=== PATIENT | female | born 1995 | race Caucasian/White ===

== ENCOUNTER 2017-04-21 16:04 | Emergency (ER) | payer SELFPAY ==
[2017-04-21 16:04] VITALS: BP 150/87; PULSE 101; RESP 14; TEMP 37.2; O2SAT 99; BMI 29.0
--- NOTE | 2017-04-21 16:49 | CT_ITS ---
STUDY: CT ABDOMEN AND PELVIS WITHOUT CONTRAST REASON FOR EXAM: Female, 21 years old. Right flank pain. Fever. History of renal stones. RADIATION DOSAGE (If Supplied By Facility): CTDIvol = ( 8.35 ) mGy, DLP = ( 421.36 ) mGycm TECHNIQUE: Transaxial images were obtained from the dome of the diaphragm to the symphysis pubis without oral contrast, and without intravenous contrast. Sagittal and coronal images were reconstructed. Individualized dose optimization techniques were used for this CT. COMPARISON: 01/14/2016. FINDINGS: The visualized lung bases are unremarkable. The visualized portions of the heart are within normal limits. Normal liver. Normal gallbladder and extrahepatic biliary system. Normal spleen. Normal pancreas. Normal bilateral adrenal glands. Normal right kidney. No stones. No hydronephrosis. Left kidney is absent. Evaluation of the GI tract is limited by absence of oral contrast. Cannot exclude stomach wall thickening. No dilated loops of bowel or evidence for obstruction. Cannot exclude segmental thickening of the aguero of the small or large bowel. Cannot exclude enteritis or colitis. Moderate diffuse fecal retention. Diverticulosis without definite diverticulitis. Status post appendectomy. Normal abdominal aorta. Normal inferior vena cava. Normal retroperitoneum. Normal urinary bladder. Absent uterus. Normal abdominal wall. Normal osseous structures. CT/Abdomen/Pelvis without Cont IMPRESSION: No definite acute abnormality. Electronically Signed: Matthias Epps MD at 17:58 EST , Service support ,
--- NOTE | 2017-04-21 16:50 | ED.VISSUMM ---
- ER Visit Summary Date of Service: 04/21/17 Chief Complaint: Right flank pain History of Present Illness: The patient is a 21 F 3 day history increasing right flank pain. No radicular symptoms. Yesterday started having dysuria and fever with temperature of 100. Nausea without vomiting. 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 She has had pyelonephritis 2 years ago requiring admission. Also had kidney stone in the past. Pain is sharp 10 out of 10. Denies any history of acute kidney injury. Physical Examination: General: Alert and oriented ?3, uncomfortable HEENT: Normocephalic, atraumatic. Moist mucosa membranes Neck: supple, nontender. Cardiovascular: Regular rate and rhythm, no murmurs Respiratory: Normal breath sounds, symmetric, no distress Abdomen: Soft, nontender, nondistended. No guarding or rebound Back: Right CVA tenderness, no rash Extremities: Nontender, no edema, pulses intact ?4 Neuro: no focal neurological deficits. Test Results: WBC 5.1. Creatinine is 1.01. Urine with leukocytes, white blood cell count, blood. Urine culture pending. CT abdomen pelvis and no acute process. Emergency Department Course and Treatment: Patient with right flank pain. Renal stone protocol initiated. Urine did note infection, culture pending. Was started on Rocephin. CT scan due to significant flank pain complaints along with history of pyelo-and renal stones. Results are negative. She was treated with morphine, Zofran and fluids. She started Rocephin IV. She will be given 10 days of treatment for a complicated UTI with flank pain. She will follow-up with her PCP for reevaluation. All questions were answered. Treatment Plan: [] Disposition: Discharge Impression: 1. Complicated UTI with hematuria This note was generated with [employer] dictation software. It may contain incorrect words, spelling, and punctuation that were not noted in review of the chart prior to signing ED Disposition - Plan for ED Patient: Disposition: Home or Assisted Living Chief Complaint: Flank Pain Diagnosis: Urinary tract infection Instructions: Urinary Tract Infections in Women Prescriptions: Cephalexin [Keflex] 500 mg PO Q12 #20 capsule Referrals: Jassi Mckeon [Primary Care Provider] - 3-5 Days
[2017-04-21 16:51] LABS: Pregnancy, Serum, hCG Quali. NEGATIVE Negative (0-9 Nonpreg)
[2017-04-21 17:06] LABS: Bacteria 0 SEEN /hpf (None Seen); Mucous, Urine 0 SEEN /hpf (<or=2+)
[2017-04-21] MEDS: Ondansetron 4 MG/2 ML Vial IV (17:06)
[2017-04-21] MEDS: 0.9% Normal Saline 1,000 ML 150 ML IV (17:07)
[2017-04-21 17:09] LABS: Color, Urine Yellow (Yellow); Glucose, Dipstick Normal (Normal); Ketone-Dipstick Negative (Negative); Leukocyte Esterase-Dipstick 500 /ul (Negative); Nitrite-Dipstick Negative (Negative); Occult Blood-Urine 10 /ul (Negative); Protein-Dipstick Negative (Negative); Urine Bilirubin Dipstick Negative (Negative); Urine Clarity Sl. Cloudy (Clear); Urine Urobilinogen Normal (Normal)
[2017-04-21 17:21] LABS: Absolute Lymphocyte Count 0.99 X10^3/ul (0.83-4.51); Absolute Neutrophil Count 3.5 X10^3/uL (2.0-7.7); Basophil# 0.01 X10^3/uL; Basophil% 0.2 % (0-1); Eosinophil# 0.03 X10^3/uL; Eosinophils% 0.6 % (0-5); Hematocrit 44.5 % (37-47); Hemoglobin 14.7 g/dl (12.0-15.0); Lymphocyte # 0.99 X10^3/ul (4.0); Lymphocyte % 19.5 % (19-41); Mean Corpuscular Hgb 29.4 pg (27.0-32.0); Mean Platelet Vol. 9.8 fl (6.2-12.0); Monocyte# 0.51 X10^3/uL; Neutrophil # 3.53 X10^3/uL (2.7-7.7); Neutrophil % 69.5 % (47-70); Platelet Count 187 K/mm3 (150-450); RBC Distribution Width CV 12.8 % (11.6-14.6); RBC Distribution Width SD 40.9 fl (35.1-43.9); White Blood Count 5.1 K/mm3 (4.4-11.0)
[2017-04-21 17:22] LABS: POSITIVE COUNT NO; POSITIVE DIFFERENTIAL NO; POSITIVE MORPHOLOGY NO
[2017-04-21 17:30] LABS: Anion Gap 5 (5-15); BUN 11 mg/dL (7-18); BUN/Creat Ratio 10.9 RATIO (10-20); Calcium,Total 8.9 mg/dL (8.5-10.1); Chloride 104 mmol/L (98-107); Creatinine, Serum 1.01 mg/dL (0.55-1.02); EST Glomerular Filtration Rate 74 mL/min (>60); Est Glom Filt Rate - Afr Amer 89 mL/min (>60); Estimated Creatinine Clearance 76.72 ml/min; Glucose 82 mg/dL (74-106); Sodium Level 137 mmol/L (136-145)
[2017-04-21 17:47] LABS: Red Blood Cells-Urine 0-5 SEEN /hpf (0-5); White Blood Cells 10-25 SEEN /hpf (0-5)
[2017-04-21 17:48] LABS: Amorphous Sediment 1+ URATE; Squamous Epithelial Cells - UA 5-10 SEEN /hpf (5-10)
[2017-04-21 18:07] VITALS: PULSE 89; RESP 14
[2017-04-21] MEDS: Ceftriaxone 1 GM/50 ML BAG IV (18:12)
[2017-04-21 19:10] VITALS: RESP 18
== END 2017-04-21 19:10 | disposition home or self-care (01) ==
PROVIDERS: Emergency Provider Emergency Medicine; Family Provider Physician Assistant; PCP Physician Assistant
DX: N39.0 Urinary tract infection, site not specified (principal); R31.9 Hematuria, unspecified; Z87.442 Personal history of urinary calculi
CPT/HCPCS: 74176; 80048; 81001; 84703; 85025; 87077; 87086; 87088; 96361; 96365; 96375; 99283; J7030; A4216; J2405

== ENCOUNTER 2017-04-23 00:33 | Emergency (ER) | payer SELFPAY ==
[2017-04-23 00:34] VITALS: BP 141/98; PULSE 124; RESP 24; TEMP 37.3; O2SAT 97; BMI 29.0
[2017-04-23] MEDS: Ketorolac 30 MG/ML Syringe IM (01:02)
[2017-04-23] MEDS: Ondansetron ODT 4 MG Tablet 8 MG PO (01:03)
[2017-04-23 01:09] LABS: Absolute Lymphocyte Count 0.75 X10^3/ul (0.83-4.51); Absolute Neutrophil Count 2.3 X10^3/uL (2.0-7.7); Basophil# 0.02 X10^3/uL; Basophil% 0.6 % (0-1); Eosinophil# 0.02 X10^3/uL; Eosinophils% 0.6 % (0-5); Hematocrit 41.9 % (37-47); Hemoglobin 14.3 g/dl (12.0-15.0); Lymphocyte # 0.75 X10^3/ul (4.0); Lymphocyte % 21.6 % (19-41); Mean Corp Hgb Conc 34.1 g/gl (32-36); Mean Corpuscular Hgb 29.5 pg (27.0-32.0); Mean Corpuscular Volume 86.6 fL (81-99); Mean Platelet Vol. 9.6 fl (6.2-12.0); Monocyte% 11.5 % (0-10); Neutrophil # 2.28 X10^3/uL (2.7-7.7); Neutrophil % 65.4 % (47-70); POSITIVE COUNT NO; POSITIVE DIFFERENTIAL NO; POSITIVE MORPHOLOGY NO; Platelet Count 117 K/mm3 (150-450); RBC Distribution Width CV 12.5 % (11.6-14.6); RBC Distribution Width SD 39.1 fl (35.1-43.9); Red Blood Count 4.84 M/mm3 (4.2-5.4); White Blood Count 3.5 K/mm3 (4.4-11.0)
[2017-04-23 01:33] LABS: AST(SGOT) 28 U/L (15-37); Alanine Aminotransfer ALT/SGPT 30 U/L (13-56); Albumin, Serum 3.5 g/dL (3.2-5.0); Alkaline Phosphatase 77 U/L (45-117); Anion Gap 7 (5-15); BUN 12 mg/dL (7-18); BUN/Creat Ratio 11.1 RATIO (10-20); Bilirubin, Direct 0.08 mg/dL (0.00-0.30); Calcium,Total 8.4 mg/dL (8.5-10.1); Chloride 108 mmol/L (98-107); Creatinine, Serum 1.08 mg/dL (0.55-1.02); EST Glomerular Filtration Rate 68 mL/min (>60); Est Glom Filt Rate - Afr Amer 83 mL/min (>60); Estimated Creatinine Clearance 71.75 ml/min; Globulin 3.8 g/dL (2.2-4.2); Glucose 99 mg/dL (74-106); Potassium 3.7 mmol/L (3.5-5.1); Protein, Total 7.3 g/dL (6.4-8.2); Sodium Level 139 mmol/L (136-145)
--- NOTE | 2017-04-23 01:52 | ED.VISSUMM ---
- ER Visit Summary Date of Service: 04/23/17 Chief Complaint: [] Right-sided flank and back pain History of Present Illness: The patient is a 21 F complaining of the above for last 4 days. Sharp dull pain worse with movement associated with 4 days of nausea. She was seen in the emergency department 2 days ago diagnosed with a complicated urinary tract infection. Placed on Keflex. Urine culture was sent. There is no bacteria seen under the micro however. Occasionally she gets some chills. Her temperature she stated has been hovering around 100 for the last few days. Physical Examination: [] Vital signs reviewed General: Well-nourished well-developed Head: Normocephalic atraumatic Eyes: Pupils equal round and reactive to light extraocular movements intact ENT: TMs clear no hemotympanum no trauma Neck: Nontender full range of motion Cardiovascular: Regular rate rhythm no murmurs normal S1-S2 Respiratory: No distress clear to auscultation bilaterally chest nontender Abdomen: Soft nontender nondistended normal bowel sounds no masses Back: Mild tenderness right lower ribs and lower back. No CVA tenderness decreased range of motion secondary to pain in this area Extremities: Nontender active range of motion ?4 extremities no trauma Skin: Normal color no trauma Neuro alert oriented cranial nerves II through XII intact normal strength sensation reflexes Test Results: [] Emergency Department Course and Treatment: [] I reviewed her negative urine culture with her. At this time it does not appear to be an infection. CBC normal except white count 3.5. Chemistries normal except chloride 108. Liver function tests normal. Patient given Toradol and Zofran with good resolution of symptoms. I do not feel this is infectious. Her culture was reviewed per limits negative. She will stop her antibiotic and follow-up as an outpatient. I feel this is musculoskeletal. She had a negative CT abdomen pelvis 2 days ago. She will treat this symptomatically with Tylenol. Afebrile here. Nontoxic. Resting comfortably. Treatment Plan: [] Disposition: [] Impression: [] Right-sided flank and back pain suspect musculoskeletal in ideology This note was generated with [employer] dictation software. It may contain incorrect words, spelling, and punctuation that were not noted in review of the chart prior to signing ED Disposition - Plan for ED Patient: Chief Complaint: Flank Pain Referrals: Jassi Mckeon [Primary Care Provider] -
--- NOTE | 2017-04-23 01:54 | ED.DEP ---
ED Disposition - Plan for ED Patient: Disposition: Home or Assisted Living Chief Complaint: Flank Pain Instructions: Relieving Back Pain Referrals: Jassi Mckeon [Primary Care Provider] -
== END 2017-04-23 02:01 | disposition home or self-care (01) ==
PROVIDERS: Emergency Provider Emergency Medicine; Family Provider Physician Assistant; PCP Physician Assistant
DX: R10.9 Unspecified abdominal pain (principal); M54.9 Dorsalgia, unspecified; Z87.440 Personal history of urinary (tract) infections
CPT/HCPCS: 80048; 80076; 85025; 96372; 99282; J7040; A4216

== ENCOUNTER 2017-05-01 20:41 | Emergency (ER) | payer SELFPAY ==
[2017-05-01 20:42] VITALS: BP 154/97; PULSE 115; RESP 16; TEMP 37.7; O2SAT 96; BMI 29.2
--- NOTE | 2017-05-01 20:59 | EKG12_ITS ---
Test Reason : SOB Blood Pressure : / mmHG Vent. Rate : 105 BPM Atrial Rate : 105 BPM P-R Int : 116 ms QRS Dur : 070 ms QT Int : 316 ms P-R-T Axes : 041 043 009 degrees QTc Int : 417 ms Sinus tachycardia Otherwise normal ECG Confirmed by YANELIS RAMIREZ, CRISTOBAL ([id number]), website/blog editor RACHAEL LIZARRAGA ([id number]) on 05/04/2017 4:08:41 PM Referred By: JUDI Confirmed By:CRISTOBAL HILARIO MD
--- NOTE | 2017-05-01 21:11 | ED.VISSUMM ---
- ER Visit Summary Date of Service: 05/01/17 Chief Complaint: Patient cough and chest discomfort History of Present Illness: The patient is a 21 F 1 week history of nonproductive cough with anterior chest pain. Pain with deep breaths. States has exertional dyspnea. No recent travel, surgeries, or immobilizations. No history of PE or DVT. No tobacco history. Denies being on any oral contraceptives. Past medical history of kidney stones, history of MRKH born with one kidney and no uterus or ovaries. subjective fevers. No urinary symptoms. Physical Examination: General: Alert and oriented ?3, no acute distress HEENT: Normocephalic, atraumatic. Moist mucosa membranes Neck: supple, nontender. Cardiovascular: Regular tachycardic rate and rhythm, no murmurs Respiratory: Normal breath sounds, symmetric, no distress Abdomen: Soft, nontender, nondistended Extremities: Nontender, no edema, pulses intact ?4 Neuro: no focal neurological deficits. Test Results: EKG: Sinus rate of 105, no ST changes. Isolated T-wave inversion in leads III. Chest x-ray negative. White count 5.7. D-dimer 1.03. Emergency Department Course and Treatment: No complaints of URI symptoms with worsening chest pains with cough and deep breath. Low risk Wells criteria for PE due to elevated heart rate. Chest x-ray negative. EKG normal. D-dimer obtained which is elevated. Subsequent CT of the chest negative for PE or dissection. No pneumonia. Due to having one kidney, NSAIDs were avoided. She was given dose of morphine for symptom control. Discussed pleuritic symptoms. Her heart scores a 1. She will continue Tylenol at home as needed. She will follow-up with her PCP for reevaluation. All questions were answered. Treatment Plan: [] Disposition: Discharge Impression: 1. Pleuritic chest pain 2. Upper respiratory infection This note was generated with [employer] dictation software. It may contain incorrect words, spelling, and punctuation that were not noted in review of the chart prior to signing ED Disposition - Plan for ED Patient: Disposition: Home or Assisted Living Chief Complaint: Shortness of Breath Diagnosis: Pleuritic chest pain, Upper respiratory infection Instructions: ED Chest Pain Pleurisy, ED URI Viral Referrals: Jassi Mckeon [Primary Care Provider] - 3-5 Days
[2017-05-01] MEDS: Ondansetron 4 MG/2 ML Vial IV (21:12)
[2017-05-01 21:16] VITALS: O2SAT 95
--- NOTE | 2017-05-01 21:18 | RAD_ITS ---
STUDY: X-RAY CHEST REASON FOR EXAM: Female, 21 years old. Cough and fever TECHNIQUE: PA and lateral views of the chest. COMPARISON: March 11, 2017 FINDINGS: There is no significant interval change since the prior examination. No new focal consolidation is visualized. Normal size heart. Normal mediastinum and carmen. Normal visualized pulmonary arteries. Normal visualized aortic arch and descending thoracic aorta. Normal visualized thoracic spine. Normal visualized ribs, clavicles, and shoulders. There is no demonstrated abnormality of the visualized soft tissue structures of the upper abdomen. RAD/Chest PA and Lateral IMPRESSION: No acute cardiopulmonary process. Electronically Signed: Laine Cook MD at 22:06 EDT Tel , Service support ,
[2017-05-01 21:31] LABS: Absolute Lymphocyte Count 2.19 X10^3/ul (0.83-4.51); Absolute Neutrophil Count 2.8 X10^3/uL (2.0-7.7); Basophil# 0.07 X10^3/uL; Basophil% 1.2 % (0-1); Eosinophil# 0.04 X10^3/uL; Eosinophils% 0.7 % (0-5); Hematocrit 39.9 % (37-47); Hemoglobin 13.2 g/dl (12.0-15.0); Lymphocyte # 2.19 X10^3/ul (4.0); Lymphocyte % 38.2 % (19-41); Mean Corp Hgb Conc 33.1 g/gl (32-36); Mean Corpuscular Hgb 29.1 pg (27.0-32.0); Mean Corpuscular Volume 88.1 fL (81-99); Monocyte# 0.59 X10^3/uL; Monocyte% 10.3 % (0-10); Neutrophil # 2.83 X10^3/uL (2.7-7.7); Neutrophil % 49.4 % (47-70); Platelet Count 144 K/mm3 (150-450); RBC Distribution Width CV 13.4 % (11.6-14.6); RBC Distribution Width SD 42.8 fl (35.1-43.9); Red Blood Count 4.53 M/mm3 (4.2-5.4); White Blood Count 5.7 K/mm3 (4.4-11.0)
[2017-05-01 21:38] LABS: Differential Indicated SCAN CRITERIA MET; POSITIVE COUNT NO; POSITIVE DIFFERENTIAL NO; POSITIVE MORPHOLOGY YES
[2017-05-01 21:39] LABS: Anion Gap 9 (5-15); BUN 10 mg/dL (7-18); BUN/Creat Ratio 8.3 RATIO (10-20); Calcium,Total 7.9 mg/dL (8.5-10.1); Chloride 107 mmol/L (98-107); Creatinine, Serum 1.21 mg/dL (0.55-1.02); D-Dimer Quantitative (DVT/PE) 1.03 FEU/ug/m (0.27-0.49); EST Glomerular Filtration Rate 60 mL/min (>60); Est Glom Filt Rate - Afr Amer 73 mL/min (>60); Estimated Creatinine Clearance 64.04 ml/min; Glucose 111 mg/dL (74-106); Potassium 3.9 mmol/L (3.5-5.1); Sodium Level 139 mmol/L (136-145)
--- NOTE | 2017-05-01 21:43 | NURSING ---
LAB CALLED WITH CRITICAL OF 1.03 DDIMER.
[2017-05-01 21:45] LABS: Differential Comment SCANNED
--- NOTE | 2017-05-01 22:30 | CT_ITS ---
STUDY: CTA CHEST REASON FOR EXAM: Female, 21 years old. Chest pain. RADIATION DOSAGE (If Supplied By Facility): CTDIvol = ( 11. ) mGy, DLP = ( ) mGycm TECHNIQUE: The examination was performed with the intravenous administration of 100ML ml of Isovue 370 contrast material. Post-processing of the angiographic images was performed, with multiplanar reformation and 3D reconstruction. Individualized dose optimization techniques were used for this CT. COMPARISON: CT of the abdomen and pelvis dated April 21, 2017 FINDINGS: Normal enhancement of the main pulmonary artery and right and left pulmonary arteries. Normal enhancement of the bilateral peripheral pulmonary arteries. There is no demonstrated pulmonary embolism. Normal thoracic aorta and visualized great vessels. There is no demonstrated aortic dissection. Normal heart and pericardium. Normal mediastinum. Normal hilar regions. Normal visualized trachea and bronchi. There is a stable 3.3 mm nodule within the left lower lobe. Normal chest wall structures. Normal osseous structures. The limited images of the upper abdomen demonstrate a diffusely low in attenuation liver consistent with fatty infiltration. There is borderline splenomegaly present. CT/CTA Chest W/WO Contrast IMPRESSION: No demonstrated pulmonary embolism or arterial dissection. Fatty infiltration of the liver. Borderline splenomegaly. Electronically Signed: Laine Cook MD at 22:56 EDT Tel , Service support ,
--- NOTE | 2017-05-01 22:52 | NURSING ---
LET THE DOCTOR KNOW THAT THE PT WAS C/O OF MORE SOB AND CHEST PAIN.
[2017-05-01 23:22] VITALS: BP 139/93; PULSE 93; RESP 25; O2SAT 94
[2017-05-02 00:09] VITALS: BP 104/76; PULSE 95; RESP 32; O2SAT 96
[2017-05-02 00:20] VITALS: BP 104/76; PULSE 95; RESP 28; O2SAT 95
--- NOTE | 2017-05-02 00:21 | ED.RN ---
IV DC'ED, CATHETER INTACT, SMALL GAUZE DRESSING PLACED. DISCHARGE INSTRUCTIONS GIVEN TO AND REVIEWED WITH PATIENT, PATIENT DENIES QUESTIONS OR CONCERNS AND VOICES UNDERSTANDING OF DISCHARGE INSTRUCTIONS. PT AMBULATES OUT OF ROOM WITHOUT DIFFICULTY.
== END 2017-05-02 00:23 | disposition home or self-care (01) ==
PROVIDERS: Emergency Provider Emergency Medicine; Family Provider Physician Assistant; PCP Physician Assistant
DX: R07.81 Pleurodynia (principal); J06.9 Acute upper respiratory infection, unspecified; Z87.442 Personal history of urinary calculi
CPT/HCPCS: 71046; 71275; 80048; 85025; 85379; 93005; 96361; 96374; 96375; 99284; J7030; J7040; Q9967; J2405

== ENCOUNTER 2017-05-12 17:54 | Emergency (ER) | payer SELFPAY ==
[2017-05-12 17:55] VITALS: BP 124/87; PULSE 124; RESP 22; TEMP 36.6; O2SAT 96; BMI 29.3
[2017-05-12] MEDS: Ondansetron 4 MG/2 ML Vial IV (18:40)
[2017-05-12] MEDS: 0.9% Normal Saline 1,000 ML 1000 ML IV (18:40)
[2017-05-12] MEDS: Morphine 4 MG/ML Syringe IV (18:40)
[2017-05-12 18:47] LABS: Absolute Lymphocyte Count 4.99 X10^3/ul (0.83-4.51); Absolute Neutrophil Count 1.3 X10^3/uL (2.0-7.7); Basophil# 0.26 X10^3/uL; Basophil% 3.4 % (0-1); Eosinophil# 0.04 X10^3/uL; Eosinophils% 0.5 % (0-5); Hemoglobin 13.1 g/dl (12.0-15.0); Lymphocyte # 4.99 X10^3/ul (4.0); Lymphocyte % 65.1 % (19-41); Mean Corp Hgb Conc 33.6 g/gl (32-36); Mean Corpuscular Hgb 29.8 pg (27.0-32.0); Mean Corpuscular Volume 88.8 fL (81-99); Mean Platelet Vol. 9.3 fl (6.2-12.0); Monocyte# 1.02 X10^3/uL; Monocyte% 13.3 % (0-10); Neutrophil # 1.34 X10^3/uL (2.7-7.7); Neutrophil % 17.4 % (47-70); Platelet Count 218 K/mm3 (150-450); RBC Distribution Width CV 14.3 % (11.6-14.6); RBC Distribution Width SD 45.9 fl (35.1-43.9); Red Blood Count 4.39 M/mm3 (4.2-5.4); White Blood Count 7.7 K/mm3 (4.4-11.0)
[2017-05-12 18:48] LABS: Differential Indicated SCAN CRITERIA MET; POSITIVE COUNT NO; POSITIVE DIFFERENTIAL NO; POSITIVE MORPHOLOGY YES
--- NOTE | 2017-05-12 18:50 | RAD_ITS ---
STUDY: X-RAY CHEST REASON FOR EXAM: Female, 21 years old. Cough and fever TECHNIQUE: Frontal and lateral views of the chest. COMPARISON: May 01, 2017 FINDINGS: The lungs are clear and expanded. There is no demonstrated pleural abnormality. Normal size heart. Normal mediastinum and carmen. Normal visualized pulmonary arteries. Normal visualized aortic arch and descending thoracic aorta. Normal visualized thoracic spine. Normal visualized ribs, clavicles, and shoulders. There is no demonstrated abnormality of the visualized soft tissue structures of the upper abdomen. RAD/Chest PA and Lateral IMPRESSION: Normal x-ray examination of the chest. Electronically Signed: Jethro Lynn MD at 19:51 EDT , Service support ,
[2017-05-12 19:02] LABS: ALB/GLOB Ratio 0.7 RATIO (0.9-2.4); AST(SGOT) 39 U/L (15-37); Alanine Aminotransfer ALT/SGPT 50 U/L (13-56); Albumin, Serum 3.2 g/dL (3.2-5.0); Alkaline Phosphatase 88 U/L (45-117); Anion Gap 9 (5-15); BUN 11 mg/dL (7-18); BUN/Creat Ratio 10.4 RATIO (10-20); Calcium,Total 8.1 mg/dL (8.5-10.1); Chloride 110 mmol/L (98-107); Creatinine, Serum 1.06 mg/dL (0.55-1.02); EST Glomerular Filtration Rate 70 mL/min (>60); Est Glom Filt Rate - Afr Amer 85 mL/min (>60); Estimated Creatinine Clearance 73.11 ml/min; Globulin 4.7 g/dL (2.2-4.2); Glucose 99 mg/dL (74-106); Lipase 140 U/L (73-393); Potassium 3.9 mmol/L (3.5-5.1); Protein, Total 7.9 g/dL (6.4-8.2); Sodium Level 143 mmol/L (136-145)
[2017-05-12 19:08] LABS: Lactic Acid 1.3 mmol/L (0.4-2.0)
[2017-05-12 19:14] LABS: Bacteria 0 SEEN /hpf (None Seen); Mucous, Urine 0 SEEN /hpf (<or=2+); Red Blood Cells-Urine 0 SEEN /hpf (0-5)
[2017-05-12 19:16] LABS: Color, Urine Yellow (Yellow); Glucose, Dipstick Normal (Normal); Ketone-Dipstick Negative (Negative); Leukocyte Esterase-Dipstick 500 /ul (Negative); Nitrite-Dipstick Negative (Negative); Occult Blood-Urine Negative /ul (Negative); Protein-Dipstick Negative (Negative); Specific Gravity, Urine 1.025 (1.002-1.030); Urine Bilirubin Dipstick Negative (Negative); Urine Clarity Sl. Cloudy (Clear); Urine Urobilinogen Normal (Normal)
[2017-05-12 19:22] LABS: Amorphous Sediment 1+ URATE; Squamous Epithelial Cells - UA 0-5 SEEN /hpf (5-10); White Blood Cells 10-25 SEEN /hpf (0-5)
[2017-05-12 20:04] VITALS: RESP 18
[2017-05-12 20:22] VITALS: BP 120/82; PULSE 98; RESP 18; TEMP 37.1; O2SAT 97
--- NOTE | 2017-05-12 20:38 | ED.VISSUMM ---
- ER Visit Summary Date of Service: 05/12/17 Chief Complaint: Cough and fever History of Present Illness: The patient is a 21 F who presents with cough and fever. She does have a history of MR KH syndrome. She has a single kidney. She complains of about 3 weeks of fevers intermittent nausea vomiting diarrhea cough right upper quadrant abdomen and right lower chest pain. She had a fever of 102 last night and a fever of 100.8 today. She has had multiple recent ER visits for these symptoms. She also complains of some right shoulder pain. She complains of a dull right upper quadrant abdominal pain over the past 2-3 days. She has vomited about 4-5 times since last night. She reports decreased oral intake. So has noticed a red bump on her lower eyelid Physical Examination: Initial heart rate 124 respiratory rate 22 vitals otherwise unremarkable and afebrile Moist mucous membranes Heart regular rhythm tachycardia Lungs are clear Abdomen soft nondistended she does have some right upper quadrant tenderness without guarding without rebound Alert Stye noted to left lower eyelid Test Results: CBC BMP unremarkable, creatinine 1.06. Hepatic function notable for AST of 39. Lipase normal. Urinalysis shows 500 leukocyte esterase and 10-25 WBCs. Lactic acid normal. Chest x-ray normal. Emergency Department Course and Treatment: She was treated with IV fluids morphine and Zofran. On reevaluation she is resting comfortably. Repeat vital signs normal with normal heart rate. She is not febrile there is no leukocytosis no lactic acidosis. She does have evidence of UTI. I do not see an indication for hospitalization at this time. She was prescribed Bactrim. She understands to return for new or worsening symptoms. All questions answered bedside. She is comfortable with this plan. Advised on warm compresses for stye. Treatment Plan: [] Disposition: Charge Impression: UTI Abdominal pain Stye This note was generated with [employer] dictation software. It may contain incorrect words, spelling, and punctuation that were not noted in review of the chart prior to signing ED Disposition - Plan for ED Patient: Chief Complaint: General Illness Referrals: Jassi Mckeon PA [Primary Care Provider] -
--- NOTE | 2017-05-12 20:42 | ED.DEP ---
ED Disposition - Plan for ED Patient: Chief Complaint: General Illness Instructions: ED Hordeolum Prescriptions: Smz/Tmp Ds [Bactrim Ds] 1 tab PO BID #14 tab Referrals: Jassi Mckeon PA [Primary Care Provider] -
--- NOTE | 2017-05-12 20:48 | ED.DEP ---
ED Disposition - Plan for ED Patient: Chief Complaint: General Illness Instructions: ED Hordeolum, ED UTI Cystitis Female, ED Abdominal Pain Unkn Cause Prescriptions: Smz/Tmp Ds [Bactrim Ds] 1 tab PO BID #14 tab Referrals: Jassi Mckeon PA [Primary Care Provider] -
[2017-05-12 20:58] VITALS: O2SAT 98
== END 2017-05-12 20:58 | disposition home or self-care (01) ==
LOC: ED 19:19
PROVIDERS: Emergency Provider Emergency Medicine; Family Provider Physician Assistant; PCP Physician Assistant
DX: N39.0 Urinary tract infection, site not specified (principal); R10.9 Unspecified abdominal pain; H00.029 Hordeolum internum unspecified eye, unspecified eyelid; M25.511 Pain in right shoulder
CPT/HCPCS: 71046; 80053; 81001; 83605; 83690; 85025; 96361; 96374; 96375; 99284; J7030; A4216; J2405

== ENCOUNTER 2017-05-28 14:17 | Emergency (ER) | payer SELFPAY ==
[2017-05-28 14:18] VITALS: BP 119/72; PULSE 99; RESP 16; TEMP 36.8; O2SAT 98; BMI 29.1
[2017-05-28] MEDS: HYDROcodone Bitartrate/Apap 5/325 Tablet PO (14:36)
--- NOTE | 2017-05-28 14:45 | RAD_ITS ---
STUDY: X-RAY - RIGHT FOOT CLINICAL: Female, 21 years old. Pain and swelling third toe TECHNIQUE: 3 view(s) of the foot. COMPARISON: None. FINDINGS: Normal talus, calcaneus, and tarsal bones. Normal visualized subtalar, talonavicular, calcaneocuboid, tarsal and tarsometatarsal articulations. Normal metatarsi. Normal metatarsophalangeal joint of the great toe. Normal tibial and fibular sesamoid bones. Normal interphalangeal joint of the great toe. Normal phalanges of the great toe. Normal second through fifth metatarsophalangeal joints. Normal interphalangeal joints and phalanges of the lesser toes. The soft tissue structures are unremarkable. RAD/Foot min 3 Views IMPRESSION: Normal x-ray examination of the foot. Electronically Signed: Jethro Lynn MD at 15:45 EDT , Service support ,
--- NOTE | 2017-05-28 15:15 | ED.VISSUMM ---
- ER Visit Summary Date of Service: 05/28/17 Chief Complaint: [] Right foot pain fell down some stairs History of Present Illness: The patient is a 21 F [] yesterday was walking on some stairs and she inadvertently fell striking her foot against the stairs she has pain to the right foot toes primarily the third toe she has trouble walking, she has history of congenital born with one kidney and no uterus or ovaries she is only on Tylenol no other complaints no the past history Physical Examination: [] Right foot is her only complaint has contusion over the right third toe the skin is intact she is able to fully flex and extend the midfoot is not tender the ankles nontender the calcaneus is not tender skin is intact full range of motion the ankle tib-fib and knee are unremarkable as is the rest of her exam Test Results: [] Emergency Department Course and Treatment: [] [place] shows nothing acute to my review of especially concept of an occult injury given all the above we will start her on [place] given her inability to take nonsteroidals, crutches she was to follow with her doctors return for change in symptoms Treatment Plan: [] Disposition: [] Stable Impression: [] Right foot injury contusion This note was generated with [employer] dictation software. It may contain incorrect words, spelling, and punctuation that were not noted in review of the chart prior to signing ED Disposition - Plan for ED Patient: Chief Complaint: Lower Extremity Injury Referrals: Jassi Mckeon PA [Primary Care Provider] -
--- NOTE | 2017-05-28 15:21 | ED.DCSUM_ITS ---
- ER Visit Summary Date of Service: 05/28/17 Chief Complaint: [] Right foot pain fell down some stairs History of Present Illness: The patient is a 21 F [] yesterday was walking on some stairs and she inadvertently fell striking her foot against the stairs she has pain to the right foot toes primarily the third toe she has trouble walking , she has history of congenital born with one kidney and no uterus or ovaries she is only on Tylenol no other complaints no the past history Physical Examination: [] Right foot is her only complaint has contusion over the right third toe the skin is intact she is able to fully flex and extend the midfoot is not tender the ankles nontender the calcaneus is not tender skin is intact full range of motion the ankle tib-fib and knee are unremarkable as is the rest of her exam Test Results: [] Emergency Department Course and Treatment: [] [place] shows nothing acute to my review of especially concept of an occult injury given all the above we will start her on [place] given her inability to take nonsteroidals, crutches she was to follow with her doctors return for change in symptoms Treatment Plan: [] Disposition: [] Stable Impression: [] Right foot injury contusion This note was generated with [employer] dictation software. It may contain incorrect words, spelling, and punctuation that were not noted in review of the chart prior to signing ED Disposition - Plan for ED Patient: Chief Complaint: Lower Extremity Injury Referrals: Jassi Mckeon PA [Primary Care Provider] -
--- NOTE | 2017-05-28 15:23 | DCINST.ED_ITS ---
ED Disposition - Plan for ED Patient: Chief Complaint: Lower Extremity Injury Instructions: ED Sprain Foot Prescriptions: Hydrocodone Bitart/Apap 5-325 [[place] 5/325] 1 tab PO Q4H PRN PRN #12 tab PRN Reason: Pain Referrals: Jassi Mckeon PA [Primary Care Provider] -
[2017-05-28 16:09] VITALS: BP 115/70; PULSE 92; RESP 14; O2SAT 98
== END 2017-05-28 16:16 | disposition home or self-care (01) ==
LOC: ED 16:15
PROVIDERS: Emergency Provider Emergency Medicine; Family Provider Physician Assistant; PCP Physician Assistant
DX: S90.31XA Contusion of right foot, initial encounter (principal); W10.9XXA Fall (on) (from) unspecified stairs and steps, initial encounter; Y93.01 Activity, walking, marching and hiking; Y92.9 Unspecified place or not applicable; Y99.9 Unspecified external cause status
CPT/HCPCS: 73630; 99284

== ENCOUNTER 2017-07-01 22:07 | Emergency (ER) | payer SELFPAY ==
[2017-07-01 22:08] VITALS: BP 125/59; PULSE 92; RESP 18; TEMP 37.1; O2SAT 96; BMI 28.8
[2017-07-01 22:20] LABS: Bacteria 0 SEEN /hpf (None Seen); Mucous, Urine 0 SEEN /hpf (<or=2+); Red Blood Cells-Urine 0 SEEN /hpf (0-5)
[2017-07-01 22:36] LABS: Color, Urine Yellow (Yellow); Glucose, Dipstick Normal (Normal); Ketone-Dipstick Negative (Negative); Leukocyte Esterase-Dipstick 100 /ul (Negative); Nitrite-Dipstick Negative (Negative); Occult Blood-Urine Negative /ul (Negative); Protein-Dipstick Negative (Negative); Urine Bilirubin Dipstick Negative (Negative); Urine Clarity Sl. Cloudy (Clear); Urine Urobilinogen Normal (Normal)
[2017-07-01 22:44] LABS: Amorphous Sediment 1+; Squamous Epithelial Cells - UA 0-5 SEEN /hpf (5-10); White Blood Cells 0-5 SEEN /hpf (0-5)
[2017-07-01] MEDS: Ketorolac 30 MG/ML Syringe IV (23:41)
[2017-07-01] MEDS: Ondansetron 4 MG/2 ML Vial IV (23:41)
[2017-07-01] MEDS: 0.9% Normal Saline 1,000 ML 1000 ML IV (23:42)
--- NOTE | 2017-07-01 23:50 | ED.VISSUMM ---
- ER Visit Summary Date of Service: 07/01/17 Chief Complaint: Acute on chronic abdominal pain. 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 Patient's had prior appendectomy. She is complaining of right upper quadrant abdominal pain that is been going on intermittently for 1 year. Intermittent nausea vomiting. No fever. No diarrhea. No constipation. No dysuria. No melena. She has had this worked up she has had 2-3 CAT scans in the last 2 years which were negative. And a right upper quadrant ultrasound which was negative. Physical Examination: Well-appearing young female. Vital signs are stable afebrile. HEENT exam unremarkable. Moist wheeze membranes. Neck nontender no lymphadenopathy. Heart regular rate and rhythm no murmur. Lungs clear to auscultation. Abdomen soft. Nondistended. Normal bowel sounds. No peritoneal signs. She is tender in the right upper quadrant. There is no organomegaly or masses. No signs of trauma. Right lower quadrant left upper left lower quadrants are unremarkable. She is moving all 4 extremities. Neurovascular intact. Neurologically she is awake and alert without focal deficits. Test Results: Urinalysis normal. BC normal. BMP normal. Liver enzymes normal. Lipase normal. Patient has had several CAT scans of her abdomen and pelvis in the past and a right upper quadrant ultrasound all of which have been negative. I do not feel she needs any imaging tonight. Emergency Department Course and Treatment: Patient with acute on chronic abdominal pain that she has had prior workups that were negative and has had both ultrasound and CAT scan imaging which have both been negative. On repeat abdominal exam at 00 32 she is doing well and will be discharged home. Treatment Plan: She will be discharged on the follow-up with her primary care physician. Disposition: discharge Impression: Acute on chronic abdominal pain of uncertain etiology This note was generated with [employer] dictation software. It may contain incorrect words, spelling, and punctuation that were not noted in review of the chart prior to signing ED Disposition - Plan for ED Patient: Disposition: Home or Assisted Living Chief Complaint: Abd Pain Instructions: ED Abdominal Pain Unkn Cause Referrals: Jassi Mckeon PA [Primary Care Provider] - As soon as possible Additional Instructions: Call and follow-up with your doctor
--- NOTE | 2017-07-01 23:53 | ED.DEP ---
ED Disposition - Plan for ED Patient: Disposition: Home or Assisted Living Chief Complaint: Abd Pain Instructions: ED Abdominal Pain Unkn Cause Referrals: Jassi Mckeon PA [Primary Care Provider] - As soon as possible Additional Instructions: Call and follow-up with your doctor
[2017-07-02] LABS: AST(SGOT) 28 U/L (15-37); Alanine Aminotransfer ALT/SGPT 27 U/L (13-56); Albumin, Serum 3.9 g/dL (3.2-5.0); Alkaline Phosphatase 70 U/L (45-117); Anion Gap 6 (5-15); BUN 16 mg/dL (7-18); BUN/Creat Ratio 15.2 RATIO (10-20); Bilirubin, Direct 0.07 mg/dL (0.00-0.30); Calcium,Total 9.2 mg/dL (8.5-10.1); Chloride 109 mmol/L (98-107); Creatinine, Serum 1.05 mg/dL (0.55-1.02); EST Glomerular Filtration Rate 71 mL/min (>60); Est Glom Filt Rate - Afr Amer 85 mL/min (>60); Glucose 79 mg/dL (74-106); Lipase 78 U/L (73-393); Potassium 4.1 mmol/L (3.5-5.1); Protein, Total 7.9 g/dL (6.4-8.2); Sodium Level 139 mmol/L (136-145)
[2017-07-02 00:17] LABS: White Blood Count 7.8 K/mm3 (4.4-11.0)
[2017-07-02 00:18] LABS: Absolute Neutrophil Count 3.7 X10^3/uL (2.0-7.7); Basophil% 0.5 % (0-1); Differential Indicated SCAN CRITERIA MET; Hematocrit 40.8 % (37-47); Hemoglobin 14.2 g/dl (12.0-15.0); Lymphocyte % 40.5 % (19-41); Mean Corp Hgb Conc 34.8 g/gl (32-36); Mean Corpuscular Hgb 29.9 pg (27.0-32.0); Mean Corpuscular Volume 85.9 fL (81-99); Mean Platelet Vol. 9.6 fl (6.2-12.0); Monocyte% 10.6 % (0-10); Neutrophil # 3.68 X10^3/uL (2.7-7.7); Neutrophil % 47.1 % (47-70); POSITIVE COUNT NO; POSITIVE DIFFERENTIAL NO; POSITIVE MORPHOLOGY YES; Platelet Count 198 K/mm3 (150-450); Red Blood Count 4.75 M/mm3 (4.2-5.4)
[2017-07-02 00:19] LABS: Absolute Lymphocyte Count 3.17 X10^3/ul (0.83-4.51); Basophil# 0.04 X10^3/uL; Eosinophil# 0.08 X10^3/uL; Lymphocyte # 3.17 X10^3/ul (4.0); Monocyte# 0.83 X10^3/uL
[2017-07-02 00:25] VITALS: RESP 18
[2017-07-02 00:54] VITALS: BP 116/91
== END 2017-07-02 00:55 | disposition home or self-care (01) ==
PROVIDERS: Emergency Provider Emergency Medicine; Family Provider Physician Assistant; PCP Physician Assistant
DX: G89.29 Other chronic pain (principal); R10.9 Unspecified abdominal pain; R11.2 Nausea with vomiting, unspecified
CPT/HCPCS: 80048; 80076; 81001; 83690; 85025; 96361; 96374; 96375; 99283; J7030; A4216; J2405

== ENCOUNTER 2017-08-16 20:11 | Emergency (ER) | payer SELFPAY ==
[2017-08-16 20:13] VITALS: BP 141/80; PULSE 87; RESP 18; TEMP 36.6; O2SAT 98; BMI 29.7
--- NOTE | 2017-08-16 20:15 | ED.RN ---
PT FOUND ON FLOOR IN WAITING ROOM PT REPORTS FALLING. PT ACTS THOUGH UNRESPONSIVE BUT COVERING BOTH HER EYES WITH HER HANDS. SOON THEN WERE PULLED AWAY PT GASPED FOR AIR AND WOULD RESPOND.
--- NOTE | 2017-08-16 21:11 | ED.RN ---
pt left without speaking to triage nurse, pt came back approx 15 minutes later yelling and screaming that she passed out of the floor of the waiting room and no one helped her. Pt then stated that the triage nurse at that time came out to assess her and took her into the triage room. Pt still yelling saying its ridiculous that she has not been taken care of or taken to a room. Pt's grandmother then comes in and is very upset stating we are not taking care of the patient and that everytime she comes here they have really bad experiences. Pt ripped her ID bracelet off and threw it on the table. This nurse repeatedly apologized for the experience, asked nicely for them to not yell. They then began to argue with eachother about staying. Grandmother telling pt she needs to stay and be seen, pt arguing that she refuses to stay and wants to be driven to [place]. They then make the decision to leave.
== END 2017-08-16 22:35 | disposition left against medical advice (07) ==
LOC: ED 22:31
PROVIDERS: Emergency Provider Emergency Medicine; Family Provider Physician Assistant; PCP Physician Assistant
DX: R06.02 Shortness of breath (principal)

== ENCOUNTER 2017-09-17 21:06 | Emergency (ER) | payer SELFPAY ==
[2017-09-17 21:08] VITALS: BP 162/87; PULSE 105; RESP 19; TEMP 37.2; O2SAT 95; BMI 29.1
--- NOTE | 2017-09-17 21:45 | ED.VISSUMM ---
- ER Visit Summary Date of Service: 09/17/17 Chief Complaint: Sore throat History of Present Illness: The patient is a 21 F who states that 3 days ago she went to the [facility] urgent care and was diagnosed with strep throat vi swab as well as symptomology and was started on amoxicillin 400 mg twice a day. States she was doing okay but today she got worse. She notes painful swallowing feels that her throat is more swollen. Physical Examination: Afebrile vital signs are stable Gen: Well-nourished well-developed Head: Normocephalic atraumatic Eyes: Perrl EOMI ENT: TMs clear no rhinorrhea moist mucous membranes patient is not drooling. She is laying back in the bed. She provides excellent visualization of the posterior pharynx. There is no evidence of retropharyngeal or peritonsillar abscess. Floor the mouth is soft. There is mild tonsillar swelling without exudate. There is pharyngeal erythema. Neck: Supple there is anterior lymphadenopathy that is tender no JVD nontender CVS: Regular rate rhythm no murmurs normal S1-S2 Respiratory: No distress clear to auscultation bilaterally chest nontender Abdomen: Soft nontender nondistended normal bowel sounds no masses Back: Nontender Extremity: Nontender no edema Skin: Normal color no rash Neuro: alert orientated ?3 CN II-XII intact normal strength sensation reflexes gait cerebellar Psych: Normal affect normal mood Emergency Department Course and Treatment: I am going to change the patient to Augmentin and give her a dose of oral Decadron. Tylenol ibuprofen at home. Fluid hydration. Follow-up with primary care. Impression: 1. Pharyngitis This note was generated with [employer] dictation software. It may contain incorrect words, spelling, and punctuation that were not noted in review of the chart prior to signing ED Disposition - Plan for ED Patient: Disposition: Home or Assisted Living Chief Complaint: Sore Throat Instructions: ED Strep Pharyngitis Conf Prescriptions: Amox/Clav 400mg/5ml Suspension [Augmentin Suspension 400mg/5ml] 11 ml PO Q12H 10 Days bottle Referrals: Micha Dumont MD [Primary Care Provider] - 3-5 Days if not improving Additional Instructions: Tylenol and ibuprofen for pain and fever The Decadron you received will not take effect until at least the morning hours when it should help with the inflammation and swelling.
[2017-09-17] MEDS: Amox/Clav 400mg/5ml Susp 850 MG PO (21:57)
[2017-09-17 22:02] VITALS: BP 146/87; PULSE 92; RESP 20; O2SAT 97
== END 2017-09-17 22:03 | disposition home or self-care (01) ==
PROVIDERS: Emergency Provider Emergency Medicine; Family Provider Family Medicine; PCP Family Medicine
DX: J02.9 Acute pharyngitis, unspecified (principal); F32.9 Major depressive disorder, single episode, unspecified
CPT/HCPCS: 99283

== ENCOUNTER 2017-11-18 18:30 | Emergency (ER) | payer SELFPAY ==
[2017-11-18 18:31] VITALS: BP 131/73; PULSE 91; RESP 18; TEMP 36.4; O2SAT 99; BMI 27.8
--- NOTE | 2017-11-18 18:41 | US_ITS ---
STUDY: ABDOMINAL ULTRASOUND - RIGHT UPPER QUADRANT REASON FOR VISIT: Female, 22 years old. Abdominal right flank pain. TECHNIQUE: Ultrasound evaluation of the right upper quadrant was performed with real-time and static waterman-scale imaging. TECHNICAL QUALITY: Adequate. COMPARISON: CT abdomen and pelvis April 21, 2017; right upper quadrant ultrasound January 11, 2016. FINDINGS: Liver: The liver measures 13.6 cm. There is normal echogenicity of the liver. The bile ducts are within normal limits. There is hepatic color flow. The direction of portal flow is hepatopetal. There is no demonstrated mass lesion. Gallbladder: Normal distended gallbladder. The gallbladder wall measures 2 mm. There is a negative sonographic Mooney's sign. There is no pericholecystic fluid. There are no gallstones. Common Bile Duct (C.B.D.): The common bile duct measures 4 mm. Pancreas: Normal size of the head, body and tail of the pancreas. There is normal echogenicity of the pancreas. There is no demonstrated pancreatic mass or cyst. Right Kidney: There is hypertrophy of the right kidney. The left flank was scanned, and the left kidney is not identified in this patient reportedly born with only the right kidney. The right kidney measures 13.7 x 5.2 x 4.8 cm. Normal renal cortex. The right cortex measures 2.0 cm. There is no demonstrated renal mass or cyst. There is no right hydronephrosis. US/Gallbladder IMPRESSION: Mild hypertrophy of the right kidney again noted, otherwise normal right upper quadrant ultrasound examination. Electronically Signed: Manohar Christianson MD at 19:35 EDT , Service support ,
[2017-11-18] MEDS: Morphine 4 MG/ML Syringe IV ×2 (18:52→19:36)
[2017-11-18] MEDS: 0.9% Normal Saline 1,000 ML 1000 ML IV (18:52)
[2017-11-18] MEDS: Ondansetron 4 MG/2 ML Vial IV (18:52)
[2017-11-18 18:55] LABS: Absolute Lymphocyte Count 2.68 X10^3/ul (0.83-4.51); Absolute Neutrophil Count 5.5 X10^3/uL (2.0-7.7); Basophil# 0.01 X10^3/uL; Basophil% 0.1 % (0-1); Eosinophil# 0.15 X10^3/uL; Eosinophils% 1.6 % (0-5); Hematocrit 42.1 % (37-47); Hemoglobin 13.9 g/dl (12.0-15.0); Lymphocyte # 2.68 X10^3/ul (4.0); Lymphocyte % 29.1 % (19-41); Mean Corpuscular Hgb 29.1 pg (27.0-32.0); Mean Corpuscular Volume 88.3 fL (81-99); Mean Platelet Vol. 9.2 fl (6.2-12.0); Monocyte# 0.92 X10^3/uL; Neutrophil # 5.45 X10^3/uL (2.7-7.7); Neutrophil % 59.1 % (47-70); Platelet Count 187 K/mm3 (150-450); RBC Distribution Width CV 12.5 % (11.6-14.6); RBC Distribution Width SD 40.5 fl (35.1-43.9); Red Blood Count 4.77 M/mm3 (4.2-5.4); White Blood Count 9.2 K/mm3 (4.4-11.0)
[2017-11-18 18:56] LABS: POSITIVE COUNT NO; POSITIVE DIFFERENTIAL NO; POSITIVE MORPHOLOGY NO
[2017-11-18 19:11] LABS: ALB/GLOB Ratio 1.1 RATIO (0.9-2.4); AST(SGOT) 15 U/L (15-37); Alanine Aminotransfer ALT/SGPT 23 U/L (13-56); Albumin, Serum 4.1 g/dL (3.2-5.0); Alkaline Phosphatase 69 U/L (45-117); Anion Gap 6 (5-15); BUN 15 mg/dL (7-18); Calcium,Total 8.9 mg/dL (8.5-10.1); Chloride 111 mmol/L (98-107); Creatinine, Serum 1.15 mg/dL (0.55-1.02); EST Glomerular Filtration Rate 63 mL/min (>60); Est Glom Filt Rate - Afr Amer 77 mL/min (>60); Estimated Creatinine Clearance 66.82 ml/min; Globulin 3.8 g/dL (2.2-4.2); Glucose 87 mg/dL (74-106); Lipase 95 U/L (73-393); Protein, Total 7.9 g/dL (6.4-8.2); Sodium Level 140 mmol/L (136-145)
[2017-11-18 19:38] LABS: Mucous, Urine 0 SEEN /hpf (<or=2+); Red Blood Cells-Urine 0 SEEN /hpf (0-5)
[2017-11-18 19:48] LABS: Color, Urine Yellow (Yellow); Glucose, Dipstick Normal (Normal); Ketone-Dipstick Negative (Negative); Leukocyte Esterase-Dipstick 500 /ul (Negative); Nitrite-Dipstick Negative (Negative); Occult Blood-Urine Negative /ul (Negative); Protein-Dipstick Negative (Negative); Urine Bilirubin Dipstick Negative (Negative); Urine Clarity Clear (Clear); Urine Urobilinogen Normal (Normal)
[2017-11-18 19:59] LABS: Bacteria RARE /hpf (None Seen); Squamous Epithelial Cells - UA 0-5 SEEN /hpf (5-10); White Blood Cells 10-25 SEEN /hpf (0-5)
--- NOTE | 2017-11-18 21:14 | ED.DCSUM_ITS ---
- ER Visit Summary Date of Service: 11/18/17 Chief Complaint: Abdominal pain History of Present Illness: The patient is a 22 F presenting for evaluation secondary to abdominal pain. Patient reports that about 4:00 this morning she had a relatively sudden onset of right upper quadrant abdominal pain associated with nausea and vomiting. She reports that it is a sharp continuous pain worse with palpation. She reports that she has had at least 6 episodes of nonbloody nonbilious emesis. She denies any diarrhea. She denies any urinary symptoms. Patient states that she took Tylenol did not seem to alleviate her symptoms. 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 Review of systems otherwise negative. Physical Examination: Vital signs within normal limits. Well-nourished female no acute distress. Moist mucous membranes somewhat erythematous oropharynx secondary to vomiting. Heart regular rate and rhythm, lungs clear. Abdomen tender in the right upper quadrant with a positive Mooney sign. No evidence of diffuse rigidity. Remainder the physical otherwise unremarkable. Test Results: Right upper quadrant ultrasound as well as renal ultrasound showed only evidence of hypertrophy of the kidney, but no evidence of other acute pathology. CBC chemistry liver and lipase are unremarkable, urinalysis shows evidence of leukocytes but no significant evidence of blood Emergency Department Course and Treatment: Patient presented for evaluation secondary to abdominal pain. Workup is noted as above. Patient ended up not having any evidence of cholecystitis or kidney stone but does have evidence of a urinary tract infection. She had improvement with treatment with morphine and Zofran, she was given a dose of Rocephin in the emergency department as well as Toradol. Patient will be discharged with a course of Bactrim and Pyridium. She will follow-up with primary care. Disposition: Discharge Impression: 1. Pyelonephritis This note was generated with [employer] dictation software. It may contain incorrect words, spelling, and punctuation that were not noted in review of the chart prior to signing ED Disposition - Plan for ED Patient: Disposition: Home or Assisted Living Chief Complaint: Nausea/Vomiting Diagnosis: Pyelonephritis Instructions: ED Kidney Infec Female Prescriptions: Smz/Tmp Ds [Bactrim Ds] 1 tab PO BID #14 tab Phenazopyridine HCl [Pyridium] 200 mg PO TID #10 tab Referrals: Micha Dumont MD [Primary Care Provider] - 3-5 Days
[2017-11-18] MEDS: Ketorolac 15 MG/ML Vial IV (21:21)
[2017-11-18 21:23] VITALS: BP 112/87; PULSE 64; RESP 16; O2SAT 99
[2017-11-18] MEDS: Ceftriaxone 1 GM/50 ML BAG IV (21:30)
[2017-11-18 22:04] VITALS: BP 114/79; PULSE 61; RESP 16
== END 2017-11-18 22:06 | disposition home or self-care (01) ==
PROVIDERS: Emergency Provider Emergency Medicine; Family Provider Family Medicine; PCP Family Medicine
DX: N12 Tubulo-interstitial nephritis, not specified as acute or chronic (principal); Z87.442 Personal history of urinary calculi
CPT/HCPCS: 76705; 80053; 81001; 83690; 85025; 96361; 96365; 96375; 96376; 99283; J7030; A4216; J2405

== ENCOUNTER 2017-11-19 18:12 | Emergency (ER) | payer SELFPAY ==
[2017-11-19 18:14] VITALS: BP 152/86; PULSE 84; RESP 18; TEMP 37.4; O2SAT 97; BMI 30.3
--- NOTE | 2017-11-19 18:34 | CT_ITS ---
STUDY: CT ABDOMEN AND PELVIS WITHOUT CONTRAST REASON FOR EXAM: Female, 22 years old. 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 Sagittal and coronal images were reconstructed. Individualized dose optimization techniques were used for this CT. COMPARISON: None. FINDINGS: The visualized lung bases are unremarkable. The visualized portions of the heart are within normal limits. Normal liver. Normal gallbladder and extrahepatic biliary system. Normal spleen. Normal pancreas. Normal bilateral adrenal glands. Normal right kidney. Absent left kidney. Normal visualized stomach. Normal small intestine. Normal colon. There is non-visualization of the appendix. Normal abdominal aorta. Normal inferior vena cava. Normal retroperitoneum. Normal urinary bladder. There is absence of the uterus consistent with a prior hysterectomy. Normal abdominal wall. Normal osseous structures. CT/Abdomen/Pelvis without Cont IMPRESSION: Normal unenhanced CT of the abdomen and pelvis. There are no renal stones. There is no hydronephrosis. Absent left kidney. Electronically Signed: Maninder Cuellar MD at 20:02 EDT , Service support ,
[2017-11-19 18:49] LABS: Absolute Lymphocyte Count 2.63 X10^3/ul (0.83-4.51); Absolute Neutrophil Count 8.8 X10^3/uL (2.0-7.7); Basophil# 0.01 X10^3/uL; Basophil% 0.1 % (0-1); Eosinophils% 0.8 % (0-5); Hematocrit 39.8 % (37-47); Hemoglobin 13.5 g/dl (12.0-15.0); Lymphocyte # 2.63 X10^3/ul (4.0); Lymphocyte % 21.4 % (19-41); Mean Corp Hgb Conc 33.9 g/gl (32-36); Mean Corpuscular Hgb 30.1 pg (27.0-32.0); Mean Corpuscular Volume 88.8 fL (81-99); Mean Platelet Vol. 9.3 fl (6.2-12.0); Monocyte# 0.75 X10^3/uL; Monocyte% 6.1 % (0-10); Neutrophil % 71.4 % (47-70); Platelet Count 171 K/mm3 (150-450); RBC Distribution Width CV 12.4 % (11.6-14.6); Red Blood Count 4.48 M/mm3 (4.2-5.4); White Blood Count 12.3 K/mm3 (4.4-11.0)
[2017-11-19 18:50] LABS: POSITIVE COUNT NO; POSITIVE DIFFERENTIAL NO; POSITIVE MORPHOLOGY NO
[2017-11-19] MEDS: Morphine 4 MG/ML Syringe IV (18:50)
[2017-11-19] MEDS: 0.9% Normal Saline 1,000 ML 150 ML IV (18:50)
[2017-11-19] MEDS: Ondansetron 4 MG/2 ML Vial IV (18:50)
[2017-11-19 19:03] LABS: Anion Gap 7 (5-15); BUN 15 mg/dL (7-18); BUN/Creat Ratio 13.2 RATIO (10-20); Calcium,Total 8.7 mg/dL (8.5-10.1); Chloride 110 mmol/L (98-107); Creatinine, Serum 1.14 mg/dL (0.55-1.02); EST Glomerular Filtration Rate 64 mL/min (>60); Est Glom Filt Rate - Afr Amer 77 mL/min (>60); Estimated Creatinine Clearance 67.41 ml/min; Glucose 80 mg/dL (74-106); Potassium 3.8 mmol/L (3.5-5.1); Sodium Level 141 mmol/L (136-145)
[2017-11-19 19:51] VITALS: BP 122/84; PULSE 75; RESP 14; O2SAT 98
[2017-11-19] MEDS: HYDROmorphone 0.5 MG/0.5 ML SYRINGE IV (19:52)
--- NOTE | 2017-11-19 20:38 | ED.VISSUMM ---
- ER Visit Summary Date of Service: 11/19/17 Chief Complaint: Right flank pain History of Present Illness: The patient is a 22 F who presents with continued right flank pain. Pain started yesterday morning. She was seen in the ER yesterday. She had a gallbladder ultrasound and a renal ultrasound was unremarkable. She was diagnosed with pyelonephritis and started on Bactrim and Pyridium. Patient presents back today with continued pain. She also has nausea secondary to pain. Patient has a single right kidney. 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 Physical Examination: Blood pressure is 152/86, temperature 99.3, heart rate 84, respiratory rate 18, pulse ox 97% on room air. Head and neck examination is unremarkable. Heart is regular rate and rhythm. Lung sounds are clear. Abdomen is soft with mild right-sided abdominal tenderness. There is no guarding or rebound. Active bowel sounds noted throughout. Back examination does reveal right CVA tenderness. Test Results: CBC was a white count 12.3 with 71% neutrophils. Chemistry studies reveal creatinine 1.14 which is consistent with her baseline. CT of the flank shows no renal stones and no hydronephrosis. Absent left kidney is noted. Emergency Department Course and Treatment: Patient was given morphine, Zofran, and IV fluids. When she returned from CT she was given 0.5 mg of Dilaudid for continued pain. Test results were discussed with her. Her renal function is at baseline. She is to continue her antibiotics. She will be given [place] and Zofran at home for pain. Treatment Plan: [] Disposition: Discharge Impression: Right flank pain secondary to pyelonephritis This note was generated with [employer] dictation software. It may contain incorrect words, spelling, and punctuation that were not noted in review of the chart prior to signing ED Disposition - Plan for ED Patient: Disposition: Home or Assisted Living Chief Complaint: Flank Pain Instructions: ED Flank Pain Uncertain Cause, ED UTI Cystitis Female Prescriptions: Ondansetron [Zofran Odt] 4 mg PO Q8H PRN PRN #10 tablet PRN Reason: Nausea Hydrocodone/Acetaminophen [[place] 5-325 Tablet] 1 - 2 each PO 4X/DAY PRN PRN 3 Days #12 tablet PRN Reason: Pain Referrals: Micha Dumont MD [Primary Care Provider] - 5-7 Days
[2017-11-19] MEDS: HYDROcodone Bitartrate/Apap 5/325 Tablet PO (20:58)
[2017-11-19] MEDS: Ondansetron ODT 4 MG Tablet PO (21:00)
[2017-11-19 21:04] VITALS: BP 117/84; PULSE 84; RESP 15; O2SAT 98
--- NOTE | 2017-11-19 21:04 | ED.RN ---
PT GIVEN WRITTEN AND VERBAL DISCHARGE INSTRUCTIONS, HOME GOING PRESCRIPTIONS AND HOME PACK MEDICATIONS. PT EDUCATED ON THE HOME PACK AND PRESCRIPTIONS. PT EDUCATED ALSO NOT TO DRIVE WHEN TAKING PAIN MEDICATION, AND FOR THE NEXT 4-6 HOURS AFTER HAVING MEDICATION IN ED. PT VERBALIZES UNDERSTANDING. PT REPORTS HER GRANDMOTHER IS COMING TO PICK HER UP BECAUSE HER CAR IS IN THE SHOP. PT IV D/C AND COVERED WITH 2X2 GAUZE DRESSING AND PAPER TAPE. PT DRESSES SELF AND AMBULATES OUT OF DEPT BY SELF.
== END 2017-11-19 21:06 | disposition home or self-care (01) ==
PROVIDERS: Emergency Provider Emergency Medicine; Family Provider Family Medicine; PCP Family Medicine
DX: N12 Tubulo-interstitial nephritis, not specified as acute or chronic (principal); Z87.442 Personal history of urinary calculi; Z90.5 Acquired absence of kidney
CPT/HCPCS: 74176; 80048; 85025; 96361; 96374; 96375; 99283; J7030; A4216; J2405

== ENCOUNTER 2017-12-16 21:45 | Emergency (ER) | payer SELFPAY ==
[2017-12-16 21:46] VITALS: BP 142/92; PULSE 107; RESP 20; TEMP 36.6; O2SAT 98; BMI 30.2
[2017-12-16] MEDS: Morphine 4 MG/ML Syringe IV (22:28)
[2017-12-16] MEDS: Ondansetron 4 MG/2 ML Vial IV (22:28)
[2017-12-16] MEDS: 0.9% Normal Saline 1,000 ML 1000 ML IV (22:28)
[2017-12-16] MEDS: 0.9% Normal Saline 1,000 ML 150 ML IV (22:28)
[2017-12-16 22:43] LABS: Absolute Lymphocyte Count 2.37 X10^3/ul (0.83-4.51); Absolute Neutrophil Count 5.4 X10^3/uL (2.0-7.7); Basophil# 0.01 X10^3/uL; Basophil% 0.1 % (0-1); Eosinophil# 0.07 X10^3/uL; Eosinophils% 0.8 % (0-5); Hematocrit 40.1 % (37-47); Hemoglobin 13.1 g/dl (12.0-15.0); Lymphocyte # 2.37 X10^3/ul (4.0); Mean Corp Hgb Conc 32.7 g/gl (32-36); Mean Corpuscular Hgb 29.3 pg (27.0-32.0); Mean Corpuscular Volume 89.7 fL (81-99); Mean Platelet Vol. 9.6 fl (6.2-12.0); Monocyte# 0.63 X10^3/uL; Monocyte% 7.4 % (0-10); Neutrophil # 5.37 X10^3/uL (2.7-7.7); Neutrophil % 63.6 % (47-70); Platelet Count 176 K/mm3 (150-450); RBC Distribution Width CV 12.2 % (11.6-14.6); RBC Distribution Width SD 39.4 fl (35.1-43.9); Red Blood Count 4.47 M/mm3 (4.2-5.4); White Blood Count 8.5 K/mm3 (4.4-11.0)
[2017-12-16 22:46] LABS: POSITIVE COUNT NO; POSITIVE DIFFERENTIAL NO; POSITIVE MORPHOLOGY NO
[2017-12-16 22:57] LABS: Anion Gap 7 (5-15); BUN 14 mg/dL (7-18); BUN/Creat Ratio 16.1 RATIO (10-20); Calcium,Total 8.5 mg/dL (8.5-10.1); Chloride 108 mmol/L (98-107); Creatinine, Serum 0.87 mg/dL (0.55-1.02); EST Glomerular Filtration Rate 87 mL/min (>60); Est Glom Filt Rate - Afr Amer 106 mL/min (>60); Estimated Creatinine Clearance 88.33 ml/min; Glucose 87 mg/dL (74-106); Potassium 3.5 mmol/L (3.5-5.1); Sodium Level 140 mmol/L (136-145)
--- NOTE | 2017-12-16 23:00 | ED.VISSUMM ---
- ER Visit Summary Date of Service: 12/16/17 Chief Complaint: Right flank pain, hematuria History of Present Illness: The patient is a 22 F with a four-day history of right flank pain and hematuria. Patient was treated for right sided pyelonephritis a month ago. She developed recurrent symptoms 4 days ago. She does report symptoms of fever but did not measure her fever at home. 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 She does have a history of kidney stones, but CT scan of the flank a month ago did not reveal any evidence of renal stones. Physical Examination: Vital signs unremarkable. Patient sitting upright in bed no acute distress. She is nontoxic appearing. Head neck examination normal. Heart is regular rate and rhythm. Lung sounds clear. Abdomen is soft with mild tenderness in the right upper quadrant. No guarding or rebound. Back examination reveals moderate right CVA tenderness. No rash or lesions are noted. Test Results: CBC is normal. Chemistry studies normal. Urinalysis shows 500 leukocyte esterase on macroscopic examination and 5-10 white cells on microscopic exam. Urine culture has been sent. Emergency Department Course and Treatment: Patient was given morphine and Zofran here along with IV fluids. Renal function is actually improved over her baseline. She will be treated with 3 days of Bactrim as she does have symptoms and only single kidney. Urine culture will be back at that time. Treatment Plan: [] Disposition: Discharge Impression: Flank pain This note was generated with [email or web address] dictation software. It may contain incorrect words, spelling, and punctuation that were not noted in review of the chart prior to signing ED Disposition - Plan for ED Patient: Disposition: Home or Assisted Living Chief Complaint: Flank Pain Instructions: ED Flank Pain Uncertain Cause Prescriptions: Smz/Tmp Ds [Bactrim Ds] 1 tablet PO BID #6 tablet Referrals: Micha Dumont MD [Primary Care Provider] - 3-5 Days if not improving
[2017-12-16 23:29] LABS: Bacteria 0 SEEN /hpf (None Seen); Mucous, Urine 0 SEEN /hpf (<or=2+); Red Blood Cells-Urine 0 SEEN /hpf (0-5); Squamous Epithelial Cells - UA 0 SEEN /hpf (5-10)
[2017-12-16 23:33] LABS: Color, Urine Yellow (Yellow); Glucose, Dipstick Normal (Normal); Ketone-Dipstick Negative (Negative); Leukocyte Esterase-Dipstick 500 /ul (Negative); Nitrite-Dipstick Negative (Negative); Occult Blood-Urine Negative /ul (Negative); Protein-Dipstick Negative (Negative); Urine Bilirubin Dipstick Negative (Negative); Urine Clarity Clear (Clear); Urine Urobilinogen Normal (Normal)
--- NOTE | 2017-12-16 23:38 | ED.DEP ---
ED Disposition - Plan for ED Patient: Disposition: Home or Assisted Living Chief Complaint: Flank Pain Instructions: ED Flank Pain Uncertain Cause Prescriptions: Smz/Tmp Ds [Bactrim Ds] 1 tablet PO BID #20 tablet Referrals: Micha Dumont MD [Primary Care Provider] - 3-5 Days if not improving
[2017-12-16 23:47] LABS: White Blood Cells 5-10 SEEN /hpf (0-5)
--- NOTE | 2017-12-16 23:49 | ED.DEP ---
ED Disposition - Plan for ED Patient: Disposition: Home or Assisted Living Chief Complaint: Flank Pain Instructions: ED Flank Pain Uncertain Cause Prescriptions: Smz/Tmp Ds [Bactrim Ds] 1 tablet PO BID #6 tablet Referrals: Micha Dumont MD [Primary Care Provider] - 3-5 Days if not improving
[2017-12-16] MEDS: HYDROcodone Bitartrate/Apap 5/325 Tablet PO (23:50)
[2017-12-16] MEDS: Smz/Tmp Ds Tablet 1 TABLET PO (23:50)
== END 2017-12-16 23:55 | disposition home or self-care (01) ==
PROVIDERS: Emergency Provider Emergency Medicine; Family Provider Family Medicine; PCP Family Medicine
DX: R10.9 Unspecified abdominal pain (principal); R30.0 Dysuria; R31.9 Hematuria, unspecified; R11.0 Nausea; Z87.442 Personal history of urinary calculi
CPT/HCPCS: 80048; 81001; 85025; 87086; 87088; 96361; 96374; 96375; 99282; J7030; A4216; J2405

== ENCOUNTER 2017-12-25 20:41 | Emergency (ER) | payer SELFPAY ==
[2017-12-25 20:42] VITALS: BP 143/66; PULSE 98; RESP 18; TEMP 36.7; O2SAT 97; BMI 26.6
[2017-12-25 20:57] VITALS: RESP 16
[2017-12-25 21:37] LABS: Bacteria 0 SEEN /hpf (None Seen); Mucous, Urine 0 SEEN /hpf (<or=2+)
[2017-12-25 21:40] LABS: Color, Urine Yellow (Yellow); Glucose, Dipstick Normal (Normal); Ketone-Dipstick Negative (Negative); Leukocyte Esterase-Dipstick 500 /ul (Negative); Nitrite-Dipstick Negative (Negative); Occult Blood-Urine 250 /ul (Negative); Protein-Dipstick Negative (Negative); Specific Gravity, Urine 1.025 (1.002-1.030); Urine Bilirubin Dipstick Negative (Negative); Urine Clarity Sl. Cloudy (Clear); Urine Urobilinogen Normal (Normal)
[2017-12-25 21:57] LABS: Red Blood Cells-Urine > 100 SEEN /hpf (0-5); White Blood Cells 0-5 SEEN /hpf (0-5)
[2017-12-25 21:58] LABS: Squamous Epithelial Cells - UA 0-5 SEEN /hpf (5-10)
[2017-12-25 22:00] LABS: Yeast-Urine RARE /hpf (None Seen)
[2017-12-25] MEDS: Smz/Tmp Ds Tablet 1 TABLET PO (22:39)
[2017-12-25] MEDS: HYDROcodone Bitartrate/Apap 5/325 Tablet PO (22:39)
[2017-12-25 22:40] VITALS: BP 131/92; PULSE 76; RESP 16; O2SAT 100
--- NOTE | 2017-12-25 22:43 | ED.DCSUM_ITS ---
- ER Visit Summary Date of Service: 12/25/17 Chief Complaint: Pelvic pain History of Present Illness: The patient is a 22 F who presents with pelvic pain and dysuria since yesterday. She has multiple urinary tract infections. She developed some nausea. This is consistent with prior UTIs. 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 She had an appendectomy. No hematuria. Physical Examination: Patient is comfortable in bed smiling speaking comfortably does not appear in distress. Moist mucous membranes, no obvious facial deformity No C-spine tenderness supple neck. Regular rate and rhythm without any obvious murmurs Clear lungs bilaterally speaking in full sentences without any obvious respiratory distress Abdomen soft with some left suprapubic pain no guarding or rebound. No left CVA tenderness. I do not see a reason for a pelvic exam especially that she has no uterus or ovaries. Moves all extremities without any difficulty or pain. Skin does not show any obvious rashes or lesions, no trauma. Alert oriented ?3 with no gross focal deficit Emergency Department Course and Treatment: Patient has a urinalysis consistent with a urinary tract infection she has hematuria I reexamined her at this time there are no signs or symptoms of a kidney stone she appears comfortable there is no flank pain there is no fever chills she certainly does not have significant pain. I will start her on antibiotics if she worsens she needs to return. Discharge stable condition Impression: Urinary tract infection This note was generated with [employer] dictation software. It may contain incorrect words, spelling, and punctuation that were not noted in review of the chart prior to signing ED Disposition - Plan for ED Patient: Disposition: Home or Assisted Living Chief Complaint: Complaint Instructions: ED UTI Cystitis Female Prescriptions: Smz/Tmp Ds [Bactrim Ds] 1 tab PO BID #19 tab Referrals: Micha Dumont MD [Primary Care Provider] -
== END 2017-12-25 22:49 | disposition home or self-care (01) ==
PROVIDERS: Emergency Provider Emergency Medicine; Family Provider Family Medicine; PCP Family Medicine
DX: N39.0 Urinary tract infection, site not specified (principal); Z87.440 Personal history of urinary (tract) infections
CPT/HCPCS: 81001; 99283

== ENCOUNTER 2017-12-26 14:29 | Emergency (ER) | payer SELFPAY ==
[2017-12-26 14:30] VITALS: BP 126/86; PULSE 81; RESP 16; TEMP 36.4; O2SAT 97; BMI 25.7
--- NOTE | 2017-12-26 16:40 | CT_ITS ---
STUDY: CT ABDOMEN AND PELVIS WITHOUT CONTRAST REASON FOR EXAM: Female, 22 years old. Right flank pain and hematuria. Single kidney. RADIATION DOSAGE (If Supplied By Facility): CTDIvol = ( 11.56 ) mGy, DLP = ( 566.10 ) mGycm TECHNIQUE: Transaxial images were obtained from the dome of the diaphragm to the symphysis pubis without oral contrast, and without intravenous contrast. Sagittal and coronal images were reconstructed. Individualized dose optimization techniques were used for this CT. COMPARISON: 11/19/2017. 04/21/2017. 01/14/2016. FINDINGS: The visualized lung bases are unremarkable. The visualized portions of the heart are within normal limits. Normal liver. Normal gallbladder and extrahepatic biliary system. Normal spleen. Normal pancreas. Normal bilateral adrenal glands. Normal right kidney. No stones or hydronephrosis. The right ureter is normal in course and caliber. No ureteral stones are seen. Absent left kidney. The aorta is normal in caliber. There is no bowel obstruction or inflammatory change. Patient is status post appendectomy by history. Suture material is noted about the cecum and in the right lower quadrant consistent with history of appendectomy. There is a linear, somewhat tubular appearing structure along the lateral conal fascia extending to the cecum. In the absence of residual appendix is negative represent scarring or collection in the appendectomy bed. There is no change compared to prior postoperative studies. Normal urinary bladder. There is a small, noncompressive disc protrusion at the L5-S1 level. There is sacralization of the S1 vertebral body. Osseous structures are otherwise unremarkable. Normal abdominal wall. CT/Abdomen/Pelvis without Cont IMPRESSION: 1. Linear and partially tubular finding along the lateral conal fascia, raising question of residual collection following prior appendectomy. 2. No renal stone or obstructive uropathy. Electronically Signed: Arabella Aldridge MD at 17:37 EST Tel , Service support ,
[2017-12-26] MEDS: proMETHazine 25 MG/ML Syringe 12.5 MG IV (16:57)
[2017-12-26] MEDS: 0.9% Normal Saline 1,000 ML 1000 ML IV (16:57)
[2017-12-26 17:14] LABS: Absolute Lymphocyte Count 2.16 X10^3/ul (0.83-4.51); Absolute Neutrophil Count 6.2 X10^3/uL (2.0-7.7); Basophil# 0.01 X10^3/uL; Basophil% 0.1 % (0-1); Eosinophil# 0.06 X10^3/uL; Eosinophils% 0.6 % (0-5); Hematocrit 41.9 % (37-47); Hemoglobin 14.1 g/dl (12.0-15.0); Lymphocyte # 2.16 X10^3/ul (4.0); Lymphocyte % 23.1 % (19-41); Mean Corp Hgb Conc 33.7 g/gl (32-36); Mean Corpuscular Volume 89.1 fL (81-99); Mean Platelet Vol. 9.3 fl (6.2-12.0); Monocyte# 0.86 X10^3/uL; Monocyte% 9.2 % (0-10); Neutrophil # 6.24 X10^3/uL (2.7-7.7); Neutrophil % 66.8 % (47-70); Platelet Count 200 K/mm3 (150-450); RBC Distribution Width CV 12.2 % (11.6-14.6); White Blood Count 9.4 K/mm3 (4.4-11.0)
[2017-12-26 17:24] LABS: POSITIVE COUNT NO; POSITIVE DIFFERENTIAL NO; POSITIVE MORPHOLOGY NO
[2017-12-26 17:25] LABS: AST(SGOT) 15 U/L (15-37); Alanine Aminotransfer ALT/SGPT 25 U/L (13-56); Albumin, Serum 3.9 g/dL (3.2-5.0); Alkaline Phosphatase 67 U/L (45-117); Anion Gap 9 (5-15); BUN 14 mg/dL (7-18); BUN/Creat Ratio 12.8 RATIO (10-20); Calcium,Total 8.9 mg/dL (8.5-10.1); Chloride 106 mmol/L (98-107); Creatinine, Serum 1.09 mg/dL (0.55-1.02); EST Glomerular Filtration Rate 67 mL/min (>60); Est Glom Filt Rate - Afr Amer 81 mL/min (>60); Glucose 82 mg/dL (74-106); Lipase 70 U/L (73-393); Potassium 4.1 mmol/L (3.5-5.1); Protein, Total 7.9 g/dL (6.4-8.2); Sodium Level 141 mmol/L (136-145)
[2017-12-26 18:00] VITALS: BP 111/64; PULSE 82; RESP 16; O2SAT 97
[2017-12-26 18:24] LABS: Bacteria 0 SEEN /hpf (None Seen); Mucous, Urine 0 SEEN /hpf (<or=2+); White Blood Cells 0 SEEN /hpf (0-5)
[2017-12-26 18:33] LABS: Color, Urine Yellow (Yellow); Glucose, Dipstick Normal (Normal); Ketone-Dipstick Negative (Negative); Leukocyte Esterase-Dipstick 500 /ul (Negative); Nitrite-Dipstick Negative (Negative); Occult Blood-Urine 250 /ul (Negative); Protein-Dipstick 15 mg/dl (Negative); Specific Gravity, Urine 1.015 (1.002-1.030); Urine Bilirubin Dipstick Negative (Negative); Urine Clarity Sl. Cloudy (Clear); Urine Urobilinogen Normal (Normal)
[2017-12-26 19:15] VITALS: BMI 25.7
[2017-12-26 19:51] LABS: Red Blood Cells-Urine 25-50 SEEN /hpf (0-5)
[2017-12-26 19:52] LABS: Squamous Epithelial Cells - UA 0-5 SEEN /hpf (5-10)
--- NOTE | 2017-12-26 20:10 | ED.VISSUMM ---
- ER Visit Summary Date of Service: 12/26/17 Chief Complaint: Vomiting and back pain History of Present Illness: The patient is a 22 F who states that yesterday she was diagnosed with pyelonephritis and started on Bactrim. She states that this morning she had vomiting. She notes pain in the left lower abdominal region which she describes as sharp as well as pain in the right flank. 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 She notes fever this morning. She called her doctor's office and she tells me that they were sent in. She last had antipyretics around 1300 hrs. today. Physical Examination: Afebrile vital signs are stable Gen: Well-nourished well-developed Head: Normocephalic atraumatic Eyes: Perrl EOMI ENT: TMs clear no rhinorrhea moist mucous membranes Neck: Supple no lymphadenopathy no JVD nontender CVS: Regular rate rhythm no murmurs normal S1-S2 Respiratory: No distress clear to auscultation bilaterally chest nontender Abdomen: Soft she reports tenderness to palpation in the left lower suprapubic region nondistended normal bowel sounds no masses Back: Patient reports right CVA tenderness Extremity: Nontender no edema Skin: Normal color no rash Neuro: alert orientated ?3 CN II-XII intact normal strength sensation reflexes gait cerebellar Psych: Normal affect normal mood Test Results: White count is normal. Creatinine 1.09. Liver lipase normal. Urinalysis 5-50 red blood cells no overt infection. CT down pelvis does not demonstrate any ureterolithiasis or perinephric stranding. Do not see an etiology for the patient's pain. Emergency Department Course and Treatment: Patient was to IV fluids as well as Phenergan. Patient will be discharged home she can continue her Bactrim. I advised her she needs to see urology as she tells me she frequently gets kidney infections. Patient is upset because she states that she was told that she was being admitted. However I do not see a reason to admit the patient. She does not currently have fever and he has a normal white count. She is not vomiting here. Impression: 1. Flank pain 2. Hematuria This note was generated with [employer] dictation software. It may contain incorrect words, spelling, and punctuation that were not noted in review of the chart prior to signing ED Disposition - Plan for ED Patient: Disposition: Home or Assisted Living Chief Complaint: Complaint Instructions: ED Flank Pain Uncertain Cause, ED Hematuria Prescriptions: proMETHazine tablet [Phenergan] 25 mg PO Q6H PRN PRN #10 tab PRN Reason: Nausea Ketorolac [Toradol] 10 mg PO Q8H PRN #12 tab PRN Reason: Pain Referrals: Raymundo Esquivel MD [STAFF PHYSICIAN] -
[2017-12-26 20:45] VITALS: BP 104/67; PULSE 67; RESP 20; O2SAT 100
== END 2017-12-26 20:46 | disposition home or self-care (01) ==
PROVIDERS: Emergency Provider Emergency Medicine; Family Provider Family Medicine; PCP Family Medicine
DX: R10.9 Unspecified abdominal pain (principal); R31.9 Hematuria, unspecified; R11.2 Nausea with vomiting, unspecified
CPT/HCPCS: 74176; 80053; 81001; 83690; 85025; 99283; J7030; A4216

== ENCOUNTER 2018-02-22 18:49 | Observation (INO) | payer SELFPAY ==
[2018-02-22 18:51] VITALS: BP 151/85; PULSE 86; RESP 18; TEMP 37.1; O2SAT 100; BMI 26.9
[2018-02-22 19:59] LABS: Pregnancy, Serum, hCG Quali. NEGATIVE Negative (0-9 Nonpreg)
[2018-02-22 20:37] VITALS: BP 127/85; PULSE 79; RESP 17; TEMP 37.3; O2SAT 99
[2018-02-22 21:00] VITALS: BP 127/85; PULSE 76; RESP 15; TEMP 37.3; O2SAT 97
[2018-02-22 21:19] LABS: Bacteria 0 SEEN /hpf (None Seen); Glucose, Dipstick Normal (Normal); Ketone-Dipstick 5 mg/dl (Negative); Leukocyte Esterase-Dipstick 100 /ul (Negative); Mucous, Urine 0 SEEN /hpf (<or=2+); Nitrite-Dipstick Positive (Negative); Occult Blood-Urine 250 /ul (Negative); Protein-Dipstick 30 mg/dl (Negative); Specific Gravity, Urine 1.025 (1.002-1.030); Squamous Epithelial Cells - UA 0 SEEN /hpf (5-10); Urine Bilirubin Dipstick Negative (Negative); Urine Clarity Cloudy (Clear); Urine Urobilinogen 1 mg/dl (Normal)
[2018-02-22 21:27] LABS: Color, Urine SEE COMMENT BELOW (Yellow)
--- NOTE | 2018-02-22 21:32 | ED.DCSUM_ITS ---
- ER Visit Summary Date of Service: 02/22/18 Chief Complaint: Right flank pain History of Present Illness: The patient is a 22 F presenting with right flank pain. She states this started 2 weeks ago. The pain has been persistent and worsening. 3 days ago she developed nausea and vomiting. She has had several episodes of vomiting today. She also complains of hematuria. She denies fever. She has a history of kidney stones and pyelonephritis. History of one kidney- congenital. Physical Examination: Vitals are stable. Patient is afebrile. Alert no acute distress. HEENT exam is unremarkable. Neck is supple. Lungs are clear and equal bilaterally. Heart is regular rate and rhythm. Abdomen is soft nontender nondistended. No guarding or rebound Back: right CVA tenderness Extremities are unremarkable. Skin is warm and dry. Remainder of exam is unremarkable. Emergency Department Course and Treatment: Patient was given IV fluids, morphine, Zofran. CBC, chemistries unremarkable other than BUN 19, creatinine 1.43. Urinalysis shows positive nitrite, 10-25 white blood cells, over 100 red blood cells. HCG negative. Urine culture was sent. She was given Rocephin IV. She was given additional dose of morphine and Phenergan. CT abdomen pelvis shows compensatory hypertrophy of the right kidney status post left renal agenesis. No evidence for renal obstruction or ureteral calculus or renal mass. Diverticular changes of the sigmoid colon without evidence for acute diverticulitis. Surgical clips in the right lower quadrant which may be consistent with history of appendectomy however clinical correlation recommended. Due to continued nausea and history of one kidney will discuss with hospitalist for admission for IV antibiotics. Disposition: Admission Impression: Pyelonephritis This note was generated with [employer] dictation software. It may contain incorrect words, spelling, and punctuation that were not noted in review of the chart prior to signing ED Disposition - Plan for ED Patient: Chief Complaint: Flank Pain Referrals: Micha Dumont MD [Primary Care Provider] -
[2018-02-22 21:41] LABS: Red Blood Cells-Urine > 100 SEEN /hpf (0-5); White Blood Cells 10-25 SEEN /hpf (0-5)
[2018-02-22] MEDS: Ondansetron 4 MG/2 ML Vial IV (21:42)
[2018-02-22 21:55] LABS: Anion Gap 8 (5-15); BUN 19 mg/dL (7-18); BUN/Creat Ratio 13.3 RATIO (10-20); Calcium,Total 8.8 mg/dL (8.5-10.1); Chloride 109 mmol/L (98-107); Creatinine, Serum 1.43 mg/dL (0.55-1.02); EST Glomerular Filtration Rate 49 mL/min (>60); Est Glom Filt Rate - Afr Amer 59 mL/min (>60); Estimated Creatinine Clearance 53.74 ml/min; Glucose 69 mg/dL (74-106); Potassium 3.9 mmol/L (3.5-5.1); Sodium Level 143 mmol/L (136-145)
[2018-02-22 22:01] LABS: Absolute Lymphocyte Count 2.04 X10^3/ul (0.83-4.51); Absolute Neutrophil Count 5.5 X10^3/uL (2.0-7.7); Basophil# 0.01 X10^3/uL; Basophil% 0.1 % (0-1); Eosinophil# 0.03 X10^3/uL; Eosinophils% 0.4 % (0-5); Hematocrit 43.8 % (37-47); Hemoglobin 14.3 g/dl (12.0-15.0); Lymphocyte # 2.04 X10^3/ul (4.0); Lymphocyte % 24.3 % (19-41); Mean Corp Hgb Conc 32.6 g/gl (32-36); Mean Corpuscular Hgb 28.8 pg (27.0-32.0); Mean Corpuscular Volume 88.1 fL (81-99); Monocyte# 0.86 X10^3/uL; Monocyte% 10.2 % (0-10); Neutrophil # 5.46 X10^3/uL (2.7-7.7); Neutrophil % 64.9 % (47-70); Platelet Count 202 K/mm3 (150-450); RBC Distribution Width CV 12.3 % (11.6-14.6); RBC Distribution Width SD 38.8 fl (35.1-43.9); Red Blood Count 4.97 M/mm3 (4.2-5.4); White Blood Count 8.4 K/mm3 (4.4-11.0)
[2018-02-22 22:03] LABS: POSITIVE COUNT NO; POSITIVE DIFFERENTIAL NO; POSITIVE MORPHOLOGY NO
--- NOTE | 2018-02-22 22:19 | CT_ITS ---
STUDY: CT ABDOMEN AND PELVIS WITHOUT CONTRAST REASON FOR EXAM: Female, 22 years old. Right flank pain with nausea and vomiting RADIATION DOSAGE (If Supplied By Facility): CTDIvol = ( 7.69 ) mGy, DLP = ( 388.22 ) mGycm TECHNIQUE: Transaxial images were obtained from the dome of the diaphragm to the symphysis pubis without oral contrast, and without intravenous contrast. Sagittal and coronal images were reconstructed. Individualized dose optimization techniques were used for this CT. COMPARISON: December 26, 2017 FINDINGS: There is minor prominence of the interstitial markings in left lower lobe.. The visualized portions of the heart are within normal limits. Normal liver. Normal gallbladder and extrahepatic biliary system. Normal spleen. Normal pancreas. Normal bilateral adrenal glands. There is nonvisualization of the left kidney consistent with agenesis and compensatory hypertrophy of the right kidney. There is no evidence for renal obstruction or mass. Normal visualized stomach. Normal small intestine. Diverticular changes of the sigmoid colon without evidence for acute diverticulitis.. There are postsurgical changes in the right lower quadrant reportedly due to prior appendectomy however there is a tubular structure arising from the ileocecal region which has the appearance of a retrocecal appendix. Clinical correlation is recommended Normal abdominal aorta. Normal inferior vena cava. Normal retroperitoneum. Uterus not visualized consistent with agenesis Normal urinary bladder. Normal abdominal wall. Normal osseous structures. No significant change since prior exam CT/Abdomen/Pelvis without Cont IMPRESSION: Compensatory hypertrophy of the right kidney status post left renal agenesis. No evidence for renal obstruction or ureteral calculus or renal mass. Diverticular changes of the sigmoid colon without evidence for acute diverticulitis Surgical clips in the right lower quadrant which may be consistent with history of appendectomy however clinical correlation recommended Electronically Signed: Micha Trujillo MD at 23:20 EST , Service support ,
[2018-02-22] MEDS: Morphine 4 MG/ML Syringe IV (22:36)
[2018-02-22 23:18] VITALS: BP 126/86; PULSE 74; RESP 14; TEMP 36.6; O2SAT 98
--- NOTE | 2018-02-22 23:50 | ED.RN ---
PT REQUESTING MORE PAIN AND NAUSEA MEDICATIONS. DR. CLANCY INFORMED. AWAITING FURTHER ORDERS. WILL CONTINUE TO MONITOR.
[2018-02-23] VITALS (7 sets, daily range): BP systolic 97–121; BP diastolic 56–81; PULSE 60–76; RESP 14–18; TEMP 36.1–36.9; O2SAT 97–100; BMI 29.9
--- NOTE | 2018-02-23 00:19 | PCM.HP.STD ---
Problem List (1) Acute pyelonephritis Status: Acute History of Present Illness Date of Admission: 02/23/18 Chief Complaint: right flank pain The patient is a 22 year old F with a significant history of absent left congenital kidney; thyroid nodule status post partial thyroidectomy; absent uterus; absent of one ovaries and with large cysts on the other ovary; with multiple kidney stones who presented with right-sided flank pain that started a week before [place] of 2017. She describes her pain as 7 to 10 on a scale of 1-10. Her pain is aching and stabbing. Her pain is nonradiating. Pressure helps with the pain. Her pain is aggravated by walking and by lying down. Because of progressively worsening of her symptoms patient came to emergency department. Associated with her symptoms is nausea, vomiting and chills. She denies a fever. At emergency department, CT of head abdomen and pelvis was not remarkable for a stone. Her creatinine was 1.43 and she had ketones in her urine. She had a positive nitrite and leukocyte esterase on urinalysis. However urine bacteria was no seen. Further, her urinalysis showed large amount of RBC and moderate amount of WBC. Her glucose on BMP was 69. Importantly she reports that she does not have menstrual periods because she does not have a uterus. She reports that although a benign thyroid nodule was resected she has another thyroid nodule that she has to follow-up with. Past Medical History Medical History: Medical History (Last Updated 05/27/17 @ 13:34 by Charmaine Paredes) Asthma J45.909 Migraines G43.909 Thyroid disease E07.9 Allergies amoxicillin Adverse Reaction (Verified 02/22/18 18:50) Rash Home Medications: Ambulatory Orders Medication Instructions Recorded Control 1 tab PO DAILY 02/22/18 Surgical History: Surgical History (Last Reviewed 02/23/18 @ 01:04 by Vicente Callejas MD) H/O partial thyroidectomy E89.0 History of appendectomy Z90.49 Lives: With Family Smoking Status: Never smoker Alcohol: Rare - *Family History Maternal History Items: Cancer, - - His grandfather on maternal side had only 1 kidney and vertigo. Paternal History Items: Cancer, Diabetes Review of Systems Constitutional: Reports: Anorexia, Chills. Denies: Fever, Weight Change HEENT: Denies: Head Aches, Sinus Congestion, Sinus Drainage Cardiovascular: Denies: Chest Pain, Palpitations Respiratory: Denies: Cough, Shortness of breath at rest, Sputum production Gastrointestinal: Reports: Nausea, Vomiting. Denies: Abdominal Pain Genitourinary: Denies: Dysuria Musculoskeletal: Reports: Back Pain - Left flank. Denies: Joint Pain, Joint Tenderness Skin: Denies: Rash, Wounds Neurological: Denies: Numbness, Tingling, Focal weakness Psychiatric: Denies: Anxiety, Depression, Homicidal Ideations, Suicidal Ideations Hematologic/ Lymphatic: Denies: Easy Bruising, Easy Bleeding VTE Information - Inpt Only VTE Present on Admission: No VTE Mechan Device Prophylaxis: None VTE Pharm Prophylaxis ordered?: No Reason prophylaxis not ordered:: Treatment Not Indicated - Low risk. Encouraged to ambulate Patient Problems: Active and Suspected Problems (Last Updated 05/27/17 @ 13:34 by Charmaine Paredes) Acute pyelonephritis (Acute) - Physical Exam General: Alert, Oriented x3, Cooperative HEENT: Atraumatic, PERRLA, EOMI, Normocephalic Neck: Supple, No JVD, Negative Carotid Bruits Lungs: Clear to auscultation, Normal air movement Cardiovascular: Regular rate, No murmurs Abdomen: Bowel Sounds Present, Soft, Non Tender, - - Left costovertebral angle tenderness Extremities: No edema, Capillary Refill Less than 3 Seconds, - Skin: No rashes, No breakdown, - - right leg with ecchymosis Musculoskeletal: No Tenderness to Palpation of Joints or Extremities Neurological: Neuro grossly intact Psych/Mental Status: Normal Affect, Appropriate Vital Signs Temp Pulse Resp BP Pulse Ox 97.8 F 74 14 126/86 H 98 02/22/18 23:18 02/22/18 23:18 02/22/18 23:18 02/22/18 23:18 02/22/18 23:18 Oxygen Delivery Method Room Air Weight: 71.214 kg Body Mass Index (BMI) 26.9 Laboratory Tests Past 24 Hrs 02/22/18 02/22/18 02/22/18 19:05 19:05 19:05 WBC 8.4 RBC 4.97 Hgb 14.3 Hct 43.8 MCV 88.1 MCH 28.8 MCHC 32.6 RDW 12.3 RDW Differential 38.8 Plt Count 202 MPV 10.0 Immature Gran % (Auto) 0.100 Neut % (Auto) 64.9 Lymph % (Auto) 24.3 [place] % (Auto) 10.2 H Eos % (Auto) 0.4 Baso % (Auto) 0.1 Absolute Neuts (auto) 5.5 Absolute Lymphs (auto) 2.04 Total Counted Not Reportable Sodium 143 Potassium 3.9 Chloride 109 H Carbon Dioxide 26.0 Anion Gap 8 BUN 19 H Creatinine 1.43 H Estim Creat Clear Calc 53.74 Est GFR (MDRD) Af Amer 59 L Est GFR (MDRD) Non-Af 49 L BUN/Creatinine Ratio 13.3 Glucose 69 L Calcium 8.8 Serum , Qual NEGATIVE Urine Color Urine Clarity Urine pH Ur Specific [place] Urine Protein Urine Glucose (UA) Urine Ketones Urine Occult Blood Urine Nitrite Urine Bilirubin Urine Urobilinogen Ur Leukocyte Esterase Urine RBC Urine WBC Ur Squamous Epith Cells Urine Bacteria Urine Mucus 02/22/18 21:15 WBC RBC Hgb Hct MCV MCH MCHC RDW RDW Differential Plt Count MPV Immature Gran % (Auto) Neut % (Auto) Lymph % (Auto) [place] % (Auto) Eos % (Auto) Baso % (Auto) Absolute Neuts (auto) Absolute Lymphs (auto) Total Counted Sodium Potassium Chloride Carbon Dioxide Anion Gap BUN Creatinine Estim Creat Clear Calc Est GFR (MDRD) Af Amer Est GFR (MDRD) Non-Af BUN/Creatinine Ratio Glucose Calcium Serum , Qual Urine Color SEE COMMENT BELOW Urine Clarity Cloudy Urine pH 5.0 Ur Specific [place] 1.025 Urine Protein 30 H Urine Glucose (UA) Normal Urine Ketones 5 H Urine Occult Blood 250 H Urine Nitrite Positive H Urine Bilirubin Negative Urine Urobilinogen 1 H Ur Leukocyte Esterase 100 H Urine RBC > 100 SEEN Urine WBC 10-25 SEEN Ur Squamous Epith Cells 0 SEEN Urine Bacteria 0 SEEN Urine Mucus 0 SEEN Assessment/Plan All Active Problems (Last Updated 05/27/17 @ 13:34 by Charmaine Paredes) Acute pyelonephritis (Acute) Physical exam, pre-employment (Acute) The patient is a 22 year old F with a significant history of absent left congenital kidney; absent uterus; absent of one ovaries and with large cysts on her other ovary; with multiple kidney stones who presented with right-sided flank pain; nausea; vomiting and chills consistent with clinical acute pyelonephritis of the right kidney. Acute pyelonephritis Patient received ceftriaxone the emergency department. We will continue ceftriaxone. Supportive treatment with dextrose and half-normal saline because of concomitant hypoglycemia ; antiemetics (IV Zofran); and IV morphine. Trend CBC and BMP. Urine culture is pending. Blood cultures ordered. JULIO CÉSAR On admission her creatinine was 1.43. Her baseline creatinine is about 1.01 This could be from prerenal from excessive vomiting or intrinsic renal from pyelonephritis. IV hydration. Avoid nephrotoxic's. Trend BMP. Hypoglycemia Blood glucose on admission was 69 but she was asymptomatic. This could be because of poor intake. Patient was given apple juice at emergency department. Will be patient on clear liquids. We will put the patient on dextrose with half-normal saline. Trend BMP. Elevated blood pressure without diagnosis of hypertension. On admission blood pressure was not within goal. This may be because of pain Trend blood pressures. Ovarian cyst Patient takes control pill for this. Continue control pill. DVT prophylaxis Low risk Encouraged to ambulate. Code Visit OBSV E&M: [id number] Initial observation care L3
[2018-02-23] MEDS: Morphine 4 MG/ML Syringe IV (00:23)
[2018-02-23] MEDS: proMETHazine 25 MG/ML Syringe 6.25 MG IV ×2 (00:23→17:06)
[2018-02-23] MEDS: Ceftriaxone 1 GM/50 ML BAG IV ×2 (00:23→21:25)
[2018-02-23] MEDS: Dext 5%-0.45% NS 1,000 ML 100 ML IV ×3 (01:31→21:24)
[2018-02-23] MEDS: 0.9% NaCl Peripheral Flush Adult/Peds IV ×6 (01:32→19:25)
[2018-02-23 03:56] LABS: Absolute Lymphocyte Count 2.63 X10^3/ul (0.83-4.51); Absolute Neutrophil Count 5.1 X10^3/uL (2.0-7.7); Basophil# 0.01 X10^3/uL; Basophil% 0.1 % (0-1); Eosinophil# 0.05 X10^3/uL; Eosinophils% 0.6 % (0-5); Hematocrit 38.1 % (37-47); Hemoglobin 12.8 g/dl (12.0-15.0); Lymphocyte # 2.63 X10^3/ul (4.0); Lymphocyte % 29.8 % (19-41); Mean Corp Hgb Conc 33.6 g/gl (32-36); Mean Corpuscular Hgb 29.7 pg (27.0-32.0); Mean Corpuscular Volume 88.4 fL (81-99); Mean Platelet Vol. 9.9 fl (6.2-12.0); Monocyte# 1.02 X10^3/uL; Monocyte% 11.5 % (0-10); Neutrophil # 5.11 X10^3/uL (2.7-7.7); Neutrophil % 57.8 % (47-70); Platelet Count 153 K/mm3 (150-450); RBC Distribution Width SD 38.1 fl (35.1-43.9); Red Blood Count 4.31 M/mm3 (4.2-5.4); White Blood Count 8.8 K/mm3 (4.4-11.0)
[2018-02-23 03:58] LABS: POSITIVE COUNT NO; POSITIVE DIFFERENTIAL NO; POSITIVE MORPHOLOGY NO
[2018-02-23 04:10] LABS: Anion Gap 9 (5-15); BUN 17 mg/dL (7-18); BUN/Creat Ratio 18.6 RATIO (10-20); Calcium,Total 7.9 mg/dL (8.5-10.1); Chloride 113 mmol/L (98-107); Creatinine, Serum 0.92 mg/dL (0.55-1.02); EST Glomerular Filtration Rate 82 mL/min (>60); Est Glom Filt Rate - Afr Amer 99 mL/min (>60); Estimated Creatinine Clearance 83.53 ml/min; Glucose 90 mg/dL (74-106); Potassium 3.8 mmol/L (3.5-5.1); Sodium Level 143 mmol/L (136-145)
[2018-02-23] MEDS: Morphine 2 MG/ML Syringe IV ×4 (05:37→19:24)
[2018-02-23] MEDS: Ondansetron 4 MG/2 ML Vial IV ×2 (05:59→13:05)
--- NOTE | 2018-02-23 09:38 | NURSING ---
pt reports she is not going to take her control pill while in here, states it is for her polycystic ovary and she is not concerned with that while she is here. i do no have a uterus so i am not taking it for prevention of .
--- NOTE | 2018-02-23 12:20 | PCM.PROGNOTE ---
Patient Problems: Active and Suspected Problems (Last Updated 05/27/17 @ 13:34 by Charmaine Paredes) Acute pyelonephritis (Acute) Subjective: Patient seen and examined. Continues to have bilateral flank pain. Complains of nausea, no emesis. Complains of fever, chills. Reports she has a significant amount of blood in her urine. - Physical Exam General: Alert, Oriented x3, Cooperative HEENT: Atraumatic, PERRLA, EOMI, Normocephalic Neck: Supple, No JVD, Negative Carotid Bruits Lungs: Clear to auscultation, Normal air movement Cardiovascular: Regular rate, Regular Rhythm, Normal S1, Normal S2, No murmurs Abdomen: Bowel Sounds Present, Soft, Non Tender, Non-Distended Extremities: No clubbing, No cyanosis, No edema, Capillary Refill Less than 3 Seconds Skin: No rashes, No breakdown Musculoskeletal: No Tenderness to Palpation of Joints or Extremities Neurological: Cranial nerves II-XII grossly intact, Neuro grossly intact Psych/Mental Status: Normal Affect, Appropriate Vital Signs Temp Pulse Resp BP Pulse Ox 98.2 F 65 18 98/67 100 02/23/18 09:26 02/23/18 09:26 02/23/18 09:26 02/23/18 09:26 02/23/18 09:26 Oxygen Delivery Method Room Air Weight: 174 lb 13.225 oz Body Mass Index (BMI) 29.9 Intake and Output for Last 24 Hours 02/21/18 02/22/18 02/23/18 23:59 23:59 23:59 Intake Total 457 / 457 Balance 457 / 457 Laboratory Tests Past 24 Hrs 02/22/18 02/22/18 02/22/18 19:05 19:05 19:05 WBC 8.4 RBC 4.97 Hgb 14.3 Hct 43.8 MCV 88.1 MCH 28.8 MCHC 32.6 RDW 12.3 RDW Differential 38.8 Plt Count 202 MPV 10.0 Immature Gran % (Auto) 0.100 Neut % (Auto) 64.9 Lymph % (Auto) 24.3 [place] % (Auto) 10.2 H Eos % (Auto) 0.4 Baso % (Auto) 0.1 Absolute Neuts (auto) 5.5 Absolute Lymphs (auto) 2.04 Total Counted Not Reportable Sodium 143 Potassium 3.9 Chloride 109 H Carbon Dioxide 26.0 Anion Gap 8 BUN 19 H Creatinine 1.43 H Estim Creat Clear Calc 53.74 Est GFR (MDRD) Af Amer 59 L Est GFR (MDRD) Non-Af 49 L BUN/Creatinine Ratio 13.3 Glucose 69 L Calcium 8.8 Serum , Qual NEGATIVE Urine Color Urine Clarity Urine pH Ur Specific [place] Urine Protein Urine Glucose (UA) Urine Ketones Urine Occult Blood Urine Nitrite Urine Bilirubin Urine Urobilinogen Ur Leukocyte Esterase Urine RBC Urine WBC Ur Squamous Epith Cells Urine Bacteria Urine Mucus 02/22/18 02/23/18 02/23/18 21:15 03:30 03:30 WBC 8.8 RBC 4.31 Hgb 12.8 Hct 38.1 MCV 88.4 MCH 29.7 MCHC 33.6 RDW 12.0 RDW Differential 38.1 Plt Count 153 MPV 9.9 Immature Gran % (Auto) 0.200 Neut % (Auto) 57.8 Lymph % (Auto) 29.8 [place] % (Auto) 11.5 H Eos % (Auto) 0.6 Baso % (Auto) 0.1 Absolute Neuts (auto) 5.1 Absolute Lymphs (auto) 2.63 Total Counted Not Reportable Sodium 143 Potassium 3.8 Chloride 113 H Carbon Dioxide 21.0 Anion Gap 9 BUN 17 Creatinine 0.92 Estim Creat Clear Calc 83.53 Est GFR (MDRD) Af Amer 99 Est GFR (MDRD) Non-Af 82 BUN/Creatinine Ratio 18.6 Glucose 90 Calcium 7.9 L Serum , Qual Urine Color SEE COMMENT BELOW Urine Clarity Cloudy Urine pH 5.0 Ur Specific [place] 1.025 Urine Protein 30 H Urine Glucose (UA) Normal Urine Ketones 5 H Urine Occult Blood 250 H Urine Nitrite Positive H Urine Bilirubin Negative Urine Urobilinogen 1 H Ur Leukocyte Esterase 100 H Urine RBC > 100 SEEN Urine WBC 10-25 SEEN Ur Squamous Epith Cells 0 SEEN Urine Bacteria 0 SEEN Urine Mucus 0 SEEN Medical Necessity - Tobacco Use Smoking Status: Never smoker Assessment/Plan All Active Problems (Last Updated 05/27/17 @ 13:34 by Charmaine Paredes) Acute pyelonephritis (Acute) Physical exam, pre-employment (Acute) 1. Acute pyelonephritis- Patient reports this is recurrent with recent hospitalization in December for pyelonephritis. CT of abdomen on admission showed no evidence of renal obstruction or ureteral calculus/renal mass. UA positive for leukocyte, + nitrite. Urine and blood culture pending. Consult urology, Dr. Bennett given recurrent UTI/pyelonephritis. Continue IV Rocephin. PRN pain regimen. IV fluids. 2. Hematuria-suspect secondary to #1. Urology consult as noted above. 3. Acute kidney injury-suspect secondary to dehydration. Improved with IV fluids. Continue IV fluids. Trend BMP. 4. History of nephrolithiasis 5. Congenital abnormalities including absent left kidney, absent uterus, absent one ovary 6. Status post partial thyroidectomy due to benign thyroid nodule DVT prophylaxis-not indicated due to low risk. This patient was seen by FIORDALIZA Vail under the supervision of Dr. Banks.
[2018-02-24] MEDS: Morphine 2 MG/ML Syringe IV ×2 (00:08→06:31)
[2018-02-24] MEDS: proMETHazine 25 MG/ML Syringe 6.25 MG IV (00:15)
[2018-02-24 02:05] VITALS: BP 99/56; PULSE 60; RESP 14; TEMP 37.4; O2SAT 99
[2018-02-24] MEDS: Dext 5%-0.45% NS 1,000 ML 100 ML IV (07:42)
[2018-02-24 07:53] VITALS: BP 81/43; PULSE 60
[2018-02-24 07:55] VITALS: BP 93/52; PULSE 60; RESP 16; TEMP 36.6; O2SAT 98
[2018-02-24 07:58] VITALS: O2SAT 96
--- NOTE | 2018-02-24 08:33 | NURSING ---
Rosy Vail.Saray.- notified that per report- pt c/o hematuria, and emesis- however, none of this has been observed by staff and pt is not compliant is showing staff-- despite requests to be notified. shift leader reported that pt. was aware she was on a full liquid diet and proceeded to have her grandma bring in large bag of [employer] food and proceeded to eat everything from bag. Pt has been requested prn morphine and prn phenergan by name and aware that phenergan should be diluted prior to being given. Misti reports that pt does not have any stones and that dr. ontiveros will probably see pt today- prior to being d/c'ed.
--- NOTE | 2018-02-24 08:55 | PCM.CONS.GEN ---
Problem List (1) Renal agenesis Status: Chronic (2) Acute pyelonephritis Status: Acute Reason for Consult Date of Consultation: 02/24/18 Reason for Consultation: acute and recurrent pyelonephritis History of Present Illness: The patient is a 22 year old F who was discharged approximately 4-6 weeks ago from another hospital with pyelonephritis. She presented to the emergency room here with complaints of severe right flank pain, fever, pain with urination, nausea and vomiting. Today she is sleeping in her bed in no acute distress complaining of continuing dysuria and flank pain. According to the nursing staff she is also reporting gross hematuria, emesis and no one has visibly confirmed this. She has been taking in diet. We discussed at length the risk of recurrent pyelonephritis and the risk of loss of renal function. We discussed the importance of preventing lower urinary tract infections. Past Medical History Past Medical History (Chronic Problems): Chronic Problems (Last Updated 05/27/17 @ 13:34 by Charmaine Paredes) Renal agenesis (Chronic) Medical History: Medical History (Last Updated 05/27/17 @ 13:34 by Charmaine Paredes) Asthma J45.909 Migraines G43.909 Thyroid disease E07.9 Allergies amoxicillin Adverse Reaction (Verified 02/22/18 18:50) Rash Home Medications: Ambulatory Orders Medication Instructions Recorded Control 1 tab PO DAILY 02/22/18 Surgical History: Surgical History (Last Reviewed 02/23/18 @ 01:04 by Vicente Callejas MD) H/O partial thyroidectomy E89.0 History of appendectomy Z90.49 Lives: With Family Smoking Status: Never smoker Alcohol: Rare - *Family History Maternal History Items: Cancer, - - His grandfather on maternal side had only 1 kidney and vertigo. Paternal History Items: Cancer, Diabetes Review of Systems Constitutional: Reports: Anorexia, Malaise Eyes: Denies: Vision Change HEENT: Denies: Difficulty Hearing, Difficulty Swallowing Cardiovascular: Denies: Chest Pain Respiratory: Denies: Shortness of Breath Gastrointestinal: Reports: Abdominal Pain, Nausea, Vomiting, - - severe right flank pain, has been requiring narcotics Genitourinary: Reports: Dysuria, Hematuria. Denies: Incontinence Patient Problems: Active and Suspected Problems (Last Updated 05/27/17 @ 13:34 by Charmaine Paredes) Acute pyelonephritis (Acute) - Physical Exam General: Alert, Oriented x3, Cooperative, No apparent distress, Well developed, Well nourished HEENT: Atraumatic, Normocephalic Oral: Moist Mucosa Neck: Supple Lungs: Normal air movement Cardiovascular: Regular rate Abdomen: Soft, Non-Distended, Tender, - - tender CVA on right. no avalos catheter Skin: No rashes Musculoskeletal: No Muscle Wasting Neurological: Cranial nerves II-XII grossly intact, Neuro grossly intact Vital Signs Temp Pulse Resp BP Pulse Ox 97.9 F 60 16 93/52 L 96 02/24/18 07:55 02/24/18 07:55 02/24/18 07:55 02/24/18 07:55 02/24/18 07:58 Oxygen Delivery Method Room Air Weight: 79.3 kg Body Mass Index (BMI) 29.9 Intake and Output for Last 24 Hours 02/22/18 02/23/18 02/24/18 23:59 23:59 23:59 Intake Total 1558 / 1558 2368 / 2368 Output Total 350 / 350 Balance 1208 / 1208 2368 / 2368 Assessment/Plan All Active Problems (Last Updated 05/27/17 @ 13:34 by Charmaine Paredes) Acute pyelonephritis (Acute) Physical exam, pre-employment (Acute) Discussed with await culture results. at least total of 10 days of antibiotics culture appropriate, and nightly prophylaxis after that until evaluation as outpatient is done. 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 Will plan for [facility] in around 6 weeks. check bladder scan pvr. Thank you for consult.
--- NOTE | 2018-02-24 10:27 | DCINST_ITS ---
- Discharge Diagnoses Current Active Problems: Current Active and Chronic Problems (Last Updated 05/27/17 @ 13:34 by Charmaine Paredes) Acute pyelonephritis (Acute) Renal agenesis (Chronic) You will use the following diet at home:: No restrictions Discharge Activity: Return to Normal Activity Call your doctor if you observe: Fever of 101 or Higher, Inability to urinate Allergies/Adverse Reactions: Allergies amoxicillin Adverse Reaction (Verified 02/22/18 18:50) Rash Medications to take at Discharge Control 1 tab PO DAILY 02/22/18 Ciprofloxacin [Cipro] 500 mg PO BID #20 tablet 02/24/18 Phenazopyridine [Pyridium] 100 mg PO TID #9 tablet 02/24/18 The following prescriptions were given: Ciprofloxacin [Cipro] 500 mg PO BID #20 tablet Phenazopyridine [Pyridium] 100 mg PO TID #9 tablet Primary Care Physician: Micha Dumont MD [Primary Care Provider] - Please follow up with your Primary Care Physician in: 1 Week Test Results: Test results from this visit will be discussed in further detail at your follow- up appointment, if applicable. Please Follow Up With: June Bennett MD When: 1 Week Proposed Discharge Date: 02/24/18
--- NOTE | 2018-02-24 10:34 | PCM.DC.SUM ---
Discharge Date and Diagnosis Date of Admission: 02/23/18 Date of Discharge: 02/24/18 - Primary Discharge Diagnosis Active and Suspected Problems (Last Updated 05/27/17 @ 13:34 by Charmaine Paredes) 1. Acute pyelonephritis, recurrent 2. Acute Kidney Injury - Secondary Discharge Diagnosis Chronic Problems (Last Updated 05/27/17 @ 13:34 by Charmaine Paredes) Renal agenesis (Chronic) Hospital Course and Treatment Imaging Results: Diagnostic Data Abdomen/Pelvis CT 02/22/18 22:19 IMPRESSION: Compensatory hypertrophy of the right kidney status post left renal agenesis. No evidence for renal obstruction or ureteral calculus or renal mass. Diverticular changes of the sigmoid colon without evidence for acute diverticulitis Surgical clips in the right lower quadrant which may be consistent with history of appendectomy however clinical correlation recommended Electronically Signed: Micha Trujillo MD at 23:20 EST , Service support , Dr. Bennett- Urology Operations: None Procedures: None Summary of Care Provided: The patient is a 22 year old F admitted 02/23/2018 due to right flank pain. 1. Acute pyelonephritis- Patient reports this is recurrent with recent hospitalization in December for pyelonephritis. CT of abdomen on admission showed no evidence of renal obstruction or ureteral calculus/renal mass. UA positive for leukocyte, + nitrite. Urine and blood culture pending. Urology consulted, Dr. Bennett given recurrent UTI/pyelonephritis. Patient received IV Rocephin. Discharged on ciprofloxacin 500 mg twice daily for 10 days. Follow-up with urology in 1 week. Urology recommending 10 days of antibiotics with nightly prophylaxis until outpatient evaluation is completed. This can further be prescribed as outpatient following 10-day course of prescribed ciprofloxacin. Plan per urology is for [facility] as outpatient in 6 weeks. Possible behavioral voiding dysfunction versus vesicoureteral reflux. Follow-up with primary care physician in 1 week. 2. Acute kidney injury-resolved with IV fluids. 3. History of nephrolithiasis-CT negative. 4. Congenital abnormalities including absent left kidney, absent uterus, absent one ovary 5. Status post partial thyroidectomy due to benign thyroid nodule General: Alert, Oriented x3, Cooperative HEENT: Atraumatic, PERRLA, EOMI, Normocephalic Neck: Supple, No JVD, Negative Carotid Bruits Lungs: Clear to auscultation, Normal air movement Cardiovascular: Regular rate, Regular Rhythm, Normal S1, Normal S2, No murmurs Abdomen: Bowel Sounds Present, Soft, Non Tender, Non-Distended Extremities: No clubbing, No cyanosis, No edema, Capillary Refill Less than 3 Seconds Skin: No rashes, No breakdown Musculoskeletal: No Tenderness to Palpation of Joints or Extremities Neurological: Cranial nerves II-XII grossly intact, Neuro grossly intact Psych/Mental Status: Normal Affect, Appropriate Patient seen and examined prior to discharge. Physical assessment as noted above. Patient is stable for discharge with follow up recommendations as noted above. This patient was seen by FIORDALIZA Vail under the supervision of Dr. Banks. - Physical Exam Vital Signs Temp Pulse Resp BP Pulse Ox 97.9 F 60 16 93/52 L 96 02/24/18 07:55 02/24/18 07:55 02/24/18 07:55 02/24/18 07:55 02/24/18 07:58 Oxygen Delivery Method Room Air Weight: 174 lb 13.225 oz Body Mass Index (BMI) 29.9 Intake and Output for Last 24 Hours 02/22/18 02/23/18 02/24/18 23:59 23:59 23:59 Intake Total 1558 / 1558 2368 / 2368 Output Total 350 / 350 Balance 1208 / 1208 2368 / 2368 Microbiology Past 72 Hours 02/22/18 21:15 Urine Culture - Final Urine, Clean Catch Mixed Gram Positive Organisms Discharge Diet: No Restrictions Discharge Activity: Return to Normal Activity Call your doctor if you observe: Fever of 101 or Higher, Inability to urinate Home Medications: Medications to take at Discharge Control 1 tab PO DAILY 02/22/18 Ciprofloxacin [Cipro] 500 mg PO BID #20 tablet 02/24/18 Phenazopyridine [Pyridium] 100 mg PO TID #9 tablet 02/24/18 Following Prescrptions Were Given to Patient: Ciprofloxacin [Cipro] 500 mg PO BID #20 tablet Phenazopyridine [Pyridium] 100 mg PO TID #9 tablet Primary Care Physician: Micha Dumont MD [Primary Care Provider] - Please follow up with your Primary Care Physician in: 1 Week Please Follow Up With: June Bennett MD When: 1 Week Disposition: Home Minutes spent on discharge:: 35 Patient Condition:: Stable Medical Necessity - Tobacco Use Smoking Status: Never smoker Meaningful Use Info Meaningful Use Diagnoses (Choose all that apply): None applicable
--- NOTE | 2018-02-24 10:41 | DS.PCM_ITS ---
Addendum entered and electronically signed by FIORDALIZA Vail 02/24/18 11:14: Code Visit Patient was discharged on trimethoprim 100 mg p.o. nightly which she will begin taking following 10 days of ciprofloxacin. She will follow-up with Dr. Bennett in 2-3 weeks. Original Note: Discharge Date and Diagnosis Date of Admission: 02/23/18 Date of Discharge: 02/24/18 - Primary Discharge Diagnosis Active and Suspected Problems (Last Updated 05/27/17 @ 13:34 by Charmaine Paredes) 1. Acute pyelonephritis, recurrent 2. Acute Kidney Injury - Secondary Discharge Diagnosis Chronic Problems (Last Updated 05/27/17 @ 13:34 by Charmaine Paredes) Renal agenesis (Chronic) Hospital Course and Treatment Imaging Results: Diagnostic Data Abdomen/Pelvis CT 02/22/18 22:19 IMPRESSION: Compensatory hypertrophy of the right kidney status post left renal agenesis. No evidence for renal obstruction or ureteral calculus or renal mass. Diverticular changes of the sigmoid colon without evidence for acute diverticulitis Surgical clips in the right lower quadrant which may be consistent with history of appendectomy however clinical correlation recommended Electronically Signed: Micha Trujillo MD at 23:20 EST , Service support , Dr. Bennett- Urology Operations: None Procedures: None Summary of Care Provided: The patient is a 22 year old F admitted 02/23/2018 due to right flank pain. 1. Acute pyelonephritis- Patient reports this is recurrent with recent hospitalization in December for pyelonephritis. CT of abdomen on admission showed no evidence of renal obstruction or ureteral calculus/renal mass. UA positive for leukocyte, + nitrite. Urine and blood culture pending. Urology consulted, Dr. Bennett given recurrent UTI/pyelonephritis. Patient received IV Rocephin. Discharged on ciprofloxacin 500 mg twice daily for 10 days. Follow- up with urology in 1 week. Urology recommending 10 days of antibiotics with nightly prophylaxis until outpatient evaluation is completed. This can further be prescribed as outpatient following 10-day course of prescribed ciprofloxacin. Plan per urology is for [facility] as outpatient in 6 weeks. Possible behavioral v oiding dysfunction versus vesicoureteral reflux. Follow-up with primary care physician in 1 week. 2. Acute kidney injury-resolved with IV fluids. 3. History of nephrolithiasis-CT negative. 4. Congenital abnormalities including absent left kidney, absent uterus, absent one ovary 5. Status post partial thyroidectomy due to benign thyroid nodule General: Alert, Oriented x3, Cooperative HEENT: Atraumatic, PERRLA, EOMI, Normocephalic Neck: Supple, No JVD, Negative Carotid Bruits Lungs: Clear to auscultation, Normal air movement Cardiovascular: Regular rate, Regular Rhythm, Normal S1, Normal S2, No murmurs Abdomen: Bowel Sounds Present, Soft, Non Tender, Non-Distended Extremities: No clubbing, No cyanosis, No edema, Capillary Refill Less than 3 Seconds Skin: No rashes, No breakdown Musculoskeletal: No Tenderness to Palpation of Joints or Extremities Neurological: Cranial nerves II-XII grossly intact, Neuro grossly intact Psych/Mental Status: Normal Affect, Appropriate Patient seen and examined prior to discharge. Physical assessment as noted above. Patient is stable for discharge with follow up recommendations as noted above. This patient was seen by FIORDALIZA Vail under the supervision of Dr. Banks. - Physical Exam Vital Signs Temp Pulse Resp BP Pulse Ox 97.9 F 60 16 93/52 L 96 02/24/18 07:55 02/24/18 07:55 02/24/18 07:55 02/24/18 07:55 02/24/18 07:58 Oxygen Delivery Method Room Air Weight: 174 lb 13.225 oz Body Mass Index (BMI) 29.9 Intake and Output for Last 24 Hours 02/22/18 02/23/18 02/24/18 23:59 23:59 23:59 Intake Total 1558 / 1558 2368 / 2368 Output Total 350 / 350 Balance 1208 / 1208 2368 / 2368 Microbiology Past 72 Hours 02/22/18 21:15 Urine Culture - Final Urine, Clean Catch Mixed Gram Positive Organisms Discharge Diet: No Restrictions Discharge Activity: Return to Normal Activity Call your doctor if you observe: Fever of 101 or Higher, Inability to urinate Home Medications: Medications to take at Discharge Control 1 tab PO DAILY 02/22/18 Ciprofloxacin [Cipro] 500 mg PO BID #20 tablet 02/24/18 Phenazopyridine [Pyridium] 100 mg PO TID #9 tablet 02/24/18 Following Prescrptions Were Given to Patient: Ciprofloxacin [Cipro] 500 mg PO BID #20 tablet Phenazopyridine [Pyridium] 100 mg PO TID #9 tablet Primary Care Physician: Micha Dumont MD [Primary Care Provider] - Please follow up with your Primary Care Physician in: 1 Week Please Follow Up With: June Bennett MD When: 1 Week Disposition: Home Minutes spent on discharge:: 35 Patient Condition:: Stable Medical Necessity - Tobacco Use Smoking Status: Never smoker Meaningful Use Info Meaningful Use Diagnoses (Choose all that apply): None applicable
[2018-02-24] MEDS: Acetaminophen 500 MG Tablet 1000 MG PO (11:28)
[2018-02-24] MEDS: Phenazopyridine 95 MG Tablet 190 MG PO (11:29)
--- NOTE | 2018-02-24 11:52 | CASEMGMT ---
PIETRO LANG Note: Intro role of CM to patient and her grandmother. Reviewed [facility] application to be filled out by patient and she is aware to file with [facility]. Discussed list of free clinics, dental clinics- pt states she does not need as she has numbers. PIETRO LANG reviewed [employer] brochure and gave to patient. No further questions. Trina MEADOWS RN ACM
== END 2018-02-24 12:05 | disposition home or self-care (01) ==
LOC: ED 21:07 → MS2 02-23 00:45
PROVIDERS: Admitting Provider Hospitalist; Emergency Provider Emergency Medicine; Family Provider Family Medicine; PCP Family Medicine; Visit Provider Internal Medicine
DX: N10 Acute pyelonephritis (principal); Z87.442 Personal history of urinary calculi; Q60.0 Renal agenesis, unilateral; E04.1 Nontoxic single thyroid nodule; J45.909 Unspecified asthma, uncomplicated; Z79.3 Long term (current) use of hormonal contraceptives; E16.2 Hypoglycemia, unspecified; N83.209 Unspecified ovarian cyst, unspecified side; Q51.0 Agenesis and aplasia of uterus; N17.9 Acute kidney failure, unspecified; E86.0 Dehydration
CPT/HCPCS: 36415; 74176; 80048; 81001; 84703; 85025; 87040; 87086; 87088; 96361; 96365; 96366; 96375; 96376; 99218; 99283; J7030; J7040; A4216; G0378; J2405; J7799

== ENCOUNTER 2018-04-20 23:25 | Emergency (ER) | payer SELFPAY ==
[2018-02-23 01:19] VITALS: BMI 29.9
[2018-04-20 23:26] VITALS: BP 168/120; PULSE 110; RESP 18; TEMP 36.8; O2SAT 98; BMI 25.2
--- NOTE | 2018-04-20 23:42 | ED.VISSUMM ---
- ER Visit Summary Date of Service: 04/20/18 Chief Complaint: [] Right-sided flank pain with hematuria History of Present Illness: The patient is a 22 F with the above symptoms. She stated that her right back has hurt slightly for a week. She was unsure if it was musculoskeletal. She had a couple episodes of emesis today. She has had hematuria mildly for 3 days. She had temperature 101.2 days ago that has not returned. She is Tylenol this evening. She is been using Tylenol intermittent. She had frequent visits for similar. Her last 2 CT M and pelvis is in February and December were negative for kidney stones. 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 She was admitted in February for a pyelonephritis. She finished antibiotics mid February. Patient stated she is only been using Tylenol. Physical Examination: [] Vital signs reviewed General: Well-nourished well-developed Head: Normocephalic atraumatic Eyes: Pupils equal round and reactive to light extraocular movements intact ENT: TMs clear no hemotympanum no trauma Neck: Nontender full range of motion Cardiovascular: Regular rate rhythm no murmurs normal S1-S2 Respiratory: No distress clear to auscultation bilaterally chest nontender Abdomen: Soft very mild tenderness right flank nondistended normal bowel sounds no masses Back: Mild tenderness right CVA Extremities: Nontender active range of motion ?4 extremities no trauma Skin: Normal color no trauma Neuro alert oriented cranial nerves II through XII intact normal strength sensation reflexes Test Results: [] Emergency Department Course and Treatment: [] Given IV fluids and requesting Compazine for nausea. States that Zofran does not work for her. Allergic to Toradol. Given a dose of morphine. She appears quite comfortable. Lab work obtained. CBC normal. Chemistries normal except chloride 110. Urinalysis does show positive red blood cells without infection. He did feel better after treatment. At this time she may have passed a kidney stone. I do not think she needs a CT of her flank. She does not feel like she has a kidney stone currently. No evidence of infection. We will follow-up as an outpatient. Treatment Plan: [] Disposition: [] Impression: [] Hematuria Flank pain This note was generated with [employer] dictation software. It may contain incorrect words, spelling, and punctuation that were not noted in review of the chart prior to signing ED Disposition - Plan for ED Patient: Referrals: Micha Dumont MD [Primary Care Provider] -
[2018-04-21] MEDS: Morphine 4 MG/ML Syringe IV (00:05)
[2018-04-21] MEDS: 0.9% Normal Saline 1,000 ML 1000 ML IV (00:06)
[2018-04-21] MEDS: proCHLORPERazine 10 MG/2 ML Vial 5 MG IV (00:06)
[2018-04-21 00:19] LABS: Absolute Lymphocyte Count 2.62 X10^3/ul (0.83-4.51); Absolute Neutrophil Count 4.9 X10^3/uL (2.0-7.7); Basophil# 0.02 X10^3/uL; Basophil% 0.2 % (0-1); Eosinophil# 0.09 X10^3/uL; Eosinophils% 1.1 % (0-5); Hematocrit 40.8 % (37-47); Hemoglobin 13.6 g/dl (12.0-15.0); Lymphocyte # 2.62 X10^3/ul (4.0); Lymphocyte % 30.9 % (19-41); Mean Corp Hgb Conc 33.3 g/gl (32-36); Mean Corpuscular Hgb 29.1 pg (27.0-32.0); Mean Corpuscular Volume 87.4 fL (81-99); Mean Platelet Vol. 9.6 fl (6.2-12.0); Monocyte# 0.84 X10^3/uL; Monocyte% 9.9 % (0-10); Neutrophil % 57.8 % (47-70); Platelet Count 215 K/mm3 (150-450); RBC Distribution Width SD 37.9 fl (35.1-43.9); Red Blood Count 4.67 M/mm3 (4.2-5.4); White Blood Count 8.5 K/mm3 (4.4-11.0)
[2018-04-21 00:20] LABS: POSITIVE COUNT NO; POSITIVE DIFFERENTIAL NO; POSITIVE MORPHOLOGY NO
[2018-04-21 00:32] LABS: Anion Gap 8 (5-15); BUN 19 mg/dL (7-18); Calcium,Total 8.8 mg/dL (8.5-10.1); Chloride 110 mmol/L (98-107); EST Glomerular Filtration Rate 74 mL/min (>60); Est Glom Filt Rate - Afr Amer 90 mL/min (>60); Estimated Creatinine Clearance 76.85 ml/min; Glucose 79 mg/dL (74-106); Potassium 3.5 mmol/L (3.5-5.1); Sodium Level 141 mmol/L (136-145)
[2018-04-21 01:06] LABS: Bacteria 0 SEEN /hpf (None Seen); Mucous, Urine 0 SEEN /hpf (<or=2+)
[2018-04-21 01:08] LABS: Color, Urine Yellow (Yellow); Glucose, Dipstick Normal (Normal); Ketone-Dipstick Negative (Negative); Leukocyte Esterase-Dipstick 500 /ul (Negative); Nitrite-Dipstick Negative (Negative); Occult Blood-Urine 250 /ul (Negative); Protein-Dipstick 30 mg/dl (Negative); Urine Bilirubin Dipstick Negative (Negative); Urine Clarity Sl. Cloudy (Clear); Urine Urobilinogen Normal (Normal)
[2018-04-21 01:14] LABS: Squamous Epithelial Cells - UA 10-25 SEEN /hpf (5-10)
[2018-04-21 01:15] LABS: White Blood Cells 0-5 SEEN /hpf (0-5)
[2018-04-21 01:16] LABS: Red Blood Cells-Urine > 100 SEEN /hpf (0-5)
--- NOTE | 2018-04-21 01:24 | ED.DEP ---
ED Disposition - Plan for ED Patient: Disposition: Home or Assisted Living Instructions: What is Hematuria? Referrals: Micha Dumont MD [Primary Care Provider] - Additional Instructions: These follow with your urologist next week as well
[2018-04-21 01:29] VITALS: BP 130/74; PULSE 78; RESP 16; O2SAT 98
== END 2018-04-21 01:33 | disposition home or self-care (01) ==
PROVIDERS: Emergency Provider Emergency Medicine; Family Provider Family Medicine; PCP Family Medicine
DX: R31.9 Hematuria, unspecified (principal); R10.9 Unspecified abdominal pain; M54.9 Dorsalgia, unspecified; R11.2 Nausea with vomiting, unspecified; Z87.442 Personal history of urinary calculi
CPT/HCPCS: 80048; 81001; 85025; 96361; 96374; 96375; 99283; J7030; A4216

== ENCOUNTER 2018-06-13 13:30 | Emergency (ER) | payer SELFPAY ==
[2018-06-13 13:31] VITALS: BP 124/86; PULSE 76; RESP 16; TEMP 37.2; O2SAT 98; BMI 29.7
--- NOTE | 2018-06-13 15:08 | ED.DCSUM_ITS ---
- ER Visit Summary Date of Service: 06/13/18 Chief Complaint: Right flank pain History of Present Illness: The patient is a [address] Dumont. She reports that she has right flank pain that began approximately 2 weeks ago.'s an aching, sharp pain that is 10 out of 10 at worst 9-10 currently. Is worsened with walking and relieved with remaining still. She is been nausea and vomited 5 times in the past 3 days. No blood or emesis. No diarrhea. She has had a subjective fever and chills. She also had dysuria and hematuria. Patient reports she has had similar symptoms previously with kidney infections. She also reports that she was born without a left kidney. 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 Physical Examination: Vitals: Stable. Afebrile. General: Well-nourished and well-developed. Head: Normocephalic atraumatic. Neck: Supple, no lymphadenopathy. No JVD. Nontender. Cardiovascular: Regular rate and rhythm. No murmurs. Respiratory: No respiratory distress. Clear to auscultation bilaterally. Abdominal: Soft, mild right lower and right upper quadrant tenderness to palpation, nondistended, normal bowel sounds. No guarding, rebound, or peritoneal signs. Back: Mild right CVA tenderness. Extremities: Nontender, no edema. Skin: Normal color, no rash. Neurologic: Alert and oriented ?3. Cranial nerves II through XII are intact. Normal strength and sensation. Psych: Normal affect. Test Results: CBC is normal. Chem-7 shows a chloride of 109. LFTs are normal. UA shows nitrites, blood, greater than 100 red blood cells. There are no white blood cells. No bacteria. Emergency Department Course and Treatment: Patient had an IV placed. She was given a dose of morphine and Zofran IV. She is resting comfortably. Treatment Plan: Patient had a CT February 22 that showed no stones. I did not repeat this. She did not want it repeated. States this does not feel like a stone. I did review her prior urine cultures. Her urine today was sent for culture. As it is nitrite positive with blood she will be discharged on Keflex and instructed to follow-up with her primary care physician in 2 days to make sure that this will work. Return to the emergency department for any worsening symptoms. Disposition: To home in improved and stable condition. Impression: 1. UTI. This note was generated with [employer] dictation software. It may contain incorrect words, spelling, and punctuation that were not noted in review of the chart prior to signing ED Disposition - Plan for ED Patient: Disposition: Home or Assisted Living Instructions: ED UTI Cystitis Female Prescriptions: Hydrocodone Bitart/Apap 5-325 [[place] 5MG-325MG] 1 tablet PO Q4H PRN PRN 2 Days #10 tablet PRN Reason: Pain Ondansetron [Zofran Odt] 4 mg PO Q8H PRN PRN #10 tablet PRN Reason: Nausea Cephalexin [Keflex] 500 mg PO Q12 #14 capsule Referrals: Micha Dumont MD [Primary Care Provider] - 3-5 Days if not improving
[2018-06-13] MEDS: 0.9% Normal Saline 1,000 ML 1000 ML IV (15:25)
[2018-06-13] MEDS: Morphine 4 MG/ML Syringe IV (15:25)
[2018-06-13] MEDS: Ondansetron 4 MG/2 ML Vial IV (15:25)
[2018-06-13 15:27] LABS: Absolute Lymphocyte Count 2.61 X10^3/ul (0.83-4.51); Absolute Neutrophil Count 3.8 X10^3/uL (2.0-7.7); Basophil# 0.01 X10^3/uL; Basophil% 0.1 % (0-1); Eosinophil# 0.04 X10^3/uL; Eosinophils% 0.6 % (0-5); Hematocrit 42.2 % (37-47); Hemoglobin 14.2 g/dl (12.0-15.0); Lymphocyte # 2.61 X10^3/ul (4.0); Lymphocyte % 37.5 % (19-41); Mean Corp Hgb Conc 33.6 g/gl (32-36); Mean Corpuscular Hgb 28.9 pg (27.0-32.0); Mean Corpuscular Volume 85.9 fL (81-99); Mean Platelet Vol. 9.4 fl (6.2-12.0); Monocyte# 0.53 X10^3/uL; Monocyte% 7.6 % (0-10); Neutrophil # 3.77 X10^3/uL (2.7-7.7); Neutrophil % 54.2 % (47-70); Platelet Count 156 K/mm3 (150-450); RBC Distribution Width SD 40.8 fl (35.1-43.9); Red Blood Count 4.91 M/mm3 (4.2-5.4)
[2018-06-13 15:32] LABS: POSITIVE COUNT NO; POSITIVE DIFFERENTIAL NO; POSITIVE MORPHOLOGY NO
[2018-06-13 15:33] LABS: Bacteria 0 SEEN /hpf (None Seen); Mucous, Urine 0 SEEN /hpf (<or=2+)
[2018-06-13 15:44] LABS: Glucose, Dipstick Normal (Normal); Ketone-Dipstick Negative (Negative); Leukocyte Esterase-Dipstick 500 /ul (Negative); Nitrite-Dipstick Positive (Negative); Occult Blood-Urine 250 /ul (Negative); Protein-Dipstick 30 mg/dl (Negative); Specific Gravity, Urine 1.015 (1.002-1.030); Urine Bilirubin Dipstick Negative (Negative); Urine Clarity Cloudy (Clear); Urine Urobilinogen Normal (Normal); Urine pH 6.5 (5.0 - 8.0)
[2018-06-13 15:45] LABS: AST(SGOT) 18 U/L (15-37); Alanine Aminotransfer ALT/SGPT 27 U/L (13-56); Albumin, Serum 3.9 g/dL (3.2-5.0); Alkaline Phosphatase 88 U/L (45-117); Anion Gap 5 (5-15); BUN 10 mg/dL (7-18); BUN/Creat Ratio 10.4 RATIO (10-20); Calcium,Total 8.8 mg/dL (8.5-10.1); Chloride 109 mmol/L (98-107); Creatinine, Serum 0.96 mg/dL (0.55-1.02); EST Glomerular Filtration Rate 77 mL/min (>60); Est Glom Filt Rate - Afr Amer 94 mL/min (>60); Estimated Creatinine Clearance 80.05 ml/min; Globulin 3.9 g/dL (2.2-4.2); Glucose 79 mg/dL (74-106); Potassium 3.7 mmol/L (3.5-5.1); Protein, Total 7.8 g/dL (6.4-8.2); Sodium Level 139 mmol/L (136-145)
[2018-06-13 15:46] LABS: Color, Urine SEE COMMENT BELOW (Yellow)
[2018-06-13 16:17] VITALS: BP 106/65; PULSE 66; RESP 18; O2SAT 100
[2018-06-13 16:37] LABS: Red Blood Cells-Urine > 100 SEEN /hpf (0-5)
[2018-06-13 16:38] LABS: Squamous Epithelial Cells - UA 0-5 SEEN /hpf (5-10); White Blood Cells 0-5 SEEN /hpf (0-5)
[2018-06-13] MEDS: Cephalexin 500 MG Capsule PO (17:09)
[2018-06-13] MEDS: HYDROcodone Bitartrate/Apap 5/325 Tablet PO (17:09)
[2018-06-13 17:14] VITALS: BP 118/74; PULSE 70; RESP 18; O2SAT 97
== END 2018-06-13 17:16 | disposition home or self-care (01) ==
PROVIDERS: Emergency Provider Emergency Medicine; Family Provider Family Medicine; PCP Family Medicine
DX: N39.0 Urinary tract infection, site not specified (principal); Z87.442 Personal history of urinary calculi; Q60.0 Renal agenesis, unilateral
CPT/HCPCS: 80053; 81001; 85025; 87086; 87088; 96361; 96374; 96375; 99284; J7030; A4216; J2405

== ENCOUNTER 2018-07-16 15:05 | Emergency (ER) | payer SELFPAY ==
[2018-07-16 15:06] VITALS: BP 117/85; PULSE 91; RESP 16; TEMP 36.7; O2SAT 98; BMI 29.2
--- NOTE | 2018-07-16 16:11 | CT_ITS ---
STUDY: CT ABDOMEN AND PELVIS WITHOUT CONTRAST REASON FOR EXAM: Female, 22 years old. Right flank pain. RADIATION DOSAGE (If Supplied By Facility): CTDIvol = ( 8.00 ) mGy, DLP = ( 407.67 ) mGycm TECHNIQUE: Transaxial images were obtained from the dome of the diaphragm to the symphysis pubis without oral contrast, and without intravenous contrast. Sagittal and coronal images were reconstructed. Individualized dose optimization techniques were used for this CT. COMPARISON: November 19, 2017 and February 22, 2018 FINDINGS: The visualized lung bases are unremarkable. The visualized portions of the heart are within normal limits. The lack of intravenous contrast limits evaluation of solid visceral organs. Normal liver. Normal gallbladder and extrahepatic biliary system. Normal spleen. Normal pancreas. Normal bilateral adrenal glands. The left kidney is congenitally absent. There is compensatory enlargement of the right kidney. Normal visualized stomach. Normal small intestine. There are diverticula throughout the sigmoid colon. There are surgical clips in the region of the appendix consistent with a prior appendectomy. There is a stable slightly tubular focus within the right paracolic gutter which may be postsurgical in nature. Normal abdominal aorta. Normal inferior vena cava. Normal retroperitoneum. Normal urinary bladder. Normal abdominal wall. Normal osseous structures. CT/Abdomen/Pelvis without Cont IMPRESSION: No acute intra-abdominal process. Colonic diverticulosis. Electronically Signed: Laine Cook MD at 16:54 EDT Tel , Service support ,
[2018-07-16 16:12] LABS: Mucous, Urine 0 SEEN /hpf (<or=2+)
--- NOTE | 2018-07-16 16:13 | ED.VIS.GI ---
History of Present Illness Chief Complaint: Flank Pain Informant: Patient - Abdominal Pain/Flank Pain Onset: Weeks - 1 Context: Gradual Onset Timing: Continuous Quality: Aching Location: Right Flank Current Severity: Moderate Maximum Severity: Moderate Worsened by: - - actively sitting up Relieved by: Remaining Still - Nausea/Vomiting/Emesis GI Symptom: Nausea, Vomiting Onset: Today - Diarrhea/Melena/Hematochezia GI Symptom: Negative for: Diarrhea, Melena, Hematochezia Associated Symptoms: - - decreased urine output; no other urine sx. 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 It is not necessarily colicky. She thinks she has had some discomfort for the last several weeks as well and has been seen here and at the ER in [facility], they both said the same thing which was nothing major, come back if he gets worse. She has not had any urinary symptoms, so she does not know if this is another kidney infection or not. 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 - Past Medical History (1) Renal agenesis Status: Chronic Past Medical History - Allergies and Home Meds Allergies/Adverse Reactions: Allergies amoxicillin Adverse Reaction (Verified 07/16/18 15:30) Rash ketorolac [From Toradol] Adverse Reaction (Verified 07/16/18 16:25) Other procaine [From Novocain] Adverse Reaction (Verified 07/16/18 15:30) Other Primary Care Physician: Micha Dumont MD [Primary Care Provider] - Surgical History: appendectomy, - - partial thyroid resection due to nodules Lives: Alone Smoking Status: Never smoker - Family History Maternal Family History: Reports: Cancer, - - His grandfather on maternal side had only 1 kidney and vertigo. Paternal Family History: Reports: Cancer, Diabetes Review of Systems General: Denies: Chills, Fever, Sweats Eyes: Denies: Visual changes - bilaterally, Diplopia ENT: Denies: Rhinorrhea, Sore throat Cardiovascular: Denies: Chest pain, Palpitations Respiratory: Denies: Dyspnea, Cough, Dyspnea on exertion Gastrointestinal: Reports: Abdominal pain, Nausea, Vomiting. Denies: Diarrhea, Melena, Hematochezia Genitourinary: Denies: Dysuria, Hematuria, Frequency Musculoskeletal: Reports: Back pain. Denies: Extremity Pain Skin: Denies: Rash, Wounds Neurological: Denies: Headache, Weakness, Numbness Physical Exam Vital Signs/Narrative: Vital Signs Temp Pulse Resp BP Pulse Ox 07/16/18 15:06 98.1 F 91 16 117/85 H 98 Inital Vital Signs reviewed: Yes General: Well nourished, Well developed, No Acute Distress Head: Normocephalic, Atraumatic Eyes: Perrl, EOMI ENT: Moist mucous membranes, No rhinorrhea Neck: Supple, Nontender Cardiovascular: Regular rate, Regular rhythm, No murmurs Respiratory: No distress, CTA bilaterally, Chest nontender Abdomen: Soft, Nondistended, Normal bowel sounds, No masses, Tender - RLQ. Negative for: Guarding, Rebound tenderness Back: Nontender, CVA tenderness - right mild. none on left. Extremities: Nontender, No edema Skin: Normal color, No rash Neurological: Alert, Oriented x3, Cranial nerves II-XII grossly intact, Normal Strength, Normal Sensation Psychological: Normal affect, Normal Mood Diagnostic/Tx/Re-eval Impressions Abdomen/Pelvis CT 07/16/18 16:11 IMPRESSION: No acute intra-abdominal process. Colonic diverticulosis. Electronically Signed: Laine Cook MD at 16:54 EDT Tel , Service support , 07/16/18 16:11 Abdomen/Pelvis without Cont [CT] Stat Laboratory Results 07/16/18 07/16/18 07/16/18 16:05 16:05 16:15 WBC 7.2 RBC 4.79 Hgb 14.2 Hct 41.4 MCV 86.4 MCH 29.6 MCHC 34.3 RDW 12.7 RDW Differential 40.3 Plt Count 178 MPV 9.5 Immature Gran % (Auto) 0.100 Neut % (Auto) 56.2 Lymph % (Auto) 33.6 [place] % (Auto) 8.9 Eos % (Auto) 1.1 Baso % (Auto) 0.1 Absolute Neuts (auto) 4.0 Absolute Lymphs (auto) 2.41 Total Counted Not Reportable Sodium Potassium Chloride Carbon Dioxide Anion Gap BUN Creatinine Estim Creat Clear Calc Est GFR (MDRD) Af Amer Est GFR (MDRD) Non-Af BUN/Creatinine Ratio Glucose Calcium Total Bilirubin AST ALT Alkaline Phosphatase Total Protein Albumin Globulin Albumin/Globulin Ratio Urine Color SEE COMMENT BELOW Urine Clarity Clear Urine pH 8.0 Ur Specific [place] 1.015 Urine Protein 30 H Urine Glucose (UA) Normal Urine Ketones Negative Urine Occult Blood 250 H Urine Nitrite Negative Urine Bilirubin Negative Urine Urobilinogen Normal Ur Leukocyte Esterase 500 H Urine RBC > 100 SEEN Urine WBC 0-5 SEEN Ur Squamous Epith Cells 0-5 SEEN Urine Bacteria RARE Urine Mucus 0 SEEN Urine Test Negative 07/16/18 16:15 WBC RBC Hgb Hct MCV MCH MCHC RDW RDW Differential Plt Count MPV Immature Gran % (Auto) Neut % (Auto) Lymph % (Auto) [place] % (Auto) Eos % (Auto) Baso % (Auto) Absolute Neuts (auto) Absolute Lymphs (auto) Total Counted Sodium 142 Potassium 4.3 Chloride 110 H Carbon Dioxide 27.0 Anion Gap 5 BUN 14 Creatinine 1.13 H Estim Creat Clear Calc 68.01 Est GFR (MDRD) Af Amer 78 Est GFR (MDRD) Non-Af 64 BUN/Creatinine Ratio 12.4 Glucose 86 Calcium 8.9 Total Bilirubin 0.30 AST 15 ALT 28 Alkaline Phosphatase 70 Total Protein 7.8 Albumin 3.8 Globulin 4.0 Albumin/Globulin Ratio 1.0 Urine Color Urine Clarity Urine pH Ur Specific [place] Urine Protein Urine Glucose (UA) Urine Ketones Urine Occult Blood Urine Nitrite Urine Bilirubin Urine Urobilinogen Ur Leukocyte Esterase Urine RBC Urine WBC Ur Squamous Epith Cells Urine Bacteria Urine Mucus Urine Test - Medical Decision Making Urinalysis shows infection, she has not had a CT with the several ER visits so we performed one, there is no urolithiasis and no perinephric stranding. Her symptoms, however, resemble pyelonephritis. Therefore I will place her on Bactrim for 2 weeks after a dose of Rocephin and sending a urine culture, she was given tramadol for pain and I feel she can be safely discharged home. ED Disposition - Plan for ED Patient: Disposition: Home or Assisted Living Diagnosis: Pyelonephritis Instructions: ED Kidney Infec Female Prescriptions: traMADol [Ultram] 50 mg PO Q4H PRN PRN 2 Days #10 tablet PRN Reason: Pain Sulfamethoxazole/Trimethoprim [Bactrim Ds Tablet] 1 each PO BID #28 tablet Referrals: Micha Dumont MD [Primary Care Provider] - 5-7 Days
[2018-07-16 16:15] LABS: Glucose, Dipstick Normal (Normal); Ketone-Dipstick Negative (Negative); Leukocyte Esterase-Dipstick 500 /ul (Negative); Nitrite-Dipstick Negative (Negative); Occult Blood-Urine 250 /ul (Negative); Protein-Dipstick 30 mg/dl (Negative); Specific Gravity, Urine 1.015 (1.002-1.030); Urine Bilirubin Dipstick Negative (Negative); Urine Clarity Clear (Clear); Urine Urobilinogen Normal (Normal)
[2018-07-16 16:18] LABS: Internal QC Validated? YES +Cl - CLEAR BKGD; Pregnancy, Urine Negative Negative
[2018-07-16 16:19] LABS: Color, Urine SEE COMMENT BELOW (Yellow)
[2018-07-16] MEDS: Ondansetron 4 MG/2 ML Vial IV (16:25)
[2018-07-16] MEDS: 0.9% Normal Saline 1,000 ML 125 ML IV (16:25)
[2018-07-16 16:26] LABS: Bacteria RARE /hpf (None Seen); Red Blood Cells-Urine > 100 SEEN /hpf (0-5); Squamous Epithelial Cells - UA 0-5 SEEN /hpf (5-10); White Blood Cells 0-5 SEEN /hpf (0-5)
[2018-07-16 16:41] LABS: Absolute Lymphocyte Count 2.41 X10^3/ul (0.83-4.51); Basophil# 0.01 X10^3/uL; Basophil% 0.1 % (0-1); Eosinophil# 0.08 X10^3/uL; Eosinophils% 1.1 % (0-5); Hematocrit 41.4 % (37-47); Hemoglobin 14.2 g/dl (12.0-15.0); Lymphocyte # 2.41 X10^3/ul (4.0); Lymphocyte % 33.6 % (19-41); Mean Corp Hgb Conc 34.3 g/gl (32-36); Mean Corpuscular Hgb 29.6 pg (27.0-32.0); Mean Corpuscular Volume 86.4 fL (81-99); Mean Platelet Vol. 9.5 fl (6.2-12.0); Monocyte# 0.64 X10^3/uL; Monocyte% 8.9 % (0-10); Neutrophil # 4.02 X10^3/uL (2.7-7.7); Neutrophil % 56.2 % (47-70); Platelet Count 178 K/mm3 (150-450); RBC Distribution Width CV 12.7 % (11.6-14.6); RBC Distribution Width SD 40.3 fl (35.1-43.9); Red Blood Count 4.79 M/mm3 (4.2-5.4); White Blood Count 7.2 K/mm3 (4.4-11.0)
[2018-07-16 16:52] LABS: POSITIVE COUNT NO; POSITIVE DIFFERENTIAL NO; POSITIVE MORPHOLOGY NO
[2018-07-16 16:57] LABS: AST(SGOT) 15 U/L (15-37); Alanine Aminotransfer ALT/SGPT 28 U/L (13-56); Albumin, Serum 3.8 g/dL (3.2-5.0); Alkaline Phosphatase 70 U/L (45-117); Anion Gap 5 (5-15); BUN 14 mg/dL (7-18); BUN/Creat Ratio 12.4 RATIO (10-20); Calcium,Total 8.9 mg/dL (8.5-10.1); Chloride 110 mmol/L (98-107); Creatinine, Serum 1.13 mg/dL (0.55-1.02); EST Glomerular Filtration Rate 64 mL/min (>60); Est Glom Filt Rate - Afr Amer 78 mL/min (>60); Estimated Creatinine Clearance 68.01 ml/min; Glucose 86 mg/dL (74-106); Potassium 4.3 mmol/L (3.5-5.1); Protein, Total 7.8 g/dL (6.4-8.2); Sodium Level 142 mmol/L (136-145)
[2018-07-16] MEDS: Ceftriaxone 1 GM/50 ML BAG IV (17:45)
[2018-07-16] MEDS: traMADol 50 MG Tablet PO (17:48)
[2018-07-16 18:32] VITALS: BP 108/58; PULSE 57; RESP 15
== END 2018-07-16 18:34 | disposition home or self-care (01) ==
PROVIDERS: Emergency Medicine; Emergency Provider Emergency Medicine; Family Provider Family Medicine; PCP Family Medicine
DX: N12 Tubulo-interstitial nephritis, not specified as acute or chronic (principal); K57.30 Diverticulosis of large intestine without perforation or abscess without bleeding; Z94.9 Transplanted organ and tissue status, unspecified; Z88.0 Allergy status to penicillin; Q60.2 Renal agenesis, unspecified
CPT/HCPCS: 74176; 80053; 81001; 81025; 85025; 87086; 87088; 96361; 96365; 96375; 99284; J7030; J2405

== ENCOUNTER 2018-07-30 13:05 | Emergency (ER) | payer SELFPAY ==
[2018-07-30 13:06] VITALS: BP 139/83; PULSE 93; RESP 16; TEMP 36.1; O2SAT 100; BMI 30.6
[2018-07-30 14:16] LABS: Absolute Lymphocyte Count 2.11 X10^3/ul (0.83-4.51); Absolute Neutrophil Count 4.1 X10^3/uL (2.0-7.7); Basophil# 0.01 X10^3/uL; Basophil% 0.1 % (0-1); Eosinophil# 0.08 X10^3/uL; Eosinophils% 1.1 % (0-5); Hematocrit 41.3 % (37-47); Lymphocyte # 2.11 X10^3/ul (4.0); Lymphocyte % 29.9 % (19-41); Mean Corp Hgb Conc 33.9 g/gl (32-36); Mean Corpuscular Hgb 28.9 pg (27.0-32.0); Mean Corpuscular Volume 85.2 fL (81-99); Mean Platelet Vol. 9.9 fl (6.2-12.0); Monocyte# 0.77 X10^3/uL; Monocyte% 10.9 % (0-10); Neutrophil # 4.07 X10^3/uL (2.7-7.7); Neutrophil % 57.9 % (47-70); Platelet Count 187 K/mm3 (150-450); RBC Distribution Width CV 12.7 % (11.6-14.6); RBC Distribution Width SD 38.4 fl (35.1-43.9); Red Blood Count 4.85 M/mm3 (4.2-5.4); White Blood Count 7.1 K/mm3 (4.4-11.0)
[2018-07-30] MEDS: Morphine 4 MG/ML Syringe IV (14:16)
[2018-07-30] MEDS: Ondansetron 4 MG/2 ML Vial IV (14:16)
[2018-07-30] MEDS: 0.9% Normal Saline 1,000 ML 150 ML IV (14:17)
[2018-07-30 14:18] LABS: POSITIVE COUNT NO; POSITIVE DIFFERENTIAL NO; POSITIVE MORPHOLOGY NO
[2018-07-30 14:25] LABS: Anion Gap 6 (5-15); BUN 12 mg/dL (7-18); BUN/Creat Ratio 12.7 RATIO (10-20); Calcium,Total 8.6 mg/dL (8.5-10.1); Chloride 112 mmol/L (98-107); Creatinine, Serum 0.94 mg/dL (0.55-1.02); EST Glomerular Filtration Rate 79 mL/min (>60); Est Glom Filt Rate - Afr Amer 96 mL/min (>60); Estimated Creatinine Clearance 81.75 ml/min; Glucose 83 mg/dL (74-106); Potassium 4.3 mmol/L (3.5-5.1); Sodium Level 144 mmol/L (136-145)
[2018-07-30 14:27] LABS: Bacteria 0 SEEN /hpf (None Seen); Mucous, Urine 0 SEEN /hpf (<or=2+)
[2018-07-30 14:32] LABS: Color, Urine Yellow (Yellow); Glucose, Dipstick Normal (Normal); Ketone-Dipstick 5 mg/dl (Negative); Leukocyte Esterase-Dipstick 500 /ul (Negative); Nitrite-Dipstick Positive (Negative); Occult Blood-Urine 250 /ul (Negative); Protein-Dipstick 30 mg/dl (Negative); Specific Gravity, Urine 1.015 (1.002-1.030); Urine Bilirubin Dipstick Negative (Negative); Urine Clarity Cloudy (Clear); Urine Urobilinogen Normal (Normal); Urine pH 6.5 (5.0 - 8.0)
[2018-07-30 14:42] LABS: Red Blood Cells-Urine > 100 SEEN /hpf (0-5); Squamous Epithelial Cells - UA 5-10 SEEN /hpf (5-10); White Blood Cells 5-10 SEEN /hpf (0-5)
--- NOTE | 2018-07-30 15:18 | ED.VISSUMM ---
- ER Visit Summary Date of Service: 07/30/18 Chief Complaint: Blood in urine History of Present Illness: The patient is a 22 F with history of frequent pyelonephritis. 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 She just completed a course of Bactrim a week ago for pyelonephritis. Patient states she developed blood in her urine 3 days ago along with nausea and vomiting. She got recurrent right flank pain over the past 4 days. She was having fever of 101.3 this morning. She took Tylenol earlier. Physical Examination: Vital signs unremarkable. Patient sitting upright in bed no acute distress. Heart is regular rate and rhythm. Lung sounds are clear. Abdomen is soft with mild tenderness in the right lower quadrant. She has right CVA tenderness. No skin rash or lesions. Test Results: CBC and chemistry studies normal. Urinalysis reveals positive nitrites with grade 100 RBCs and 5-10 white cells. Emergency Department Course and Treatment: Patient was given morphine, Zofran, and IV fluids. She had no vomiting here. Patient does not have a uterus. She had a CT scan done 2 weeks ago revealed no evidence of kidney stones. She will be given a course of Keflex and another urine culture will be sent. Last urine culture showed mixed organisms. Patient will be given Zofran and a few [place] at home for pain. She was instructed that she must follow-up with a urologist to get this figured out, she cannot keep coming to the emergency room and expecting a solution to the problem. She has a complicated urologic history and needs to see a specialist. Treatment Plan: [] Disposition: Discharge Impression: Hemorrhagic cystitis This note was generated with [employer] dictation software. It may contain incorrect words, spelling, and punctuation that were not noted in review of the chart prior to signing ED Disposition - Plan for ED Patient: Disposition: Home or Assisted Living Instructions: ED UTI Cystitis Female Prescriptions: Hydrocodone Bitart/Apap 5-325 [[place] 5MG-325MG] 1 tablet PO Q6H PRN PRN 3 Days #10 tablet PRN Reason: Pain Ondansetron [Zofran Odt] 4 mg PO Q8H PRN PRN #10 tablet PRN Reason: Nausea Cephalexin [Keflex] 500 mg PO Q6 #40 capsule Referrals: Raymundo Esquivel MD [STAFF PHYSICIAN] - June Bennett MD [STAFF PHYSICIAN] -
[2018-07-30] MEDS: Cephalexin 250 MG Capsule 500 MG PO (15:28)
== END 2018-07-30 15:32 | disposition home or self-care (01) ==
PROVIDERS: Emergency Provider Emergency Medicine; Family Provider Family Medicine; PCP Family Medicine
DX: N30.91 Cystitis, unspecified with hematuria (principal); J45.909 Unspecified asthma, uncomplicated
CPT/HCPCS: 80048; 81001; 85025; 87086; 87088; 96361; 96374; 96375; 99284; J7030; A4216; J2405

== ENCOUNTER 2018-08-03 14:51 | Emergency (ER) | payer SELFPAY ==
[2018-08-03 14:52] VITALS: BP 117/83; PULSE 83; RESP 16; TEMP 36.4; O2SAT 95; BMI 30.1
--- NOTE | 2018-08-03 15:26 | CT_ITS ---
STUDY: CT ABDOMEN AND PELVIS WITHOUT CONTRAST REASON FOR EXAM: Female, 22 years old. Right flank pain. History of appendectomy. History of agenesis of the left kidney. RADIATION DOSAGE (If Supplied By Facility): CTDIvol = ( 12.44 ) mGy, DLP = ( 622.48 ) mGycm TECHNIQUE: Transaxial images were obtained from the dome of the diaphragm to the symphysis pubis without oral contrast, and without intravenous contrast. Sagittal and coronal images were reconstructed. Individualized dose optimization techniques were used for this CT. COMPARISON: CT dated 07/16/2018. FINDINGS: Evaluation of the abdominal viscera is limited in the absence of intravenous contrast. The visualized lung bases are clear. The visualized portions of the heart and pericardium are within normal limits. There are no calcified gallstones present. The liver demonstrates an unremarkable unenhanced appearance. The spleen is normal in size. The pancreas demonstrates an unremarkable unenhanced appearance. The adrenal glands are within normal limits. Again noted is agenesis of the left kidney. There are no right renal or ureteral stones. There is no right hydronephrosis. Normal visualized stomach. There is no bowel obstruction or inflammation. There are surgical clips in the region of the appendix consistent with a prior appendectomy. The aorta is normal in caliber. There is no abdominal or pelvic free air, free fluid, fluid collection or lymphadenopathy. There are no destructive osseous lesions. CT/Abdomen/Pelvis without Cont IMPRESSION: No acute abdominal or pelvic pathology demonstrated on this noncontrast CT. Electronically Signed: Román Velasco, at 16:39 EDT Tel , Service support ,
--- NOTE | 2018-08-03 15:31 | ED.VISSUMM ---
- ER Visit Summary Date of Service: 08/03/18 Chief Complaint: Kidney infection History of Present Illness: The patient is a 22 F with a 6-day history of right flank pain, nausea, vomiting, reported fever. 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 She has frequent pyelonephritis. She was seen in the ER on July 30 after recently completing a course of Bactrim without improvement. Urine at that time was positive for nitrites with 5-10 white cells and grade 100 RBCs. Urine culture returned with mixed gram-positive organisms. She was given a course of Keflex at that time. Patient returns today stating she has not had any improvement. She reports continued vomiting and continued right flank pain. She states had a fever earlier today and did take Tylenol. She also notes that she has only urinated twice in the last 2 days. She feels like her bladder is full. Physical Examination: Vital signs are unremarkable. She is afebrile at 97.6. Patient sitting upright in bed no acute distress. She is nontoxic appearing. Head and neck examination is normal. Heart is regular rate and rhythm. Lung sounds are clear. Abdomen is soft with mild tenderness in the suprapubic region as well as in the right CVA area. No guarding or rebound is noted. Test Results: CBC, chemistry studies, LFTs normal. Urinalysis remains positive for nitrites with 25-50 white cells and grade 100 RBCs. 1+ bacteria is noted. CT flank reveals no acute pathology. Bladder scan on arrival shows 108 cc. Emergency Department Course and Treatment: Patient was given morphine and Zofran for pain. She is given 1 g of IV Rocephin. I did review her most recent urine culture which is positive for mixed gram-positive organisms. At this time patient shows no clinical or laboratory signs of dehydration. She will be given a course of Macrobid. She just finished Bactrim and has been on Keflex. She said [employer] never works for her. She states she called Dr. Bennett for follow-up. She is instructed to follow-up with her as soon as possible. Treatment Plan: [] Disposition: Discharge Impression: Cystitis This note was generated with [employer] software. It may contain incorrect words, spelling, and punctuation that were not noted in review of the chart prior to signing ED Disposition - Plan for ED Patient: Disposition: Home or Assisted Living Instructions: ED UTI Cystitis Female Prescriptions: proMETHazine tablet [Phenergan] 25 mg PO Q6H PRN PRN #10 tablet PRN Reason: Nausea Ondansetron [Zofran Odt] 4 mg PO Q8H PRN PRN #10 tablet PRN Reason: Nausea Nitrofurantoin Macrocrystals [Macrobid] 100 mg PO Q12 #20 capsule Referrals: Micha Dumont MD [Primary Care Provider] - June Bennett MD [STAFF PHYSICIAN] - As soon as possible
[2018-08-03] MEDS: Morphine 4 MG/ML Syringe IV ×2 (16:00→18:57)
[2018-08-03] MEDS: 0.9% Normal Saline 1,000 ML 1000 ML IV (16:00)
[2018-08-03 16:01] LABS: Absolute Lymphocyte Count 2.07 X10^3/ul (0.83-4.51); Absolute Neutrophil Count 4.8 X10^3/uL (2.0-7.7); Basophil# 0.01 X10^3/uL; Basophil% 0.1 % (0-1); Eosinophil# 0.07 X10^3/uL; Eosinophils% 0.9 % (0-5); Lymphocyte # 2.07 X10^3/ul (4.0); Lymphocyte % 27.1 % (19-41); Mean Corp Hgb Conc 33.3 g/gl (32-36); Mean Corpuscular Hgb 28.3 pg (27.0-32.0); Mean Platelet Vol. 9.6 fl (6.2-12.0); Monocyte# 0.66 X10^3/uL; Monocyte% 8.6 % (0-10); Neutrophil # 4.83 X10^3/uL (2.7-7.7); Neutrophil % 63.2 % (47-70); Platelet Count 178 K/mm3 (150-450); RBC Distribution Width CV 12.5 % (11.6-14.6); Red Blood Count 4.94 M/mm3 (4.2-5.4); White Blood Count 7.7 K/mm3 (4.4-11.0)
[2018-08-03] MEDS: Ondansetron 4 MG/2 ML Vial IV ×2 (16:02→18:58)
[2018-08-03 16:03] LABS: POSITIVE COUNT NO; POSITIVE DIFFERENTIAL NO; POSITIVE MORPHOLOGY NO
[2018-08-03 16:17] LABS: AST(SGOT) 18 U/L (15-37); Alanine Aminotransfer ALT/SGPT 28 U/L (13-56); Albumin, Serum 3.8 g/dL (3.2-5.0); Alkaline Phosphatase 76 U/L (45-117); Anion Gap 3 (5-15); BUN 15 mg/dL (7-18); BUN/Creat Ratio 14.2 RATIO (10-20); Bilirubin, Direct 0.09 mg/dL (0.00-0.30); Calcium,Total 8.7 mg/dL (8.5-10.1); Chloride 112 mmol/L (98-107); Creatinine, Serum 1.06 mg/dL (0.55-1.02); EST Glomerular Filtration Rate 69 mL/min (>60); Est Glom Filt Rate - Afr Amer 84 mL/min (>60); Globulin 3.8 g/dL (2.2-4.2); Glucose 79 mg/dL (74-106); Protein, Total 7.6 g/dL (6.4-8.2); Sodium Level 140 mmol/L (136-145)
[2018-08-03 17:04] VITALS: BP 108/78; PULSE 75; RESP 14; TEMP 36.8; O2SAT 96
[2018-08-03 17:05] VITALS: BP 108/78; PULSE 78; RESP 16; TEMP 36.8; O2SAT 96
[2018-08-03 17:07] LABS: Mucous, Urine 0 SEEN /hpf (<or=2+)
[2018-08-03 17:26] LABS: Color, Urine Red (Yellow); Glucose, Dipstick Normal (Normal); Ketone-Dipstick 5 mg/dl (Negative); Leukocyte Esterase-Dipstick 500 /ul (Negative); Nitrite-Dipstick Positive (Negative); Occult Blood-Urine 250 /ul (Negative); Protein-Dipstick 100 mg/dl (Negative); Urine Bilirubin Dipstick Negative (Negative); Urine Clarity Sl. Cloudy (Clear); Urine Urobilinogen Normal (Normal)
[2018-08-03 18:03] LABS: Bacteria 1+ /hpf (None Seen); Red Blood Cells-Urine > 100 SEEN /hpf (0-5); Squamous Epithelial Cells - UA 5-10 SEEN /hpf (5-10); White Blood Cells 25-50 SEEN /hpf (0-5)
[2018-08-03] MEDS: Ceftriaxone 1 GM/50 ML BAG IV (18:37)
[2018-08-03 19:27] VITALS: BP 115/76; PULSE 76; RESP 18; TEMP 36.7; O2SAT 98
[2018-08-03 19:42] VITALS: BP 115/76; PULSE 76; RESP 18; O2SAT 98
== END 2018-08-03 19:42 | disposition home or self-care (01) ==
PROVIDERS: Emergency Provider Emergency Medicine; Family Provider Family Medicine; PCP Family Medicine
DX: N30.90 Cystitis, unspecified without hematuria (principal); J45.909 Unspecified asthma, uncomplicated; Q60.0 Renal agenesis, unilateral
CPT/HCPCS: 74176; 80048; 80076; 81001; 85025; 87086; 87088; 96361; 96365; 96375; 96376; 99283; J7030; A4216; J2405

== ENCOUNTER 2018-09-12 12:43 | Emergency (ER) | payer SELFPAY ==
[2018-09-12 12:44] VITALS: BP 137/86; PULSE 83; RESP 16; TEMP 36.4; O2SAT 98; BMI 27.8
--- NOTE | 2018-09-12 13:09 | ED.DCSUM_ITS ---
History of Present Illness Chief Complaint: Complaint Detail of Chief Complaint: Right sided abdomen and flank pain Informant: Patient Onset: Days Context: Sudden Onset Timing: Continuous Quality: Pain Location: Right upper abdomen and flank Current Severity: Mild Maximum Severity: Moderate Worsened by: Nothing in particular Relieved by: Nothing Associated Symptoms: Nausea and vomiting for 1.5 days Narrative: Patient presents with right upper quadrant abdominal pain and right flank pain for the past several days. She has history of renal/ureteral lithiasis. 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 She is status post appendectomy. She also has history of pyelonephritis. There is a family history of cholelithiasis. She denies intolerance to greasy or fried foods. She was seen 1 to 2 months ago and had a CT of the abdomen and pelvis obtained at that time. She denies any urinary symptoms. - Past Medical History (1) Acute pyelonephritis Status: Acute (2) Renal agenesis Status: Chronic Past Medical History - Allergies and Home Meds Allergies/Adverse Reactions: Allergies amoxicillin Adverse Reaction (Verified 08/03/18 14:52) Rash ketorolac [From Toradol] Adverse Reaction (Verified 08/03/18 15:43) Other headache procaine [From Novocain] Adverse Reaction (Verified 08/03/18 15:43) Other abcess Primary Care Physician: Micha Dumont MD [Primary Care Provider] - Prior records reviewed: Yes Surgical History: appendectomy, - - partial thyroid resection due to nodules Smoking Status: Never smoker - Family History Maternal Family History: Reports: Cancer, - - His grandfather on maternal side had only 1 kidney and vertigo. Paternal Family History: Reports: Cancer, Diabetes Review of Systems General: Denies: Chills, Fever, Malaise, Subjective, Sweats Eyes: Denies: Visual changes - bilaterally, Diplopia ENT: Denies: Rhinorrhea, Sore throat Cardiovascular: Denies: Chest pain, Palpitations Respiratory: Denies: Dyspnea, Cough, Dyspnea on exertion Gastrointestinal: Reports: Abdominal pain, Nausea, Vomiting. Denies: Diarrhea, Constipation, Melena, Hematochezia, -, - Genitourinary: Denies: Dysuria, Hematuria, Frequency Musculoskeletal: Reports: Back pain. Denies: Myalgias, Arthralgias, Neck pain, Swelling, Extremity Pain, -, - Skin: Denies: Rash, Wounds Neurological: Denies: Headache, Weakness, Numbness Endocrine: Denies: Polyuria, Polydipsia Hematologic: Denies: Easy bruising, Easy bleeding Physical Exam Vital Signs/Narrative: Vital Signs Temp Pulse Resp BP Pulse Ox 09/12/18 12:44 97.5 F L 83 16 137/86 H 98 Inital Vital Signs reviewed: Yes Abdomen: Soft, Nondistended, Normal bowel sounds, No masses, Tender - There is tenderness the right upper quadrant. Patient does not have a clinical Mooney sign.. Negative for: Nontender, Obturator sign, Rovsig's sign, Mooney's sign Rectal: Deferred Back: Nontender, Normal Inspection, CVA tenderness - Right side Extremities: Nontender, No edema Skin: Normal color, No rash, No Trauma. Negative for: Cyanosis, Diaphoresis, Jaundice Neurological: Alert, Oriented x3, Cranial nerves II-XII grossly intact, Normal Strength, Normal Sensation Psychological: Normal affect, Normal Mood Diagnostic/Tx/Re-eval Laboratory Results 09/12/18 09/12/18 09/12/18 13:17 13:17 14:10 WBC 7.8 RBC 4.85 Hgb 14.3 Hct 41.6 MCV 85.8 MCH 29.5 MCHC 34.4 RDW Std Deviation 36.8 RDW Coeff of Teena 11.8 Plt Count 185 MPV 9.5 Immature Gran % (Auto) 0.300 Neut % (Auto) 68.2 Lymph % (Auto) 22.6 [place] % (Auto) 7.6 Eos % (Auto) 1.0 Baso % (Auto) 0.3 Absolute Neuts (auto) 5.3 Absolute Lymphs (auto) 1.76 Absolute Nucleated RBC 0.00 Nucleated RBC % 0 Sodium 139 Potassium 4.0 Chloride 110 H Carbon Dioxide 23.0 Anion Gap 6 BUN 18 Creatinine 0.96 Estim Creat Clear Calc 80.05 Est GFR (MDRD) Af Amer 94 Est GFR (MDRD) Non-Af 78 BUN/Creatinine Ratio 18.8 Glucose 95 Calcium 9.1 Total Bilirubin 0.30 Direct Bilirubin 0.08 AST 15 ALT 23 Alkaline Phosphatase 70 Total Protein 7.3 Albumin 3.7 Globulin 3.6 Urine Color Rayna Urine Clarity Cloudy Urine pH 5.0 Ur Specific [place] 1.020 Urine Protein 30 H Urine Glucose (UA) Normal Urine Ketones Negative Urine Occult Blood 250 H Urine Nitrite Positive H Urine Bilirubin Negative Urine Urobilinogen Normal Ur Leukocyte Esterase 500 H Urine RBC > 100 SEEN Urine WBC 0 SEEN Ur Squamous Epith Cells 5-10 SEEN Urine Bacteria 0 SEEN Urine Mucus 0 SEEN - Medical Decision Making UA and appropriate blood work was obtained to evaluate biliary etiology, renal etiology and will need to determine if she has infection versus stone. If she has a ureteral stone with a solitary kidney she will require admission to the hospital. Because she has only one kidney she was treated with 4 mg of morphine and 4 mg of Zofran for her pain and nausea/vomiting. Urine was positive for gross hematuria. Macro was positive for leukoesterase, blood and nitrites. Micro reveals no bacteria or white cells. With history of solitary kidney flank pain and recent urinary tract infection culture was obtained. She will receive a dose of IV Rocephin. She has taken cephalexin in the past with no reaction. Hospitalist was paged for 23 observation for nausea vomiting possible kidney infection. Case was discussed with hospitalist, Dr. Pierre for. He reviewed her last 2 urine cultures. They were mixed savita. In light of this information will p.o. challenge patient. If she passes p.o. challenge she will be discharged to home with antiemetic and antibiotic. Patient will be discharged to home with appropriate home-going instructions. ED Disposition - Plan for ED Patient: Disposition: Acute Care Hospital [facility] Diagnosis: Gross hematuria, Acute right flank pain, Renal agenesis Instructions: Hematuria, FLANK PAIN, Uncertain Cause Prescriptions: Cephalexin [Keflex] 500 mg PO 4X/DAY #20 cap Transmission Status: Pending to [facility]/pharmacy #[id number] Ondansetron [Zofran Odt] 4 mg PO Q8H PRN PRN #10 tab PRN Reason: Nausea Transmission Status: Pending to [facility]/pharmacy #[id number] Referrals: Micha Dumont MD [Primary Care Provider] - 1-2 Days if not improving Additional Instructions: Your prescription was electronically transmitted to [facility] pharmacy located on [facility]
[2018-09-12 13:23] LABS: Absolute Lymphocyte Count 1.76 X10^3/uL (0.83-4.51); Absolute Neutrophil Count 5.3 X10^3/uL (2.0-7.7); Basophil# 0.02 X10^3/uL; Basophil% 0.3 % (0-1); Eosinophil# 0.08 X10^3/uL; Hematocrit 41.6 % (37-47); Hemoglobin 14.3 g/dL (12.0-15.0); Lymphocyte # 1.76 X10^3/ul (4.0); Lymphocyte % 22.6 % (19-41); Mean Corp Hgb Conc 34.4 g/dL (32-36); Mean Corpuscular Hgb 29.5 pg (27.0-32.0); Mean Corpuscular Volume 85.8 fL (81-99); Mean Platelet Vol. 9.5 fl (6.2-12.0); Monocyte# 0.59 X10^3/uL; Monocyte% 7.6 % (0-10); NRBC Flagged by Analyzer 0 % (0-5); Neutrophil # 5.33 X10^3/uL (2.7-7.7); Neutrophil % 68.2 % (47-70); Platelet Count 185 K/mm3 (150-450); RBC Distribution Width CV 11.8 % (11.6-14.6); RBC Distribution Width SD 36.8 fl (35.1-43.9); Red Blood Count 4.85 M/mm3 (4.2-5.4); White Blood Count 7.8 K/mm3 (4.4-11.0)
[2018-09-12] MEDS: Ondansetron 4 MG/2 ML Vial IV ×2 (13:27→14:20)
[2018-09-12] MEDS: Morphine 4 MG/ML Syringe IV (13:27)
[2018-09-12] MEDS: 0.9% Normal Saline 1,000 ML 1000 ML IV (13:27)
[2018-09-12 13:39] LABS: AST(SGOT) 15 U/L (15-37); Alanine Aminotransfer ALT/SGPT 23 U/L (13-56); Albumin, Serum 3.7 g/dL (3.2-5.0); Alkaline Phosphatase 70 U/L (45-117); Anion Gap 6 (5-15); BUN 18 mg/dL (7-18); BUN/Creat Ratio 18.8 RATIO (10-20); Bilirubin, Direct 0.08 mg/dL (0.00-0.30); Calcium,Total 9.1 mg/dL (8.5-10.1); Chloride 110 mmol/L (98-107); Creatinine, Serum 0.96 mg/dL (0.55-1.02); EST Glomerular Filtration Rate 78 mL/min (>60); Est Glom Filt Rate - Afr Amer 94 mL/min (>60); Estimated Creatinine Clearance 80.05 ml/min; Globulin 3.6 g/dL (2.2-4.2); Glucose 95 mg/dL (74-106); Protein, Total 7.3 g/dL (6.4-8.2); Sodium Level 139 mmol/L (136-145)
[2018-09-12 14:16] LABS: Bacteria 0 SEEN /hpf (None Seen); Mucous, Urine 0 SEEN /hpf (<or=2+); White Blood Cells 0 SEEN /hpf (0-5)
[2018-09-12 14:21] VITALS: BP 123/74; PULSE 64; RESP 15; TEMP 36.7; O2SAT 100
[2018-09-12 14:22] LABS: Color, Urine Amber (Yellow); Glucose, Dipstick Normal (Normal); Ketone-Dipstick Negative (Negative); Leukocyte Esterase-Dipstick 500 /ul (Negative); Nitrite-Dipstick Positive (Negative); Occult Blood-Urine 250 /ul (Negative); Protein-Dipstick 30 mg/dl (Negative); Urine Bilirubin Dipstick Negative (Negative); Urine Clarity Cloudy (Clear); Urine Urobilinogen Normal (Normal)
[2018-09-12 14:31] LABS: Red Blood Cells-Urine > 100 SEEN /hpf (0-5)
[2018-09-12 14:33] LABS: Squamous Epithelial Cells - UA 5-10 SEEN /hpf (5-10)
[2018-09-12] MEDS: Ceftriaxone 1 GM/50 ML BAG IV (15:43)
[2018-09-12 16:29] VITALS: BP 123/75; PULSE 69; RESP 17; O2SAT 97
== END 2018-09-12 16:30 | disposition home or self-care (01) ==
PROVIDERS: Emergency Provider Emergency Medicine; Family Provider Family Medicine; PCP Family Medicine
DX: R31.0 Gross hematuria (principal); R10.9 Unspecified abdominal pain; Q60.2 Renal agenesis, unspecified; Z88.0 Allergy status to penicillin; Z90.49 Acquired absence of other specified parts of digestive tract; Z87.442 Personal history of urinary calculi; Z87.440 Personal history of urinary (tract) infections
CPT/HCPCS: 80048; 80076; 81001; 85025; 87086; 87088; 96361; 96365; 96375; 96376; 99283; J7030; A4216; J2405

== ENCOUNTER 2018-09-20 12:34 | Emergency (ER) | payer SELFPAY ==
[2018-09-20 12:35] VITALS: BP 112/62; PULSE 83; RESP 17; TEMP 36.8; O2SAT 99; BMI 26.7
--- NOTE | 2018-09-20 12:56 | CT_ITS ---
STUDY: CT ABDOMEN AND PELVIS WITHOUT CONTRAST REASON FOR EXAM: Female, 22 years old. Left flank pain with nausea and vomiting. Hematuria. History of the absence of the ovaries, uterus and left kidney. RADIATION DOSAGE (If Supplied By Facility): CTDIvol = ( 10.42 ) mGy, DLP = ( 498.18 ) mGycm TECHNIQUE: Transaxial images were obtained from the dome of the diaphragm to the symphysis pubis without oral contrast, and without intravenous contrast. Sagittal and coronal images were reconstructed. Individualized dose optimization techniques were used for this CT. COMPARISON: Comparison is made with prior study dated August 03, 2018. FINDINGS: The visualized lung bases are unremarkable. The visualized portions of the heart are within normal limits. Normal liver. Normal gallbladder and extrahepatic biliary system. Normal spleen. Normal pancreas. Normal bilateral adrenal glands. Normal right kidney. The left kidney is not visualized. Normal visualized stomach. Normal small intestine. Surgical clips are seen in the distal small bowel and cecum most likely secondary to prior appendectomy. Scattered sigmoid diverticula. Normal abdominal aorta. Normal inferior vena cava. Normal retroperitoneum. Normal urinary bladder. The left ovary measures 1.7 cm by 2 cm. The uterus is not visualized. Normal abdominal wall. Small benign-appearing lymph nodes in the inguinal regions bilaterally. Normal osseous structures. CT/Abdomen/Pelvis without Cont IMPRESSION: Scattered sigmoid diverticula. No acute abnormality is seen. Electronically Signed: Scott Apodaca, at 14:27 EDT , Service support ,
--- NOTE | 2018-09-20 12:56 | US_ITS ---
STUDY: ULTRASOUND OF THE FEMALE PELVIS - COMPLETE REASON FOR EXAM: Female, 22 years old. Left lower quadrant pain. 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 TECHNIQUE: Transabdominal and Transvaginal TECHNICAL QUALITY: Adequate. COMPARISON: None. FINDINGS: There is absence of the uterus. The right ovary is non-visualized. 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 The left ovary is non-visualized. There is no fluid in the cul-de-sac. US/Transvaginal Non- IMPRESSION: The ovaries and uterus are not visualized. Electronically Signed: Scott Apodaca, at 14:24 EDT , Service support ,
--- NOTE | 2018-09-20 13:01 | ED.VIS.GEN ---
History of Present Illness Chief Complaint: Abd Pain Narrative: 22-year-old female presents with left lower quadrant abdominal pain for the past several days. It is intermittent and sharp and stabbing in nature. She has had clots in her urine and gross hematuria occasionally. She is nauseated but not vomiting. Bowel movements have been normal. No upper abdominal pain. Occasional left flank pain. This has been somewhat of a recurrent issue for her she has been imaged in the past but no conclusive cause has been discovered. She was recently treated with antibiotics for a urinary tract infection and she is concerned that it did not completely resolve. Severity is moderate. Past Medical History - Allergies and Home Meds Allergies/Adverse Reactions: Allergies amoxicillin Adverse Reaction (Verified 09/20/18 12:35) Rash ketorolac [From Toradol] Adverse Reaction (Verified 09/20/18 12:35) Other headache procaine [From Novocain] Adverse Reaction (Verified 09/20/18 12:35) Other abcess Primary Care Physician: Micha Dumont MD [Primary Care Provider] - Surgical History: appendectomy, - - partial thyroid resection due to nodules Smoking Status: Never smoker - Family History Maternal Family History: Reports: Cancer, - - His grandfather on maternal side had only 1 kidney and vertigo. Paternal Family History: Reports: Cancer, Diabetes Review of Systems General: Denies: Chills, Fever, Sweats Eyes: Denies: Visual changes - bilaterally, Diplopia ENT: Denies: Rhinorrhea, Sore throat Cardiovascular: Denies: Chest pain, Palpitations Respiratory: Denies: Dyspnea, Cough, Dyspnea on exertion Gastrointestinal: Reports: Abdominal pain, Nausea. Denies: Vomiting, Diarrhea, Melena, Hematochezia Genitourinary: Denies: Dysuria, Hematuria, Frequency Musculoskeletal: Denies: Back pain, Extremity Pain Skin: Denies: Rash, Wounds Neurological: Denies: Headache, Weakness, Numbness Hematologic: Denies: Easy bleeding Physical Exam Vital Signs/Narrative: Vital Signs Temp Pulse Resp BP Pulse Ox 09/20/18 12:35 98.3 F 83 17 112/62 99 General: Well nourished, Well developed, No Acute Distress Head: Normocephalic, Atraumatic Eyes: Perrl, EOMI ENT: Moist mucous membranes, No rhinorrhea Neck: Supple, Nontender Cardiovascular: Regular rate, Regular rhythm, No murmurs Respiratory: No distress, CTA bilaterally, Chest nontender Abdomen: Soft, Nontender, Nondistended, Normal bowel sounds Back: Nontender, Normal Inspection Extremities: Nontender, No edema Skin: Normal color, No rash Neurological: Alert, Oriented x3, Cranial nerves II-XII grossly intact, Normal Strength, Normal Sensation Psychological: Normal affect, Normal Mood ED Disposition - Plan for ED Patient: Referrals: Micha Dumont MD [Primary Care Provider] -
[2018-09-20] MEDS: 0.9% Normal Saline 1,000 ML 1000 ML IV (13:20)
[2018-09-20] MEDS: Ondansetron 4 MG/2 ML Vial IV (13:20)
[2018-09-20] MEDS: Morphine 4 MG/ML Syringe IV (13:27)
[2018-09-20 13:34] LABS: Anion Gap 5 (5-15); BUN 11 mg/dL (7-18); BUN/Creat Ratio 11.3 RATIO (10-20); Calcium,Total 8.7 mg/dL (8.5-10.1); Chloride 109 mmol/L (98-107); Creatinine, Serum 0.97 mg/dL (0.55-1.02); EST Glomerular Filtration Rate 76 mL/min (>60); Est Glom Filt Rate - Afr Amer 92 mL/min (>60); Estimated Creatinine Clearance 79.22 ml/min; Glucose 80 mg/dL (74-106); Sodium Level 139 mmol/L (136-145)
[2018-09-20 14:17] LABS: Internal QC Validated? YES +Cl - CLEAR BKGD; Pregnancy, Serum, hCG Quali. NEGATIVE Negative
[2018-09-20 14:36] LABS: Bacteria 0 SEEN /hpf (None Seen); Mucous, Urine 0 SEEN /hpf (<or=2+)
[2018-09-20 14:38] LABS: Color, Urine Red (Yellow); Glucose, Dipstick Normal (Normal); Ketone-Dipstick Negative (Negative); Leukocyte Esterase-Dipstick 500 /ul (Negative); Nitrite-Dipstick Negative (Negative); Occult Blood-Urine 250 /ul (Negative); Protein-Dipstick 100 mg/dl (Negative); Urine Bilirubin Dipstick Negative (Negative); Urine Clarity Cloudy (Clear); Urine Urobilinogen Normal (Normal)
[2018-09-20 14:48] LABS: Red Blood Cells-Urine > 100 SEEN /hpf (0-5); Squamous Epithelial Cells - UA 5-10 SEEN /hpf (5-10); White Blood Cells 5-10 SEEN /hpf (0-5)
[2018-09-20 15:10] LABS: Absolute Lymphocyte Count 2.13 X10^3/uL (0.83-4.51); Absolute Neutrophil Count 4.4 X10^3/uL (2.0-7.7); Basophil# 0.01 X10^3/uL; Basophil% 0.1 % (0-1); Eosinophil# 0.09 X10^3/uL; Eosinophils% 1.2 % (0-5); Hematocrit 41.8 % (37-47); Hemoglobin 14.2 g/dL (12.0-15.0); Lymphocyte # 2.13 X10^3/ul (4.0); Lymphocyte % 29.2 % (19-41); Mean Corpuscular Hgb 29.6 pg (27.0-32.0); Mean Corpuscular Volume 87.3 fL (81-99); Mean Platelet Vol. 9.7 fl (6.2-12.0); Monocyte# 0.68 X10^3/uL; Monocyte% 9.3 % (0-10); NRBC Flagged by Analyzer 0 % (0-5); Neutrophil # 4.37 X10^3/uL (2.7-7.7); Neutrophil % 59.9 % (47-70); Platelet Count 183 K/mm3 (150-450); RBC Distribution Width CV 11.9 % (11.6-14.6); RBC Distribution Width SD 38.3 fl (35.1-43.9); Red Blood Count 4.79 M/mm3 (4.2-5.4); White Blood Count 7.3 K/mm3 (4.4-11.0)
[2018-09-20 15:18] VITALS: RESP 18
--- NOTE | 2018-09-20 15:54 | ED.VIS.GEN ---
History of Present Illness Chief Complaint: Abd Pain Past Medical History - Allergies and Home Meds Allergies/Adverse Reactions: Allergies amoxicillin Adverse Reaction (Verified 09/20/18 12:35) Rash ketorolac [From Toradol] Adverse Reaction (Verified 09/20/18 12:35) Other headache procaine [From Novocain] Adverse Reaction (Verified 09/20/18 12:35) Other abcess Primary Care Physician: Micha Dumont MD [Primary Care Provider] - Surgical History: appendectomy, - - partial thyroid resection due to nodules Smoking Status: Never smoker - Family History Maternal Family History: Reports: Cancer, - - His grandfather on maternal side had only 1 kidney and vertigo. Paternal Family History: Reports: Cancer, Diabetes Physical Exam Vital Signs/Narrative: Vital Signs Temp Pulse Resp BP Pulse Ox 09/20/18 15:18 18 09/20/18 12:35 98.3 F 83 17 112/62 99 ED Disposition - Plan for ED Patient: Disposition: Home or Assisted Living Diagnosis: Chronic abdominal pain Instructions: ABDOMINAL PAIN, Unknown Cause, (Female) Referrals: Raymundo Esquivel MD [STAFF PHYSICIAN] -
[2018-09-20 16:08] VITALS: BP 109/77; PULSE 63; RESP 16; O2SAT 96
--- NOTE | 2018-09-20 16:08 | ED.RN ---
IV DC'ED, CATHETER INTACT, SMALL GAUZE DRESSING PLACED. DISCHARGE INSTRUCTIONS GIVEN TO AND REVIEWED WITH PATIENT, PATIENT DENIES QUESTIONS OR CONCERNS AND VOICES UNDERSTANDING OF DISCHARGE INSTRUCTIONS. PAT AMBULATES OUT OF ROOM WITHOUT DIFFICULTY.
== END 2018-09-20 16:10 | disposition home or self-care (01) ==
PROVIDERS: Emergency Provider Emergency Medicine; Family Provider Family Medicine; PCP Family Medicine
DX: G89.29 Other chronic pain (principal); R10.9 Unspecified abdominal pain; R31.9 Hematuria, unspecified; Z87.440 Personal history of urinary (tract) infections; Z88.0 Allergy status to penicillin; Z90.49 Acquired absence of other specified parts of digestive tract; Z80.51 Family history of malignant neoplasm of kidney
CPT/HCPCS: 74176; 76830; 80048; 81001; 84703; 85025; 87086; 87088; 96361; 96374; 96375; 99283; J7030; A4216; J2405

== ENCOUNTER 2018-10-09 14:38 | Emergency (ER) | payer SELFPAY ==
[2018-10-09 14:39] VITALS: BP 147/96; PULSE 88; RESP 16; TEMP 36.9; O2SAT 99; BMI 26.7
[2018-10-09] MEDS: Ondansetron 4 MG/2 ML Vial IV (15:10)
[2018-10-09] MEDS: 0.9% Normal Saline 1,000 ML 1000 ML IV (15:10)
[2018-10-09] MEDS: Morphine 4 MG/ML Syringe IV (15:11)
[2018-10-09 15:19] LABS: Absolute Lymphocyte Count 2.07 X10^3/uL (0.83-4.51); Absolute Neutrophil Count 5.3 X10^3/uL (2.0-7.7); Basophil# 0.01 X10^3/uL; Basophil% 0.1 % (0-1); Eosinophil# 0.05 X10^3/uL; Eosinophils% 0.6 % (0-5); Hematocrit 42.2 % (37-47); Hemoglobin 14.3 g/dL (12.0-15.0); Lymphocyte # 2.07 X10^3/ul (4.0); Lymphocyte % 25.6 % (19-41); Mean Corp Hgb Conc 33.9 g/dL (32-36); Mean Corpuscular Hgb 29.1 pg (27.0-32.0); Mean Corpuscular Volume 85.9 fL (81-99); Mean Platelet Vol. 9.5 fl (6.2-12.0); Monocyte# 0.67 X10^3/uL; Monocyte% 8.3 % (0-10); NRBC Flagged by Analyzer 0 % (0-5); Neutrophil # 5.28 X10^3/uL (2.7-7.7); Neutrophil % 65.2 % (47-70); Platelet Count 211 K/mm3 (150-450); RBC Distribution Width CV 12.1 % (11.6-14.6); RBC Distribution Width SD 37.9 fl (35.1-43.9); Red Blood Count 4.91 M/mm3 (4.2-5.4); White Blood Count 8.1 K/mm3 (4.4-11.0)
--- NOTE | 2018-10-09 15:20 | RAD_ITS ---
STUDY: X-RAY - ABDOMEN/PELVIS REASON FOR EXAM: Female, 22 years old. Pain on the right side TECHNIQUE: 2 views COMPARISON: None. FINDINGS: Normal visualized lung bases. Postsurgical change in the right lower quadrant. There is an unremarkable bowel gas pattern. There is no demonstrated free abdominal air. The visualized liver, spleen and kidneys are grossly normal in size and morphology. Normal soft tissue structures. Normal visualized osseous structures. RAD/Abdomen Single View (Portable) IMPRESSION: Post surgical change in the right lower quadrant. Nonobstructive bowel gas pattern. Electronically Signed: Scott Sims MD at 15:35 EDT Tel [phone], Service support ,
--- NOTE | 2018-10-09 15:22 | ED.DCSUM_ITS ---
- ER Visit Summary Date of Service: 10/09/18 Chief Complaint: [Right flank pain and hematuria] History of Present Illness: The patient is a 22 F [presents to the emergency department with right flank pain and hematuria x2 days. Patient states she is had continuous pain. She denies any fevers. She rates her pain an 8 out of 10. Patient today started with vomiting and has thrown up about 4 5 times. Patient states she has had similar episodes in the past multiple times and has been seen in this department within the last month and had CT scans which were negative for kidney stones. Patient states that she only has one kidney on the right side as she was born this way. Patient was also born without a uterus, ovaries and cervix. Patient has recently also been seen by Dr. Bennett instructed her to return to the emergency department if her symptoms persisted. Patient has had prior appendectomy. Patient has had a partial thyroidectomy.] Physical Examination: [HEENT-PERRLA, EOMI. Cranial nerves II through XII grossly intact. TMs clear. Mucous membranes moist. No adenopathy. Cardiovascular-regular rate and rhythm without murmur or ectopy Lungs-clear to auscultation, chest wall stable without crepitus or subcu emphysema Abdomen-normoactive bowel sounds, soft. Patient has tenderness palpation over right lower quadrant with some guarding. Patient has CVA tenderness on the right. There is no rebound, rigidity, or perineal signs. Extremities-intact ?4, normal range of motion, normal pulses, atraumatic] Test Results: [CBC with digital count of 8.1, hemoglobin 14, hematocrit 42, placed 211. Chemistries unremarkable. BUN 16 and creatinine 1.0. Urinalysis showed 500 leukocyte esterase as well as greater than 100 RBCs and 5-10 to be BCs as well as 1025 epis. Urine culture was sent. KUB obtained showed nothing acute.] Emergency Department Course and Treatment: [Patient was given morphine and Zofran IV. Patient was started on Rocephin 1 g IV. I discussed case with urology on-call asked that patient follow-up with them as an outpatient for possible cystoscopy. They did not feel the patient needed to be admitted for this.] Treatment Plan: [Will be given a prescription for Bactrim as well as Pyridium and Zofran and [place]. Patient to follow-up with urology. Patient advised to return if fever, vomiting, dehydration, worsening pain, or conditions worsen anyway.] Disposition: [Discharged home stable condition.] Impression: [Hematuria UTI] This note was generated with [employer] dictation software. It may contain incorrect words, spelling, and punctuation that were not noted in review of the chart prior to signing ED Disposition - Plan for ED Patient: Referrals: Micha Dumont MD [Primary Care Provider] -
[2018-10-09 15:30] LABS: Anion Gap 4 (5-15); BUN 16 mg/dL (7-18); Calcium,Total 8.7 mg/dL (8.5-10.1); Chloride 112 mmol/L (98-107); EST Glomerular Filtration Rate 74 mL/min (>60); Est Glom Filt Rate - Afr Amer 89 mL/min (>60); Estimated Creatinine Clearance 76.85 ml/min; Glucose 105 mg/dL (74-106); Sodium Level 141 mmol/L (136-145)
[2018-10-09 15:57] LABS: Mucous, Urine 0 SEEN /hpf (<or=2+)
[2018-10-09 16:02] LABS: Color, Urine Red (Yellow); Glucose, Dipstick Normal (Normal); Ketone-Dipstick 5 mg/dl (Negative); Leukocyte Esterase-Dipstick 500 /ul (Negative); Nitrite-Dipstick Negative (Negative); Occult Blood-Urine 250 /ul (Negative); Protein-Dipstick 100 mg/dl (Negative); Specific Gravity, Urine 1.025 (1.002-1.030); Urine Bilirubin Dipstick Negative (Negative); Urine Clarity Cloudy (Clear); Urine Urobilinogen Normal (Normal)
[2018-10-09 16:21] LABS: Bacteria RARE /hpf (None Seen); Red Blood Cells-Urine > 100 SEEN /hpf (0-5); Squamous Epithelial Cells - UA 10-25 SEEN /hpf (5-10); White Blood Cells 5-10 SEEN /hpf (0-5)
--- NOTE | 2018-10-09 16:48 | ED.DEP ---
ED Disposition - Plan for ED Patient: Instructions: Bladder Infection, Female (Adult), Hematuria Prescriptions: Smz/Tmp Ds [Bactrim Ds] 1 tab PO BID #10 tab Prescription Printed Hydrocodone Bitart/Apap 5-325 [[place] 5MG-325MG] 1 tab PO Q4H PRN PRN 2 Days #10 tab PRN Reason: Pain Prescription Printed Phenazopyridine HCl [Pyridium] 200 mg PO BID PRN PRN #10 tab PRN Reason: Pain Prescription Printed Ondansetron [Zofran Odt] 4 mg PO Q8H PRN PRN #10 tab PRN Reason: Nausea Prescription Printed Referrals: Micha Dumont MD [Primary Care Provider] - June Bennett MD [STAFF PHYSICIAN] - 1-2 Days if not improving
[2018-10-09] MEDS: Ceftriaxone 1 GM/50 ML BAG IV (16:54)
[2018-10-09 17:24] VITALS: BP 103/74; PULSE 69; RESP 16; O2SAT 95
== END 2018-10-09 17:25 | disposition home or self-care (01) ==
LOC: ED 15:02
PROVIDERS: Emergency Provider Emergency Medicine; Family Provider Family Medicine; PCP Family Medicine
DX: R31.9 Hematuria, unspecified (principal); N39.0 Urinary tract infection, site not specified
CPT/HCPCS: 74018; 80048; 81001; 85025; 87086; 87088; 99283; J7030; A4216; J2405

== ENCOUNTER 2018-10-17 13:51 | Emergency (ER) | payer SELFPAY ==
[2018-10-17 13:51] VITALS: BP 151/92; PULSE 80; RESP 16; TEMP 37.2; O2SAT 96; BMI 30.4
--- NOTE | 2018-10-17 14:01 | ED.VIS.GEN ---
History of Present Illness Chief Complaint: Flank Pain Informant: Patient Onset: Days, Weeks Context: Gradual Onset Timing: Continuous Quality: Right flank and abdominal pain Location: Right flank and abdomen Current Severity: Mild Maximum Severity: Moderate Worsened by: Touch Relieved by: Nothing Associated Symptoms: Temperature to 103 ?F Narrative: Patient is a 22-year-old female with history of agenesis left kidney who presents with persistent right flank pain and hematuria. She was seen twice this month. She was seen by me and of last month. All of her urine cultures revealed mixed gram-positive savita. She states she called both urologist in town and could not be seen until December. She states her temperature this morning was 103 ?F. She does complain of nausea without vomiting or diarrhea. She denies respiratory symptoms. She denies food intolerance. She has no other complaints. Prior similar symptoms: Yes Recent Illness/Hospitalization: Yes - Past Medical History (1) History of gross hematuria Status: Acute (2) Renal agenesis Status: Chronic Past Medical History - Allergies and Home Meds Allergies/Adverse Reactions: Allergies amoxicillin Adverse Reaction (Verified 10/17/18 13:54) Rash ketorolac [From Toradol] Adverse Reaction (Verified 10/17/18 13:54) Other headache procaine [From Novocain] Adverse Reaction (Verified 10/17/18 13:54) Other abcess Primary Care Physician: Micha Dumont MD [Primary Care Provider] - Prior records reviewed: Yes - Previously documented Surgical History: appendectomy, - - partial thyroid resection due to nodules Lives: Alone Smoking Status: Never smoker Alcohol: None Drugs: None - Family History Maternal Family History: Reports: Cancer, - - His grandfather on maternal side had only 1 kidney and vertigo. Paternal Family History: Reports: Cancer, Diabetes Review of Systems General: Reports: Chills, Fever. Denies: Malaise, Subjective, Sweats, Weight loss Eyes: Denies: Visual changes - bilaterally, Blurred Vision - bilaterally ENT: Denies: Left ear pain, Right ear pain, Rhinorrhea, Sore throat Cardiovascular: Denies: Chest pain, Palpitations Respiratory: Denies: Dyspnea, Cough, Dyspnea on exertion Gastrointestinal: Reports: Abdominal pain, Nausea. Denies: Vomiting, Constipation, Melena, Hematochezia Genitourinary: Reports: Hematuria. Denies: Dysuria, Frequency Musculoskeletal: Reports: Back pain. Denies: Myalgias, Arthralgias, Neck pain, Swelling, Extremity Pain Skin: Reports: Rash, Wounds Neurological: Reports: Headache, Weakness, Parasthesia Hematologic: Denies: Easy bruising, Easy bleeding Allergy: Denies: Uticaria, Swelling of the mouth Physical Exam Vital Signs/Narrative: Vital Signs Temp Pulse Resp BP Pulse Ox 10/17/18 13:51 99 F 80 16 151/92 H 96 Inital Vital Signs reviewed: Yes General: Well nourished, Well developed, No Acute Distress Head: Normocephalic, Atraumatic Eyes: Perrl, EOMI. Negative for: Pale conjunctiva, Scleral icterus ENT: Moist mucous membranes, No rhinorrhea, TM's clear. Negative for: Dry mucous membranes Neck: Supple, Nontender, No lymphadenopathy Cardiovascular: Regular rate, Regular rhythm, No murmurs, Normal S1, Normal S2 Respiratory: No distress, CTA bilaterally, Chest nontender Abdomen: Soft, Nondistended, Normal bowel sounds, Tender. Negative for: Guarding, Rebound tenderness, Hyperactive bowel sounds Back: Nontender, Normal Inspection. Negative for: CVA tenderness, Spinal tenderness Extremities: Nontender, No edema Skin: Normal color, No rash Neurological: Alert, Oriented x3, Cranial nerves II-XII grossly intact, Normal Strength, Normal Sensation Psychological: Normal affect, Normal Mood Diagnostic/Tx/Re-eval Laboratory Results 10/17/18 10/17/18 10/17/18 14:13 14:13 15:15 WBC 7.5 RBC 4.79 Hgb 14.2 Hct 41.7 MCV 87.1 MCH 29.6 MCHC 34.1 RDW Std Deviation 38.2 RDW Coeff of Teena 12.0 Plt Count 205 MPV 9.6 Immature Gran % (Auto) 0.400 Neut % (Auto) 57.7 Lymph % (Auto) 32.4 Graham % (Auto) 8.7 Eos % (Auto) 0.7 Baso % (Auto) 0.1 Absolute Neuts (auto) 4.3 Absolute Lymphs (auto) 2.43 Nucleated RBC % 0 Sodium 139 Potassium 3.9 Chloride 112 H Carbon Dioxide 23.0 Anion Gap 4 L BUN 15 Creatinine 0.95 Estim Creat Clear Calc 80.89 Est GFR (MDRD) Af Amer 94 Est GFR (MDRD) Non-Af 78 BUN/Creatinine Ratio 15.8 Glucose 82 Calcium 9.4 Urine Color Yellow Urine Clarity Clear Urine pH 6.0 Ur Specific [place] 1.010 Urine Protein Negative Urine Glucose (UA) Normal Urine Ketones Negative Urine Occult Blood Negative Urine Nitrite Negative Urine Bilirubin Negative Urine Urobilinogen Normal Ur Leukocyte Esterase 25 H Urine RBC 0 SEEN Urine WBC 0 SEEN Ur Squamous Epith Cells 0-5 SEEN Urine Bacteria RARE Urine Mucus 0 SEEN CBC is normal. Renal function and electrolytes are normal. Cath urine reveals no evidence of infection. Since there is no evidence of hematuria she will be discharged to follow-up with urology. She was informed the cause of her pain is unknown. - Medical Decision Making Rosario with persistent chronic pain and hematuria. Will obtain cath urine since all of her prior specimens grew gram-positive mixed savita which is a contaminant. CBC was obtained to assess white count and H&H and basic metabolic panel was obtained to assess kidney function since she has only one kidney. ED Disposition - Plan for ED Patient: Disposition: Home or Assisted Living Diagnosis: Chronic right flank pain, History of hematuria Instructions: FLANK PAIN, Uncertain Cause Referrals: Micha Dumont MD [Primary Care Provider] - 1-2 Weeks Additional Instructions: There is no blood noted in your urine. There is no evidence of infection. The cause of your pain is unknown. Recommend contacting your primary care physician and your urologist.
[2018-10-17 14:26] LABS: Absolute Lymphocyte Count 2.43 X10^3/uL (0.83-4.51); Absolute Neutrophil Count 4.3 X10^3/uL (2.0-7.7); Basophil# 0.01 X10^3/uL; Basophil% 0.1 % (0-1); Eosinophil# 0.05 X10^3/uL; Eosinophils% 0.7 % (0-5); Hematocrit 41.7 % (37-47); Hemoglobin 14.2 g/dL (12.0-15.0); Lymphocyte # 2.43 X10^3/ul (4.0); Lymphocyte % 32.4 % (19-41); Mean Corp Hgb Conc 34.1 g/dL (32-36); Mean Corpuscular Hgb 29.6 pg (27.0-32.0); Mean Corpuscular Volume 87.1 fL (81-99); Mean Platelet Vol. 9.6 fl (6.2-12.0); Monocyte# 0.65 X10^3/uL; Monocyte% 8.7 % (0-10); NRBC Flagged by Analyzer 0 % (0-5); Neutrophil # 4.33 X10^3/uL (2.7-7.7); Neutrophil % 57.7 % (47-70); Platelet Count 205 K/mm3 (150-450); RBC Distribution Width SD 38.2 fl (35.1-43.9); Red Blood Count 4.79 M/mm3 (4.2-5.4); White Blood Count 7.5 K/mm3 (4.4-11.0)
[2018-10-17 14:38] LABS: Anion Gap 4 (5-15); BUN 15 mg/dL (7-18); BUN/Creat Ratio 15.8 RATIO (10-20); Calcium,Total 9.4 mg/dL (8.5-10.1); Chloride 112 mmol/L (98-107); Creatinine, Serum 0.95 mg/dL (0.55-1.02); EST Glomerular Filtration Rate 78 mL/min (>60); Est Glom Filt Rate - Afr Amer 94 mL/min (>60); Estimated Creatinine Clearance 80.89 ml/min; Glucose 82 mg/dL (74-106); Potassium 3.9 mmol/L (3.5-5.1); Sodium Level 139 mmol/L (136-145)
--- NOTE | 2018-10-17 14:56 | ED.RN ---
ATTEMPTED TO STRAIGHT CATH FOR UA BUT PT PAINFUL TO LAY FLAT AND UNABLE TO CATH PER SN AND THIS RN. UNABLE TO VISUALIZE URETHRA D/T PT RESISTING PROCEEDURE SO MUCH. RN AWARE. ASKING FOR PAIN MEDS.
[2018-10-17] MEDS: LORazepam 2 MG/ML Syringe 0.5 MG IV (15:05)
[2018-10-17 15:19] LABS: Mucous, Urine 0 SEEN /hpf (<or=2+); Red Blood Cells-Urine 0 SEEN /hpf (0-5); White Blood Cells 0 SEEN /hpf (0-5)
[2018-10-17 15:20] LABS: Color, Urine Yellow (Yellow); Glucose, Dipstick Normal (Normal); Ketone-Dipstick Negative (Negative); Leukocyte Esterase-Dipstick 25 /ul (Negative); Nitrite-Dipstick Negative (Negative); Occult Blood-Urine Negative /ul (Negative); Protein-Dipstick Negative (Negative); Urine Bilirubin Dipstick Negative (Negative); Urine Clarity Clear (Clear); Urine Urobilinogen Normal (Normal)
[2018-10-17 15:27] LABS: Bacteria RARE /hpf (None Seen); Squamous Epithelial Cells - UA 0-5 SEEN /hpf (5-10)
[2018-10-17] MEDS: Phenazopyridine 95 MG Tablet 190 MG PO (15:34)
--- NOTE | 2018-10-17 15:47 | ED.VISSUMM ---
- ER Visit Summary Date of Service: 10/17/18 Chief Complaint: [] History of Present Illness: The patient is a 22 F [] Physical Examination: [] Test Results: [] Emergency Department Course and Treatment: [] Treatment Plan: [] Disposition: [] Impression: [] This note was generated with [employer] dictation software. It may contain incorrect words, spelling, and punctuation that were not noted in review of the chart prior to signing ED Disposition - Plan for ED Patient: Disposition: Home or Assisted Living Diagnosis: Chronic right flank pain, History of hematuria Instructions: FLANK PAIN, Uncertain Cause Prescriptions: Ondansetron [Zofran Odt] 4 mg PO Q8H PRN PRN #10 tab PRN Reason: Nausea Transmission Status: Pending to [facility]/pharmacy #[id number] Referrals: Micha Dumont MD [Primary Care Provider] - 1-2 Weeks Additional Instructions: There is no blood noted in your urine. There is no evidence of infection. The cause of your pain is unknown. Recommend contacting your primary care physician and your urologist.
[2018-10-17 15:57] VITALS: PULSE 98; RESP 16; O2SAT 98
== END 2018-10-17 15:58 | disposition home or self-care (01) ==
PROVIDERS: Emergency Provider Emergency Medicine; Family Provider Family Medicine; PCP Family Medicine
DX: R10.9 Unspecified abdominal pain (principal); G89.29 Other chronic pain; R31.9 Hematuria, unspecified; Q60.0 Renal agenesis, unilateral; Z88.0 Allergy status to penicillin
CPT/HCPCS: 80048; 81001; 85025; 90471; 96374; 99285; P9612; A4216

== ENCOUNTER 2018-11-29 13:51 | Emergency (ER) | payer SELFPAY ==
[2018-11-29 13:53] VITALS: BP 113/77; PULSE 79; RESP 16; TEMP 36.6; O2SAT 97; BMI 26.7
--- NOTE | 2018-11-29 15:06 | EKG12_ITS ---
Test Reason : ABNL PAIN Blood Pressure : / mmHG Vent. Rate : 064 BPM Atrial Rate : 064 BPM P-R Int : 132 ms QRS Dur : 074 ms QT Int : 436 ms P-R-T Axes : 033 022 007 degrees QTc Int : 449 ms Normal sinus rhythm Normal ECG Confirmed by LELAND RAMIREZ, PAUL ([id number]), business editor APOLINAR THOMPSON ([id number]) on 12/06/2018 9:31:13 A M Referred By: PRAKASH Confirmed By:PARKER HA MD
--- NOTE | 2018-11-29 15:06 | US_ITS ---
STUDY: ABDOMINAL ULTRASOUND - RIGHT UPPER QUADRANT REASON FOR VISIT: Female, 23 years old right upper quadrant abdominal pain x2 months. Vomiting and fever. TECHNIQUE: Ultrasound evaluation of the right upper quadrant was performed with real-time and static waterman-scale imaging. TECHNICAL QUALITY: Adequate. COMPARISON: CT abdomen and pelvis September 20, 2018 and abdominal ultrasound November 18, 2017 FINDINGS: Liver: The liver measures 13.6 cm. There is normal echogenicity of the liver. The bile ducts are within normal limits. There is hepatic color flow. The direction of portal flow is hepatopetal. There is no demonstrated mass lesion. Gallbladder: Normal distended gallbladder. The gallbladder wall measures 2 mm. There is a negative sonographic Mooney's sign. There is no pericholecystic fluid. There are no gallstones. Common Bile Duct (C.B.D.): The common bile duct measures 3 mm. Pancreas: Tail not well visualized due to bowel gas. There is normal echogenicity of the pancreas. There is no demonstrated pancreatic mass or cyst. Right Kidney: Slightly enlarged right kidney. The right kidney measures 13.5 cm. Normal renal cortex. The right cortex measures 2.2 cm. There is no demonstrated renal mass or cyst. There is no right hydronephrosis. US/Gallbladder IMPRESSION: No acute disease. Prominent right kidney. Pancreas incompletely visualized. Electronically Signed: Jethro Lynn MD at 16:40 EDT , Service support ,
--- NOTE | 2018-11-29 15:16 | ED.VIS.GEN ---
History of Present Illness Chief Complaint: Abd Pain Informant: Patient Onset: Month(s) Context: Gradual Onset Timing: Waxes and wanes Quality: sharp Location: RUQ Current Severity: Severe Maximum Severity: Severe Worsened by: movement, laying flat Narrative: Patient is a 23 year old female with history of pyelonephritis presenting with months of intermittent and worsening right upper quadrant abdominal pain. Patient states the pain does not radiate. She has associated nausea and vomiting. Patient states he vomited at least twice today. States he had normal bowel movements. Today she notes that she also had some pain in her right lower chest with radiation into her shoulder. She notes this is new she is initially seen by mid-level provider at her PCP office and was told that she needed blood work, ultrasound and possibly HIDA scan. She was then told after the blood work came back normal that she did not need an ultrasound. This was about 3 weeks ago. Patient states that she has chronic blood in her urine (she states she is discussed this with urology been told she is fine) but denies any urinary symptoms at this time. 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 Patient states she gets intermittent fevers. She states she had temperature of 100.1 yesterday. 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 Paternal Family History: Reports: Cancer, Diabetes Review of Systems All systems negative except as indicated General: Reports: Fever Gastrointestinal: Reports: Abdominal pain, Nausea, Vomiting Genitourinary: Reports: Hematuria Physical Exam Vital Signs/Narrative: Vital Signs Temp Pulse Resp BP Pulse Ox 11/29/18 13:53 98 F 79 16 113/77 97 Inital Vital Signs reviewed: Yes General: Well nourished, Well developed, No Acute Distress Head: Normocephalic, Atraumatic Eyes: Perrl, EOMI ENT: Moist mucous membranes, No rhinorrhea Neck: Supple, Nontender Cardiovascular: Regular rate, Regular rhythm, No murmurs Respiratory: No distress, CTA bilaterally, Chest nontender Abdomen: Soft, Nondistended, Normal bowel sounds, Tender - Right upper quadrant, Mooney's sign. Negative for: Guarding, Rebound tenderness Back: Nontender, Normal Inspection. Negative for: CVA tenderness Extremities: Nontender, No edema Skin: Normal color, No rash Neurological: Alert, Oriented x3, Cranial nerves II-XII grossly intact, Normal Strength, Normal Sensation Psychological: Normal affect, Normal Mood Diagnostic/Tx/Re-eval Chest X-Ray - ED: 2 View, Read by ED Physician, No Acute Disease Clinical Impression(s) from Imaging Studies Gallbladder Ultrasound 11/29/18 15:06 IMPRESSION: No acute disease. Prominent right kidney. Pancreas incompletely visualized. Electronically Signed: Jethro Lynn MD at 16:40 EDT , Service support , Laboratory Data 11/29/18 11/29/18 11/29/18 15:10 15:30 15:30 WBC 7.6 RBC 5.08 Hgb 14.9 Hct 44.9 MCV 88.4 MCH 29.3 MCHC 33.2 RDW Std Deviation 38.5 RDW Coeff of Teena 11.9 Plt Count 212 MPV 9.5 Immature Gran % (Auto) 0.300 Neut % (Auto) 61.0 Lymph % (Auto) 29.5 Placer % (Auto) 8.1 Eos % (Auto) 0.8 Baso % (Auto) 0.3 Absolute Neuts (auto) 4.6 Absolute Lymphs (auto) 2.23 Nucleated RBC % 0 Sodium 139 Potassium 4.0 Chloride 108 H Carbon Dioxide 29.0 Anion Gap 2 L BUN 13 Creatinine 1.00 Estim Creat Clear Calc 76.20 Est GFR (MDRD) Af Amer 90 Est GFR (MDRD) Non-Af 74 BUN/Creatinine Ratio 13.1 Glucose 81 Calcium 9.1 Total Bilirubin 0.30 Direct Bilirubin < 0.05 AST 19 ALT 31 Alkaline Phosphatase 85 Total Protein 8.1 Albumin 4.1 Globulin 4.0 Lipase 143 Urine Color Yellow Urine Clarity Sl. Cloudy Urine pH 7.0 Ur Specific [place] 1.010 Urine Protein 30 H Urine Glucose (UA) Normal Urine Ketones Negative Urine Occult Blood 250 H Urine Nitrite Negative Urine Bilirubin Negative Urine Urobilinogen Normal Ur Leukocyte Esterase 500 H Urine RBC 25-50 SEEN Urine WBC 0-5 SEEN Ur Squamous Epith Cells 5-10 SEEN Urine Bacteria RARE Urine Mucus 0 SEEN - Rhythm Strip Rhythm Strip: Sinus Rhythm Rate: 64 Ectopy: None - EKG Initial EKG Interpretation: Sinus Rhythm, - - Normal intervals Nonspecific T wave inversion in lead III Normal EKG - Medical Decision Making Patient is evaluated for worsening right upper quadrant pain. Is been present for a couple weeks. She also has some chest pain associated with it today. Patient is low risk for ACS. She has normal vital signs. His normal EKG and a normal chest x-ray. She is PE RC negative. 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 Patient is hemodynamically stable. While patient states that she had a fever yesterday she is currently afebrile with normal vital signs and does not have a leukocytosis. She is well-appearing. She does have tenderness in the right upper quadrant. Ultrasound obtained which is negative for acute cholecystitis or any acute abnormality. Patient's right kidney is mildly enlarged however in the setting of congenital lack of her left kidney. Urinalysis shows 500 leuk esterase but only 0-5 white blood cells. In addition she has rare bacteria. Prior urine cultures are reviewed which all showed mixed gram-positive contamination with no specific speciation. Because this seems to be more of a chronic problem, I did discuss the case with her urologist, Dr. Bennett. She recommended having the patient follow-up in the office later this week and started the patient on Urogesic-Blue. She recommended holding off on antibiotics at this time as this appears to be a chronic complaint and patient has no systemic signs of infection while in the emergency room. Patient will also be discharged home with a prescription for Zofran. Patient is counseled on signs and symptoms requiring return to the emergency room. Patient verbalizes agreement and understand this plan. Patient discharged home in stable and improved condition. ED Disposition - Plan for ED Patient: Disposition: Home or Assisted Living Diagnosis: Right upper quadrant abdominal pain Instructions: ABDOMINAL PAIN, Unknown Cause, (Female) Prescriptions: Methenam/Sod Phos/Mblue/Hyoscy [Urogesic-Blue Tablet] 1 ea PO BID #20 tab Prescription Printed Ondansetron [Zofran Odt] 4 mg PO Q8H PRN PRN #10 tab PRN Reason: Nausea Prescription Printed Referrals: Micha Dumont MD [Primary Care Provider] - Additional Instructions: It is very important that you follow-up with your urologist. Do not have signs of an acute gallbladder attack at this time. Drink plenty of fluids. Return to the emergency room if you develop worsening symptoms.
[2018-11-29] MEDS: 0.9% Normal Saline 1,000 ML 1000 ML IV (15:29)
[2018-11-29] MEDS: Ondansetron 4 MG/2 ML Vial IV (15:30)
[2018-11-29] MEDS: Morphine 4 MG/ML Syringe IV (15:30)
[2018-11-29 15:46] LABS: Mucous, Urine 0 SEEN /hpf (<or=2+)
[2018-11-29 15:57] LABS: Absolute Lymphocyte Count 2.23 X10^3/uL (0.83-4.51); Absolute Neutrophil Count 4.6 X10^3/uL (2.0-7.7); Basophil# 0.02 X10^3/uL; Basophil% 0.3 % (0-1); Eosinophil# 0.06 X10^3/uL; Eosinophils% 0.8 % (0-5); Hematocrit 44.9 % (37-47); Hemoglobin 14.9 g/dL (12.0-15.0); Lymphocyte # 2.23 X10^3/ul (4.0); Lymphocyte % 29.5 % (19-41); Mean Corp Hgb Conc 33.2 g/dL (32-36); Mean Corpuscular Hgb 29.3 pg (27.0-32.0); Mean Corpuscular Volume 88.4 fL (81-99); Mean Platelet Vol. 9.5 fl (6.2-12.0); Monocyte# 0.61 X10^3/uL; Monocyte% 8.1 % (0-10); NRBC Flagged by Analyzer 0 % (0-5); Neutrophil # 4.63 X10^3/uL (2.7-7.7); Platelet Count 212 K/mm3 (150-450); RBC Distribution Width CV 11.9 % (11.6-14.6); RBC Distribution Width SD 38.5 fl (35.1-43.9); Red Blood Count 5.08 M/mm3 (4.2-5.4); White Blood Count 7.6 K/mm3 (4.4-11.0)
[2018-11-29 16:08] LABS: Color, Urine Yellow (Yellow); Glucose, Dipstick Normal (Normal); Ketone-Dipstick Negative (Negative); Leukocyte Esterase-Dipstick 500 /ul (Negative); Nitrite-Dipstick Negative (Negative); Occult Blood-Urine 250 /ul (Negative); Protein-Dipstick 30 mg/dl (Negative); Urine Bilirubin Dipstick Negative (Negative); Urine Clarity Sl. Cloudy (Clear); Urine Urobilinogen Normal (Normal)
[2018-11-29 16:08] LABS: AST(SGOT) 19 U/L (15-37); Alanine Aminotransfer ALT/SGPT 31 U/L (13-56); Albumin, Serum 4.1 g/dL (3.2-5.0); Alkaline Phosphatase 85 U/L (45-117); Anion Gap 2 (5-15); BUN 13 mg/dL (7-18); BUN/Creat Ratio 13.1 RATIO (10-20); Bilirubin, Direct < 0.05 mg/dL (0.00-0.30); Calcium,Total 9.1 mg/dL (8.5-10.1); Chloride 108 mmol/L (98-107); EST Glomerular Filtration Rate 74 mL/min (>60); Est Glom Filt Rate - Afr Amer 90 mL/min (>60); Glucose 81 mg/dL (74-106); Lipase 143 U/L (73-393); Protein, Total 8.1 g/dL (6.4-8.2); Sodium Level 139 mmol/L (136-145)
[2018-11-29 16:14] LABS: Bacteria RARE /hpf (None Seen); Red Blood Cells-Urine 25-50 SEEN /hpf (0-5); Squamous Epithelial Cells - UA 5-10 SEEN /hpf (5-10); White Blood Cells 0-5 SEEN /hpf (0-5)
--- NOTE | 2018-11-29 16:15 | RAD_ITS ---
STUDY: X-RAY CHEST REASON FOR EXAM: Female, 23 years old. Chest pain TECHNIQUE: Frontal and lateral views of the chest. COMPARISON: May 12, 2017 FINDINGS: New bilateral nipple piercings. The lungs are clear and expanded. There is no demonstrated pleural abnormality. Normal size heart. Normal mediastinum and carmen. Normal visualized pulmonary arteries. Normal visualized aortic arch and descending thoracic aorta. Normal visualized thoracic spine. Normal visualized ribs, clavicles, and shoulders. There is no demonstrated abnormality of the visualized soft tissue structures of the upper abdomen. RAD/Chest PA and Lateral IMPRESSION: Normal x-ray examination of the chest. Electronically Signed: Jethro Lynn MD at 17:24 EDT , Service support ,
[2018-11-29] MEDS: proMETHazine 25 MG/ML Syringe 12.5 MG IV (17:00)
[2018-11-29 17:11] VITALS: RESP 12
== END 2018-11-29 17:44 | disposition home or self-care (01) ==
PROVIDERS: Emergency Provider Emergency Medicine; Family Provider Family Medicine; PCP Family Medicine
DX: R10.11 Right upper quadrant pain (principal); R31.9 Hematuria, unspecified; R07.9 Chest pain, unspecified; R11.2 Nausea with vomiting, unspecified; R50.9 Fever, unspecified; Q60.0 Renal agenesis, unilateral; Z88.0 Allergy status to penicillin; Z79.899 Other long term (current) drug therapy; Z87.440 Personal history of urinary (tract) infections
CPT/HCPCS: 71046; 76705; 80048; 80076; 81001; 83690; 85025; 87086; 87088; 93005; 96361; 96374; 96375; 99283; J2405

== ENCOUNTER 2018-12-14 17:33 | Emergency (ER) | payer SELFPAY ==
[2018-12-14 17:37] VITALS: BP 152/86; PULSE 78; RESP 18; TEMP 37.3; O2SAT 96; BMI 26.4
[2018-12-14 18:26] LABS: Absolute Lymphocyte Count 2.83 X10^3/uL (0.83-4.51); Absolute Neutrophil Count 5.2 X10^3/uL (2.0-7.7); Basophil# 0.03 X10^3/uL; Basophil% 0.3 % (0-1); Eosinophil# 0.08 X10^3/uL; Eosinophils% 0.9 % (0-5); Hematocrit 43.8 % (37-47); Hemoglobin 14.4 g/dL (12.0-15.0); Lymphocyte # 2.83 X10^3/ul (4.0); Lymphocyte % 31.9 % (19-41); Mean Corp Hgb Conc 32.9 g/dL (32-36); Mean Corpuscular Hgb 29.1 pg (27.0-32.0); Mean Corpuscular Volume 88.5 fL (81-99); Mean Platelet Vol. 9.5 fl (6.2-12.0); Monocyte# 0.72 X10^3/uL; Monocyte% 8.1 % (0-10); NRBC Flagged by Analyzer 0 % (0-5); Neutrophil % 58.6 % (47-70); Platelet Count 209 K/mm3 (150-450); RBC Distribution Width CV 11.9 % (11.6-14.6); RBC Distribution Width SD 38.2 fl (35.1-43.9); Red Blood Count 4.95 M/mm3 (4.2-5.4); White Blood Count 8.9 K/mm3 (4.4-11.0)
[2018-12-14 18:40] LABS: Anion Gap 6 (5-15); BUN 15 mg/dL (7-18); Calcium,Total 9.5 mg/dL (8.5-10.1); Chloride 108 mmol/L (98-107); Creatinine, Serum 1.07 mg/dL (0.55-1.02); EST Glomerular Filtration Rate 68 mL/min (>60); Est Glom Filt Rate - Afr Amer 82 mL/min (>60); Estimated Creatinine Clearance 71.22 ml/min; Glucose 85 mg/dL (74-106); Potassium 4.2 mmol/L (3.5-5.1); Sodium Level 140 mmol/L (136-145)
[2018-12-14 18:42] LABS: Mucous, Urine 0 SEEN /hpf (<or=2+)
[2018-12-14 18:50] LABS: Color, Urine Amber (Yellow); Glucose, Dipstick Normal (Normal); Ketone-Dipstick 5 mg/dl (Negative); Leukocyte Esterase-Dipstick 500 /ul (Negative); Nitrite-Dipstick Positive (Negative); Occult Blood-Urine 250 /ul (Negative); Protein-Dipstick 100 mg/dl (Negative); Urine Bilirubin Dipstick Negative (Negative); Urine Clarity Cloudy (Clear); Urine Urobilinogen Normal (Normal)
[2018-12-14 18:56] LABS: Bacteria RARE /hpf (None Seen); Red Blood Cells-Urine > 100 SEEN /hpf (0-5); Squamous Epithelial Cells - UA 0-5 SEEN /hpf (5-10); White Blood Cells 0-5 SEEN /hpf (0-5)
--- NOTE | 2018-12-14 19:38 | ED.VISSUMM ---
- ER Visit Summary Date of Service: 12/14/18 Chief Complaint: Hematuria History of Present Illness: The patient is a 23 F presenting with hematuria. Patient states this has been ongoing for several months. She went to [facility] December 03. She states that they put a Bansal catheter in and and irrigated her bladder. The Bansal catheter was removed and she was sent home with antibiotics. She finished antibiotics today. She has appointment with her primary care physician tomorrow. She has been seen by Dr. Bennett in the past. She states she was told there is no known cause for blood in her urine. 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 She has had nausea and vomiting today. Denies vaginal bleeding. Denies blood in her stool. Denies other complaints. Physical Examination: Vitals are stable. Patient is afebrile. Alert no acute distress. HEENT exam is unremarkable. Neck is supple. Lungs are clear and equal bilaterally. Heart is regular rate and rhythm. Abdomen is soft mild diffuse tenderness with no rebound or guarding Extremities are unremarkable. Skin is warm and dry. Remainder of exam is unremarkable. Emergency Department Course and Treatment: Patient was given IV fluids, morphine, Zofran. CBC, chemistries unremarkable other than creatinine 1.07. Urinalysis shows 0-5 white blood cells, over 100 red blood cells. Urine culture was sent. Pelvic exam shows no blood. On reevaluation, patient is resting comfortably. She is given prescription for Zofran. She will follow-up with her doctor tomorrow. She is advised to return to ED for worsening complaints. Disposition: Discharge home Impression: Hematuria This note was generated with [employer] dictation software. It may contain incorrect words, spelling, and punctuation that were not noted in review of the chart prior to signing ED Disposition - Plan for ED Patient: Instructions: Hematuria Prescriptions: Ondansetron [Zofran Odt] 4 mg PO Q8H PRN PRN #10 tab PRN Reason: Nausea Prescription Printed Referrals: June Bennett MD [STAFF PHYSICIAN] - Micha Dumont MD [Primary Care Provider] -
[2018-12-14] MEDS: 0.9% Normal Saline 1,000 ML 999 ML IV (19:45)
[2018-12-14] MEDS: Ondansetron 4 MG/2 ML Vial IV ×2 (19:45→20:54)
[2018-12-14] MEDS: Morphine 4 MG/ML Syringe IV (19:45)
--- NOTE | 2018-12-14 20:45 | ED.DEP ---
ED Disposition - Plan for ED Patient: Instructions: Hematuria Prescriptions: Ondansetron [Zofran Odt] 4 mg PO Q8H PRN PRN #10 tablet PRN Reason: Nausea Referrals: Micha Dumont MD [Primary Care Provider] - June Bennett MD [STAFF PHYSICIAN] -
[2018-12-14 20:59] VITALS: BP 121/89; PULSE 72; RESP 16; O2SAT 97
== END 2018-12-14 21:01 | disposition home or self-care (01) ==
PROVIDERS: Emergency Provider Emergency Medicine; Family Provider Family Medicine; PCP Family Medicine
DX: R31.9 Hematuria, unspecified (principal); R11.2 Nausea with vomiting, unspecified; R10.9 Unspecified abdominal pain; N28.89 Other specified disorders of kidney and ureter
CPT/HCPCS: 80048; 81001; 85025; 87086; 87088; 99283; J7030; A4216; J2405

== ENCOUNTER 2019-03-14 12:59 | Emergency (ER) | payer SELFPAY ==
[2019-03-14 12:59] VITALS: BP 146/84; PULSE 77; RESP 16; TEMP 36.7; O2SAT 98; BMI 31.1
[2019-03-14 13:22] LABS: Mucous, Urine 0 SEEN /hpf (<or=2+)
[2019-03-14 13:25] LABS: Color, Urine Red (Yellow); Glucose, Dipstick Normal (Normal); Ketone-Dipstick 5 mg/dl (Negative); Leukocyte Esterase-Dipstick 500 /ul (Negative); Nitrite-Dipstick Positive (Negative); Occult Blood-Urine 250 /ul (Negative); Protein-Dipstick 100 mg/dl (Negative); Urine Bilirubin Dipstick Negative (Negative); Urine Clarity Cloudy (Clear); Urine Urobilinogen Normal (Normal)
[2019-03-14 13:43] LABS: Bacteria 1+ /hpf (None Seen); Red Blood Cells-Urine 25-50 SEEN /hpf (0-5); Squamous Epithelial Cells - UA 0-5 SEEN /hpf (5-10); White Blood Cells 25-50 SEEN /hpf (0-5)
--- NOTE | 2019-03-14 14:18 | ED.VIS.GEN ---
History of Present Illness Chief Complaint: Flank Pain Informant: Patient Onset: Weeks - 2 Context: Gradual Onset Timing: Continuous Quality: aching Location: right flank/low back Current Severity: Moderate Maximum Severity: Moderate Worsened by: urinating Relieved by: nothing Associated Symptoms: ur frequency. fevers. n/v. 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 It has become infected before, and she is having symptoms for the past 2 weeks or so that feels similar. She states that last week she went to [facility] and they told me that I should go to the hospital where my doctor is and did not see her, so she left and now is here since symptoms did not improve on their own. Prior similar symptoms: Yes - pyelo - Past Medical History (1) Renal agenesis Status: Chronic Past Medical History - Allergies and Home Meds Allergies/Adverse Reactions: Allergies amoxicillin Adverse Reaction (Verified 03/14/19 13:01) Rash ketorolac [From Toradol] Adverse Reaction (Verified 03/14/19 13:01) Other headache procaine [From Novocain] Adverse Reaction (Verified 03/14/19 13:01) Other abcess Primary Care Physician: Micha Dumont MD [Primary Care Provider] - Surgical History: appendectomy, - - partial thyroid resection due to nodules Smoking Status: Never smoker - Family History Maternal Family History: Reports: Cancer, - - His grandfather on maternal side had only 1 kidney and vertigo. Paternal Family History: Reports: Cancer, Diabetes Review of Systems General: Reports: Fever, Malaise. Denies: Chills, Sweats Eyes: Denies: Visual changes - bilaterally, Diplopia ENT: Denies: Bilateral ear pain, Rhinorrhea, Sore throat Cardiovascular: Denies: Chest pain, Palpitations Respiratory: Denies: Dyspnea, Cough, Dyspnea on exertion Gastrointestinal: Reports: Abdominal pain, Nausea, Vomiting. Denies: Diarrhea, Melena, Hematochezia Genitourinary: Reports: Frequency. Denies: Dysuria, Hematuria Musculoskeletal: Reports: Back pain. Denies: Swelling, Extremity Pain Skin: Denies: Rash, Wounds Neurological: Denies: Headache, Weakness, Numbness Physical Exam Vital Signs/Narrative: Vital Signs Temp Pulse Resp BP Pulse Ox 03/14/19 12:59 98.1 F 77 16 146/84 H 98 Inital Vital Signs reviewed: Yes General: Well nourished, Well developed, No Acute Distress Head: Normocephalic, Atraumatic Eyes: Perrl, EOMI ENT: Moist mucous membranes, No rhinorrhea Neck: Supple, Nontender Cardiovascular: Regular rate, Regular rhythm, No murmurs Respiratory: No distress, CTA bilaterally, Chest nontender Abdomen: Soft, Nondistended, Normal bowel sounds, Tender - RUQ mild, suprapubic. Negative for: Guarding, Rebound tenderness, Pulsatile mass Back: Normal Inspection, CVA tenderness - R only Extremities: Nontender, No edema Skin: Normal color, No rash Neurological: Alert, Oriented x3, Cranial nerves II-XII grossly intact, Normal Strength, Normal Sensation, Normal Gait Psychological: Normal affect, Normal Mood Diagnostic/Tx/Re-eval Laboratory Results 03/14/19 03/14/19 03/14/19 13:10 13:45 13:45 WBC 6.3 RBC 4.99 Hgb 14.7 Hct 44.1 MCV 88.4 MCH 29.5 MCHC 33.3 RDW Std Deviation 38.8 RDW Coeff of Teena 12.1 Plt Count 197 MPV 9.9 Immature Gran % (Auto) 0.200 Neut % (Auto) 64.6 Lymph % (Auto) 26.7 [place] % (Auto) 7.7 Eos % (Auto) 0.5 Baso % (Auto) 0.3 Absolute Neuts (auto) 4.1 Absolute Lymphs (auto) 1.67 Nucleated RBC % 0 Sodium 138 Potassium 4.0 Chloride 110 H Carbon Dioxide 27.0 Anion Gap 1 L BUN 17 Creatinine 1.12 H Estim Creat Clear Calc 65.18 Est GFR (MDRD) Af Amer 78 Est GFR (MDRD) Non-Af 64 BUN/Creatinine Ratio 15.2 Glucose 78 Calcium 9.4 Urine Color Red Urine Clarity Cloudy Urine pH 5.0 Ur Specific [place] 1.020 Urine Protein 100 H Urine Glucose (UA) Normal Urine Ketones 5 H Urine Occult Blood 250 H Urine Nitrite Positive H Urine Bilirubin Negative Urine Urobilinogen Normal Ur Leukocyte Esterase 500 H Urine RBC 25-50 SEEN Urine WBC 25-50 SEEN Ur Squamous Epith Cells 0-5 SEEN Urine Bacteria 1+ Urine Mucus 0 SEEN - Medical Decision Making Labs are consistent with urinary tract infection and clinically, I would treat her for pyelonephritis although she is not septic and is very well-appearing now. She feels better after analgesics and fluids. Culture was sent. She was given empiric Rocephin, and I discussed with nephrology Dr. Hernandez, who states that the patient does not need to be admitted on IV antibiotics just for the fact she has a solitary kidney. I think clinically she is well enough to be treated as an outpatient. The patient is comfortable with this. Will place her on Cipro which she is also comfortable with. She will follow-up. ED Disposition - Plan for ED Patient: Disposition: Home or Assisted Living Diagnosis: Pyelonephritis Instructions: PYELONEPHRITIS, Female (Adult) Prescriptions: Ciprofloxacin [Cipro] 500 mg PO BID #20 tab Transmission Status: Pending to [facility]/pharmacy #[id number] Referrals: Micha Dumont MD [Primary Care Provider] - 3-5 Days if not improving (Or your civil engineering specialist)
[2019-03-14 14:47] LABS: Absolute Lymphocyte Count 1.67 X10^3/uL (0.83-4.51); Absolute Neutrophil Count 4.1 X10^3/uL (2.0-7.7); Basophil# 0.02 X10^3/uL; Basophil% 0.3 % (0-1); Eosinophil# 0.03 X10^3/uL; Eosinophils% 0.5 % (0-5); Hematocrit 44.1 % (37-47); Hemoglobin 14.7 g/dL (12.0-15.0); Lymphocyte # 1.67 X10^3/ul (4.0); Lymphocyte % 26.7 % (19-41); Mean Corp Hgb Conc 33.3 g/dL (32-36); Mean Corpuscular Hgb 29.5 pg (27.0-32.0); Mean Corpuscular Volume 88.4 fL (81-99); Mean Platelet Vol. 9.9 fl (6.2-12.0); Monocyte# 0.48 X10^3/uL; Monocyte% 7.7 % (0-10); NRBC Flagged by Analyzer 0 % (0-5); Neutrophil # 4.05 X10^3/uL (2.7-7.7); Neutrophil % 64.6 % (47-70); Platelet Count 197 K/mm3 (150-450); RBC Distribution Width CV 12.1 % (11.6-14.6); RBC Distribution Width SD 38.8 fl (35.1-43.9); Red Blood Count 4.99 M/mm3 (4.2-5.4); White Blood Count 6.3 K/mm3 (4.4-11.0)
[2019-03-14 14:51] LABS: Anion Gap 1 (5-15); BUN 17 mg/dL (7-18); BUN/Creat Ratio 15.2 RATIO (10-20); Calcium,Total 9.4 mg/dL (8.5-10.1); Chloride 110 mmol/L (98-107); Creatinine, Serum 1.12 mg/dL (0.55-1.02); EST Glomerular Filtration Rate 64 mL/min (>60); Est Glom Filt Rate - Afr Amer 78 mL/min (>60); Estimated Creatinine Clearance 65.18 ml/min; Glucose 78 mg/dL (74-106); Sodium Level 138 mmol/L (136-145)
[2019-03-14] MEDS: Ondansetron 4 MG/2 ML Vial IV (14:58)
[2019-03-14] MEDS: Morphine 4 MG/ML Syringe IV (14:58)
[2019-03-14] MEDS: 0.9% Normal Saline 1,000 ML 999 ML IV (14:59)
[2019-03-14] MEDS: Ceftriaxone 1 GM/50 ML BAG IV (15:00)
[2019-03-14 15:02] VITALS: RESP 17
[2019-03-14 16:45] VITALS: BP 134/66; PULSE 52; RESP 17; O2SAT 99
== END 2019-03-14 16:46 | disposition home or self-care (01) ==
PROVIDERS: Emergency Provider Emergency Medicine; PCP Family Medicine
DX: N12 Tubulo-interstitial nephritis, not specified as acute or chronic (principal); Q60.0 Renal agenesis, unilateral
CPT/HCPCS: 80048; 81001; 85025; 87086; 87088; 96365; 96366; 96375; 99284; J7030; J7050; A4216; J2405

== ENCOUNTER 2019-03-26 12:07 | Emergency (ER) | payer SELFPAY ==
[2019-03-26 12:09] VITALS: BP 148/96; PULSE 87; RESP 17; TEMP 37.2; O2SAT 97; BMI 30.3
--- NOTE | 2019-03-26 12:42 | ED.DCSUM_ITS ---
- ER Visit Summary Date of Service: 03/26/19 Chief Complaint: Right flank pain History of Present Illness: The patient is a 23 F diagnosed with UTI approximately a week ago. Reportedly the culture however was negative. Was on Cipro twice daily and says she is not feeling better. Planing of pain and a fev er of 101. Also nausea vomiting. No diarrhea. Says her urine is bloody. Patient only has 1 kidney because when she was born with congenital abnormalities in which she only had was born with 1 kidney and also did not have a uterus. Physical Examination: Young female no acute distress. Vital signs are stable afebrile. H EENT exam unremarkable. Neck nontender no lymphadenopathy. Lungs clear to auscultation bilaterally. Heart regular rhythm no murmur. Abdomen soft nontender normal bowel sounds no peritoneal signs. Extremities moves all 4. Calves nontender no edema no cords. Back she has mild right CVA tenderness. Neurologically she is awake alert with no focal motor or sensory deficits. Test Results: BC normal white count of 7. Hemoglobin 13. No bands. Chemistries unremarkable normal creatinine and gap. UA 10-25 white cells. 25- 50 red cells. No epithelial cells 1+ bacteria positive nitrates. Last urine culture from within the last week was negative. Underwent a repeat culture. Patient's had multiple CAT scans in the past all of which have been unremarkable other than noting that she only has the one kidney. I do not feel that she needs CAT scan today. Emergency Department Course and Treatment: Female no acute distress. Will be treated with IV fluids, Zofran and morphine. Labs will be obtained. Repeat exam she is been resting comfortably while in the emergency department. She has received pain medication. I discussed with the patient she says Keflex never works. She is been on the Cipro about a week. I do not want to change antibiotics at this time given her last urine culture was negative and all her labs are negative. She has pain in the right area for pyelonephritis but clinically she does not look sick. She is afebrile. She has no white count. Treatment Plan: Continue her current antibiotic. Follow-up with your doctor this week. Follow-up with a urine culture. Tylenol Motrin for pain. Disposition: discharge Impression: Right Flank pain with hematuria rule out pyelonephritis This note was generated with [employer] software. It may contain incorrect words, spelling, and punctuation that were not noted in review of the chart prior to signing ED Disposition - Plan for ED Patient: Referrals: Micha Dumont MD [Primary Care Provider] -
[2019-03-26 13:05] LABS: Mucous, Urine 0 SEEN /hpf (<or=2+)
[2019-03-26 13:07] LABS: Color, Urine Amber (Yellow); Glucose, Dipstick Normal (Normal); Ketone-Dipstick 5 mg/dl (Negative); Leukocyte Esterase-Dipstick 100 /ul (Negative); Nitrite-Dipstick Positive (Negative); Occult Blood-Urine 250 /ul (Negative); Protein-Dipstick 100 mg/dl (Negative); Urine Bilirubin Dipstick Negative (Negative); Urine Clarity Sl. Cloudy (Clear); Urine Urobilinogen Normal (Normal)
[2019-03-26] MEDS: Ondansetron 4 MG/2 ML Vial IV ×2 (13:13→14:37)
[2019-03-26] MEDS: 0.9% Normal Saline 1,000 ML 1000 ML IV (13:14)
[2019-03-26] MEDS: Morphine 4 MG/ML Syringe IV ×2 (13:14→14:38)
[2019-03-26 13:17] LABS: Bacteria 1+ /hpf (None Seen); Red Blood Cells-Urine 25-50 SEEN /hpf (0-5); Squamous Epithelial Cells - UA 0-5 SEEN /hpf (5-10); White Blood Cells 10-25 SEEN /hpf (0-5)
[2019-03-26 13:19] LABS: Absolute Lymphocyte Count 1.65 X10^3/uL (0.83-4.51); Absolute Neutrophil Count 4.9 X10^3/uL (2.0-7.7); Basophil# 0.02 X10^3/uL; Basophil% 0.3 % (0-1); Eosinophil# 0.06 X10^3/uL; Eosinophils% 0.8 % (0-5); Hematocrit 40.4 % (37-47); Hemoglobin 13.8 g/dL (12.0-15.0); Lymphocyte # 1.65 X10^3/ul (4.0); Lymphocyte % 22.8 % (19-41); Mean Corp Hgb Conc 34.2 g/dL (32-36); Mean Corpuscular Hgb 29.5 pg (27.0-32.0); Mean Corpuscular Volume 86.3 fL (81-99); Mean Platelet Vol. 9.6 fl (6.2-12.0); Monocyte% 8.3 % (0-10); NRBC Flagged by Analyzer 0 % (0-5); Neutrophil # 4.91 X10^3/uL (2.7-7.7); Neutrophil % 67.7 % (47-70); Platelet Count 181 K/mm3 (150-450); RBC Distribution Width CV 11.9 % (11.6-14.6); RBC Distribution Width SD 37.5 fl (35.1-43.9); Red Blood Count 4.68 M/mm3 (4.2-5.4); White Blood Count 7.3 K/mm3 (4.4-11.0)
[2019-03-26 13:32] LABS: Anion Gap 5 (5-15); BUN 15 mg/dL (7-18); BUN/Creat Ratio 15.6 RATIO (10-20); Calcium,Total 9.1 mg/dL (8.5-10.1); Chloride 113 mmol/L (98-107); Creatinine, Serum 0.96 mg/dL (0.55-1.02); EST Glomerular Filtration Rate 77 mL/min (>60); Est Glom Filt Rate - Afr Amer 93 mL/min (>60); Estimated Creatinine Clearance 79.38 ml/min; Glucose 86 mg/dL (74-106); Sodium Level 140 mmol/L (136-145)
[2019-03-26 14:08] VITALS: BP 123/88; PULSE 76; RESP 16; TEMP 36.5; O2SAT 99
--- NOTE | 2019-03-26 15:27 | ED.DEP ---
ED Disposition - Plan for ED Patient: Disposition: Home or Assisted Living Instructions: PYELONEPHRITIS, Female (Adult) Referrals: Micha Dumont MD [Primary Care Provider] - As soon as possible Additional Instructions: Follow-up with your doctor this week. I did a repeat urine culture last 1 was negative. We will continue on the Cipro. Tylenol and Motrin for pain.
== END 2019-03-26 15:37 | disposition home or self-care (01) ==
PROVIDERS: Emergency Provider Emergency Medicine; PCP Family Medicine
DX: R31.9 Hematuria, unspecified (principal); R10.9 Unspecified abdominal pain; Q60.0 Renal agenesis, unilateral
CPT/HCPCS: 80048; 81001; 85025; 87086; 87088; 96361; 96374; 96375; 96376; 99285; J7030; A4216; J2405

== ENCOUNTER 2019-04-30 15:57 | Emergency (ER) | payer SELFPAY ==
[2019-04-30 15:57] VITALS: BP 130/76; PULSE 61; RESP 18; TEMP 36.3; O2SAT 95; BMI 27.8
[2019-04-30 16:01] VITALS: BP 130/76; PULSE 61; RESP 18; TEMP 36.3; O2SAT 95
--- NOTE | 2019-04-30 16:11 | ED.DCSUM_ITS ---
History of Present Illness Chief Complaint: Abd Pain Informant: Patient Onset: Month(s) Context: Gradual Onset Timing: Intermittent Current Severity: Moderate Maximum Severity: Moderate Narrative: The patient is a 23-year-old female that was born with single right kidney, along with absence of uterus and ovaries, who presents with intermittent hematuria. The patient states she is had this for months. She has undergone colonoscopy, ultrasounds, CAT scans, and multiple visits to urologist. She states the pain is worsened over the past 3 days. She is had some hematuria and pain with urination. She denies any fevers or chills. She is otherwise been in her normal state of health. She states that today, the pain was just more significant is the reason that she came in. Prior similar symptoms: No Recent Illness/Hospitalization: No Past Medical History - Allergies and Home Meds Allergies/Adverse Reactions: Allergies amoxicillin Adverse Reaction (Verified 03/26/19 12:09) Rash ketorolac [From Toradol] Adverse Reaction (Verified 03/26/19 12:09) Other headache procaine [From Novocain] Adverse Reaction (Verified 03/26/19 12:09) Other abcess Primary Care Physician: June Bennett MD [STAFF PHYSICIAN] - Prior records reviewed: Yes Past Medical History: - - Congenital absence of kidney, uterus, and ovaries Surgical History: appendectomy, - - partial thyroid resection due to nodules Smoking Status: Never smoker - Family History Maternal Family History: Reports: Cancer, - - His grandfather on maternal side had only 1 kidney and vertigo. Paternal Family History: Reports: Cancer, Diabetes Review of Systems General: Denies: Chills, Fever, Sweats Eyes: Denies: Visual changes - bilaterally, Diplopia ENT: Denies: Rhinorrhea, Sore throat Cardiovascular: Denies: Chest pain, Palpitations Respiratory: Denies: Dyspnea, Cough, Dyspnea on exertion Gastrointestinal: Reports: Abdominal pain, Nausea. Denies: Vomiting, Diarrhea, Melena, Hematochezia Genitourinary: Reports: Dysuria, Hematuria. Denies: Frequency Musculoskeletal: Denies: Back pain, Extremity Pain Skin: Denies: Rash, Wounds Neurological: Denies: Headache, Weakness, Numbness Physical Exam Vital Signs/Narrative: Vital Signs Temp Pulse Resp BP Pulse Ox 04/30/19 15:57 97.4 F L 61 18 130/76 H 95 Inital Vital Signs reviewed: Yes General: Well nourished, Well developed, No Acute Distress Head: Normocephalic, Atraumatic Eyes: Perrl, EOMI ENT: Moist mucous membranes, No rhinorrhea Neck: Supple, Nontender Cardiovascular: Regular rate, Regular rhythm, No murmurs Respiratory: No distress, CTA bilaterally, Chest nontender Abdomen: Soft, Nontender, Nondistended, Normal bowel sounds Back: Nontender, Normal Inspection Extremities: Nontender, No edema Skin: Normal color, No rash Neurological: Alert, Oriented x3, Cranial nerves II-XII grossly intact, Normal Strength, Normal Sensation Psychological: Normal affect, Normal Mood Diagnostic/Tx/Re-eval Abnormal Lab Results 04/30/19 04/30/19 04/30/19 16:28 16:28 16:40 WBC 6.7 RBC 4.83 Hgb 14.1 Hct 42.5 MCV 88.0 MCH 29.2 MCHC 33.2 RDW Std Deviation 38.5 RDW Coeff of Teena 12.0 Plt Count 189 MPV 9.7 Immature Gran % (Auto) 0.300 Neut % (Auto) 66.0 Lymph % (Auto) 24.5 [place] % (Auto) 7.9 Eos % (Auto) 1.2 Baso % (Auto) 0.1 Absolute Neuts (auto) 4.4 Absolute Lymphs (auto) 1.64 Nucleated RBC % 0 Sodium 140 Potassium 4.1 Chloride 112 H Carbon Dioxide 24.0 Anion Gap 4 L BUN 16 Creatinine 0.99 Estim Creat Clear Calc 76.97 Est GFR (MDRD) Af Amer 90 Est GFR (MDRD) Non-Af 75 BUN/Creatinine Ratio 16.2 Glucose 90 Calcium 9.0 Total Bilirubin 0.20 AST 21 ALT 31 Alkaline Phosphatase 82 Total Protein 8.2 Albumin 4.0 Globulin 4.2 Albumin/Globulin Ratio 1.0 Urine Color Red Urine Clarity Turbid Urine pH 5.0 Ur Specific [place] 1.025 Urine Protein 100 H Urine Glucose (UA) Normal Urine Ketones 5 H Urine Occult Blood 250 H Urine Nitrite Negative Urine Bilirubin Negative Urine Urobilinogen Normal Ur Leukocyte Esterase 100 H Urine RBC > 100 SEEN Urine WBC 5-10 SEEN Ur Squamous Epith Cells 5-10 SEEN Urine Bacteria RARE Urine Mucus 0 SEEN - Medical Decision Making The patient presents with hematuria and dysuria. Her abdomen is soft and nontender. She has had these symptoms multiple times before with unremarkable work-ups. Her urine does show some trace evidence of infection, but she has no leukocytosis and hemoglobin is stable. Culture was added. The patient will be treated with Bactrim and counseled to follow-up with urology as she may benefit from cystoscopy. She is comfortable with this plan of care. Impression 1. Acute cystitis ED Disposition - Plan for ED Patient: Instructions: Bladder Infection, Female (Adult) Prescriptions: Smz/Tmp Ds [Bactrim Ds] 1 tab PO BID #14 tab Prescription Printed Ondansetron [Zofran Odt] 4 mg PO Q8H PRN PRN #10 tab PRN Reason: Nausea Prescription Printed Referrals: June Bennett MD [STAFF PHYSICIAN] -
[2019-04-30] MEDS: Morphine 4 MG/ML Syringe IV (16:36)
[2019-04-30] MEDS: 0.9% Normal Saline 1,000 ML 1000 ML IV (16:36)
[2019-04-30] MEDS: Ondansetron 4 MG/2 ML Vial IV (16:36)
[2019-04-30 16:38] LABS: Absolute Lymphocyte Count 1.64 X10^3/uL (0.83-4.51); Absolute Neutrophil Count 4.4 X10^3/uL (2.0-7.7); Basophil# 0.01 X10^3/uL; Basophil% 0.1 % (0-1); Eosinophil# 0.08 X10^3/uL; Eosinophils% 1.2 % (0-5); Hematocrit 42.5 % (37-47); Hemoglobin 14.1 g/dL (12.0-15.0); Lymphocyte # 1.64 X10^3/ul (4.0); Lymphocyte % 24.5 % (19-41); Mean Corp Hgb Conc 33.2 g/dL (32-36); Mean Corpuscular Hgb 29.2 pg (27.0-32.0); Mean Platelet Vol. 9.7 fl (6.2-12.0); Monocyte# 0.53 X10^3/uL; Monocyte% 7.9 % (0-10); NRBC Flagged by Analyzer 0 % (0-5); Neutrophil # 4.42 X10^3/uL (2.7-7.7); Platelet Count 189 K/mm3 (150-450); RBC Distribution Width SD 38.5 fl (35.1-43.9); Red Blood Count 4.83 M/mm3 (4.2-5.4); White Blood Count 6.7 K/mm3 (4.4-11.0)
[2019-04-30 16:50] LABS: Mucous, Urine 0 SEEN /hpf (<or=2+)
[2019-04-30 16:54] LABS: AST(SGOT) 21 U/L (15-37); Alanine Aminotransfer ALT/SGPT 31 U/L (13-56); Alkaline Phosphatase 82 U/L (45-117); Anion Gap 4 (5-15); BUN 16 mg/dL (7-18); BUN/Creat Ratio 16.2 RATIO (10-20); Chloride 112 mmol/L (98-107); Creatinine, Serum 0.99 mg/dL (0.55-1.02); EST Glomerular Filtration Rate 75 mL/min (>60); Est Glom Filt Rate - Afr Amer 90 mL/min (>60); Estimated Creatinine Clearance 76.97 ml/min; Globulin 4.2 g/dL (2.2-4.2); Glucose 90 mg/dL (74-106); Potassium 4.1 mmol/L (3.5-5.1); Protein, Total 8.2 g/dL (6.4-8.2); Sodium Level 140 mmol/L (136-145)
[2019-04-30 17:09] LABS: Color, Urine Red (Yellow); Glucose, Dipstick Normal (Normal); Ketone-Dipstick 5 mg/dl (Negative); Leukocyte Esterase-Dipstick 100 /ul (Negative); Nitrite-Dipstick Negative (Negative); Occult Blood-Urine 250 /ul (Negative); Protein-Dipstick 100 mg/dl (Negative); Specific Gravity, Urine 1.025 (1.002-1.030); Urine Bilirubin Dipstick Negative (Negative); Urine Clarity Turbid (Clear); Urine Urobilinogen Normal (Normal)
[2019-04-30 17:33] LABS: Bacteria RARE /hpf (None Seen); Squamous Epithelial Cells - UA 5-10 SEEN /hpf (5-10)
[2019-04-30 17:34] LABS: White Blood Cells 5-10 SEEN /hpf (0-5)
[2019-04-30 17:35] LABS: Red Blood Cells-Urine > 100 SEEN /hpf (0-5)
[2019-04-30] MEDS: HYDROcodone Bitartrate/Apap 5/325 Tablet PO (17:54)
[2019-04-30 18:05] VITALS: PULSE 68; RESP 17; O2SAT 97
== END 2019-04-30 18:08 | disposition home or self-care (01) ==
LOC: ED 16:41
PROVIDERS: Emergency Provider Emergency Medicine; PCP Family Medicine
DX: N30.01 Acute cystitis with hematuria (principal); Q60.0 Renal agenesis, unilateral; Q51.0 Agenesis and aplasia of uterus; Q50 Congenital malformations of ovaries, fallopian tubes and broad ligaments
CPT/HCPCS: 80053; 81001; 85025; 96361; 96374; 96375; 99284; J7030; A4216; J2405

== ENCOUNTER 2019-05-18 15:42 | Emergency (ER) | payer SELFPAY ==
[2019-05-18 15:44] VITALS: BP 124/85; PULSE 86; RESP 17; TEMP 37.3; O2SAT 98; BMI 30.1
[2019-05-18 16:22] VITALS: RESP 16
[2019-05-18] MEDS: Ondansetron ODT 4 MG Tablet PO (16:39)
[2019-05-18] MEDS: Lidocaine Jelly 2% 20 ML Syringe (URO-JET) 20 APPLIC TOPICAL (16:40)
[2019-05-18 16:51] LABS: Bacteria 0 SEEN /hpf (None Seen); Mucous, Urine 0 SEEN /hpf (<or=2+); Red Blood Cells-Urine 0 SEEN /hpf (0-5)
--- NOTE | 2019-05-18 17:07 | ED.VIS.GEN ---
History of Present Illness Chief Complaint: Fever Informant: Patient Onset: Today Timing: Intermittent Narrative: Patient is a 23-year-old female with extensive history of dysuria and hematuria presenting with worsening hematuria. Patient is well known to the ED and has had multiple visits for the same complaint. Patient states today she was urinating large clots of blood. She states that sometimes the blood which is dripping out of her. 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 Patient is also complaining of LLQ abdominal pain. She states that she feels a ball in her left lower abdominal wall. pain is worse when she uses her abdominal wall muscles. She notes she also has chronic pain in her suprapubic region which is unchanged. That does not radiate and is sharp. She also has chronic mild pain to the right upper quadrant which again is unchanged. Patient also reports a low grade fever 2 days ago. She states that she has had vomiting for a few days and vomited 2x today. She has had normal bowel movements and denies any black or bloody stools. She denies any recent sexual intercourse or abnormal vaginal discharge. Chart review shows that patient has been seen over once a month the past year for similar complaints. Patient has had multiple CTs, ultrasounds and urine cultures. Every urine culture has grown back mixed gram positive savita consistent with contamination. No acute process never been found. Her hemoglobin and creatinine has been stable. At the beginning of the patient had a normal CBC and BMP. Patient has followed up with urology with Dr. Bennett. She has had a cystoscopy as well as other evaluation with no cause of her symptoms found in the past. Patient denies any other complaints at this time. Past Medical History - Allergies and Home Meds Allergies/Adverse Reactions: Allergies amoxicillin Adverse Reaction (Verified 05/18/19 15:44) Rash ketorolac [From Toradol] Adverse Reaction (Verified 05/18/19 15:44) Other headache procaine [From Novocain] Adverse Reaction (Verified 05/18/19 15:44) Other abcess Primary Care Physician: June Bennett MD [STAFF PHYSICIAN] - Micha Dumont MD [Primary Care Provider] - Past Medical History: - - Uterine agenesis, chronic hematuria, congenital absence of the left kidney Surgical History: appendectomy, - - partial thyroid resection due to nodules Lives: Spouse/ Significant Other Smoking Status: Never smoker - Family History Maternal Family History: Reports: Cancer, - - His grandfather on maternal side had only 1 kidney and vertigo. Paternal Family History: Reports: Cancer, Diabetes Review of Systems General: Reports: Fever, Malaise. Denies: Chills, Sweats Eyes: Denies: Visual changes - bilaterally, Diplopia ENT: Denies: Rhinorrhea, Sore throat Cardiovascular: Denies: Chest pain, Palpitations Respiratory: Denies: Dyspnea, Cough, Dyspnea on exertion Gastrointestinal: Reports: Abdominal pain, Nausea, Vomiting. Denies: Diarrhea, Melena, Hematochezia Genitourinary: Reports: Hematuria. Denies: Dysuria, Frequency Musculoskeletal: Denies: Back pain, Extremity Pain Skin: Denies: Rash, Wounds Neurological: Denies: Headache, Weakness, Numbness Physical Exam Vital Signs/Narrative: Vital Signs Temp Pulse Resp BP Pulse Ox 05/18/19 16:22 16 05/18/19 15:44 99.2 F H 86 17 124/85 H 98 Inital Vital Signs reviewed: Yes General: Well nourished, Well developed, Obese, No Acute Distress Head: Normocephalic, Atraumatic Eyes: Perrl, EOMI. Negative for: Pale conjunctiva ENT: Moist mucous membranes, No rhinorrhea Neck: Supple, Nontender Cardiovascular: Regular rate, Regular rhythm, No murmurs Respiratory: No distress, CTA bilaterally, Chest nontender Abdomen: Soft, Nondistended, Normal bowel sounds, No masses, Tender - Diffuse, nonlocalized, - - No overlying erythema of the left lower quadrant, no palpable mass or hernia.. Negative for: Guarding, Rebound tenderness, Pulsatile mass : - - External exam, no evidence of vaginal bleeding or any blood noted in the perineum Back: Nontender, Normal Inspection Extremities: Nontender, No edema Skin: Normal color, No rash. Negative for: Pallor Neurological: Alert, Oriented x3, Cranial nerves II-XII grossly intact, Normal Strength, Normal Sensation Psychological: Normal affect, Normal Mood Diagnostic/Tx/Re-eval Patient is evaluated for worsening reported hematuria. Patient is hemodynamically stable. She is afebrile. Patient is not appear clinically dehydrated or anemic. While patient is complaining of lower abdominal pain seems to be associated with the abdominal wall. Is worse when she sits up or flexes her abdominal wall. It is very well localized. She points to a firm area of her abdominal wall. Do not feel any associated hernia. There is no overlying erythema suggestive of an incarcerated or strangulated hernia. At this time I do not suspect peritonitis or diverticulitis as a cause of her symptoms. Patient has had multiple ER visits for similar complaints and always her imaging and blood work is normal. I did discuss whether we should repeat straight catheterization performed which does not show any signs of blood or infection. Shortly after the straight catheterizations performed patient went to the bathroom by herself. She then came out pointing to blood in the toilet. There is 2 drops of blood that were not evenly mixed in with the urine. Patient did not have any signs of vaginal bleeding or rectal bleeding on my genitalia exam. I almost question of patient could have been putting the drops of blood into her urine however there is no way of proving that. Patient was complaining of mild nausea so she was given Zofran. She not have any vomiting in the emergency room. She was chewing gum throughout her ER visit. I discussed her case with her urologist, Dr. Bennett. Patient states she will order specialist urine culture called [facility] test for DNA. This will be sent to her house. She is comfortable with her going home. Given patient has completely normal urinalysis with no signs of protein or infection or blood creatinine is not indicated at this time. She is comfortable not repeating blood work and imaging because it always comes back negative anyway. Patient be discharged home to continue taking Tylenol as needed for discomfort. She is also given a course of Zofran she reports she is been vomiting. Patient's presentation is very odd especially her history. While patient is acting appropriate she also seems very comfortable during my exam and in no distress. I question if patient could have a component of [place] with her atypical symptoms and history. ED Disposition - Plan for ED Patient: Disposition: Home or Assisted Living Diagnosis: Hematuria, Abdominal wall pain Instructions: ED Abdominal Pain Unkn Cause Fem, ED Hematuria Prescriptions: Ondansetron [Zofran Odt] 4 mg PO Q8H PRN PRN #10 tab PRN Reason: Nausea Transmission Status: Received by [facility]pharmacy #[id number] Referrals: Micha Dumont MD [Primary Care Provider] - June Bennett MD [STAFF PHYSICIAN] - Additional Instructions: Please follow-up with Dr. Bennett next week. She will be sending you a urine culture test from a company called [employer]. Hopefully this will provide further answers for your recurrent hematuria. At this time I think you are safe to go home. Continue take Tylenol as needed for pain.
[2019-05-18 17:11] LABS: Color, Urine Yellow (Yellow); Glucose, Dipstick Normal (Normal); Ketone-Dipstick Negative (Negative); Leukocyte Esterase-Dipstick 25 /ul (Negative); Nitrite-Dipstick Negative (Negative); Occult Blood-Urine Negative /ul (Negative); Protein-Dipstick Negative (Negative); Specific Gravity, Urine 1.015 (1.002-1.030); Urine Bilirubin Dipstick Negative (Negative); Urine Clarity Clear (Clear); Urine Urobilinogen Normal (Normal)
[2019-05-18 17:30] LABS: Squamous Epithelial Cells - UA 0-5 SEEN /hpf (5-10); White Blood Cells 0-5 SEEN /hpf (0-5)
[2019-05-18 18:06] VITALS: RESP 16
== END 2019-05-18 18:06 | disposition home or self-care (01) ==
PROVIDERS: Emergency Provider Emergency Medicine; PCP Family Medicine
DX: R31.9 Hematuria, unspecified (principal); R10.84 Generalized abdominal pain; Q51.0 Agenesis and aplasia of uterus; Q60.0 Renal agenesis, unilateral; E66.9 Obesity, unspecified
CPT/HCPCS: 81001; 99284; P9612

== ENCOUNTER 2019-06-12 16:11 | Emergency (ER) | payer MEDICAID, SELFPAY ==
[2019-06-12 16:12] VITALS: BP 111/68; PULSE 80; RESP 15; TEMP 36.6; O2SAT 98; BMI 29.0
--- NOTE | 2019-06-12 16:25 | ED.VISSUMM ---
- ER Visit Summary Date of Service: 06/12/19 Chief Complaint: [Blood in stool and vomiting blood] History of Present Illness: The patient is a 23 F [presents to the emergency department with complaint of vomiting blood that started last evening. Patient states that she has had about 5 or 6 episodes of vomiting blood today and passing small clots. Patient is also had some blood in her stool today. Patient states is not unusual for her to have some blood in her stool. Patient had a colonoscopy about 6 months ago as well as an EGD and no etiology of her symptoms was found. Patient had a fever last night up to 101.3 and was sent home from work. She denies any cough or sore throat. She denies sick contacts. Patient has had prior appendectomy. She does not take a lot of Motrin or aspirin products. No history of an ulcer.] Physical Examination: [HEENT-PERRLA, EOMI. Cranial nerves II through XII grossly intact. TMs clear. Mucous membranes moist. No adenopathy. Cardiovascular-regular rate and rhythm without murmur or ectopy Lungs-clear to auscultation, chest wall stable without crepitus or subcu emphysema Abdomen-normoactive bowel sounds, soft. Patient has mild diffuse tenderness on palpation. There is no rebound, rigidity, or cranial signs. Extremities-intact ?4, normal range of motion, normal pulses, atraumatic] Test Results: [CBC with differential count of 8.3, hemoglobin 14, hematocrit 42, platelet 204. Chemistries unremarkable. BUN was normal. hCG was negative. Orthostatic vital signs were negative. Hemoccult stool obtained was negative.] Emergency Department Course and Treatment: [Patient had no further vomiting in the emergency department after receiving Zofran in the emergency department and 4 mg of morphine. I recommended placing an NG tube to evaluate for ongoing bleeding to which the patient agreed. During the procedure however the patient declined to continue and stated that she would not allow it to be performed that she was sedated.] Case was discussed with general surgeon on-call Dr. Fay Banks. I did not feel that she warranted emergent NG placement and sedation. Patient's hemodynamically stable with normal blood counts that she is had no vomiting of blood in the emergency department. It was felt by surgeon and myself the patient could be safely discharged to home with outpatient follow-up with her primary care physician and if symptoms persist or worsen to return to the emergency department or follow-up with her desktop publisher. After NG attempt patient did have small amount of bleeding from the left side of the nose. Treatment Plan: [Patient will be started on Prevacid and given Zofran for nausea.] Disposition: [Discharged home in stable condition] Impression: [GI bleeding-etiology uncertain] This note was generated with [employer] dictation software. It may contain incorrect words, spelling, and punctuation that were not noted in review of the chart prior to signing ED Disposition - Plan for ED Patient: Referrals: Micha Dumont MD [Primary Care Provider] -
[2019-06-12] MEDS: 0.9% Normal Saline 1,000 ML 1000 ML IV (16:55)
[2019-06-12] MEDS: Ondansetron 4 MG/2 ML Vial IV (17:04)
[2019-06-12] MEDS: Morphine 4 MG/ML Syringe IV (17:04)
[2019-06-12 17:06] VITALS: BP 107/93; BP 117/74; BP 123/83; PULSE 70; PULSE 76; PULSE 90
[2019-06-12 17:07] LABS: Absolute Lymphocyte Count 2.14 X10^3/uL (0.83-4.51); Absolute Neutrophil Count 5.3 X10^3/uL (2.0-7.7); Basophil# 0.02 X10^3/uL; Basophil% 0.2 % (0-1); Eosinophil# 0.07 X10^3/uL; Eosinophils% 0.8 % (0-5); Hematocrit 41.9 % (37-47); Hemoglobin 13.9 g/dL (12.0-15.0); Lymphocyte # 2.14 X10^3/ul (4.0); Lymphocyte % 25.9 % (19-41); Mean Corp Hgb Conc 33.2 g/dL (32-36); Mean Corpuscular Hgb 29.1 pg (27.0-32.0); Mean Corpuscular Volume 87.7 fL (81-99); Mean Platelet Vol. 9.9 fl (6.2-12.0); Monocyte# 0.66 X10^3/uL; NRBC Flagged by Analyzer 0 % (0-5); Neutrophil # 5.34 X10^3/uL (2.7-7.7); Neutrophil % 64.9 % (47-70); Platelet Count 204 K/mm3 (150-450); RBC Distribution Width CV 12.1 % (11.6-14.6); RBC Distribution Width SD 38.7 fl (35.1-43.9); Red Blood Count 4.78 M/mm3 (4.2-5.4); White Blood Count 8.3 K/mm3 (4.4-11.0)
[2019-06-12 17:15] LABS: Internal QC Validated? YES +Cl - CLEAR BKGD; Pregnancy, Serum, hCG Quali. NEGATIVE Negative
[2019-06-12 17:18] LABS: Anion Gap 4 (5-15); BUN 12 mg/dL (7-18); BUN/Creat Ratio 13.4 RATIO (10-20); Calcium,Total 8.8 mg/dL (8.5-10.1); Chloride 113 mmol/L (98-107); EST Glomerular Filtration Rate 83 mL/min (>60); Est Glom Filt Rate - Afr Amer 101 mL/min (>60); Estimated Creatinine Clearance 84.67 ml/min; Glucose 87 mg/dL (74-106); Sodium Level 140 mmol/L (136-145)
[2019-06-12 17:23] LABS: Bacteria 0 SEEN /hpf (None Seen); Red Blood Cells-Urine 0 SEEN /hpf (0-5)
[2019-06-12 17:25] LABS: Color, Urine Yellow (Yellow); Glucose, Dipstick Normal (Normal); Ketone-Dipstick Negative (Negative); Leukocyte Esterase-Dipstick 25 /ul (Negative); Nitrite-Dipstick Negative (Negative); Occult Blood-Urine Negative /ul (Negative); Protein-Dipstick Negative (Negative); Specific Gravity, Urine 1.015 (1.002-1.030); Urine Bilirubin Dipstick Negative (Negative); Urine Clarity Clear (Clear); Urine Urobilinogen Normal (Normal)
[2019-06-12 17:26] LABS: Lactic Acid 0.7 mmol/L (0.4-1.9)
[2019-06-12 18:09] LABS: Mucous, Urine 1+ /hpf (<or=2+); Squamous Epithelial Cells - UA 0-5 SEEN /hpf (5-10); White Blood Cells 0-5 SEEN /hpf (0-5)
[2019-06-12 18:13] VITALS: BP 111/84; PULSE 77; RESP 16; O2SAT 98
--- NOTE | 2019-06-12 18:28 | ED.DEP ---
ED Disposition - Plan for ED Patient: Instructions: ED Bleed UGI Stable Prescriptions: Lansoprazole [Prevacid] 30 mg PO DAILY #30 cap Prescription Printed Ondansetron [Zofran Odt] 4 mg PO Q8H PRN PRN #10 tab PRN Reason: Nausea Prescription Printed Referrals: Micha Dumont MD [Primary Care Provider] - 3-5 Days
[2019-06-12 18:53] VITALS: BP 111/74; PULSE 70; RESP 16; O2SAT 98
== END 2019-06-12 18:55 | disposition home or self-care (01) ==
PROVIDERS: Emergency Provider Emergency Medicine; PCP Family Medicine
DX: K92.1 Melena (principal); K92.0 Hematemesis
CPT/HCPCS: 80048; 81001; 82274; 83605; 84703; 85025; 96361; 96365; 96375; 99284; J7030; A4216; J2405; J3490

== ENCOUNTER 2019-06-20 18:28 | Emergency (ER) | payer MEDICAID, SELFPAY ==
[2019-06-20 18:29] VITALS: BP 131/64; PULSE 82; RESP 14; TEMP 36.7; O2SAT 98; BMI 29.5
--- NOTE | 2019-06-20 19:10 | US_ITS ---
STUDY: ABDOMINAL ULTRASOUND - RIGHT UPPER QUADRANT REASON FOR VISIT: Female, 23 years old right upper quadrant PAIN- VOMITING BLOOD TECHNIQUE: Ultrasound evaluation of the right upper quadrant was performed with real-time and static waterman-scale imaging. TECHNICAL QUALITY: Adequate. COMPARISON: November 29, [address] of the abdomen and pelvis dated September 20, 2018 FINDINGS: Liver: The liver measures 13.4 cm. There is normal echogenicity of the liver. The bile ducts are within normal limits. There is hepatic color flow. The direction of portal flow is hepatopetal. There is no demonstrated mass lesion. Gallbladder: Normal distended gallbladder. The gallbladder wall measures 3.1 mm. There is a negative sonographic Mooney''s sign. There is no pericholecystic fluid. There are no gallstones. Common Bile Duct (C.B.D.): The common bile duct measures 2.9 mm. Pancreas: Normal size of the head, body and visualized tail of the pancreas. . There is normal echogenicity of the pancreas. There is no demonstrated pancreatic mass or cyst. Right Kidney: Normal size of the right kidney. The right kidney measures 12.6 cm in length. Normal renal cortex. There is no demonstrated renal mass or cyst. There is no right hydronephrosis. US/Gallbladder IMPRESSION: Within normal limits right upper quadrant ultrasound examination. Electronically Signed: Laine Cook MD at 20:01 EDT Tel , Service support ,
[2019-06-20 19:18] LABS: Absolute Lymphocyte Count 1.94 X10^3/uL (0.83-4.51); Absolute Neutrophil Count 5.2 X10^3/uL (2.0-7.7); Basophil# 0.02 X10^3/uL; Basophil% 0.3 % (0-1); Eosinophil# 0.11 X10^3/uL; Eosinophils% 1.4 % (0-5); Hematocrit 42.7 % (37-47); Hemoglobin 14.2 g/dL (12.0-15.0); Lymphocyte # 1.94 X10^3/ul (4.0); Lymphocyte % 24.4 % (19-41); Mean Corp Hgb Conc 33.3 g/dL (32-36); Mean Corpuscular Hgb 29.8 pg (27.0-32.0); Mean Corpuscular Volume 89.5 fL (81-99); Mean Platelet Vol. 10.1 fl (6.2-12.0); Monocyte# 0.63 X10^3/uL; Monocyte% 7.9 % (0-10); NRBC Flagged by Analyzer 0 % (0-5); Neutrophil # 5.24 X10^3/uL (2.7-7.7); Neutrophil % 65.7 % (47-70); Platelet Count 201 K/mm3 (150-450); RBC Distribution Width CV 12.3 % (11.6-14.6); RBC Distribution Width SD 40.1 fl (35.1-43.9); Red Blood Count 4.77 M/mm3 (4.2-5.4)
[2019-06-20] MEDS: 0.9% Normal Saline 1,000 ML 1000 ML IV (19:25)
[2019-06-20] MEDS: Ondansetron 4 MG/2 ML Vial IV (19:25)
[2019-06-20] MEDS: Morphine 4 MG/ML Syringe IV (19:25)
[2019-06-20 19:30] LABS: Bacteria 0 SEEN /hpf (None Seen); Red Blood Cells-Urine 0 SEEN /hpf (0-5)
[2019-06-20 19:33] LABS: ALB/GLOB Ratio 1.1 RATIO (0.9-2.4); AST(SGOT) 17 U/L (15-37); Alanine Aminotransfer ALT/SGPT 23 U/L (13-56); Albumin, Serum 3.9 g/dL (3.2-5.0); Alkaline Phosphatase 69 U/L (45-117); Anion Gap 6 (5-15); BUN 14 mg/dL (7-18); BUN/Creat Ratio 12.5 RATIO (10-20); Chloride 113 mmol/L (98-107); Creatinine, Serum 1.12 mg/dL (0.55-1.02); EST Glomerular Filtration Rate 64 mL/min (>60); Est Glom Filt Rate - Afr Amer 78 mL/min (>60); Estimated Creatinine Clearance 68.04 ml/min; Globulin 3.7 g/dL (2.2-4.2); Glucose 75 mg/dL (74-106); Lipase 85 U/L (73-393); Potassium 3.9 mmol/L (3.5-5.1); Protein, Total 7.6 g/dL (6.4-8.2); Sodium Level 142 mmol/L (136-145)
[2019-06-20 19:52] LABS: Color, Urine Yellow (Yellow); Glucose, Dipstick Normal (Normal); Ketone-Dipstick 5 mg/dl (Negative); Leukocyte Esterase-Dipstick 25 /ul (Negative); Nitrite-Dipstick Negative (Negative); Occult Blood-Urine Negative /ul (Negative); Protein-Dipstick Negative (Negative); Specific Gravity, Urine 1.025 (1.002-1.030); Urine Bilirubin Dipstick Negative (Negative); Urine Clarity Clear (Clear); Urine Urobilinogen Normal (Normal)
[2019-06-20 20:06] LABS: Mucous, Urine RARE /hpf (<or=2+); Squamous Epithelial Cells - UA 0-5 SEEN /hpf (5-10); White Blood Cells 0-5 SEEN /hpf (0-5)
[2019-06-20 20:28] VITALS: RESP 18; O2SAT 98
--- NOTE | 2019-06-20 21:16 | ED.DCSUM_ITS ---
- ER Visit Summary Date of Service: 06/20/19 Chief Complaint: Abdominal pain History of Present Illness: The patient is a 23 F who presents with abdominal pain that is been constant for the past week. Patient was seen here last week and had normal labs at that time. Patient states she has been having guerline temesis as well as hematochezia. Patient states her pain is sharp and aching. Patient states the pain is worse in the epigastric and right upper quadrant areas. Patient states her pain is worse when she lays flat. Patient denies any dysuria or hematuria. Patient states she has been feeling weak. Physical Examination: Vital signs are stable. Patient is afebrile. Patient is in no acute distress. Oral mucosa is pink and moist. Neck is supple. Trachea is midline. There is no JVD. Heart was regular rate and rhythm. Lungs are clear and equal bilaterally. Abdomen is soft. Bowel sounds are normal. There is epigastric and right upper quadrant abdominal pain. There is no rebound or guarding noted. Cranial nerves II through XII are intact. There are no focal m otor or sensory deficits noted. Rectal exam showed good sphincter tone. There is minimal stool in the rectum. There is no tenderness. There are no masses palpated. Test Results: CBC and comprehensive metabolic profile were obtained and were within normal limits. Right upper quadrant ultrasound was obtained. There is mild distention of the gallbladder. There is no signs of cholelithiasis or cholecystitis. Urinalysis was obtained and was within normal limits. Stool was sent for guaiac and is pending Emergency Department Course and Treatment: Patient was given IV fluids. Patient was given morphine and Zofran. Patient was feeling better on reevaluation. Prior to her guaiac stool results, the patient stated she needed to go home because her grandfather fell. Patient left prior to receiving discharge instructions. Patient states she has a community organization worker that she sees in [place] and will follow-up with him for repeat endoscopy. Patient states she had an endoscopy and colonoscopy in December. Patient was instructed to return if worse in any way. Patient understood and was agreeable with the plan. All q uestions were answered. Disposition: Discharge home Impression: 1. Abdominal pain This note was generated with [employer] dictation software. It may contain incorrect words, spelling, and punctuation that were not noted in review of the chart prior to signing ED Disposition - Plan for ED Patient: Disposition: Home or Assisted Living Diagnosis: Abdominal pain Instructions: ED Abdominal Pain Unkn Cause Fem Referrals: Micha Dumont MD [Primary Care Provider] - 3-5 Days
== END 2019-06-20 21:25 | disposition home or self-care (01) ==
PROVIDERS: Emergency Provider Emergency Medicine; PCP Family Medicine
DX: R10.13 Epigastric pain (principal); R10.11 Right upper quadrant pain; E66.9 Obesity, unspecified
CPT/HCPCS: 76705; 80053; 81001; 82274; 83690; 85025; 96361; 96374; 96375; 99282; J7030; A4216; J2405

== ENCOUNTER 2019-07-17 19:19 | Emergency (ER) | payer MEDICAID, SELFPAY ==
[2019-07-17 19:20] VITALS: BP 143/97; PULSE 80; RESP 18; TEMP 36.2; O2SAT 96; BMI 28.8
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
[2019-07-17] MEDS: Acetaminophen 500 MG Tablet 1000 MG PO (19:54)
[2019-07-17 20:48] VITALS: BP 122/71; PULSE 68; RESP 18; O2SAT 99
[2019-07-17 21:26] LABS: Chlamydia Trachomatis by PCR Negative (Negative); Neisserai gonorrhoeae by PCR Negative (Negative); Probe Check PASS; Sample Adequacy Control PASS; Specimen Processing Control PASS
--- NOTE | 2019-07-17 22:56 | ED.RN ---
ATTEMPTED TO CALL PT WITH NEGATIVE GC/C RESULTS. UNABLE TO REACH PATIENT. MESSAGE LEFT FOR PT TO RETURN CALL TO ER WHEN ABLE.
== END 2019-07-17 20:49 | disposition home or self-care (01) ==
PROVIDERS: Emergency Provider Emergency Medicine; PCP Family Medicine
DX: R51 Headache (principal); S20.211A Contusion of right front wall of thorax, initial encounter; M54.2 Cervicalgia; Y04.0XXA Assault by unarmed brawl or fight, initial encounter
CPT/HCPCS: 70360; 71101; 87491; 87591; 99283

== ENCOUNTER 2019-09-24 11:46 | Emergency (ER) | payer MEDICAID, SELFPAY ==
[2019-09-24 11:46] VITALS: BP 137/90; PULSE 73; RESP 18; TEMP 36.4; O2SAT 98; BMI 26.4
--- NOTE | 2019-09-24 12:06 | ED.DCSUM_ITS ---
History of Present Illness Chief Complaint: Flank Pain Informant: Patient Onset: Days - 5 days Context: Gradual Onset Current Severity: Mild Maximum Severity: Moderate Narrative: Patient presents with 5-day history of not feeling well, right flank pain, nausea. She reports sharp pain in the right lower quadrant when she urinates. She states it does not actually burn to urinate. She has a history of a single kidney on the right. She does not have uterus or ovaries. - Past Medical History (1) Renal agenesis Status: Chronic Past Medical History - Allergies and Home Meds Allergies/Adverse Reactions: Allergies amoxicillin Adverse Reaction (Verified 09/24/19 12:44) Rash ketorolac [From Toradol] Adverse Reaction (Verified 09/24/19 12:44) Other headache procaine [From Novocain] Adverse Reaction (Verified 09/24/19 12:44) Other abcess Primary Care Physician: Micha Dumont MD [Primary Care Provider] - Prior records reviewed: Yes Surgical History: appendectomy, - - partial thyroid resection due to nodules Smoking Status: Never smoker - Family History Maternal Family History: Reports: Cancer, - - His grandfather on maternal side had only 1 kidney and vertigo. Paternal Family History: Reports: Cancer, Diabetes Review of Systems General: Denies: Chills, Fever Eyes: Denies: Visual changes - bilaterally ENT: Denies: Bilateral ear pain Cardiovascular: Denies: Chest pain Respiratory: Denies: Dyspnea, Cough Gastrointestinal: Reports: Abdominal pain, Nausea. Denies: Vomiting Genitourinary: Reports: Hematuria. Denies: Dysuria Musculoskeletal: Denies: Extremity Pain Skin: Denies: Rash Neurological: Denies: Headache Hematologic: Denies: Easy bruising, Easy bleeding Allergy: Denies: Uticaria Physical Exam Vital Signs/Narrative: Vital Signs Temp Pulse Resp BP Pulse Ox 09/24/19 11:46 97.6 F L 73 18 137/90 H 98 Inital Vital Signs reviewed: Yes General: Well nourished, Well developed Head: Normocephalic ENT: Moist mucous membranes Neck: Supple Cardiovascular: Regular rate, Regular rhythm Respiratory: No distress, CTA bilaterally Abdomen: Soft, Tender - Mild tenderness in the right lower quadrant., Hypoactive bowel sounds. Negative for: Guarding, Rebound tenderness Extremities: Nontender Skin: Normal color Neurological: Alert, Oriented x3 Psychological: Normal affect Diagnostic/Tx/Re-eval Laboratory Results 09/24/19 09/24/19 09/24/19 12:15 12:35 12:35 WBC 7.3 RBC 5.06 Hgb 15.0 Hct 45.3 MCV 89.5 MCH 29.6 MCHC 33.1 RDW Std Deviation 38.6 RDW Coeff of Teena 11.9 Plt Count 197 MPV 9.6 Immature Gran % (Auto) 0.400 Neut % (Auto) 71.4 H Lymph % (Auto) 20.3 [place] % (Auto) 6.7 Eos % (Auto) 1.1 Baso % (Auto) 0.1 Absolute Neuts (auto) 5.2 Absolute Lymphs (auto) 1.48 Nucleated RBC % 0 Sodium 140 Potassium 4.2 Chloride 108 H Carbon Dioxide 28.0 Anion Gap 4 L BUN 14 Creatinine 0.97 Estim Creat Clear Calc 78.56 Est GFR (MDRD) Af Amer 92 Est GFR (MDRD) Non-Af 76 BUN/Creatinine Ratio 14.4 Glucose 85 Calcium 8.9 Urine Color Red Urine Clarity Cloudy Urine pH 7.0 Ur Specific [place] 1.010 Urine Protein 100 H Urine Glucose (UA) Normal Urine Ketones 5 H Urine Occult Blood 250 H Urine Nitrite Positive H Urine Bilirubin Negative Urine Urobilinogen Normal Ur Leukocyte Esterase 500 H Urine RBC 50-100 SEEN Urine WBC 50-100 SEEN Ur Squamous Epith Cells 5-10 SEEN Urine Bacteria 1+ Urine Mucus 0 SEEN - Medical Decision Making Patient was given Tylenol and Zofran here for pain and nausea. Urine does appear to be infected. Nursing staff did note that the urine felt cold when she made the bathroom. They are unable to assure me that this was her sample given at this time. Should be treated with a 10-day course of Bactrim. She is known to Dr. Bennett and will follow up with her. ED Disposition - Plan for ED Patient: Disposition: Home or Assisted Living Diagnosis: Pyelonephritis Instructions: ED Pyelonephritis Female Adult Prescriptions: Smz/Tmp Ds [Bactrim Ds] 1 tab PO BID #20 tab Transmission Status: Pending to [facility]/pharmacy #[id number] Referrals: Micha Dumont MD [Primary Care Provider] - June Bennett MD [STAFF PHYSICIAN] - 1 Week
[2019-09-24 12:32] LABS: Color, Urine Red (Yellow); Glucose, Dipstick Normal (Normal); Ketone-Dipstick 5 mg/dl (Negative); Leukocyte Esterase-Dipstick 500 /ul (Negative); Mucous, Urine 0 SEEN /hpf (<or=2+); Nitrite-Dipstick Positive (Negative); Occult Blood-Urine 250 /ul (Negative); Protein-Dipstick 100 mg/dl (Negative); Urine Bilirubin Dipstick Negative (Negative); Urine Clarity Cloudy (Clear); Urine Urobilinogen Normal (Normal)
[2019-09-24 12:39] LABS: Bacteria 1+ /hpf (None Seen); Red Blood Cells-Urine 50-100 SEEN /hpf (0-5); Squamous Epithelial Cells - UA 5-10 SEEN /hpf (5-10); White Blood Cells 50-100 SEEN /hpf (0-5)
[2019-09-24 12:41] VITALS: BP 137/90; PULSE 73; RESP 18; TEMP 36.4; O2SAT 98
[2019-09-24 12:50] LABS: Absolute Lymphocyte Count 1.48 X10^3/uL (0.83-4.51); Absolute Neutrophil Count 5.2 X10^3/uL (2.0-7.7); Basophil# 0.01 X10^3/uL; Basophil% 0.1 % (0-1); Eosinophil# 0.08 X10^3/uL; Eosinophils% 1.1 % (0-5); Hematocrit 45.3 % (37-47); Lymphocyte # 1.48 X10^3/ul (4.0); Lymphocyte % 20.3 % (19-41); Mean Corp Hgb Conc 33.1 g/dL (32-36); Mean Corpuscular Hgb 29.6 pg (27.0-32.0); Mean Corpuscular Volume 89.5 fL (81-99); Mean Platelet Vol. 9.6 fl (6.2-12.0); Monocyte# 0.49 X10^3/uL; Monocyte% 6.7 % (0-10); NRBC Flagged by Analyzer 0 % (0-5); Neutrophil # 5.19 X10^3/uL (2.7-7.7); Neutrophil % 71.4 % (47-70); Platelet Count 197 K/mm3 (150-450); RBC Distribution Width CV 11.9 % (11.6-14.6); RBC Distribution Width SD 38.6 fl (35.1-43.9); Red Blood Count 5.06 M/mm3 (4.2-5.4); White Blood Count 7.3 K/mm3 (4.4-11.0)
[2019-09-24 13:00] VITALS: BP 140/88; PULSE 76; RESP 18; TEMP 36.4; O2SAT 98
[2019-09-24 13:04] LABS: Anion Gap 4 (5-15); BUN 14 mg/dL (7-18); BUN/Creat Ratio 14.4 RATIO (10-20); Calcium,Total 8.9 mg/dL (8.5-10.1); Chloride 108 mmol/L (98-107); Creatinine, Serum 0.97 mg/dL (0.55-1.02); EST Glomerular Filtration Rate 76 mL/min (>60); Est Glom Filt Rate - Afr Amer 92 mL/min (>60); Estimated Creatinine Clearance 78.56 ml/min; Glucose 85 mg/dL (74-106); Potassium 4.2 mmol/L (3.5-5.1); Sodium Level 140 mmol/L (136-145)
[2019-09-24] MEDS: Ondansetron 4 MG/2 ML Vial IV (13:09)
[2019-09-24] MEDS: Acetaminophen 500 MG Tablet 1000 MG PO (13:10)
[2019-09-24] MEDS: 0.9% Normal Saline 1,000 ML 150 ML IV (13:10)
[2019-09-24] MEDS: Smz/Tmp Ds Tablet 1 TABLET PO (13:56)
[2019-09-24 14:03] VITALS: BP 101/63; PULSE 63; RESP 16; O2SAT 98
== END 2019-09-24 14:04 | disposition home or self-care (01) ==
PROVIDERS: Emergency Provider Emergency Medicine; PCP Family Medicine
DX: N12 Tubulo-interstitial nephritis, not specified as acute or chronic (principal); Q60.0 Renal agenesis, unilateral
CPT/HCPCS: 80048; 81001; 85025; 87086; 87088; 96361; 96374; 99284; J7030; A4216; J2405

== ENCOUNTER 2019-09-29 11:52 | Emergency (ER) | payer MEDICAID, SELFPAY ==
[2019-09-29 11:54] VITALS: BP 158/102; PULSE 78; RESP 16; TEMP 36.4; O2SAT 97; BMI 29.2
--- NOTE | 2019-09-29 12:12 | CT_ITS ---
STUDY: CT ABDOMEN AND PELVIS WITHOUT CONTRAST REASON FOR EXAM: Female, 23 years old. PT STATED RT FLANK PAIN, VAG BLEEDING RADIATION DOSAGE (If Supplied By Facility): CTDIvol = ( 7.73 ) mGy, DLP = ( 390.25 ) mGycm TECHNIQUE: Transaxial images were obtained from the dome of the diaphragm to the symphysis pubis without oral contrast, and without intravenous contrast. Sagittal and coronal images were reconstructed. Individualized dose optimization techniques were used for this CT. COMPARISON: CT abdomen and pelvis without contrast 09/20/2018. FINDINGS: The visualized lung bases are unremarkable. The visualized portions of the heart are within normal limits. Normal liver. Normal gallbladder and extrahepatic biliary system. Normal spleen. Normal pancreas. Normal bilateral adrenal glands. Normal right kidney. Postsurgical absence of the left kidney. Normal visualized stomach. Normal small intestine. Normal colon. Postsurgical absence of the appendix. Normal abdominal aorta. Normal inferior vena cava. Normal retroperitoneum. Normal urinary bladder. Postsurgical absence of the uterus. Normal abdominal wall. Normal osseous structures. CT/Abdomen/Pelvis without Cont IMPRESSION: 1. Postsurgical absence of the left kidney, appendix and uterus. 2. Normal CT of the right kidney, right ureter and urinary bladder and there is interval decrease in the fullness of the right renal pelvis and right proximal ureter when compared to 09/20/2018. 3. The previously described scattered sigmoid diverticulosis are difficult to find. There are fecal contents in the sigmoid colon but no definite visible diverticula in all [address] evidence of mass or acute abnormality in the abdomen and pelvis. No significant interval change when compared to 09/20/2018 Electronically Signed: Deep Wong MD at 12:55 EDT , Service support ,
[2019-09-29] MEDS: Morphine 4 MG/ML Syringe IV (12:24)
[2019-09-29] MEDS: Ondansetron 4 MG/2 ML Vial IV (12:24)
[2019-09-29 12:35] LABS: Absolute Lymphocyte Count 1.52 X10^3/uL (0.83-4.51); Absolute Neutrophil Count 4.4 X10^3/uL (2.0-7.7); Basophil# 0.01 X10^3/uL; Basophil% 0.2 % (0-1); Eosinophil# 0.07 X10^3/uL; Eosinophils% 1.1 % (0-5); Hematocrit 42.1 % (37-47); Lymphocyte # 1.52 X10^3/ul (4.0); Lymphocyte % 23.2 % (19-41); Mean Corp Hgb Conc 33.3 g/dL (32-36); Mean Corpuscular Hgb 29.4 pg (27.0-32.0); Mean Corpuscular Volume 88.3 fL (81-99); Mean Platelet Vol. 9.5 fl (6.2-12.0); Monocyte# 0.56 X10^3/uL; Monocyte% 8.5 % (0-10); NRBC Flagged by Analyzer 0 % (0-5); Neutrophil # 4.37 X10^3/uL (2.7-7.7); Neutrophil % 66.7 % (47-70); Platelet Count 195 K/mm3 (150-450); RBC Distribution Width SD 38.7 fl (35.1-43.9); Red Blood Count 4.77 M/mm3 (4.2-5.4); White Blood Count 6.6 K/mm3 (4.4-11.0)
--- NOTE | 2019-09-29 12:40 | ED.DCSUM_ITS ---
History of Present Illness Chief Complaint: Flank Pain Narrative: Patient presenting for evaluation secondary to flank pain and hematuria. Patient has a underlying history of congenitally only having one kidney. She was seen in the emergency department a couple of days ago and was diagnosed as having a urinary tract infection and potentially pyelonephritis. She was placed on Bactrim, urine cultures were sent which showed some contaminants. Patient tells me that she has had worsening of her right abdominal pain and flank pain and development of worsening hematuria. Patient states that she now is intermittently urinating clots. Patient also tells me that she has been having some decreased urine output and felt that she was having fevers today. She has been taking Tylenol at home for pain with very minimal relief. Patient is status post hysterectomy, she denies any vaginal bleeding. She denies any [place] vomiting or diarrhea. Review of systems otherwise negative. Past Medical History - Allergies and Home Meds Allergies/Adverse Reactions: Allergies amoxicillin Adverse Reaction (Verified 09/29/19 11:53) Rash ketorolac [From Toradol] Adverse Reaction (Verified 09/29/19 11:53) Other headache procaine [From Novocain] Adverse Reaction (Verified 09/29/19 11:53) Other abcess Primary Care Physician: Micha Dumont MD [Primary Care Provider] - Prior records reviewed: Yes Past Medical History: - - Renal agenesis Surgical History: appendectomy, hysterectomy, - - partial thyroid resection due to nodules Lives: With Family Smoking Status: Never smoker Alcohol: None Drugs: None - Family History Maternal Family History: Reports: Cancer, - - His grandfather on maternal side had only 1 kidney and vertigo. Paternal Family History: Reports: Cancer, Diabetes Review of Systems All systems negative except as indicated General: Reports: Fever, Malaise Eyes: Denies: Visual changes - bilaterally, Diplopia ENT: Denies: Rhinorrhea, Sore throat Cardiovascular: Denies: Chest pain, Palpitations Respiratory: Denies: Dyspnea, Cough, Dyspnea on exertion Gastrointestinal: Reports: Abdominal pain Genitourinary: Reports: Dysuria, Hematuria Musculoskeletal: Denies: Back pain, Extremity Pain Skin: Denies: Rash, Wounds Neurological: Denies: Headache, Weakness, Numbness Physical Exam Vital Signs/Narrative: Vital Signs Temp Pulse Resp BP Pulse Ox 09/29/19 11:54 97.6 F L 78 16 158/102 H 97 Inital Vital Signs reviewed: Yes General: Well nourished, Well developed, No Acute Distress Head: Normocephalic, Atraumatic Eyes: Perrl, EOMI ENT: Moist mucous membranes, No rhinorrhea Neck: Supple, Nontender Cardiovascular: Regular rate, Regular rhythm, No murmurs Respiratory: No distress, CTA bilaterally, Chest nontender Abdomen: Soft, Nondistended, Normal bowel sounds, Tender - Right flank, and right abdominal. No guarding or rebound. Some suprapubic tenderness noted. No palpable masses. Back: Nontender, Normal Inspection Extremities: Nontender, No edema Skin: Normal color, No rash Neurological: Alert, Oriented x3, Cranial nerves II-XII grossly intact, Normal Strength, Normal Sensation Psychological: Normal affect, Normal Mood Diagnostic/Tx/Re-eval Clinical Impression(s) from Imaging Studies Abdomen/Pelvis CT 09/29/19 12:12 IMPRESSION: 1. Postsurgical absence of the left kidney, appendix and uterus. 2. Normal CT of the right kidney, right ureter and urinary bladder and there is interval decrease in the fullness of the right renal pelvis and right proximal ureter when compared to 09/20/2018. 3. The previously described scattered sigmoid diverticulosis are difficult to find. There are fecal contents in the sigmoid colon but no definite visible diverticula in all [address] evidence of mass or acute abnormality in the abdomen and pelvis. No significant interval change when compared to 09/20/2018 Electronically Signed: Deep Wong MD at 12:55 EDT , Service support , Laboratory Data 09/29/19 09/29/19 09/29/19 12:21 12:21 13:10 WBC 6.6 RBC 4.77 Hgb 14.0 Hct 42.1 MCV 88.3 MCH 29.4 MCHC 33.3 RDW Std Deviation 38.7 RDW Coeff of Teena 12.0 Plt Count 195 MPV 9.5 Immature Gran % (Auto) 0.300 Neut % (Auto) 66.7 Lymph % (Auto) 23.2 [place] % (Auto) 8.5 Eos % (Auto) 1.1 Baso % (Auto) 0.2 Absolute Neuts (auto) 4.4 Absolute Lymphs (auto) 1.52 Nucleated RBC % 0 Sodium 141 Potassium 4.3 Chloride 114 H Carbon Dioxide 24.0 Anion Gap 3 L BUN 14 Creatinine 1.01 Estim Creat Clear Calc 75.45 Est GFR (MDRD) Af Amer 87 Est GFR (MDRD) Non-Af 72 BUN/Creatinine Ratio 13.9 Glucose 93 Calcium 8.8 Urine Color Red Urine Clarity Cloudy Urine pH 6.5 Ur Specific [place] 1.015 Urine Protein 100 H Urine Glucose (UA) Normal Urine Ketones 5 H Urine Occult Blood 250 H Urine Nitrite Negative Urine Bilirubin Negative Urine Urobilinogen Normal Ur Leukocyte Esterase 500 H Urine RBC > 100 SEEN Urine WBC 50-100 SEEN Ur Squamous Epith Cells 0-5 SEEN Urine Bacteria 0 SEEN Urine Mucus 0 SEEN - Medical Decision Making Patient presented with persistent flank pain in the setting of recent diagnosis of potential pyelonephritis and a congenitally absent left kidney. Due to the fact that the patient is a bounce back, further work-up was obtained. CT imaging shows no signs of urolithiasis or obstructive uropathy. CBC does not demonstrate leukocytosis, chemistry shows normal renal function. Urinalysis continues to show evidence of white cells and red cells in the patient's urine, culture was sent. Patient's pain was addressed in the emergency department with at first morphine and Zofran, then oxycodone. She was given dose of fluids. Patient will be given a dose of Cipro IV in the emergency department. Patient still has a couple of days left on her course of Bactrim, she was recommended to finish that but I will add Cipro to her regimen. Patient absolutely needs to follow-up with urology next week. She did state that she had planned on that. She will call the office on Tuesday, and arrange follow-up she understands signs and symptoms which to return to the emergency department. Patient was discharged in improved condition. ED Disposition - Plan for ED Patient: Disposition: Home or Assisted Living Diagnosis: Acute pyelonephritis Instructions: ED Pyelonephritis Female Adult Prescriptions: Ciprofloxacin [Cipro] 500 mg PO BID #14 tab Prescription Printed Referrals: June Bennett MD [STAFF PHYSICIAN] - As soon as possible
[2019-09-29 12:45] LABS: Anion Gap 3 (5-15); BUN 14 mg/dL (7-18); BUN/Creat Ratio 13.9 RATIO (10-20); Calcium,Total 8.8 mg/dL (8.5-10.1); Chloride 114 mmol/L (98-107); Creatinine, Serum 1.01 mg/dL (0.55-1.02); EST Glomerular Filtration Rate 72 mL/min (>60); Est Glom Filt Rate - Afr Amer 87 mL/min (>60); Estimated Creatinine Clearance 75.45 ml/min; Glucose 93 mg/dL (74-106); Potassium 4.3 mmol/L (3.5-5.1); Sodium Level 141 mmol/L (136-145)
[2019-09-29 13:12] LABS: Bacteria 0 SEEN /hpf (None Seen); Mucous, Urine 0 SEEN /hpf (<or=2+)
[2019-09-29] MEDS: oxyCODONE 5 MG Tablet PO (13:13)
[2019-09-29] MEDS: 0.9% Normal Saline 1,000 ML 999 ML IV (13:13)
[2019-09-29 13:15] LABS: Color, Urine Red (Yellow); Glucose, Dipstick Normal (Normal); Ketone-Dipstick 5 mg/dl (Negative); Leukocyte Esterase-Dipstick 500 /ul (Negative); Nitrite-Dipstick Negative (Negative); Occult Blood-Urine 250 /ul (Negative); Protein-Dipstick 100 mg/dl (Negative); Specific Gravity, Urine 1.015 (1.002-1.030); Urine Bilirubin Dipstick Negative (Negative); Urine Clarity Cloudy (Clear); Urine Urobilinogen Normal (Normal); Urine pH 6.5 (5.0 - 8.0)
[2019-09-29 13:26] LABS: Red Blood Cells-Urine > 100 SEEN /hpf (0-5); Squamous Epithelial Cells - UA 0-5 SEEN /hpf (5-10); White Blood Cells 50-100 SEEN /hpf (0-5)
[2019-09-29] MEDS: Ciprofloxacin 400 MG/200 ML BAG 200 MG IV (14:14)
[2019-09-29 14:19] VITALS: BP 141/98; PULSE 78; RESP 16; TEMP 36.8; O2SAT 97
--- NOTE | 2019-09-29 14:44 | ED.RN ---
when starting IV cipro- large red raised hives to entire left arm. IV stopped. MD notified and assessed pt. new med orders- see MAR
[2019-09-29] MEDS: DiphenhydrAMINE 50 MG/ML Syringe 25 MG IV (14:45)
[2019-09-29] MEDS: Ceftriaxone 1 GM/50 ML BAG IV (15:07)
== END 2019-09-29 15:52 | disposition home or self-care (01) ==
PROVIDERS: Emergency Provider Emergency Medicine; PCP Family Medicine
DX: N10 Acute pyelonephritis (principal)
CPT/HCPCS: 74176; 80048; 81001; 85025; 87086; 87088; 96361; 96374; 96375; 99284; J7030; J7050; A4216; J0744; J2405

== ENCOUNTER 2019-10-25 18:32 | Emergency (ER) | payer MEDICAID, SELFPAY ==
[2019-10-25 18:32] VITALS: BP 116/37; PULSE 81; RESP 16; TEMP 36.3; O2SAT 98; BMI 28.3
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
[2019-10-25] MEDS: HYDROcodone Bitartrate/Apap 5/325 Tablet PO (19:07)
[2019-10-25] MEDS: Ibuprofen 600 MG Tablet PO (19:09)
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
== END 2019-10-25 19:25 | disposition home or self-care (01) ==
LOC: ED 19:20
PROVIDERS: Emergency Provider Emergency Medicine; PCP Family Medicine
DX: S00.81XA Abrasion of other part of head, initial encounter (principal); Y04.2XXA Assault by strike against or bumped into by another person, initial encounter; Y93.89 Activity, other specified; Y92.039 Unspecified place in apartment as the place of occurrence of the external cause; Y99.8 Other external cause status
CPT/HCPCS: 99283

== ENCOUNTER 2019-11-13 12:13 | Emergency (ER) | payer MEDICAID, SELFPAY ==
[2019-11-13 12:14] VITALS: BP 137/97; PULSE 76; RESP 18; TEMP 23.3; O2SAT 100; BMI 27.4
[2019-11-13 13:08] LABS: Bacteria 0 SEEN /hpf (None Seen); Mucous, Urine 0 SEEN /hpf (<or=2+)
[2019-11-13 13:10] LABS: Color, Urine Red (Yellow); Glucose, Dipstick Normal (Normal); Ketone-Dipstick 5 mg/dl (Negative); Leukocyte Esterase-Dipstick 100 /ul (Negative); Nitrite-Dipstick Negative (Negative); Occult Blood-Urine 250 /ul (Negative); Protein-Dipstick 100 mg/dl (Negative); Urine Bilirubin Dipstick Negative (Negative); Urine Clarity Cloudy (Clear); Urine Urobilinogen Normal (Normal)
[2019-11-13 13:12] LABS: Internal QC Validated? YES +Cl - CLEAR BKGD; Pregnancy, Urine Negative Negative
[2019-11-13 13:19] LABS: Red Blood Cells-Urine > 100 SEEN /hpf (0-5); Squamous Epithelial Cells - UA 5-10 SEEN /hpf (5-10); White Blood Cells 5-10 SEEN /hpf (0-5)
--- NOTE | 2019-11-13 13:57 | CT_ITS ---
STUDY: CT ABDOMEN AND PELVIS WITHOUT CONTRAST REASON FOR EXAM: Female, 24 years old. HEMATURIA AND FEVER. TREATED FOR MULTIPLE UTIS. 1 KIDNEY RADIATION DOSAGE (If Supplied By Facility): CTDIvol = ( 8.636 ) mGy, DLP = ( 786.24 ) mGycm TECHNIQUE: Transaxial images were obtained from the dome of the diaphragm to the symphysis pubis without oral contrast, and without intravenous contrast. Sagittal and coronal images were reconstructed. Individualized dose optimization techniques were used for this CT. COMPARISON: Comparison is made with prior study dated 09/29/2019. FINDINGS: Mild increased markings at the left lung base suggestive of a atelectasis. The visualized portions of the heart are within normal limits. Normal liver. Normal gallbladder and extrahepatic biliary system. Normal spleen. Normal pancreas. Normal bilateral adrenal glands. Hypertrophy of the right kidney. The left kidney is absent. Normal visualized stomach. Normal small intestine. Normal colon. There are surgical clips in the region of the appendix consistent with a prior appendectomy. Normal abdominal aorta. Normal inferior vena cava. Normal retroperitoneum. Normal urinary bladder. There is absence of the uterus consistent with a prior hysterectomy. Normal abdominal wall. Normal osseous structures. CT/Abdomen/Pelvis W IV Cont ONLY IMPRESSION: Solitary right kidney. Status post appendectomy. No acute abnormality is seen. Electronically Signed: Scott Apodaca, at 15:37 EDT , Service support ,
--- NOTE | 2019-11-13 14:01 | ED.VIS.GEN ---
History of Present Illness Chief Complaint: Complaint Informant: Patient Onset: Days Context: Gradual Onset Timing: Continuous Current Severity: Moderate Maximum Severity: Moderate Narrative: The patient is a 24-year-old female who presents to the emergency department with dysuria, flank pain, and fever. Patient has a history of recurrent pyelonephritis. She has been on antibiotics intermittently for the past 2 months. She states that she seemed to be doing well, over the past 3 days she is had right-sided flank pain, nausea, and fever of 102 at home. She states that she was last seen at [place]. She was not placed on antibiotics because cultures have just showed mixed organisms. She is scheduled to follow-up with urology, but not until after Thanksgiving with [facility]. She states she is been having lower abdominal cramping and hematuria. Prior similar symptoms: Yes Recent Illness/Hospitalization: No Past Medical History - Allergies and Home Meds Allergies/Adverse Reactions: Allergies ciprofloxacin [From Cipro] Allergy (Verified 11/13/19 12:18) Hives amoxicillin Adverse Reaction (Verified 11/13/19 12:18) Rash ketorolac [From Toradol] Adverse Reaction (Verified 11/13/19 12:18) Other headache procaine [From Novocain] Adverse Reaction (Verified 11/13/19 12:18) Other abcess Primary Care Physician: Micha Dumont MD [Primary Care Provider] - Prior records reviewed: Yes Past Medical History: None Surgical History: appendectomy, hysterectomy, - - partial thyroid resection due to nodules Smoking Status: Current every day smoker - Family History Maternal Family History: Reports: Cancer, - - His grandfather on maternal side had only 1 kidney and vertigo. Paternal Family History: Reports: Cancer, Diabetes Review of Systems General: Reports: Fever. Denies: Chills, Sweats Eyes: Denies: Visual changes - bilaterally, Diplopia ENT: Denies: Rhinorrhea, Sore throat Cardiovascular: Denies: Chest pain, Palpitations Respiratory: Denies: Dyspnea, Cough, Dyspnea on exertion Gastrointestinal: Reports: Nausea. Denies: Abdominal pain, Vomiting, Diarrhea, Melena, Hematochezia Genitourinary: Reports: Dysuria. Denies: Hematuria, Frequency Musculoskeletal: Denies: Back pain, Extremity Pain Skin: Denies: Rash, Wounds Neurological: Denies: Headache, Weakness, Numbness Physical Exam Vital Signs/Narrative: Vital Signs Temp Pulse Resp BP Pulse Ox 11/13/19 12:14 74 F L 76 18 137/97 H 100 Inital Vital Signs reviewed: Yes General: Well nourished, Well developed, No Acute Distress Head: Normocephalic, Atraumatic Eyes: Perrl, EOMI ENT: Moist mucous membranes, No rhinorrhea Neck: Supple, Nontender Cardiovascular: Regular rate, Regular rhythm, No murmurs Respiratory: No distress, CTA bilaterally, Chest nontender Abdomen: Soft, Nontender, Nondistended, Normal bowel sounds Back: Nontender, Normal Inspection Extremities: Nontender, No edema Skin: Normal color, No rash Neurological: Alert, Oriented x3, Cranial nerves II-XII grossly intact, Normal Strength, Normal Sensation Psychological: Normal affect, Normal Mood Diagnostic/Tx/Re-eval Clinical Impression(s) from Imaging Studies Abdomen/Pelvis CT 11/13/19 13:57 IMPRESSION: Solitary right kidney. Status post appendectomy. No acute abnormality is seen. Electronically Signed: Scott Apodaca, at 15:37 EDT , Service support , Abnormal Lab Results 11/13/19 11/13/19 11/13/19 13:00 13:00 14:25 WBC 8.7 RBC 4.92 Hgb 14.6 Hct 44.3 MCV 90.0 MCH 29.7 MCHC 33.0 RDW Std Deviation 39.8 RDW Coeff of Teena 12.1 Plt Count 214 MPV 9.8 Immature Gran % (Auto) 0.200 Neut % (Auto) 66.1 Lymph % (Auto) 24.9 [place] % (Auto) 7.8 Eos % (Auto) 0.9 Baso % (Auto) 0.1 Absolute Neuts (auto) 5.8 Absolute Lymphs (auto) 2.17 Nucleated RBC % 0 Sodium Potassium Chloride Carbon Dioxide Anion Gap BUN Creatinine Estim Creat Clear Calc Est GFR (MDRD) Af Amer Est GFR (MDRD) Non-Af BUN/Creatinine Ratio Glucose Lactic Acid Calcium Total Bilirubin AST ALT Alkaline Phosphatase Total Protein Albumin Globulin Albumin/Globulin Ratio Urine Color Red Urine Clarity Cloudy Urine pH 5.0 Ur Specific [place] 1.010 Urine Protein 100 H Urine Glucose (UA) Normal Urine Ketones 5 H Urine Occult Blood 250 H Urine Nitrite Negative Urine Bilirubin Negative Urine Urobilinogen Normal Ur Leukocyte Esterase 100 H Urine RBC > 100 SEEN Urine WBC 5-10 SEEN Ur Squamous Epith Cells 5-10 SEEN Urine Bacteria 0 SEEN Urine Mucus 0 SEEN Urine Test Negative 11/13/19 11/13/19 14:25 14:27 WBC RBC Hgb Hct MCV MCH MCHC RDW Std Deviation RDW Coeff of Teena Plt Count MPV Immature Gran % (Auto) Neut % (Auto) Lymph % (Auto) [place] % (Auto) Eos % (Auto) Baso % (Auto) Absolute Neuts (auto) Absolute Lymphs (auto) Nucleated RBC % Sodium 141 Potassium 4.0 Chloride 108 H Carbon Dioxide 29.0 Anion Gap 4 L BUN 12 Creatinine 0.92 Estim Creat Clear Calc 82.12 Est GFR (MDRD) Af Amer 98 Est GFR (MDRD) Non-Af 81 BUN/Creatinine Ratio 13.1 Glucose 79 Lactic Acid 0.6 Calcium 9.4 Total Bilirubin 0.40 AST 12 L ALT 23 Alkaline Phosphatase 69 Total Protein 8.1 Albumin 4.1 Globulin 4.0 Albumin/Globulin Ratio 1.0 Urine Color Urine Clarity Urine pH Ur Specific [place] Urine Protein Urine Glucose (UA) Urine Ketones Urine Occult Blood Urine Nitrite Urine Bilirubin Urine Urobilinogen Ur Leukocyte Esterase Urine RBC Urine WBC Ur Squamous Epith Cells Urine Bacteria Urine Mucus Urine Test - Medical Decision Making The patient presents with recurrent hematuria. She states she is been hospitalized for pyelonephritis multiple times. She is on multiple different antibiotics within the past 2 years. Her culture has never been positive for any specific organism. She was born with single kidney. She has minimal flank pain, but is afebrile here. Metabolic work-up was pursued. Screening labs are unremarkable. Urine does show blood, but no evidence of infection. There is no bacteria. Culture was sent. With recurrent infectious symptoms, I did obtain a CT. There is no evidence of pyelonephritis. There is no evidence of pyogenic abscess. The bladder is normal. The intra-abdominal organs are normal. I am hesitant to start the patient on antibiotics again given multiple negative cultures without any definitive treatment. With her intermittent hematuria, I still think that following up with urology would be the most appropriate plan. The patient be discharged home. Impression 1. Flank pain 2. Hematuria ED Disposition - Plan for ED Patient: Instructions: ED Flank Pain Uncertain Cause Referrals: Micha Dumont MD [Primary Care Provider] -
[2019-11-13] MEDS: Ondansetron 4 MG/2 ML Vial IV (14:33)
[2019-11-13] MEDS: Morphine 4 MG/ML Syringe IV (14:33)
[2019-11-13] MEDS: 0.9% Normal Saline 1,000 ML 1000 ML IV (14:35)
[2019-11-13 14:45] LABS: Absolute Lymphocyte Count 2.17 X10^3/uL (0.83-4.51); Absolute Neutrophil Count 5.8 X10^3/uL (2.0-7.7); Basophil# 0.01 X10^3/uL; Basophil% 0.1 % (0-1); Eosinophil# 0.08 X10^3/uL; Eosinophils% 0.9 % (0-5); Hematocrit 44.3 % (37-47); Hemoglobin 14.6 g/dL (12.0-15.0); Lymphocyte # 2.17 X10^3/ul (4.0); Lymphocyte % 24.9 % (19-41); Mean Corpuscular Hgb 29.7 pg (27.0-32.0); Mean Platelet Vol. 9.8 fl (6.2-12.0); Monocyte# 0.68 X10^3/uL; Monocyte% 7.8 % (0-10); NRBC Flagged by Analyzer 0 % (0-5); Neutrophil # 5.75 X10^3/uL (2.7-7.7); Neutrophil % 66.1 % (47-70); Platelet Count 214 K/mm3 (150-450); RBC Distribution Width CV 12.1 % (11.6-14.6); RBC Distribution Width SD 39.8 fl (35.1-43.9); Red Blood Count 4.92 M/mm3 (4.2-5.4); White Blood Count 8.7 K/mm3 (4.4-11.0)
[2019-11-13 15:03] LABS: AST(SGOT) 12 U/L (15-37); Alanine Aminotransfer ALT/SGPT 23 U/L (13-56); Albumin, Serum 4.1 g/dL (3.2-5.0); Alkaline Phosphatase 69 U/L (45-117); Anion Gap 4 (5-15); BUN 12 mg/dL (7-18); BUN/Creat Ratio 13.1 RATIO (10-20); Calcium,Total 9.4 mg/dL (8.5-10.1); Chloride 108 mmol/L (98-107); Creatinine, Serum 0.92 mg/dL (0.55-1.02); EST Glomerular Filtration Rate 81 mL/min (>60); Est Glom Filt Rate - Afr Amer 98 mL/min (>60); Estimated Creatinine Clearance 82.12 ml/min; Glucose 79 mg/dL (74-106); Protein, Total 8.1 g/dL (6.4-8.2); Sodium Level 141 mmol/L (136-145)
[2019-11-13 15:04] LABS: Lactic Acid 0.6 mmol/L (0.4-1.9)
[2019-11-13 16:12] VITALS: BP 117/89; PULSE 77; RESP 18; O2SAT 97
--- NOTE | 2020-01-19 18:44 | CM.ED ---
Social Work ED Care Plan approved. Telephone call to patient. Introduced self and hospice social worker role. Patient agreeable to speak with this hospice social worker. Patient updated on ED Care Plan status. Patient with no questions or current concerns. ED Care Plan and resources mailed to patient. Min TOLBERT, ROSEMARYS
== END 2019-11-13 16:13 | disposition home or self-care (01) ==
LOC: ED 14:05
PROVIDERS: Emergency Provider Emergency Medicine; PCP Family Medicine
DX: R31.9 Hematuria, unspecified (principal); R10.30 Lower abdominal pain, unspecified; F17.200 Nicotine dependence, unspecified, uncomplicated
CPT/HCPCS: 74177; 80053; 81001; 81025; 83605; 85025; 87040; 87086; 87088; 96361; 96374; 96375; 99284; J7030; Q9967; A4216; J2405

== ENCOUNTER 2020-07-29 16:21 | Emergency (ER) | payer MEDICAID, SELFPAY ==
[2020-07-29 16:22] VITALS: BP 114/94; PULSE 74; RESP 16; TEMP 36.4; O2SAT 99; BMI 26.7
--- NOTE | 2020-07-29 16:54 | CT_ITS ---
HISTORY: Lower quad abd pain bilateral. Hernia repair 1 mo EXAMINATION: CT Abdomen And Pelvis W/ Contrast Injection TECHNIQUE: Helically acquired images were obtained of the abdomen and pelvis following IV contrast. A radiation dose optimization technique was used for this scan. IV Contrast dosage and agent: 75mL [id number]-300 Oral contrast: None. COMPARISON: 11/13/19 and 07/16/18 FINDINGS: LOWER CHEST: Lung bases are clear. No cardiomegaly or pericardial effusion. LIVER: Homogeneous. No focal mass. GALLBLADDER AND BILIARY TREE: No calcified gallstones. No gallbladder distension or wall edema. No intra- or extrahepatic biliary ductal dilation. PANCREAS: No focal cystic or solid mass. SPLEEN: Normal size without focal cystic or solid mass. ADRENAL GLANDS: No nodules. KIDNEYS AND URETERS: Left kidney absent. No hydronephrosis. PERITONEUM: No ascites or free air. BOWEL: Appendectomy changes with stable small tubular collection in the adjacent right paracolic gutter, likely postsurgical change. Continued to. No stomach or bowel distension. No focal inflammatory bowel wall changes. LYMPH NODES: No enlarged mesenteric or retroperitoneal lymph nodes. VESSELS: Aorta is non-dilated. URINARY BLADDER: Unremarkable. REPRODUCTIVE ORGANS: No pelvic masses. Uterus absent. 13 mm left ovarian follicle. ABDOMINAL WALL: Mild subcutaneous fatty induration in the left inguinal region, likely postoperative. BONES: No acute or aggressive abnormality. CT/Abdomen/Pelvis W IV Cont ONLY IMPRESSION: No acute findings in the abdomen or pelvis. Probable postsurgical changes in the left inguinal region with subcutaneous fatty induration. Individualized dose optimization techniques were used for this CT. at 1827 Reported and signed by: Reuben Irene MD Electronically Signed: Reuben Irene MD at 18:26 EDT Tel , Service support ,
--- NOTE | 2020-07-29 17:00 | CM.ED ---
SOCIAL WORK Active ED Care Plan Patient presents with abdominal pain. Dr. Perez updated on active ED Care Plan, last visit 11/13/2019. This worker to remain available for needs. Madhu Chaudhry MSW, LOAN COLLECTOR
[2020-07-29 17:25] LABS: Absolute Lymphocyte Count 1.44 X10^3/uL (0.83-4.51); Absolute Neutrophil Count 7.4 X10^3/uL (2.0-7.7); Basophil# 0.02 X10^3/uL; Basophil% 0.2 % (0-1); Eosinophil# 0.03 X10^3/uL; Eosinophils% 0.3 % (0-5); Hematocrit 42.9 % (37-47); Hemoglobin 14.1 g/dL (12.0-15.0); Lymphocyte # 1.44 X10^3/ul (0.83-4.51); Lymphocyte % 15.2 % (19-41); Mean Corp Hgb Conc 32.9 g/dL (32-36); Mean Corpuscular Hgb 29.4 pg (27.0-32.0); Mean Corpuscular Volume 89.4 fL (81-99); Mean Platelet Vol. 9.4 fl (6.2-12.0); Monocyte# 0.54 X10^3/uL; Monocyte% 5.7 % (0-10); NRBC Flagged by Analyzer 0 % (0-5); Neutrophil # 7.42 X10^3/uL (2.7-7.7); Neutrophil % 78.2 % (47-70); Platelet Count 197 K/mm3 (150-450); RBC Distribution Width CV 11.6 % (11.6-14.6); RBC Distribution Width SD 37.7 fl (35.1-43.9); White Blood Count 9.5 K/mm3 (4.4-11.0)
--- NOTE | 2020-07-29 17:25 | EDS_ITS ---
HPI History of Present Illness Chief Complaint: Abd Pain Informant: patient Narrative Narrative: Patient is a 24-year-old female who presents to the emergency department for bilateral lower quadrant abdominal pain. This started last night. She currently rates the pain as a 9 out of 10. Approximately 1 month ago she had a left-sided hernia repair with mesh. She has been doing well until yesterday. She tried taking Tylenol for symptoms which did not give her any relief. She did get nauseous and vomit with this. She has had some loose stools. No blood or black tarry stools. She has had some hematuria but denies any dysuria or frequency. 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 She denies any chest pain or shortness of breath. No fevers or chills. No known aggravating or relieving factors. She states she still has her gallbladder but her appendix has been removed as well. [facility] Medical History (Updated 07/29/20 @ 19:[address] Vicente Perez DO) Abdominal hernia Asthma Migraines Thyroid disease Home Medications cephalexin 500 mg PO BID 7 Days #14 cap 07/29/20 [Rx Last Taken Unknown] multivitamin 1 cap PO DAILY 07/29/20 [History Last Taken Unknown] Allergy/AdvReac Type Severity Reaction Status Date / Time ciprofloxacin [From Cipro] Allergy Hives Verified 07/29/20 16:24 amoxicillin AdvReac Rash Verified 07/29/20 16:24 ketorolac [From Toradol] AdvReac Other Verified 07/29/20 16:24 procaine [From Novocain] AdvReac Other Verified 07/29/20 16:24 Surgical History (Updated 07/29/20 @ 16:34 by Carlee Foy) H/O partial thyroidectomy History of appendectomy Hx of hernia repair Social History Smoking Status: Never smoker ROS ROS ED Constitutional Constitutional ED: Denies chills or fever(s) Eyes Eyes: Denies change in vision ENT ENT ED: Denies epistaxis or rhinorrhea Cardiovascular Cardiovascular: Denies chest pain or palpitations Respiratory/Chest Respiratory/Chest: Denies cough, dyspnea or dyspnea on exertion Gastrointestinal Gastrointestinal: Reports abdominal pain, diarrhea, nausea and vomiting; Denies hematemesis or melena Genitourinary Genitourinary ED: Reports hematuria; Denies dysuria or urinary frequency Musculoskeletal Musculoskeletal: Denies back pain or neck pain Integumentary Denies rash Neurologic Neurologic: Denies dizziness, headache(s) or weakness EXAM Physical Exam Const Vital Signs: 07/29/20 16:22 07/29/20 19:19 Temperature 97.5 F L Temperature Source Temporal Pulse Rate 74 Respiratory Rate 16 18 Blood Pressure 114/94 H Blood Pressure Mean 100 Pulse Ox 99 Oxygen Delivery Method Room Air Positive well nourished and well developed General Appearance ED: well developed and NAD HEENT Reports normocephalic, head/scalp atraumatic and moist mucous membranes Eyes PERRL and EOMs intact bilaterally Neck supple Resp normal respiratory effort and clear to auscultation bilaterally Auscultation: Negative for rales, rhonchi or wheezes Cardio regular rate, regular rhythm and no murmurs GI Palpation: soft and tender LLQ and RLQ; Negative for guarding or rebound tenderness present Back/Spine no CVA tenderness Extremity normal to inspection General Extremety ED: Negative for edema or tenderness General Extremity: Negative for edema Neuro no sensory deficits noted Sensorium / Orientation: alert Motor Exam: strength 5/5 throughout Psych mental status grossly normal Skin no rashes or lesions noted MDM MDM MDM Narrative Medical decision making narrative: Patient presents to the ED for bilateral lower quadrant abdominal pain. She had hernia repair 1 month ago. She has been nauseous and vomiting. On arrival to the emergency department vital signs within normal limits. She is smiling throughout exam. Does not appear in any acute distress. She does have a care plan here in the emergency department. Will check basic lab work, CT scan of the abdomen/pelvis. We will treat her symptomatically with a dose of Bentyl and Zofran. Patient's lab work did not reveal any significant acute abnormality. Her white blood cell count is within normal limits. Urine shows red blood cells. There is also bacteria as well as leukocyte esterase/white blood cells. We will send this for culture. Will treat with Keflex. CT scan did not reveal any acute intra-abdominal pathology. At this time she is stable for discharge. We will have her follow-up with her general surgeon. Return precautions are reviewed. She understands and is agreeable this plan. All questions answered. Lab Data Labs: Laboratory Results - last 24 hr 06/08/21 06/08/21 06/08/21 17:10 17:10 17:10 WBC 9.5 RBC 4.80 Hgb 14.1 Hct 42.9 MCV 89.4 MCH 29.4 MCHC 32.9 RDW Std Deviation 37.7 RDW Coeff of Teena 11.6 Plt Count 197 MPV 9.4 Immature Gran % (Auto) 0.400 Neut % (Auto) 78.2 H Lymph % (Auto) 15.2 L [place] % (Auto) 5.7 Eos % (Auto) 0.3 Baso % (Auto) 0.2 Absolute Neuts (auto) 7.4 Absolute Lymphs (auto) 1.44 Nucleated RBC % 0 Sodium 140 Potassium 4.3 Chloride 111 H Carbon Dioxide 25.0 Anion Gap 4 L BUN 12 Creatinine 0.90 Estim Creat Clear Calc 83.95 Est GFR (MDRD) Af Amer 99 Est GFR (MDRD) Non-Af 82 BUN/Creatinine Ratio 13.4 Glucose 83 Lactic Acid 0.7 Calcium 8.9 Total Bilirubin 0.50 AST 24 ALT 29 Alkaline Phosphatase 74 Total Protein 7.5 Albumin 3.7 Globulin 3.8 Albumin/Globulin Ratio 1.0 Lipase 85 Urine Color Urine Clarity Urine pH Ur Specific [place] Urine Protein Urine Glucose (UA) Urine Ketones Urine Occult Blood Urine Nitrite Urine Bilirubin Urine Urobilinogen Ur Leukocyte Esterase Urine RBC Urine WBC Ur Squamous Epith Cells Urine Bacteria Urine Mucus 07/29/20 18:06 WBC RBC Hgb Hct MCV MCH MCHC RDW Std Deviation RDW Coeff of Teena Plt Count MPV Immature Gran % (Auto) Neut % (Auto) Lymph % (Auto) [place] % (Auto) Eos % (Auto) Baso % (Auto) Absolute Neuts (auto) Absolute Lymphs (auto) Nucleated RBC % Sodium Potassium Chloride Carbon Dioxide Anion Gap BUN Creatinine Estim Creat Clear Calc Est GFR (MDRD) Af Amer Est GFR (MDRD) Non-Af BUN/Creatinine Ratio Glucose Lactic Acid Calcium Total Bilirubin AST ALT Alkaline Phosphatase Total Protein Albumin Globulin Albumin/Globulin Ratio Lipase Urine Color Red Urine Clarity Cloudy Urine pH 5.0 Ur Specific [place] 1.010 Urine Protein 100 H Urine Glucose (UA) Normal Urine Ketones 5 H Urine Occult Blood 250 H Urine Nitrite Negative Urine Bilirubin Negative Urine Urobilinogen Normal Ur Leukocyte Esterase 500 H Urine RBC > 100 SEEN Urine WBC 5-10 SEEN Ur Squamous Epith Cells 10-25 SEEN Urine Bacteria RARE Urine Mucus 0 SEEN Radiography Diagnostic Testing: Radiology Impression Abdomen/Pelvis CT 07/29/20 16:54 IMPRESSION: No acute findings in the abdomen or pelvis. Probable postsurgical changes in the left inguinal region with subcutaneous fatty induration. Individualized dose optimization techniques were used for this CT. at 1827 Reported and signed by: Reuben Irene MD Electronically Signed: Reuben Irene MD at 18:26 EDT Tel , Service support , Discharge Plan Triage Chief Complaint: Abd Pain ED Provider: Vicente Perez Dx/Rx/DC Orders Clinical Impression: Abdominal pain Instructions: ED Abdominal Pain Unkn Cause Fem Prescriptions: New cephalexin 500 mg capsule 500 mg PO BID 7 Days Qty: 14 RF: 0 No Action multivitamin Capsule 1 cap PO DAILY RF: 0 Primary Care Provider: Jerrod Stevenson NP Referrals: Jerrod Stevenson NP, [employer] [Primary Care Provider] - 1-2 Days if not improving Disposition Disposition: Home, self care Discharge Date/Time: 07/29/20 19:22
[2020-07-29 17:35] LABS: AST(SGOT) 24 U/L (15-37); Alanine Aminotransfer ALT/SGPT 29 U/L (13-56); Albumin, Serum 3.7 g/dL (3.2-5.0); Alkaline Phosphatase 74 U/L (45-117); Anion Gap 4 (5-15); BUN 12 mg/dL (7-18); BUN/Creat Ratio 13.4 RATIO (10-20); Calcium,Total 8.9 mg/dL (8.5-10.1); Chloride 111 mmol/L (98-107); EST Glomerular Filtration Rate 82 mL/min (>60); Est Glom Filt Rate - Afr Amer 99 mL/min (>60); Estimated Creatinine Clearance 83.95 ml/min; Globulin 3.8 g/dL (2.2-4.2); Glucose 83 mg/dL (74-106); Lipase 85 U/L (73-393); Potassium 4.3 mmol/L (3.5-5.1); Protein, Total 7.5 g/dL (6.4-8.2); Sodium Level 140 mmol/L (136-145)
[2020-07-29] MEDS: Dicyclomine 20 MG/2 ML Vial IM (17:36)
[2020-07-29] MEDS: Ondansetron 4 MG/2 ML Vial IV (17:36)
[2020-07-29 18:10] LABS: Mucous, Urine 0 SEEN /hpf (<or=2+)
[2020-07-29 18:19] LABS: Lactic Acid 0.7 mmol/L (0.4-1.9)
[2020-07-29 18:21] LABS: Color, Urine Red (Yellow); Glucose, Dipstick Normal (Normal); Ketone-Dipstick 5 mg/dl (Negative); Leukocyte Esterase-Dipstick 500 /ul (Negative); Nitrite-Dipstick Negative (Negative); Occult Blood-Urine 250 /ul (Negative); Protein-Dipstick 100 mg/dl (Negative); Urine Bilirubin Dipstick Negative (Negative); Urine Clarity Cloudy (Clear); Urine Urobilinogen Normal (Normal)
[2020-07-29 18:32] LABS: Red Blood Cells-Urine > 100 SEEN /hpf (0-5); Squamous Epithelial Cells - UA 10-25 SEEN /hpf (5-10); White Blood Cells 5-10 SEEN /hpf (0-5)
[2020-07-29 18:33] LABS: Bacteria RARE /hpf (None Seen)
[2020-07-29 19:19] VITALS: RESP 18
== END 2020-07-29 19:22 | disposition home or self-care (01) ==
PROVIDERS: Emergency Provider Emergency Medicine; PCP Nurse Practitioner Family
DX: R10.32 Left lower quadrant pain (principal); R10.31 Right lower quadrant pain; J45.909 Unspecified asthma, uncomplicated
CPT/HCPCS: 74177; 80053; 81001; 83605; 83690; 85025; 87086; 87088; 96372; 96374; 99283; Q9967; A4216; J2405

== ENCOUNTER 2020-07-30 20:53 | Emergency (ER) | payer MEDICAID, SELFPAY ==
[2020-07-29 16:22] VITALS: BMI 26.7
[2020-07-30 20:54] VITALS: BP 132/85; PULSE 90; RESP 18; TEMP 36.6; O2SAT 95; BMI 29.9
--- NOTE | 2020-07-30 21:13 | EX.ED.DYSGE1 ---
HPI History of Present Illness Chief Complaint: Abd Pain Narrative Narrative: Patient presents with lower abdominal pain, she was seen yesterday and diagnosed with a urinary tract infection she tells me she is too nauseated to swallow her tabs. She has no fevers or chills she has no back pain. She has some dysuria. She has a history of multiple urinary tract infections. PFSH PFS Medical History Abdominal hernia Asthma Migraines Thyroid disease Home Medications cephalexin 500 mg PO BID 7 Days #14 cap 07/29/20 [Rx Last Taken Unknown] multivitamin 1 cap PO DAILY 07/29/20 [History Last Taken Unknown] Allergy/AdvReac Type Severity Reaction Status Date / Time ciprofloxacin [From Cipro] Allergy Hives Verified 07/30/20 20:56 amoxicillin AdvReac Rash Verified 07/30/20 20:56 ketorolac [From Toradol] AdvReac Other Verified 07/30/20 20:56 procaine [From Novocain] AdvReac Other Verified 07/30/20 20:56 Surgical History H/O partial thyroidectomy History of appendectomy Hx of hernia repair Social History Smoking Status: Never smoker ROS ROS ED ROS Narrative Past medical history: Reviewed, includes multiple ovarian cysts, multiple UTIs. Medications: Reviewed Social history: Noncontributory Review of systems: All systems negative except as indicated General: No fever Eyes: No visual changes ENT: No upper airway congestion, normal voice Neck: No neck pain Cardiovascular: No chest pain Respiratory: No shortness of breath or cough Gastrointestinal: Abdominal pain as in HPI. Nausea associated with the abdominal pain Genitourinary: Dysuria as in HPI Musculoskeletal: Denies myalgias no difficulty with ambulation Skin: No rash Neurological: No memory loss, confusion or any focal weakness Psych: No recent behavioral changes Hematologic: No easy bleeding or easy bruising EXAM Physical Exam Narrative Exam Narrative: Physical exam General: She appears comfortable in bed she is smiling. Head: Normocephalic, Atraumatic Eyes: Conjunctiva not pale ENT: Moist mucous membranes Neck: Supple, Nontender, No lymphadenopathy Cardiovascular: Regular rate, Regular rhythm Respiratory: No distress, CTA bilaterally Abdomen: Soft, there is suprapubic pain to palpation but no guarding or rebound no right upper quadrant pain no pain at McBurney's. Back: Nontender, Normal Inspection. Negative for: CVA tenderness Extremities: Nontender, No edema Skin: Normal color, No rash Neurological: Alert, Normal Strength, Normal Sensation Psychological: Normal affect Const Vital Signs: 07/30/20 20:54 Temperature 97.9 F Temperature Source Temporal Pulse Rate 90 Respiratory Rate 18 Blood Pressure 132/85 H Blood Pressure Mean 100 Pulse Ox 95 Oxygen Delivery Method Room Air MDM MDM MDM Narrative Medical decision making narrative: Patient has a normal work-up. She is given a dose of Rocephin in the ED as of now I do not have cultures from yesterday. Regardless she is significantly improved and wants to be discharged I believe this is reasonable I will discharge her with Madisyn. Lab Data Labs: Laboratory Results - last 24 hr 07/30/20 07/30/20 21:45 21:45 WBC 9.0 RBC 4.68 Hgb 13.9 Hct 42.3 MCV 90.4 MCH 29.7 MCHC 32.9 RDW Std Deviation 38.2 RDW Coeff of Teena 11.7 Plt Count 202 MPV 9.0 Immature Gran % (Auto) 0.300 Neut % (Auto) 67.5 Lymph % (Auto) 23.0 [place] % (Auto) 8.0 Eos % (Auto) 1.0 Baso % (Auto) 0.2 Absolute Neuts (auto) 6.0 Absolute Lymphs (auto) 2.06 Nucleated RBC % 0 Sodium 140 Potassium 3.9 Chloride 110 H Carbon Dioxide 26.0 Anion Gap 4 L BUN 16 Creatinine 1.10 H Estim Creat Clear Calc 68.69 Est GFR (MDRD) Af Amer 79 Est GFR (MDRD) Non-Af 65 BUN/Creatinine Ratio 14.5 Glucose 88 Calcium 9.1 Total Bilirubin < 0.10 L AST 14 L ALT 28 Alkaline Phosphatase 77 Total Protein 7.6 Albumin 3.8 Globulin 3.8 Albumin/Globulin Ratio 1.0 Discharge Plan Triage Chief Complaint: Abd Pain ED Provider: Rick Jiménez Dx/Rx/DC Orders Prescriptions: No Action multivitamin Capsule 1 cap PO DAILY RF: 0 cephalexin 500 mg capsule 500 mg PO BID 7 Days Qty: 14 RF: 0 Primary Care Provider: Jerrod Stevenson NP
--- NOTE | 2020-07-30 21:19 | CM.ED ---
SOCIAL WORK Active ED Care Plan Patient presents for abdominal pain. Patient seen for same compliant of abdominal pain yesterday. Dr. Jiménez updated on ED Care Plan. This worker to remain available for needs. Madhu Chaudhry MSW, SAFETY OFFICER
[2020-07-30] MEDS: Ondansetron 4 MG/2 ML Vial IV (21:46)
[2020-07-30] MEDS: Ceftriaxone 1 GM/50 ML BAG IV (21:46)
[2020-07-30 21:52] LABS: Absolute Lymphocyte Count 2.06 X10^3/uL (0.83-4.51); Basophil# 0.02 X10^3/uL; Basophil% 0.2 % (0-1); Eosinophil# 0.09 X10^3/uL; Hematocrit 42.3 % (37-47); Hemoglobin 13.9 g/dL (12.0-15.0); Lymphocyte # 2.06 X10^3/ul (0.83-4.51); Mean Corp Hgb Conc 32.9 g/dL (32-36); Mean Corpuscular Hgb 29.7 pg (27.0-32.0); Mean Corpuscular Volume 90.4 fL (81-99); Monocyte# 0.72 X10^3/uL; NRBC Flagged by Analyzer 0 % (0-5); Neutrophil # 6.03 X10^3/uL (2.7-7.7); Neutrophil % 67.5 % (47-70); Platelet Count 202 K/mm3 (150-450); RBC Distribution Width CV 11.7 % (11.6-14.6); RBC Distribution Width SD 38.2 fl (35.1-43.9); Red Blood Count 4.68 M/mm3 (4.2-5.4)
[2020-07-30] MEDS: Acetaminophen 500 MG Tablet 1000 MG PO (22:00)
[2020-07-30 22:25] LABS: AST(SGOT) 14 U/L (15-37); Alanine Aminotransfer ALT/SGPT 28 U/L (13-56); Albumin, Serum 3.8 g/dL (3.2-5.0); Alkaline Phosphatase 77 U/L (45-117); Anion Gap 4 (5-15); BUN 16 mg/dL (7-18); BUN/Creat Ratio 14.5 RATIO (10-20); Calcium,Total 9.1 mg/dL (8.5-10.1); Chloride 110 mmol/L (98-107); EST Glomerular Filtration Rate 65 mL/min (>60); Est Glom Filt Rate - Afr Amer 79 mL/min (>60); Estimated Creatinine Clearance 68.69 ml/min; Globulin 3.8 g/dL (2.2-4.2); Glucose 88 mg/dL (74-106); Potassium 3.9 mmol/L (3.5-5.1); Protein, Total 7.6 g/dL (6.4-8.2); Sodium Level 140 mmol/L (136-145); Total Bilirubin < 0.10 mg/dL (0.20-1.00)
[2020-07-30 22:56] VITALS: BP 109/72; PULSE 83; RESP 18; O2SAT 99
== END 2020-07-30 22:57 | disposition home or self-care (01) ==
PROVIDERS: Emergency Provider Emergency Medicine; PCP Nurse Practitioner Family
DX: R10.30 Lower abdominal pain, unspecified (principal); J45.909 Unspecified asthma, uncomplicated
CPT/HCPCS: 80053; 85025; 96365; 96375; 99285; J7030; J2405

== ENCOUNTER 2021-03-30 13:25 | Emergency (ER) | payer MEDICAID, SELFPAY ==
[2021-03-30 13:27] VITALS: BP 153/110; PULSE 86; RESP 16; TEMP 36; O2SAT 96; BMI 31.3
[2021-03-30 14:35] LABS: Bacteria 0 SEEN /hpf (None Seen); Mucous, Urine 0 SEEN /hpf (<or=2+)
[2021-03-30 14:36] LABS: Color, Urine Red (Yellow); Glucose, Dipstick Normal (Normal); Ketone-Dipstick Negative (Negative); Leukocyte Esterase-Dipstick 100 /ul (Negative); Nitrite-Dipstick Negative (Negative); Occult Blood-Urine 250 /ul (Negative); Protein-Dipstick 100 mg/dl (Negative); Urine Bilirubin Dipstick Negative (Negative); Urine Clarity Cloudy (Clear); Urine Urobilinogen Normal (Normal)
[2021-03-30 14:53] LABS: Red Blood Cells-Urine 50-100 SEEN /hpf (0-5); Squamous Epithelial Cells - UA 10-25 SEEN /hpf (5-10); White Blood Cells 5-10 SEEN /hpf (0-5)
--- NOTE | 2021-03-30 15:57 | EDS_ITS ---
HPI History of Present Illness Chief Complaint: Complaint Informant: patient Narrative Narrative: 25-year-old female presenting to the emergency room with hematuria. Patient states that back in December she presented to [facility] with hematuria and was admitted and later transferred to [facility] where she states she had a urologic evaluation and was advised that she needs to have a kidney biopsy at [facility]. She states that she called [facility] and they could not make her appointment because she hadn't been referred yet. She states that she has requested referral from her doctor several times but that hasn't been done. So she has been intermittently having hematuria. Now the hematuria has returned and she notes clots and she notes a lower left abdominal pain. She states she tried to go to work today and her temperature was 100.8 orally. She had episode of vomiting. She denies any runny nose sore throat or cough. No diarrhea. No rashes. She states that she has had a total hysterectomy. There has been no vaginal bleeding. [facility] Medical History (Updated 03/30/21 @ 17:[address] Jerrod Yousif DO) Abdominal hernia Asthma Migraines Thyroid disease Home Medications cephalexin 500 mg PO BID 7 Days #14 cap 07/29/20 [Rx Last Taken Unknown] multivitamin 1 cap PO DAILY 07/29/20 [History Last Taken Unknown] ondansetron HCl [Zofran] 4 mg PO Q8H #7 tab 07/30/20 [Rx Last Taken Unknown] Allergy/AdvReac Type Severity Reaction Status Date / Time ciprofloxacin [From Cipro] Allergy Hives Verified 03/30/21 13:27 amoxicillin AdvReac Rash Verified 03/30/21 13:27 ketorolac [From Toradol] AdvReac Other Verified 03/30/21 13:27 procaine [From Novocain] AdvReac Other Verified 03/30/21 13:27 Surgical History H/O partial thyroidectomy H/O: hysterectomy History of appendectomy Hx of hernia repair Social History (Updated 03/30/21 @ 15:[address] Jerrod Yousif DO) Smoking Status: Never smoker substance use type: does not use ROS ROS ED Constitutional Constitutional ED: Reports fever(s); Denies chills or weight loss Eyes Eyes: Denies change in vision or diplopia ENT ENT ED: Denies ear pain, rhinorrhea or sore throat Cardiovascular Cardiovascular: Denies chest pain, orthopnea, palpitations or racing heartbeat Respiratory/Chest Respiratory/Chest: Denies cough, dyspnea or orthopnea Gastrointestinal Gastrointestinal: Reports abdominal pain, nausea and vomiting; Denies diarrhea Genitourinary Genitourinary ED: Reports hematuria; Denies dysuria or urinary frequency Musculoskeletal Musculoskeletal: Denies arthralgias or myalgias Integumentary Denies abscess or rash Neurologic Neurologic: Denies headache(s) or weakness Psychiatric Psychiatric: Denies anxiety, depression, suicidal ideation or suicidal thoughts Endocrine Endocrinology: Denies polydipsia, polyphagia or polyuria Allergic/Immunologic Allergic/Immunologic ED: Denies mouth swelling, tongue swelling or urticaria EXAM Physical Exam Const Vital Signs: 03/30/21 13:27 03/30/21 16:08 Temperature 96.8 F L 98.8 F Temperature Source Temporal Oral Pulse Rate 86 89 Respiratory Rate 16 16 Blood Pressure 153/110 H 126/67 H Blood Pressure Mean 124 86 Pulse Ox 96 99 Oxygen Delivery Method Room Air Room Air Positive well nourished and well developed General Appearance ED: well developed HEENT Reports normocephalic, head/scalp atraumatic, TM's clear and moist mucous membranes Negative for trauma Tympanic Membrane ED: Yes TM's clear Eyes PERRL and EOMs intact bilaterally Neck no lymphadenopathy, supple and no JVD Resp normal respiratory effort and clear to auscultation bilaterally Cardio regular rate, regular rhythm and no murmurs GI GI Narrative: Generalized abdominal tenderness Auscultation: normoactive bowel sounds Palpation: soft; Negative for guarding or rebound tenderness present Back/Spine no CVA tenderness and normal ROM Extremity normal to inspection General Extremety ED: Negative for edema General Extremity: Negative for edema Neuro oriented x3 and CN's II-XII intact bilaterally Sensorium / Orientation: alert Motor Exam: strength 5/5 throughout Psych mental status grossly normal Mood & Affect: Negative for depressed or tearful Skin no rashes or lesions noted and no wounds MDM MDM MDM Narrative Medical decision making narrative: Patient's creatinine is normal at 1. Her urine shows 50-100 red cells 5-10 white cells but 10-25 epithelial cells which represents contamination. Negative nitrates and no bacteria seen. CT without contrast was obtained which demonstrates absence of the left kidney and colonic diverticulosis without any inflammatory change. I go to explain the results to the patient she tells me that she expressed concern to her nurse and is now expressing concern to me that nobody here is taking her seriously. I explained to her that I am not sure how she cannot be taken seriously given the above work-up. I informed her that at this time I do not see anything emergent but she should really follow-up with a urologist or dedicated local truck driver. Now she says that she has seen multiple doctors and cannot find anything to explain her symptoms. I several that is a good thing because the that supports a lack of emergent condition here today. I then noticed that the patient was doing a video call on her phone and asked her to hang up since I do not know who they are. She states that it is her boyfriend and went to be any different if they were in the room. I informed her at this point she will be discharged. Lab Data Attestation: I reviewed the patient's lab results. Labs: Laboratory Results - last 24 hr 03/30/21 03/30/21 14:10 16:15 Sodium 139 Potassium 4.0 Chloride 109 H Carbon Dioxide 25.0 Anion Gap 5 BUN 14 Creatinine 1.00 Estim Creat Clear Calc 74.91 Est GFR (MDRD) Af Amer 88 Est GFR (MDRD) Non-Af 73 BUN/Creatinine Ratio 14.1 Glucose 83 Calcium 9.5 Urine Color Red Urine Clarity Cloudy Urine pH 5.0 Ur Specific [place] 1.020 Urine Protein 100 H Urine Glucose (UA) Normal Urine Ketones Negative Urine Occult Blood 250 H Urine Nitrite Negative Urine Bilirubin Negative Urine Urobilinogen Normal Ur Leukocyte Esterase 100 H Urine RBC 50-100 SEEN Urine WBC 5-10 SEEN Ur Squamous Epith Cells 10-25 SEEN Urine Bacteria 0 SEEN Urine Mucus 0 SEEN Radiography Diagnostic Testing: Clinical Impression(s) from Imaging Studies Abdomen/Pelvis CT 03/30/21 16:30 IMPRESSION: 1. Absence of the left kidney without visualized surgical changes. 2. Colonic diverticulosis without acute inflammatory change. Electronically Signed: Bhupinder Berger DO at 16:52 EST Reading Location ID and State: [address] [place] [address] Tel [phone], Service support , Discharge Plan Triage Chief Complaint: Complaint ED Provider: Jerrod Yousif Dx/Rx/DC Orders Clinical Impression: Hematuria, Abdominal pain Instructions: ED Hematuria Prescriptions: No Action multivitamin Capsule 1 cap PO DAILY RF: 0 cephalexin 500 mg capsule 500 mg PO BID 7 Days Qty: 14 RF: 0 ondansetron HCl [Zofran] 4 mg tablet 4 mg PO Q8H Qty: 7 RF: 0 Primary Care Provider: Jerrod Stevenson NP Referrals: Jerrod Stevenson NP, CLINICAL INFORMATICS MANAGER-C [Primary Care Provider] - As soon as possible Disposition Disposition: Home, Self Care
[2021-03-30 16:08] VITALS: BP 126/67; PULSE 89; RESP 16; TEMP 37.1; O2SAT 99
--- NOTE | 2021-03-30 16:30 | CT_ITS ---
STUDY: CT ABDOMEN AND PELVIS WITHOUT CONTRAST REASON FOR EXAM: Female, 25 years old. Abdominal pain. RADIATION DOSAGE (If Supplied By Facility): CTDIvol = ( 11.17 ) mGy, DLP = ( 549.95 ) mGycm TECHNIQUE: Transaxial images were obtained from the dome of the diaphragm to the symphysis pubis without oral contrast, and without intravenous contrast. Sagittal and coronal images were reconstructed. Individualized dose optimization techniques were used for this CT. COMPARISON: None. FINDINGS: The visualized lung bases are unremarkable. The visualized portions of the heart are within normal limits. Normal liver. Normal gallbladder and extrahepatic biliary system. Normal spleen. Normal pancreas. Normal bilateral adrenal glands. The right kidney is enlarged but uniform in contour and density. No mass or renal calculi. No hydronephrosis. Normal right ureter. The left kidney is not visualized and is thought absent. No evidence of prior surgery. Normal visualized stomach. There are multiple mildly distended small bowel loops in the left upper and mid abdomen without evidence of obstruction. The remainder of the small bowel appears grossly normal. There are densities along the inferior aspect of the cecum suggesting appendectomy however there is a tubular density in the retrocecal area thought to be the appendix. There is sigmoid diverticulosis without acute inflammatory change. The colon is otherwise unremarkable. Normal abdominal aorta. Normal inferior vena cava. Normal retroperitoneum. Normal urinary bladder. Unremarkable vaginal cuff. No pelvic lymphadenopathy. No free air or free fluid is seen within the peritoneal cavity Normal abdominal wall. Normal osseous structures. CT/Abdomen/Pelvis without Cont IMPRESSION: 1. Absence of the left kidney without visualized surgical changes. 2. Colonic diverticulosis without acute inflammatory change. Electronically Signed: Bhupinder Berger DO at 16:52 EST Reading Location ID and State: [facility] Tel [phone], Service support ,
[2021-03-30 16:35] LABS: Anion Gap 5 (5-15); BUN 14 mg/dL (7-18); BUN/Creat Ratio 14.1 RATIO (10-20); Calcium,Total 9.5 mg/dL (8.5-10.1); Chloride 109 mmol/L (98-107); EST Glomerular Filtration Rate 73 mL/min (>60); Est Glom Filt Rate - Afr Amer 88 mL/min (>60); Estimated Creatinine Clearance 74.91 ml/min; Glucose 83 mg/dL (74-106); Sodium Level 139 mmol/L (136-145)
[2021-03-30 17:35] VITALS: BP 126/93; PULSE 90; RESP 16; O2SAT 99
[2021-03-30 17:35] LABS: Absolute Lymphocyte Count 2.18 X10^3/uL (0.83-4.51); Absolute Neutrophil Count 6.9 X10^3/uL (2.0-7.7); Basophil# 0.02 X10^3/uL; Basophil% 0.2 % (0-1); Eosinophil# 0.16 X10^3/uL; Eosinophils% 1.6 % (0-5); Hematocrit 42.6 % (37-47); Hemoglobin 15.2 g/dL (12.0-15.0); Lymphocyte # 2.18 X10^3/ul (0.83-4.51); Mean Corp Hgb Conc 35.7 g/dL (32-36); Mean Corpuscular Hgb 30.6 pg (27.0-32.0); Mean Corpuscular Volume 85.9 fL (81-99); Mean Platelet Vol. 10.1 fl (6.2-12.0); Monocyte% 6.1 % (0-10); NRBC Flagged by Analyzer 0 % (0-5); Neutrophil % 69.7 % (47-70); Platelet Count 225 K/mm3 (150-450); RBC Distribution Width CV 11.8 % (11.6-14.6); RBC Distribution Width SD 36.8 fl (35.1-43.9); Red Blood Count 4.96 M/mm3 (4.2-5.4); White Blood Count 9.9 K/mm3 (4.4-11.0)
== END 2021-03-30 17:36 | disposition home or self-care (01) ==
PROVIDERS: Emergency Provider Emergency Medicine; PCP Nurse Practitioner Family; Visit Provider Emergency Medicine
DX: R31.9 Hematuria, unspecified (principal); R10.9 Unspecified abdominal pain; R11.10 Vomiting, unspecified; J45.909 Unspecified asthma, uncomplicated
CPT/HCPCS: 74176; 80048; 81001; 85025; 99283

== ENCOUNTER 2021-07-02 12:25 | Emergency (ER) | payer MEDICAID, SELFPAY ==
[2021-07-02 12:27] VITALS: BP 118/85; PULSE 84; RESP 17; TEMP 36.8; O2SAT 99; BMI 30.8
--- NOTE | 2021-07-02 12:45 | RAD_ITS ---
STUDY: X-RAY - LEFT FOOT CLINICAL: Female, 25 years old. Fall TECHNIQUE: 3 view(s) of the foot. COMPARISON: None. FINDINGS: Normal talus, calcaneus, and tarsal bones. Normal visualized subtalar, talonavicular, calcaneocuboid, tarsal and tarsometatarsal articulations. Normal metatarsi. Normal metatarsophalangeal joint of the great toe. Normal tibial and fibular sesamoid bones. Normal interphalangeal joint of the great toe. Normal phalanges of the great toe. Normal second through fifth metatarsophalangeal joints. Normal interphalangeal joints and phalanges of the lesser toes. The soft tissue structures are unremarkable. RAD/Foot min 3 Views IMPRESSION: Normal x-ray examination of the foot. Electronically Signed: Scott Apodaca MD at 13:32 EDT ,
--- NOTE | 2021-07-02 12:45 | RAD_ITS ---
STUDY: X-RAY - LEFT ANKLE REASON FOR EXAM: Female, 25 years old. Fall TECHNIQUE: 3 view(s) of the ankle. COMPARISON: None. FINDINGS: Normal visualized distal tibia and fibula. Normal medial and lateral malleoli. Normal tibiotalar articulation and ankle mortise. Normal visualized talus and calcaneus. The visualized subtalar, talonavicular, calcaneocuboid and tarsal articulations are normal. The soft tissue structures are unremarkable. RAD/Ankle min 3 Views IMPRESSION: Normal x-ray examination of the ankle. Electronically Signed: Scott Apodaca MD at 13:32 EDT ,
--- NOTE | 2021-07-02 12:45 | RAD_ITS ---
STUDY: X-RAY - LEFT TIBIA AND FIBULA REASON FOR EXAM: Female, 25 years old. Fall TECHNIQUE: 2 view(s) of the tibia and fibula were obtained. COMPARISON: None. FINDINGS: Normal visualized tibia. Normal visualized fibula. The soft tissue structures are unremarkable. RAD/Tibia & Fibula 2 Views IMPRESSION: Normal x-ray examination of the tibia and fibula. Electronically Signed: Scott Apodaca MD at 13:31 EDT ,
--- NOTE | 2021-07-02 13:15 | EX.ED.DYSGE1 ---
HPI <FIORDALIZA Joseph - Last Filed: 07/02/21 14:01> History of Present Illness Chief Complaint: Lower Extremity Injury Narrative Narrative: Patient is a 25-year-old female with significant surgical history when she was younger presents to the emergency department after a fall that occurred yesterday. Patient states that she was carrying groceries, tripped coming into her house falling forward striking her left foot, ankle, left lower leg. Patient states today while she was walking, the pain was worse and she noticed bruising, swelling and she is here for evaluation. Denies any other injury PFSH <FIORDALIZA oJseph - Last Filed: 07/02/21 14:01> [facility] Medical History (Updated 07/02/21 @ 14:01 by FIORDALIZA Joseph) Abdominal hernia Asthma Migraines Thyroid disease Home Medications cephalexin 500 mg PO BID 7 Days #14 cap 07/29/20 [Rx Last Taken Unknown] multivitamin 1 cap PO DAILY 07/29/20 [History Last Taken Unknown] ondansetron HCl [Zofran] 4 mg PO Q8H #7 tab 07/30/20 [Rx Last Taken Unknown] Allergy/AdvReac Type Severity Reaction Status Date / Time ciprofloxacin [From Cipro] Allergy Hives Verified 07/02/21 12:26 amoxicillin AdvReac Rash Verified 07/02/21 12:26 ketorolac [From Toradol] AdvReac Other Verified 07/02/21 12:26 procaine [From Novocain] AdvReac Other Verified 07/02/21 12:26 Surgical History H/O partial thyroidectomy H/O: hysterectomy History of appendectomy Hx of hernia repair Social History (Updated 03/30/21 @ 15:[address] Jerrod Yousif, DO) Smoking Status: Never smoker substance use type: does not use ROS <FIORDALIZA Joseph - Last Filed: 07/02/21 14:01> ROS ED ROS Narrative Constitutional: Negative for fever, chills, weight loss, weakness Eyes: Negative for vision loss, vision change, double vision ENT: Negative for any sore throat, ear pain, congestion Cardiovascular: Negative for any chest pain, tightness, palpitations, racing heartbeat Respiratory: Negative for any cough, sputum production, hemoptysis, shortness of breath, shortness of breath on exertion, orthopnea Gastrointestinal: Negative for any abdominal pain, nausea, vomiting, diarrhea, constipation, blood in stool, blood in vomit : Negative for any urinary frequency, incontinence, dysuria, retention, blood in urine Muscle skeletal: Negative for any muscle joint pain, stiffness, myalgias, arthralgias, neck pain, back pain. Positive for left foot pain, left ankle pain, left tibiofibular pain. Right knee pain Neurological: Negative for any headache, dizziness, syncope, numbness or tingling Skin: Negative for any rashes, lumps, itching, abrasions, lacerations Psychiatric: Negative for any depression, anxiety, stress, suicidal ideation, homicidal ideation Hematologic: Negative for any easy bruising, excessive bruising, easy bleeding Allergies: Negative for any eczema, hives, rash EXAM <FIORDALIZA Joseph - Last Filed: 07/02/21 14:01> Physical Exam Narrative Exam Narrative: Vital signs reviewed. HEET: Head normocephalic atraumatic, TMs clear bilaterally. Posterior pharynx is clear, moist mucous membranes. Nares clear bilaterally. Neck: Supple with no lymphadenopathy or tenderness. No signs of meningismus, negative jolt sign. Cardiac: Regular rate and rhythm no murmurs gallops or rubs, equal peripheral pulses bilaterally. Respiratory: Lungs clear to auscultation bilaterally. No chest tenderness. Abdomen: Soft, nontender, nondistended. No abdominal bruit or pulsatile masses. No hepatosplenomegaly Extremities: Patient has a pain on palpation to the proximal tibia, patient has bruising, pain to the lateral malleolus. Patient also pain along the fifth metatarsal. Patient is able dorsiflex the foot have this does cause discomfort. Patient is able to bear weight however this caused increased pain. Neuro: Cranial nerves II through XII intact, no focal neurological deficits. Skin: Clean dry and intact with no rash, purpura, petechiae, vesicles or pustules. Backslash flank: No CVA tenderness, no midline spinal tenderness, no deformity. Psych: Normal mood and affect. No SI, HI or acute psychosis. Const Vital Signs: 07/02/21 12:27 Temperature 98.2 F Temperature Source Temporal Pulse Rate 84 Respiratory Rate 17 Blood Pressure 118/85 H Blood Pressure Mean 96 Pulse Ox 99 Oxygen Delivery Method Room Air Positive well nourished and well developed General Appearance ED: well developed <Deep Angulo MD - Last Filed: 07/02/21 22:03> Physical Exam Const Vital Signs: 07/02/21 12:27 Temperature 98.2 F Temperature Source Temporal Pulse Rate 84 Respiratory Rate 17 Blood Pressure 118/85 H Blood Pressure Mean 96 Pulse Ox 99 Oxygen Delivery Method Room Air MDM <FIORDALIZA Joseph - Last Filed: 07/02/21 14:01> [facility] MDM Narrative Medical decision making narrative: Patient appears well, patient appears nontoxic, vital signs are stable. Patient presents the emergency department with left lower extremity pain after a fall that occurred yesterday. Patient's physical examination did show some ecchymosis, edema. Patient did receive x-rays of the left ankle/foot, tibia-fibula, these were all negative for any osseous abnormality. Patient was given an Jj wrap. Struck to continue take Tylenol. She will ice and elevate. At this time, patient stable for discharge Radiography Diagnostic Testing: Clinical Impression(s) from Imaging Studies Ankle X-Ray 07/02/21 12:45 IMPRESSION: Normal x-ray examination of the ankle. Electronically Signed: Scott Apodaca MD at 13:32 EDT , Foot X-Ray 07/02/21 12:45 IMPRESSION: Normal x-ray examination of the foot. Electronically Signed: Scott Apodaca MD at 13:32 EDT , Tibia/Fibula X-Ray 07/02/21 12:45 IMPRESSION: Normal x-ray examination of the tibia and fibula. Electronically Signed: Scott Apodaca MD at 13:31 EDT , <Deep Angulo MD - Last Filed: 07/02/21 22:03> [facility] Narrative Medical decision making narrative: I have personally performed a face to face assessment of the patient and have reviewed the THIEN Note. I performed a substantive portion of the visit including all aspects of the following. My earl findings include: History is fall with injury to the left lower extremity, ankle and foot. Exam is [afebrile. Vital signs noted. GCS 15. Mild ecchymosis with tenderness left foot and left lateral ankle. Positive extension and flexion mechanisms at left knee.] Medical Decision Making [x-rays of the ankle, foot, and tibia/fibula interpreted by emergency physician. No evidence of fracture. Discharge.] Other additions or changes: [None] Radiography Diagnostic Testing: Clinical Impression(s) from Imaging Studies Ankle X-Ray 07/02/21 12:45 IMPRESSION: Normal x-ray examination of the ankle. Electronically Signed: Scott Apodaca MD at 13:32 EDT , Foot X-Ray 07/02/21 12:45 IMPRESSION: Normal x-ray examination of the foot. Electronically Signed: Scott Apodaca MD at 13:32 EDT , Tibia/Fibula X-Ray 07/02/21 12:45 IMPRESSION: Normal x-ray examination of the tibia and fibula. Electronically Signed: Scott Apodaca MD at 13:31 EDT , Discharge Plan Triage Chief Complaint: Lower Extremity Injury ED Midlevel Provider: Rick June ED Provider: Deep Angulo Dx/Rx/DC Orders Clinical Impression: Fall, Ankle sprain, Contusion of foot Instructions: ED Foot Contusion, ED Ankle Sprain (Adult) Prescriptions: No Action multivitamin Capsule 1 cap PO DAILY RF: 0 cephalexin 500 mg capsule 500 mg PO BID 7 Days Qty: 14 RF: 0 ondansetron HCl [Zofran] 4 mg tablet 4 mg PO Q8H Qty: 7 RF: 0 Primary Care Provider: Jerrod Stevenson NP Referrals: Jerrod Stevenson NP, PRINCIPAL TECHNICAL SPECIALIST-C [Primary Care Provider] - Activity Restrictions/Additional Instructions: Please continue to take Tylenol. Print Language: Libyan Disposition Disposition: Home, Self Care Discharge Date/Time: 07/02/21 14:09
--- NOTE | 2021-07-02 13:56 | CM.ED ---
Social Work Note Reason for Referral: ED Care Plan SW reviewed chart. Pt has ED Care Plan. SW updated physician that pt has ED Care Plan. Ting Trujillo SIMULATION TECHNICIAN, VIDEOGRAPHER
== END 2021-07-02 14:09 | disposition home or self-care (01) ==
PROVIDERS: Emergency Provider Emergency Medicine; PCP Nurse Practitioner Family; Visit Provider Emergency Medicine
DX: S90.32XA Contusion of left foot, initial encounter (principal); J45.909 Unspecified asthma, uncomplicated; Z79.899 Other long term (current) drug therapy; W01.10XA Fall on same level from slipping, tripping and stumbling with subsequent striking against unspecified object, initial encounter; Y93.89 Activity, other specified; Y99.9 Unspecified external cause status; S93.402A Sprain of unspecified ligament of left ankle, initial encounter; Y92.019 Unspecified place in single-family (private) house as the place of occurrence of the external cause
CPT/HCPCS: 73590; 73610; 73630; 99282

== ENCOUNTER 2021-10-06 10:13 | Emergency (ER) | payer MEDICAID, SELFPAY ==
[2021-10-06 10:14] VITALS: BP 124/99; PULSE 87; RESP 17; TEMP 36.1; O2SAT 98; BMI 31.1
--- NOTE | 2021-10-06 10:31 | EDS_ITS ---
HPI History of Present Illness Chief Complaint: Headache Narrative Narrative: Patient with past medical history of migraine headaches for which she takes prophylaxis in the form of Toprol, presents with headache that she has had since last , 6 days ago. She has been taking her Toprol along with Excedrin which helps a slight degree, but yesterday she developed nausea and vomiting and has vomited 10 times today without any blood in her emesis. Her pain is right-sided where it usually is typical of her previous migraines, throbbing in nature. She endorses photophobia and phonophobia. She denies any paresthesias but states she has blurred vision along with it. She has not had to come to the emergency department previously. She denies any flashing lights or aura at the beginning of her headache. She rates it a 10 out of 10 currently. She denies any weakness or lightheadedness. No chest pain or other symptoms. PFSH PFSH Medical History Abdominal hernia Asthma Migraines Thyroid disease Home Medications topiramate 25 mg tablet 50 mg PO QHS 10/06/21 [History Last Taken Unknown] Allergy/AdvReac Type Severity Reaction Status Date / Time ciprofloxacin [From Cipro] Allergy Hives Verified 10/06/21 10:14 amoxicillin AdvReac Rash Verified 10/06/21 10:14 ketorolac [From Toradol] AdvReac Other Verified 10/06/21 10:14 procaine [From Novocain] AdvReac Other Verified 10/06/21 10:14 Surgical History H/O partial thyroidectomy H/O: hysterectomy History of appendectomy Hx of hernia repair Social History Smoking Status: Never smoker substance use type: does not use ROS ROS ED ROS Narrative Constitutional: No fever, no chills. HEENT: No sore throat. No neck pain. No loss of vision. No rhinorrhea. Cardiovascular: No chest pain. No palpitations. No pedal edema. Respiratory: No cough, no shortness of breath. Abdominal: No abdominal pain. No nausea. No vomiting. Genitourinary: No dysuria. No hematuria. Musculoskeletal: No myalgias. No arthralgias. Neurologic: Right-sided throbbing, migraine headache. No dizziness. No lightheadedness. No paresthesias. Positive photophobia and phonophobia. Skin: No rash. No change in color. Psychiatric: No depression. No anxiety. EXAM Physical Exam Narrative Exam Narrative: Afebrile. Vital signs noted. HEENT: Normocephalic. Atraumatic. PERRL, EOMI. Neck soft and supple. No point tenderness or step off. Cardiovascular: Regular rate and rhythm. No murmurs, rubs, or gallops appreciated. Respiratory: No tachypnea. Lungs clear to auscultation bilaterally. Gastrointestinal: Abdomen soft, nontender, with normoactive bowel sounds. No rebound or guarding. Neurological: Awake. Alert. Oriented x3. Nonfocal, nonlateralizing. DTRs equal and symmetric. Skin: No rash. Normal color. No pallor. Musculoskeletal: No pedal edema. Full range of motion extremities. Const Vital Signs: 10/06/21 10:14 Temperature 97.0 F L Temperature Source Temporal Pulse Rate 87 Respiratory Rate 17 Blood Pressure 124/99 H Blood Pressure Mean 107 Pulse Ox 98 Oxygen Delivery Method Room Air MDM MDM MDM Narrative Medical decision making narrative: I do feel that this is typical for her migraine headaches. I do not feel CT imaging is indicated. She will be administered normal saline 1 L intravenously along with Compazine and Benadryl intravenously. After a partial fluid bolus, and her medications, her headache has come down from a 10 to a 5. She feels improved. I feel she can be discharged safely home with follow-up. She is to continue her medications and follow-up with her primary care provider for possible referral to neurology for her migraine headaches. Return instructions were reviewed. Disposition is discharged home in stable condition. Discharge Plan Triage Chief Complaint: Headache ED Provider: Deep Angulo Dx/Rx/DC Orders Clinical Impression: Headache, migraine, Nausea & vomiting Instructions: ED, Migraine (Classical) Prescriptions: No Action topiramate 25 mg tablet 50 mg PO QHS Primary Care Provider: Jerrod Stevenson NP Referrals: Jerrod Stevenson NP, [employer] [Primary Care Provider] - As soon as possible Activity Restrictions/Additional Instructions: Continue your medications. Follow-up with your primary care physician. You may need a referral to neurology for your migraine headaches. Disposition Disposition: Home, Self Care
[2021-10-06] MEDS: DiphenhydrAMINE 50 MG/ML Syringe 25 MG IV (11:06)
[2021-10-06] MEDS: 0.9% Normal Saline 1,000 ML 999 ML IV (11:06)
[2021-10-06] MEDS: proCHLORPERazine 10 MG/2 ML Vial IV (11:09)
[2021-10-06 12:10] VITALS: RESP 14
--- NOTE | 2021-10-06 12:10 | ED.RN ---
THIS RN HELPED PT BACK TO BED AFTER GOING OT RESTROOM. PT STATES THAT PHYSICIAN TOLD HER SHE WOULD BE GETTING DISCHARGED SOON AND THAT A NURSE WOULD BE IN TO UNHOOK HER FROM HER IV. THIS RN TOOK HER IV OUT AT HER REQUEST AND TOLD PT A RN WOULD BE BACK WITH PAPERWORK WHEN THE DOCTOR HAS IS READY TO BE GIVEN. PT LEFT PRIOR TO D/C INSTRUCTIONS BEING GIVEN. AMBULATED OUT OF DEPT
== END 2021-10-06 12:15 | disposition home or self-care (01) ==
PROVIDERS: Emergency Provider Emergency Medicine; PCP Nurse Practitioner Family; Visit Provider Emergency Medicine
DX: G43.909 Migraine, unspecified, not intractable, without status migrainosus (principal); J45.909 Unspecified asthma, uncomplicated; Z79.899 Other long term (current) drug therapy
CPT/HCPCS: 96361; 96374; 96375; 99284; J7030; A4216

== ENCOUNTER 2021-11-06 11:24 | Emergency (ER) | payer MEDICAID, SELFPAY ==
[2021-11-06 11:25] VITALS: BP 128/79; PULSE 91; RESP 18; TEMP 36.4; O2SAT 100; BMI 30.5
--- NOTE | 2021-11-06 12:05 | EX.ED.VIS.UR ---
HPI HPI - URI History of Present Illness Chief Complaint: Cold Sx Informant: patient Onset/Context/Timing Onset: Days Context: Gradual Onset Timing: Continuous Current Severity: Mild Maximum Severity: Mild Associated Symptoms Associated Symptoms: Positive for Nasal Congestion and Productive Cough; Negative for Nausea, Vomiting or Hemoptysis Narrative Narrative: 26-year-old female past medical history of 1 kidney, prior appendectomy and partial hysterectomy. States that for about a week she has had URI symptoms with a cough of yellowish sputum. Feels like she is not getting any better. Her had similar symptoms seem improved. She is taken to COVID test both of which have been negative. She is a non-smoker. Denies any vomiting or diarrhea. Said her temperatures been as high as 100. Denies hemoptysis. No leg pain or swelling. No shortness of breath. Was seen in urgent care today and they referred her to the emergency department. Prior similar symptoms: Yes Recent Illness/Hospitalization: No ROS ROS ED ROS Narrative Cough. Yellow sputum. Nasal congestion. Low-grade fever. Review of Systems ROS Unobtainable: Denies due to encephalopathy Constitutional Constitutional ED: Reports fever(s); Denies chills Eyes Eyes: Denies blurry vision ENT ENT ED: Reports ear pain and rhinorrhea; Denies sore throat Cardiovascular Cardiovascular: Reports chest pain; Denies orthopnea Respiratory/Chest Respiratory/Chest: Reports cough; Denies dyspnea or orthopnea Gastrointestinal Gastrointestinal: Denies abdominal pain, melena, nausea or vomiting Genitourinary Genitourinary ED: Denies dysuria Musculoskeletal Musculoskeletal: Denies arthralgias Integumentary Denies abscess Neurologic Neurologic: Denies headache(s) Psychiatric Psychiatric: Denies anxiety Endocrine Endocrinology: Denies cold intolerance Hematologic/Lymphatic Hematologic/Lymphatic: Denies easy bleeding Allergic/Immunologic Allergic/Immunologic ED: Denies mouth swelling PFSH PFSH Medical History Abdominal hernia Asthma Migraines Thyroid disease Home Medications topiramate 25 mg tablet 50 mg PO QHS 10/06/21 [History Last Taken Unknown] azithromycin 250 mg tablet (Zithromax Z-Maynor) See Rx Instructions PO .COMPLEX #6 tabs 11/06/21 [Rx Last Taken Unknown] Allergy/AdvReac Type Severity Reaction Status Date / Time ciprofloxacin [From Cipro] Allergy Hives Verified 11/06/21 11:24 amoxicillin AdvReac Rash Verified 11/06/21 11:24 ketorolac [From Toradol] AdvReac Other Verified 11/06/21 11:24 procaine [From Novocain] AdvReac Other Verified 11/06/21 11:24 Surgical History H/O partial thyroidectomy H/O: hysterectomy History of appendectomy Hx of hernia repair Social History Smoking Status: Never smoker substance use type: does not use EXAM Physical Exam Narrative Exam Narrative: 26-year-old female vital signs stable afebrile. Pulse ox 9% on room air no signs hypoxia. H EENT exam left TM fluid behind the drum. No erythema or perforation. Right normal. Canals normal. Posterior pharynx normal. Clear rhinorrhea. Neck nontender no lymphadenopathy. Lungs clear to auscultation bilaterally. Cough. Heart regular rate and rhythm rate about 90 no murmur. Abdomen soft nontender. Moving all 4 extremities. Nontender no edema. Neurologic exam normal. Const Vital Signs: 11/06/21 11:25 Temperature 97.6 F L Temperature Source Temporal Pulse Rate 91 Respiratory Rate 18 Blood Pressure 128/79 H Blood Pressure Mean 95 Pulse Ox 100 Oxygen Delivery Method Room Air Positive well nourished and well developed; Negative for obese, cachectic or contractures General Appearance ED: well developed and NAD; Negative for cachectic, contractures, cyanotic, diaphoretic or pallor Nutritional Appearance: Negative for cachectic or obese HEENT Reports moist mucous membranes; Denies dry mucous membranes normocephalic and atraumatic; Negative for scalp tenderness Mouth ED: No dry mucous membranes Mouth: No dry mucous membranes Throat: posterior oropharynx normal; Negative for tonsils abnormal Eyes PERRL and EOMs intact bilaterally General Eye ED: Negative for pale conjunctiva or scleral icterus Neck no lymphadenopathy, supple, no meningeal signs and no JVD General: Negative for anterior neck swelling Resp normal respiratory effort Effort and Inspection: Negative for retractions Auscultation: Negative for rales, rhonchi or wheezes Cardio S1 normal heart sound, S2 normal heart sound and no murmurs Rate: regular rate; Negative for bradycardia Rhythm: regular rhythm GI non-tender, non-distended and no masses Inspection: Negative for abdominal distention Auscultation: normoactive bowel sounds Palpation: soft; Negative for tender or guarding Back/Spine no CVA tenderness General Back: Negative for CVA tenderness Cervical Spine: Negative for cervical spine tenderness Thoracic Spine / Upper Back: Negative for thoracic spinal tenderness Lumbar Spine / Lower Back: Negative for lumbar spinal tenderness Sacrum: Negative for tenderness Extremity normal to inspection and full ROM General Extremety ED: Negative for cyanosis or tenderness General Extremity: Negative for cyanosis Neuro oriented x3 Sensorium / Orientation: alert, oriented to person, oriented to place and oriented to time; Negative for orientation impaired, lethargic or stuporous Motor Exam: strength 5/5 throughout Psych mental status grossly normal Appearance: Negative for other Attitude: No agitated Mood & Affect: Negative for depressed, anxious or tearful Skin General Skin Exam: Negative for jaundice or pallor Lesions: no lesions Rashes: no rashes Trauma: Negative for abrasion MDM MDM MDM Narrative Medical decision making narrative: 10-year-old female no MRI symptoms. She is having for a week she is not improving. Clinically I do not hear pneumonia she and I discussed and she deferred chest x-ray with general things clinically necessary. She will be placed on Zithromax Z-Maynor. Follow-up if not improving return if worse. She has had 2 negative COVID test at home. Discharge Plan Triage Chief Complaint: Cold Sx ED Provider: Juan Levin Dx/Rx/DC Orders Clinical Impression: Bronchitis Instructions: ED Upper Resp Infec Abx Tx Prescriptions: New azithromycin [Zithromax Z-Maynor] 250 mg tablet See Rx Instructions .ROUTE .COMPLEX Qty: 6 0RF Rx Instructions: For 250 mg dose pack: take 500 mg today (day 1), then 250 mg for 4 days (days 2-5) No Action topiramate 25 mg tablet 50 mg PO QHS Primary Care Provider: Jerrod Stevenson NP Referrals: Jerrod Stevenson NP, [employer] [Primary Care Provider] - 1 Week if not improving Activity Restrictions/Additional Instructions: Plenty of fluids and rest. Tylenol and Motrin for fever and body aches. Zithromax Z-Maynor 2 pills first day and then 1 daily for the next 4 days. Follow-up with your doctor if not improving return if worse. Disposition Disposition: Home, Self Care
[2021-11-06 12:15] VITALS: O2SAT 100
== END 2021-11-06 12:16 | disposition home or self-care (01) ==
PROVIDERS: Emergency Provider Emergency Medicine; PCP Nurse Practitioner Family; Visit Provider Emergency Medicine
DX: J40 Bronchitis, not specified as acute or chronic (principal); Z90.49 Acquired absence of other specified parts of digestive tract; Z20.822 Contact with and (suspected) exposure to COVID-19
CPT/HCPCS: 99282

== ENCOUNTER 2022-05-18 13:42 | Emergency (ER) | payer MEDICAID, SELFPAY ==
[2022-05-18 13:43] VITALS: BP 128/92; PULSE 89; RESP 24; TEMP 35.9; O2SAT 99; BMI 30.2
--- NOTE | 2022-05-18 16:26 | EDS_ITS ---
HPI History of Present Illness Chief Complaint: Abd Pain Informant: patient Narrative Narrative: Acute on chronic abdominal pain with hematuria. Patient has chronic abdominal pain and hematuria. She has had multiple scopes and is currently awaiting referral to another specialist. Patient states that she had increased lower abdominal pain recently. She does not have actual pain with urination, however states she gets sharp pain across her bladder when she urinates. This will sometimes cause her to break out in a sweat and get lightheaded. She does report having a fever earlier today of 101.4, but it did improve with Tylenol. PFSH PFSH Medical History Abdominal hernia Agenesis of left kidney Asthma Migraines Thyroid disease Home Medications topiramate 25 mg tablet 50 mg PO QHS 10/06/21 [History Last Taken Unknown] azithromycin 250 mg tablet (Zithromax Z-Maynor) See Rx Instructions PO .COMPLEX #6 tabs 11/06/21 [Rx Last Taken Unknown] ondansetron 4 mg disintegrating tablet 4 mg PO Q8H PRN PRN Nausea #10 tabs 05/18/22 [Rx Last Taken Unknown] tramadol 50 mg tablet 50 mg PO Q4H PRN PRN Pain #20 tabs 05/18/22 [Rx Last Taken Unknown] Allergy/AdvReac Type Severity Reaction Status Date / Time ciprofloxacin [From Cipro] Allergy Hives Verified 11/06/21 11:24 amoxicillin AdvReac Rash Verified 11/06/21 11:24 ketorolac [From Toradol] AdvReac Other Verified 11/06/21 11:24 procaine [From Novocain] AdvReac Other Verified 11/06/21 11:24 Surgical History H/O partial thyroidectomy H/O: hysterectomy History of appendectomy Hx of hernia repair Social History Smoking Status: Never smoker substance use type: does not use ROS ROS ED Constitutional Constitutional ED: Denies chills or fever(s) Eyes Eyes: Denies change in vision or discharge from eye(s) ENT ENT ED: Denies discharge from eye(s), rhinorrhea or sore throat Cardiovascular Cardiovascular: Denies chest pain or palpitations Respiratory/Chest Respiratory/Chest: Denies cough or dyspnea Gastrointestinal Gastrointestinal: Reports abdominal pain; Denies diarrhea, nausea or vomiting Genitourinary Genitourinary ED: Reports hematuria; Denies dysuria Musculoskeletal Musculoskeletal: Reports back pain; Denies extremity pain Integumentary Denies Abrasions or rash Neurologic Neurologic: Denies headache(s) or weakness Allergic/Immunologic Allergic/Immunologic ED: Denies lip swelling or urticaria EXAM Physical Exam Const Vital Signs: 05/18/22 13:43 05/18/22 18:45 05/18/22 19:08 Temperature 96.7 F L 97.6 F L Temperature Source Temporal Pulse Rate 89 88 Respiratory Rate 24 H 16 15 Blood Pressure 128/92 H 122/75 H Blood Pressure Mean 104 Pulse Ox 99 98 Oxygen Delivery Method Room Air Positive well nourished and well developed General Appearance ED: well developed HEENT Reports normocephalic and head/scalp atraumatic Eyes PERRL and EOMs intact bilaterally Neck supple Chest Wall inspection of chest normal and palpation of chest normal Resp normal respiratory effort and clear to auscultation bilaterally Cardio regular rate and regular rhythm GI GI Narrative: Lower abdominal tenderness to palpation. No guarding or rebound Palpation: soft Extremity normal to inspection Neuro oriented x3 and no sensory deficits noted Sensorium / Orientation: alert Motor Exam: strength 5/5 throughout Psych mental status grossly normal Skin no rashes or lesions noted MDM MDM MDM Narrative Medical decision making narrative: Patient is given morphine and Zofran while undergoing work-up. Labwork obtained to evaluate for leukocytosis, anemia, and electrolyte derangement. Urinalysis obtained to evaluate for infection/hematuria. Lab Data Attestation: I reviewed the patient's lab results. Labs: Laboratory Results - last 24 hr 05/18/22 05/18/22 05/18/22 16:52 16:52 16:52 WBC 12.3 H RBC 5.05 Hgb 15.0 Hct 46.4 MCV 91.9 MCH 29.7 MCHC 32.3 RDW Std Deviation 41.2 RDW Coeff of Teena 12.3 Plt Count 235 MPV 9.6 Immature Gran % (Auto) 0.400 Neut % (Auto) 67.8 Lymph % (Auto) 22.6 [place] % (Auto) 8.5 Eos % (Auto) 0.5 Baso % (Auto) 0.2 Absolute Neuts (auto) 8.3 H Absolute Lymphs (auto) 2.77 Nucleated RBC % 0 Sodium 139 Potassium 3.4 L Chloride 110 H Carbon Dioxide 27.0 Anion Gap 2 L BUN 15 Creatinine 1.00 Estim Creat Clear Calc 74.26 Est GFR (MDRD) Af Amer 87 Est GFR (MDRD) Non-Af 72 BUN/Creatinine Ratio 15.0 Glucose 96 Calcium 9.0 Total Bilirubin 0.20 Direct Bilirubin 0.06 AST 16 ALT 26 Alkaline Phosphatase 80 Total Protein 7.8 Albumin 4.0 Globulin 3.8 Urine Color Red Urine Clarity Cloudy Urine pH 6.5 Ur Specific [place] 1.025 Urine Protein 100 H Urine Glucose (UA) Normal Urine Ketones 15 H Urine Occult Blood 250 H Urine Nitrite Negative Urine Bilirubin Negative Urine Urobilinogen 1 H Ur Leukocyte Esterase 25 H Urine RBC 25-50 SEEN Urine WBC 0-5 SEEN Ur Squamous Epith Cells 0 SEEN Urine Bacteria 1+ Urine Mucus 0 SEEN Treatment and Re-Evaluation :: Due to continued pain patient was given a dose of Phenergan as well as Bentyl. CBC reveals a white count of 12.3 with normal differential. Chemistry studies reveal slightly low potassium at 3.4. Renal function is normal. LFTs are normal. Urinalysis reveals 25-50 RBCs with 1+ bacteria. 0-5 white cells and no nitrites are noted. Patient has had longstanding abdominal pain and longstanding hematuria. She is awaiting to see another specialist at [facility] where she is anticipating a renal biopsy will be performed. I will write her a short course of tramadol to help with pain. Return instructions given. Discharge Plan Triage Chief Complaint: Abd Pain Other Complaint: Complaint Nausea/Vomiting ED Provider: Ana Cool Dx/Rx/DC Orders Clinical Impression: Abdominal pain, Hematuria Instructions: ED Abdominal Pain Unkn Cause Fem, ED Hematuria Prescriptions: New tramadol 50 mg tablet 50 mg PO Q4H PRN PRN (Reason: Pain) Qty: 20 0RF ondansetron 4 mg tablet,disintegrating 4 mg PO Q8H PRN PRN (Reason: Nausea) Qty: 10 0RF No Action topiramate 25 mg tablet 50 mg PO QHS azithromycin [Zithromax Z-Maynor] 250 mg tablet See Rx Instructions .ROUTE .COMPLEX Qty: 6 0RF Rx Instructions: For 250 mg dose pack: take 500 mg today (day 1), then 250 mg for 4 days (days 2-5) Primary Care Provider: Jerrod Stevenson NP Referrals: Jerrod Stevenson NP, [employer] [Primary Care Provider] - As Needed Disposition Disposition: Home, Self Care Discharge Date/Time: 05/18/22 19:09
[2022-05-18] MEDS: Morphine 4 MG/ML Syringe IV (16:50)
[2022-05-18] MEDS: 0.9% Normal Saline 1,000 ML 1000 ML IV (16:50)
[2022-05-18] MEDS: Ondansetron 4 MG/2 ML Vial IV (16:50)
[2022-05-18 17:01] LABS: Mucous, Urine 0 SEEN /hpf (<or=2+); Squamous Epithelial Cells - UA 0 SEEN /hpf (5-10)
[2022-05-18 17:04] LABS: Color, Urine Red (Yellow); Glucose, Dipstick Normal (Normal); Ketone-Dipstick 15 mg/dl (Negative); Leukocyte Esterase-Dipstick 25 /ul (Negative); Nitrite-Dipstick Negative (Negative); Occult Blood-Urine 250 /ul (Negative); Protein-Dipstick 100 mg/dl (Negative); Specific Gravity, Urine 1.025 (1.002-1.030); Urine Bilirubin Dipstick Negative (Negative); Urine Clarity Cloudy (Clear); Urine Urobilinogen 1 mg/dl (Normal); Urine pH 6.5 (5.0 - 8.0)
[2022-05-18 17:08] LABS: Absolute Lymphocyte Count 2.77 X10^3/uL (0.83-4.51); Absolute Neutrophil Count 8.3 X10^3/uL (2.0-7.7); Basophil# 0.02 X10^3/uL; Basophil% 0.2 % (0-1); Eosinophil# 0.06 X10^3/uL; Eosinophils% 0.5 % (0-5); Hematocrit 46.4 % (37-47); Lymphocyte # 2.77 X10^3/ul (0.83-4.51); Lymphocyte % 22.6 % (19-41); Mean Corp Hgb Conc 32.3 g/dL (32-36); Mean Corpuscular Hgb 29.7 pg (27.0-32.0); Mean Corpuscular Volume 91.9 fL (81-99); Mean Platelet Vol. 9.6 fl (6.2-12.0); Monocyte# 1.04 X10^3/uL; Monocyte% 8.5 % (0-10); NRBC Flagged by Analyzer 0 % (0-5); Neutrophil # 8.32 X10^3/uL (2.7-7.7); Neutrophil % 67.8 % (47-70); Platelet Count 235 K/mm3 (150-450); RBC Distribution Width CV 12.3 % (11.6-14.6); RBC Distribution Width SD 41.2 fl (35.1-43.9); Red Blood Count 5.05 M/mm3 (4.2-5.4); White Blood Count 12.3 K/mm3 (4.4-11.0)
[2022-05-18 17:19] LABS: AST(SGOT) 16 U/L (15-37); Alanine Aminotransfer ALT/SGPT 26 U/L (13-56); Alkaline Phosphatase 80 U/L (45-117); Anion Gap 2 (5-15); BUN 15 mg/dL (7-18); Bilirubin, Direct 0.06 mg/dL (0.00-0.30); Chloride 110 mmol/L (98-107); EST Glomerular Filtration Rate 72 mL/min (>60); Est Glom Filt Rate - Afr Amer 87 mL/min (>60); Estimated Creatinine Clearance 74.26 ml/min; Globulin 3.8 g/dL (2.2-4.2); Glucose 96 mg/dL (74-106); Potassium 3.4 mmol/L (3.5-5.1); Protein, Total 7.8 g/dL (6.4-8.2); Sodium Level 139 mmol/L (136-145)
[2022-05-18 17:40] LABS: Bacteria 1+ /hpf (None Seen); Red Blood Cells-Urine 25-50 SEEN /hpf (0-5); White Blood Cells 0-5 SEEN /hpf (0-5)
[2022-05-18] MEDS: proMETHazine 25 MG/ML Syringe 12.5 MG IM (18:25)
[2022-05-18] MEDS: Dicyclomine 20 MG/2 ML Vial IM (18:26)
[2022-05-18 18:45] VITALS: RESP 16
[2022-05-18 19:08] VITALS: BP 122/75; PULSE 88; RESP 15; TEMP 36.4; O2SAT 98
== END 2022-05-18 19:09 | disposition home or self-care (01) ==
PROVIDERS: Emergency Provider Emergency Medicine; PCP Nurse Practitioner Family; Visit Provider Emergency Medicine
DX: R10.9 Unspecified abdominal pain (principal); R31.9 Hematuria, unspecified; R11.2 Nausea with vomiting, unspecified; G89.29 Other chronic pain
CPT/HCPCS: 80048; 80076; 81001; 85025; 96361; 96372; 96374; 96375; 99283; J7030; A4216; J2405

== ENCOUNTER 2022-06-10 09:25 | Emergency (ER) | payer MEDICAID, SELFPAY ==
[2022-06-10 09:25] VITALS: BP 108/94; PULSE 69; RESP 16; TEMP 36.6; O2SAT 100; BMI 29.7
--- NOTE | 2022-06-10 09:50 | ED.VIS.FEGU ---
HPI HPI - Female History of Present Illness Chief Complaint: Vag Bleeding Informant: patient Narrative Narrative: Triage note says vaginal bleeding. But patient states this is hematuria. She states she has had hematuria for little over 2 years. She just does not know what to do about it anymore. She was seeing a urologist up at [place] for couple years but does not recall the name. She saw urologist here for short time but does not recall the name. She has been trying to get into 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 This is now been bumped back to August. She was recently in [place] about 2 or so weeks ago. She was admitted had a UTI. She states she had urosepsis was on IV antibiotics for about 2 maybe 3 days. She was then discharged on Keflex which ended several days ago. Today she went to the restroom. When she urinated she had blood. This always causes spasm and pain over her bladder. She got pain there. She felt lightheaded and sat on the ground. Did not actually pass out. Her grandmother then came to work and brought her in here. She has had this happen many times before. She just states she is here because she just does not know what to do anymore. She knows she needs a biopsy of the kidney but knows that it cannot be done here. She thinks she had a fever of about 101 5 or 6 days ago but none since [facility] Medical History Abdominal hernia Agenesis of left kidney Asthma Migraines Thyroid disease Home Medications topiramate 25 mg tablet 50 mg PO QHS 10/06/21 [History Last Taken Unknown] azithromycin 250 mg tablet (Zithromax Z-Maynor) See Rx Instructions PO .COMPLEX #6 tabs 11/06/21 [Rx Last Taken Unknown] ondansetron 4 mg disintegrating tablet 4 mg PO Q8H PRN PRN Nausea #10 tabs 05/18/22 [Rx Last Taken Unknown] tramadol 50 mg tablet 50 mg PO Q4H PRN PRN Pain #20 tabs 05/18/22 [Rx Last Taken Unknown] Allergy/AdvReac Type Severity Reaction Status Date / Time ciprofloxacin [From Cipro] Allergy Hives Verified 06/10/22 09:28 amoxicillin AdvReac Rash Verified 06/10/22 09:28 ketorolac [From Toradol] AdvReac Other Verified 06/10/22 09:28 procaine [From Novocain] AdvReac Other Verified 06/10/22 09:28 Surgical History H/O partial thyroidectomy H/O: hysterectomy History of appendectomy Hx of hernia repair Social History Smoking Status: Never smoker substance use type: does not use ROS ROS ED Constitutional Constitutional ED: Reports other Details: No fevers for about 5 or 6 days. ; Denies fever(s) ENT ENT ED: Denies rhinorrhea or sore throat Cardiovascular Cardiovascular: Denies chest pain, palpitations or racing heartbeat Respiratory/Chest Respiratory/Chest: Denies cough or dyspnea Gastrointestinal Gastrointestinal: Reports abdominal pain and nausea; Denies constipation, diarrhea, melena or vomiting Genitourinary Genitourinary ED: Reports hematuria; Denies dysuria Musculoskeletal Musculoskeletal: Denies myalgias Integumentary Denies rash Neurologic Neurologic: Denies headache(s) or paresthesias Hematologic/Lymphatic Hematologic/Lymphatic: Denies easy bleeding or easy bruising Allergic/Immunologic Allergic/Immunologic ED: Denies urticaria EXAM Physical Exam Narrative Exam Narrative: Patient awake alert nontoxic sitting comfortably in bed. No acute distress. HEENT shows no trauma. Mucous membranes are moist Neck is supple and free range of motion Heart is regular with a rate of about 70. No murmur gallop or rub. Lungs are clear bilaterally. Saturations are normal at 100% on room air showing no hypoxia. Abdomen is soft normal bowel sounds. No tenderness. She states she gets lower pelvic area tenderness when she urinates sometimes but she she is not tender at all. Bladder does not feel distended. No rebound or guarding. no CVA tenderness or suprapubic tenderness or pain at this time Extremities show no trauma Skin shows no pallor diaphoresis or rash Const Vital Signs: 06/10/22 09:25 Temperature 98 F Temperature Source Temporal Pulse Rate 69 Respiratory Rate 16 Blood Pressure 108/94 H Blood Pressure Mean 98 Pulse Ox 100 Oxygen Delivery Method Room Air MDM MDM MDM Narrative Medical decision making narrative: Patient CBC shows normal hemoglobin and white count along with platelets. Electrolytes are overall unremarkable. Creatinine is 1.05 which is really her baseline. Urine shows increased red cells but only 0-5 white cells. With no fever no white count and this being recurrent hematuria, I will send a culture but will not treat this with antibiotics this was explained to the patient. She needs to follow-up with her urologist. She needs to try to get into [facility] sooner although that is very difficult to do. We discussed reasons to return that would include fevers, nausea vomiting, increasing pain or other concerns Lab Data Attestation: I reviewed the patient's lab results. Labs: Laboratory Results - last 24 hr 06/10/22 06/10/22 06/10/22 10:20 10:20 10:20 WBC 8.2 RBC 5.03 Hgb 14.9 Hct 45.5 MCV 90.5 MCH 29.6 MCHC 32.7 RDW Std Deviation 39.6 RDW Coeff of Teena 11.9 Plt Count 210 MPV 9.5 Immature Gran % (Auto) 0.500 Neut % (Auto) 75.2 H Lymph % (Auto) 17.6 L [place] % (Auto) 6.2 Eos % (Auto) 0.4 Baso % (Auto) 0.1 Absolute Neuts (auto) 6.1 Absolute Lymphs (auto) 1.44 Nucleated RBC % 0 Sodium 138 Potassium 3.9 Chloride 110 H Carbon Dioxide 25.0 Anion Gap 3 L BUN 15 Creatinine 1.05 H Estim Creat Clear Calc 70.73 Est GFR (MDRD) Af Amer 82 Est GFR (MDRD) Non-Af 68 BUN/Creatinine Ratio 14.3 Glucose 95 Calcium 9.2 Urine Color Red Urine Clarity Cloudy Urine pH 6.5 Ur Specific [place] 1.020 Urine Protein 500 H Urine Glucose (UA) Normal Urine Ketones 5 H Urine Occult Blood 250 H Urine Nitrite Negative Urine Bilirubin Negative Urine Urobilinogen Normal Ur Leukocyte Esterase Negative Urine RBC > 100 SEEN Urine WBC 0-5 SEEN Ur Squamous Epith Cells 0-5 SEEN Urine Bacteria 3+ Urine Mucus RARE EKG Initial EKG: Comments: My independent interpretation of the patient's EKG done for lightheadedness episodes shows normal sinus rhythm with a rate of 81. No ectopy. No acute ST elevation or depression. IL interval QRS duration and QTc are normal. This looks similar to 1 from 29 November 2018. Discharge Plan Triage Chief Complaint: Vag Bleeding ED Provider: Rick Loyd Dx/Rx/DC Orders Clinical Impression: History of gross hematuria, Abdominal pain Instructions: ED Hematuria Prescriptions: No Action topiramate 25 mg tablet 50 mg PO QHS azithromycin [Zithromax Z-Maynor] 250 mg tablet See Rx Instructions .ROUTE .COMPLEX Qty: 6 0RF Rx Instructions: For 250 mg dose pack: take 500 mg today (day 1), then 250 mg for 4 days (days 2-5) tramadol 50 mg tablet 50 mg PO Q4H PRN PRN (Reason: Pain) Qty: 20 0RF ondansetron 4 mg tablet,disintegrating 4 mg PO Q8H PRN PRN (Reason: Nausea) Qty: 10 0RF Primary Care Provider: Jerrod Stevenson NP Referrals: Jerrod Stevenson NP, PHOTO PRINTER-C [Primary Care Provider] - As soon as possible Activity Restrictions/Additional Instructions: Keep calling [facility] for follow-up for your specialized urology appointment. Hopefully they can get a sooner visit than August. Disposition Disposition: Home, Self Care Discharge Date/Time: 06/10/22 11:35
--- NOTE | 2022-06-10 09:55 | EKG12_ITS ---
Test Reason : GENERAL Blood Pressure : / mmHG Vent. Rate : 081 BPM Atrial Rate : 081 BPM P-R Int : 114 ms QRS Dur : 070 ms QT Int : 388 ms P-R-T Axes : 037 018 024 degrees QTc Int : 450 ms Normal sinus rhythm Low voltage QRS Borderline ECG Confirmed by YANELIS RAMIREZ, CRISTOBAL ([id number]), brands editor APOLINAR THOMPSON ([id number]) on 06/14/2022 11:42:34 AM Referred By: Rick Loyd Confirmed By:CRISTOBAL HILARIO MD
--- NOTE | 2022-06-10 10:11 | CM.ED ---
Social Work Note Referral Source: Case Find Referral Reason: Care Plan SW reviewed patient's chart and provided a copy of patient's care plan to MD Loyd. reviewed current symptoms and concerns, explaining the patient has had multiple appointments to address chronic issues and is still working with specialists to explore issues and solutions with her next appointment in August. MD to consult with RACHEL if needs arise. Germaine Garrison CLEATER, ELDA
[2022-06-10] MEDS: Ondansetron 4 MG/2 ML Vial IV (10:28)
[2022-06-10 10:35] LABS: Absolute Lymphocyte Count 1.44 X10^3/uL (0.83-4.51); Absolute Neutrophil Count 6.1 X10^3/uL (2.0-7.7); Basophil# 0.01 X10^3/uL; Basophil% 0.1 % (0-1); Color, Urine Red (Yellow); Eosinophil# 0.03 X10^3/uL; Eosinophils% 0.4 % (0-5); Glucose, Dipstick Normal (Normal); Hematocrit 45.5 % (37-47); Hemoglobin 14.9 g/dL (12.0-15.0); Ketone-Dipstick 5 mg/dl (Negative); Leukocyte Esterase-Dipstick Negative /ul (Negative); Lymphocyte # 1.44 X10^3/ul (0.83-4.51); Lymphocyte % 17.6 % (19-41); Mean Corp Hgb Conc 32.7 g/dL (32-36); Mean Corpuscular Hgb 29.6 pg (27.0-32.0); Mean Corpuscular Volume 90.5 fL (81-99); Mean Platelet Vol. 9.5 fl (6.2-12.0); Monocyte# 0.51 X10^3/uL; Monocyte% 6.2 % (0-10); NRBC Flagged by Analyzer 0 % (0-5); Neutrophil # 6.14 X10^3/uL (2.7-7.7); Neutrophil % 75.2 % (47-70); Nitrite-Dipstick Negative (Negative); Occult Blood-Urine 250 /ul (Negative); Platelet Count 210 K/mm3 (150-450); Protein-Dipstick 500 mg/dl (Negative); RBC Distribution Width CV 11.9 % (11.6-14.6); RBC Distribution Width SD 39.6 fl (35.1-43.9); Red Blood Count 5.03 M/mm3 (4.2-5.4); Urine Bilirubin Dipstick Negative (Negative); Urine Clarity Cloudy (Clear); Urine Urobilinogen Normal (Normal); Urine pH 6.5 (5.0 - 8.0); White Blood Count 8.2 K/mm3 (4.4-11.0)
[2022-06-10 10:45] LABS: Red Blood Cells-Urine > 100 SEEN /hpf (0-5)
[2022-06-10 10:46] LABS: Squamous Epithelial Cells - UA 0-5 SEEN /hpf (5-10); White Blood Cells 0-5 SEEN /hpf (0-5)
[2022-06-10 10:47] LABS: Bacteria 3+ /hpf (None Seen); Mucous, Urine RARE /hpf (<or=2+)
[2022-06-10 10:48] LABS: Anion Gap 3 (5-15); BUN 15 mg/dL (7-18); BUN/Creat Ratio 14.3 RATIO (10-20); Calcium,Total 9.2 mg/dL (8.5-10.1); Chloride 110 mmol/L (98-107); Creatinine, Serum 1.05 mg/dL (0.55-1.02); EST Glomerular Filtration Rate 68 mL/min (>60); Est Glom Filt Rate - Afr Amer 82 mL/min (>60); Estimated Creatinine Clearance 70.73 ml/min; Glucose 95 mg/dL (74-106); Potassium 3.9 mmol/L (3.5-5.1); Sodium Level 138 mmol/L (136-145)
[2022-06-10] MEDS: traMADol 50 MG Tablet PO (11:24)
== END 2022-06-10 11:35 | disposition home or self-care (01) ==
PROVIDERS: Emergency Provider Emergency Medicine; PCP Nurse Practitioner Family; Referring Provider Emergency Medicine; Visit Provider Emergency Medicine
DX: N93.9 Abnormal uterine and vaginal bleeding, unspecified (principal); Q60.0 Renal agenesis, unilateral; R31.9 Hematuria, unspecified
CPT/HCPCS: 80048; 81001; 85025; 87086; 87088; 93005; 96361; 96374; 99284; J7030; A4216; J2405

== ENCOUNTER 2022-07-09 09:34 | Inpatient (IN) | payer MEDICAID, SELFPAY ==
[2022-07-09 09:34] VITALS: BP 123/76; PULSE 85; RESP 14; TEMP 36.4; O2SAT 100; BMI 29.2
[2022-07-09 10:12] VITALS: BP 123/75; PULSE 85; RESP 16; O2SAT 100
--- NOTE | 2022-07-09 10:19 | US_ITS ---
STUDY: ULTRASOUND - URINARY BLADDER REASON FOR EXAM: Female, 26 years old. Right flank pain -- right only TECHNIQUE: Ultrasound evaluation of the urinary bladder was performed with real-time and static waterman-scale imaging. COMPARISON: None. FINDINGS: There is no right UVJ calculus. There is a visualized right ureteral jet. There is no left UVJ calculus. The distended volume of the urinary bladder is 53 ml. Patient unable to void at this time. The bladder wall is within normal limits. The bladder wall measures 4.1. There is no demonstrated bladder wall mass lesion. There are no demonstrated bladder calculi. US/Post Void Residual Bladder IMPRESSION: Normal ultrasound of the urinary bladder. Electronically Signed: Scott Apodaca MD at 12:55 EDT ,
--- NOTE | 2022-07-09 10:20 | US_ITS ---
STUDY: ABDOMINAL ULTRASOUND - RIGHT UPPER QUADRANT REASON FOR VISIT: Female, 26 years old right upper quadrant pain. TECHNIQUE: Ultrasound evaluation of the right upper quadrant was performed with real-time and static waterman-scale imaging. TECHNICAL QUALITY: Adequate. COMPARISON: Comparison is made with prior study dated June 20, 2019. FINDINGS: Liver: The liver measures 13.2 cm. There is normal echogenicity of the liver. The bile ducts are within normal limits. There is hepatic color flow. The direction of portal flow is hepatopetal. There is no demonstrated mass lesion. Gallbladder: Normal distended gallbladder. The gallbladder wall measures 1.8 mm. There is a negative sonographic Mooney''s sign. There is no pericholecystic fluid. There are no gallstones. Common Bile Duct (C.B.D.): The common bile duct measures 2 mm. Pancreas: Normal size of the head, body and tail of the pancreas. There is increased echogenicity of the pancreas. There is no demonstrated pancreatic mass or cyst. Right Kidney: There is hypertrophy of the right kidney. The right kidney measures 14.1 cm x 5.4 cm x 5.2 cm. Normal renal cortex. The right cortex measures 1.7 cm. There is no demonstrated renal mass or cyst. There is no right hydronephrosis. Agenesis of the left kidney. US/Gallbladder IMPRESSION: Normal right upper quadrant ultrasound examination. Electronically Signed: Scott Apodaca MD at 12:54 EDT ,
--- NOTE | 2022-07-09 10:21 | EX.ED.DYSGE1 ---
HPI History of Present Illness Chief Complaint: Flank Pain Informant: patient Narrative Narrative: Patient is a 26-year-old female with history of renal agenesis with only a right kidney as well as recent pyelonephritis. Patient was admitted at [facility] a couple weeks ago for abscess infection around her right kidney. She actually went home with a PICC line and was on 2 weeks of Rocephin per the patient. She notes that she did have an overnight observation on the sixth of this month and was discharged on the seventh. Since then she is been feeling better and has been back to work. States over the past few days she has had worsening right flank pain. It is worse with movement and certain positions. It radiates from her right back around to her right groin. She does not have any history of kidney stones that she is aware of. She has chronic hematuria and follows with Dr. Jimenez at [place]. She denies any fevers but notes that she has been feeling hot lately. She has had urinary frequency but also reports that she is been drinking more water trying to flush herself. She states this feels different than when she had a kidney infection she is never had pain like this before. Is become more persistent and painful today which is what brought her to the emergency room. She had nausea with 2 episodes of vomiting this morning which she attributes to vomiting because of the pain. She denies any change of her symptoms with food. Denies any change in her bowel movements. Denies any associated dysuria. Denies any chest pain, cough or leg swelling. Denies any shortness of breath but states the pain is worse if she takes a deep breath. No other complaints at this time. No associated rash reported. [facility] Medical History (Updated 07/09/22 @ 14:[address] Jen Estevez, ) Abdominal hernia Abscess of right kidney Agenesis of left kidney Asthma Migraines Renal abscess, right Thyroid disease Home Medications topiramate 25 mg tablet 50 mg PO QHS 10/06/21 [History Last Taken Unknown] Allergy/AdvReac Type Severity Reaction Status Date / Time amoxicillin Allergy Rash Verified 07/09/22 13:28 ciprofloxacin [From Cipro] Allergy Hives Verified 07/09/22 09:37 ketorolac [From Toradol] AdvReac Other Verified 07/09/22 09:37 procaine [From Novocain] AdvReac Other Verified 07/09/22 09:37 Surgical History (Updated 07/09/22 @ 14:50 by Valarie Tipton) H/O partial thyroidectomy H/O: hysterectomy History of appendectomy Hx of hernia repair Social History Smoking Status: Never smoker substance use type: does not use ROS ROS ED Constitutional Constitutional ED: Denies chills or fever(s) Cardiovascular Cardiovascular: Denies chest pain or palpitations Respiratory/Chest Respiratory/Chest: Denies cough, dyspnea or dyspnea on exertion Gastrointestinal Gastrointestinal: Reports abdominal pain, nausea and vomiting; Denies diarrhea Genitourinary Genitourinary ED: Reports hematuria, urinary frequency and other Details: chronic hematuria- improved per patient ; Denies dysuria Musculoskeletal Musculoskeletal: Reports back pain; Denies arthralgias or myalgias Integumentary Denies rash Neurologic Neurologic: Denies headache(s) or weakness Psychiatric Psychiatric: Denies anxiety Hematologic/Lymphatic Hematologic/Lymphatic: Denies easy bleeding or easy bruising EXAM Physical Exam Const Vital Signs: 07/09/22 09:34 07/09/22 10:12 Temperature 97.6 F L Temperature Source Temporal Pulse Rate 85 85 Respiratory Rate 14 16 Blood Pressure 123/76 H 123/75 H Blood Pressure Mean 91 91 Pulse Ox 100 100 Oxygen Delivery Method Room Air Room Air Positive well nourished General Appearance ED: NAD HEENT Reports moist mucous membranes Eyes PERRL and EOMs intact bilaterally General Eye ED: Negative for scleral icterus Neck supple Chest Wall inspection of chest normal and palpation of chest normal Resp normal respiratory effort and clear to auscultation bilaterally Effort and Inspection: Negative for retractions Auscultation: Negative for diminished lung sounds Cardio regular rate, regular rhythm and no murmurs GI GI Narrative: No pain McBurney's point. Negative Mooney sign. Diffuse pain on the right flank area Auscultation: normoactive bowel sounds Palpation: soft and tender RUQ; Negative for guarding Back/Spine General Back: CVA tenderness right Thoracic Spine / Upper Back: Negative for paraspinal muscle tenderness Lumbar Spine / Lower Back: Negative for lumbar spinal tenderness Extremity normal to inspection General Extremety ED: Negative for edema General Extremity: Negative for edema Neuro oriented x3 Sensorium / Orientation: alert Motor Exam: Negative for general weakness Psych mental status grossly normal Skin no rashes or lesions noted and no wounds MDM MDM MDM Narrative Medical decision making narrative: Patient is a 26-year-old female with history of recurrent UTIs, gross hematuria, Jjsxe-Fsdqkbqwxq-Xycdon-[place] syndrome, single right kidney, anxiety/depression and recent hospitalizations for renal abscess versus Meckel's diverticulum. She is presenting for recurrent/worsening right flank pain. Patient states she had been doing better for couple weeks. Appears that patient was admitted 06/16 through 06/19 and was on IV Rocephin for 2 weeks via PICC line until 07/01. She was seen by infectious disease at [facility]. She had a repeat CT on 06/27 which showed no acute abdominal pelvic process with a stable tubular structure within the right paracolic gutter. On 06/[address] showed developing enhancing focus which could represent a small abscess. Patient has seen Dr. Bennett in the past and also follows with Dr. Jimenez. Her appointment with Dr. Jimenez is not for couple more weeks. I spoke with Dr. Bennett who did not feel that the patient need to be admitted to her service. States outpatient cystoscopy could be performed. I did speak with Dr. Coreas, on-call for Dr. Jimenez, as patient has been following with him. Dr. Coreas states that he does not think patient specifically needs to be sent up to the [facility] or [place] to be seen by his service and I can be treated with IV antibiotics at [facility]. Patient is agreeable would like to stay in [place]. Patient is given IV Rocephin as this was previously what infectious disease had prescribed. Patient's had multiple CTs of her abdomen and pelvis most recently 2 to 3 weeks ago which showed resolution of prior abscess. She does have a urinalysis concerning for UTI with positive nitrates, 25-50 white blood cells, 25-50 red blood cells and 1+ bacteria with 0-5 epithelial cells. Culture sent. She does have a leukocytosis of 12.1. Kidney function is baseline. Given that she only has 1 kidney with findings concerning for pyelonephritis I do think she benefit from admission for IV antibiotics especially given her medical history. Patient is agreeable. Case is discussed with admitting physician, Dr. Avalos. Patient has required 2 doses of IV morphine for pain control in the emergency room. She is not given NSAIDs due to her only having 1 kidney in an attempt to preserve her current renal function. Renal ultrasounds as well as right upper quadrant ultrasound and liver enzymes are largely normal. I do not think there is any signs of obstructive process for GI cause of her symptoms. She had multiple CTs of her abdomen pelvis and at a young age would like to defer further radiation if possible. History & Record Review Additional record(s) reviewed:: Prior inpatient record ([facility]- tx IV rocephin via PICC for right renal abscess versus intra-abdominal abscess finishing on 07/01/2022) Lab Data Attestation: I reviewed the patient's lab results. Labs: Laboratory Results - last 24 hr 07/09/22 07/09/22 07/09/22 10:38 11:05 11:05 WBC 12.1 H RBC 4.69 Hgb 14.0 Hct 42.4 MCV 90.4 MCH 29.9 MCHC 33.0 RDW Std Deviation 39.2 RDW Coeff of Teena 12.0 Plt Count 214 MPV 9.5 Immature Gran % (Auto) 0.400 Neut % (Auto) 74.7 H Lymph % (Auto) 17.0 L [place] % (Auto) 6.9 Eos % (Auto) 0.8 Baso % (Auto) 0.2 Absolute Neuts (auto) 9.0 H Absolute Lymphs (auto) 2.05 Nucleated RBC % 0 Sodium 138 Potassium 4.3 Chloride 109 H Carbon Dioxide 25.0 Anion Gap 4 L BUN 12 Creatinine 0.90 Estim Creat Clear Calc 82.51 Est GFR (MDRD) Af Amer 97 Est GFR (MDRD) Non-Af 80 BUN/Creatinine Ratio 13.3 Glucose 85 Calcium 9.5 Total Bilirubin 0.20 AST 16 ALT 28 Alkaline Phosphatase 80 Total Protein 7.6 Albumin 3.8 Globulin 3.8 Albumin/Globulin Ratio 1.0 Lipase 23 Urine Color Yellow Urine Clarity Sl. Cloudy Urine pH 6.0 Ur Specific [place] 1.010 Urine Protein 30 H Urine Glucose (UA) Normal Urine Ketones Negative Urine Occult Blood 250 H Urine Nitrite Positive H Urine Bilirubin Negative Urine Urobilinogen Normal Ur Leukocyte Esterase 500 H Urine RBC 25-50 SEEN Urine WBC 25-50 SEEN Ur Squamous Epith Cells 0-5 SEEN Urine Bacteria 1+ Urine Mucus 0 SEEN Radiography Diagnostic Testing: Clinical Impression(s) from Imaging Studies Abdomen/Bladder Ultrasound 07/09/22 10:19 IMPRESSION: Normal ultrasound of the urinary bladder. Electronically Signed: Scott Apodaca MD at 12:55 EDT , Gallbladder Ultrasound 07/09/22 10:20 IMPRESSION: Normal right upper quadrant ultrasound examination. Electronically Signed: Scott Apodaca MD at 12:54 EDT , Additional Tests and Interventions Diagnositc testing considered but not performed: CT abdomen pelvis?see MDM Medications considered but not ordered: Toradol- see MDM Discharge Plan Triage Chief Complaint: Flank Pain ED Provider: Jen Estevez Dx/Rx/DC Orders Clinical Impression: Acute pyelonephritis, History of gross hematuria, Renal agenesis Primary Care Provider: Becki Quintana Disposition Disposition: Acute Care [facility] Discharge Date/Time: 07/09/22 14:47
[2022-07-09 10:42] LABS: Mucous, Urine 0 SEEN /hpf (<or=2+)
[2022-07-09 10:44] LABS: Color, Urine Yellow (Yellow); Glucose, Dipstick Normal (Normal); Ketone-Dipstick Negative (Negative); Leukocyte Esterase-Dipstick 500 /ul (Negative); Nitrite-Dipstick Positive (Negative); Occult Blood-Urine 250 /ul (Negative); Protein-Dipstick 30 mg/dl (Negative); Urine Bilirubin Dipstick Negative (Negative); Urine Clarity Sl. Cloudy (Clear); Urine Urobilinogen Normal (Normal)
[2022-07-09 10:51] LABS: Bacteria 1+ /hpf (None Seen); Red Blood Cells-Urine 25-50 SEEN /hpf (0-5); Squamous Epithelial Cells - UA 0-5 SEEN /hpf (5-10); White Blood Cells 25-50 SEEN /hpf (0-5)
[2022-07-09] MEDS: 0.9% Normal Saline 1,000 ML 1000 ML IV (11:11)
[2022-07-09] MEDS: Morphine 4 MG/ML Syringe IV ×5 (11:12→23:09)
[2022-07-09] MEDS: Ondansetron 4 MG/2 ML Vial IV ×2 (11:12→18:50)
[2022-07-09 11:14] LABS: Absolute Lymphocyte Count 2.05 X10^3/uL (0.83-4.51); Basophil# 0.02 X10^3/uL; Basophil% 0.2 % (0-1); Eosinophils% 0.8 % (0-5); Hematocrit 42.4 % (37-47); Lymphocyte # 2.05 X10^3/ul (0.83-4.51); Mean Corpuscular Hgb 29.9 pg (27.0-32.0); Mean Corpuscular Volume 90.4 fL (81-99); Mean Platelet Vol. 9.5 fl (6.2-12.0); Monocyte# 0.83 X10^3/uL; Monocyte% 6.9 % (0-10); NRBC Flagged by Analyzer 0 % (0-5); Neutrophil # 9.01 X10^3/uL (2.7-7.7); Neutrophil % 74.7 % (47-70); Platelet Count 214 K/mm3 (150-450); RBC Distribution Width SD 39.2 fl (35.1-43.9); Red Blood Count 4.69 M/mm3 (4.2-5.4); White Blood Count 12.1 K/mm3 (4.4-11.0)
[2022-07-09 11:34] LABS: AST(SGOT) 16 U/L (15-37); Alanine Aminotransfer ALT/SGPT 28 U/L (13-56); Albumin, Serum 3.8 g/dL (3.2-5.0); Alkaline Phosphatase 80 U/L (45-117); Anion Gap 4 (5-15); BUN 12 mg/dL (7-18); BUN/Creat Ratio 13.3 RATIO (10-20); Calcium,Total 9.5 mg/dL (8.5-10.1); Chloride 109 mmol/L (98-107); EST Glomerular Filtration Rate 80 mL/min (>60); Est Glom Filt Rate - Afr Amer 97 mL/min (>60); Estimated Creatinine Clearance 82.51 ml/min; Globulin 3.8 g/dL (2.2-4.2); Glucose 85 mg/dL (74-106); Lipase 23 U/L (13-75); Potassium 4.3 mmol/L (3.5-5.1); Protein, Total 7.6 g/dL (6.4-8.2); Sodium Level 138 mmol/L (136-145)
--- NOTE | 2022-07-09 12:03 | ED.RN ---
PT RINGS OUT REQUESTING MORE PAIN MEDICATION. DR GILBERT
[2022-07-09] MEDS: Ceftriaxone 1 GM/50 ML BAG IV (13:39)
--- NOTE | 2022-07-09 13:46 | PCM.HP.STD ---
HPI - General General Date of Admission: 07/09/22 Date of Service: 07/09/22 Chief Complaint: right flank pain HPI Narrative MARIELLE ROMAN, is a 26 F with a PMH as outlined who presents via the ED on 07/09/2022 with a complaint of right flank pain. 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 She was seen at [facility] for pyelonephritis and was admitted at [facility]; she was discharged home on 2 weeks of IV ceftriaxone via a PICC line o/a of a renal abscess. She had the PICC line removed on 07/01/2022. She said she subsequently started having right flank pain. She denied any fever, chills, nausea or diarrhea. She did admit to vomiting x 2 this morning. Review of systems is otherwise negative. Vitals were BP of 123/75, ID of 85, RR of 16 and oxygen sats of 100% on room air. CBC showed wbc of 12.1 but was otherwise unremarkable. BMP was also unremarkable, and urinalysis showed positive nitrites and urine bacteria of 1+. Abdominal/gallbladder USG showed no evidence of stone in the urinary bladder no ureteral stones. She is being admitted to be managed for probable recurrent right pyelonephritis. [facility] Medical History (Updated 07/09/22 @ 14:[address] 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 Asthma Migraines Renal abscess, right Thyroid disease Home Medications topiramate 25 mg tablet 50 mg PO QHS PRN migraines 10/06/21 [History Last Taken Unknown] Allergy/AdvReac Type Severity Reaction Status Date / Time amoxicillin Allergy Rash Verified 07/09/22 13:28 ciprofloxacin [From Cipro] Allergy Hives Verified 07/09/22 09:37 ketorolac [From Toradol] AdvReac Other Verified 07/09/22 09:37 procaine [From Novocain] AdvReac Other Verified 07/09/22 09:37 Surgical History (Updated 07/09/22 @ 14:50 by Valarie Tipton) H/O partial thyroidectomy H/O: hysterectomy History of appendectomy Hx of hernia repair Social History Smoking Status: Never smoker substance use type: does not use ROS Constitutional Constitutional: Reports fever(s), malaise and weakness; Denies anorexia, chills or fatigue Eyes Eyes: Denies change in vision ENT HEENT: Denies dysphagia or headache(s) Respiratory/Chest Respiratory/Chest: Denies cough, dyspnea, shortness of breath at rest or shortness of breath with exertion Gastrointestinal Gastrointestinal: Reports abdominal pain, dyspepsia, nausea and vomiting; Denies constipation, diarrhea, hematemesis or melena Genitourinary Genitourinary: Denies burning urination, difficulty urinating, dysuria, hematuria, urinary urgency or other Musculoskeletal Musculoskeletal: Denies arthralgias or back pain Neurologic Neurologic: Denies confusion, dizziness, focal weakness, seizures or syncope Psychiatric Psychiatric: Denies anxiety Vital Signs Vital Signs Vital Signs: 07/09/22 09:34 07/09/22 10:12 Temperature 97.6 F L Temperature Source Temporal Pulse Rate 85 85 Respiratory Rate 14 16 Blood Pressure 123/76 H 123/75 H Blood Pressure Mean 91 91 Pulse Ox 100 100 Oxygen Delivery Method Room Air Room Air Weight Weight: 170 lb Body Mass Index (BMI) 29.2 Physical Exam Const alert, oriented x3 and no apparent distress General Appearance: cooperative HEENT normocephalic, head/scalp atraumatic, hearing grossly normal bilaterally and moist oral mucous membranes Mouth: oral and palatal mucosa normal Eyes EOMs intact bilaterally and conjunctivae normal Resp normal respiratory effort, no retractions, no use of accessory muscles and clear to auscultation bilaterally Cardio regular rate, regular rhythm, S1 normal heart sound, S2 normal heart sound and no murmurs GI normal to inspection, nondistended, normoactive bowel sounds, soft to palpation, non-tender and non-distended Extremity normal to inspection, full ROM and no clubbing, cyanosis or edema Neuro oriented x3, CN's II-XII intact bilaterally, moves all extremities and no focal motor deficits Sensorium / Orientation: awake and alert Motor Exam: strength 5/5 throughout Psych affect normal Results Lab / Micro Data Result Diagrams: 07/10/22 04:05 07/10/22 04:05 Labs: Laboratory Results - last 24 hr 07/09/22 10:38: Urine Color Yellow, Urine Clarity Sl. Cloudy, Urine pH 6.0, Ur Specific [place] 1.010, Urine Protein 30 H, Urine Glucose (UA) Normal, Urine Ketones Negative, Urine Occult Blood 250 H, Urine Nitrite Positive H, Urine Bilirubin Negative, Urine Urobilinogen Normal, Ur Leukocyte Esterase 500 H, Urine RBC 25-50 SEEN, Urine WBC 25-50 SEEN, Ur Squamous Epith Cells 0-5 SEEN, Urine Bacteria 1+, Urine Mucus 0 SEEN 07/09/22 11:05: WBC 12.1 H, RBC 4.69, Hgb 14.0, Hct 42.4, MCV 90.4, MCH 29.9, MCHC 33.0, RDW Std Deviation 39.2, RDW Coeff of Teena 12.0, Plt Count 214, MPV 9.5, Immature Gran % (Auto) 0.400, Neut % (Auto) 74.7 H, Lymph % (Auto) 17.0 L, [place] % (Auto) 6.9, Eos % (Auto) 0.8, Baso % (Auto) 0.2, Absolute Neuts (auto) 9.0 H, Absolute Lymphs (auto) 2.05, Nucleated RBC % 0 07/09/22 11:05: Sodium 138, Potassium 4.3, Chloride 109 H, Carbon Dioxide 25.0, Anion Gap 4 L, BUN 12, Creatinine 0.90, Estim Creat Clear Calc 82.51, Est GFR (MDRD) Af Amer 97, Est GFR (MDRD) Non-Af 80, BUN/Creatinine Ratio 13.3, Glucose 85, Calcium 9.5, Total Bilirubin 0.20, AST 16, ALT 28, Alkaline Phosphatase 80, Total Protein 7.6, Albumin 3.8, Globulin 3.8, Albumin/Globulin Ratio 1.0, Lipase 23 Radiology Impression Abdomen/Bladder Ultrasound 07/09/22 10:19 IMPRESSION: Normal ultrasound of the urinary bladder. Electronically Signed: Scott Apodaca MD at 12:55 EDT , Gallbladder Ultrasound 07/09/22 10:20 IMPRESSION: Normal right upper quadrant ultrasound examination. Electronically Signed: Scott Apodaca MD at 12:54 EDT , Assessment & Plan Assessment/Plan (1) UTI (urinary tract infection): PLAN: Plan #Recurrent UTI with concern for recurrent pyelonephritis admit to med surg urinalysis showed evidence of UTI. CT of the brain done on the 10th of this month was normal so ED did not do any other CT. Abdominal and bladder ultrasound showed normal kidney stones and no demonstrated bladder wall. Previous cultures have been sensitive to ceftriaxone. She was in fact recently treated with for 2 weeks with IV ceftriaxone on account of pyelonephritis with last dose being 07/01/2022. Started on IV ceftriaxone. Hydrate gently with IV fluids and trend. Get blood and urine cultures. #History of left renal agenesis: Patient only has right kidney. #History of Tovar Rokitansky [place] syndrome: Stable DVT prophylaxis: lovenox Charges/Coding Visit Charges Inpatient E&M: 56870 Init Hosp L3
[2022-07-09 14:00] VITALS: BP 106/68; PULSE 81; RESP 16; TEMP 36.7; O2SAT 97
[2022-07-09 14:43] VITALS: BP 122/76; PULSE 79; RESP 18; TEMP 36.2; O2SAT 100
--- NOTE | 2022-07-09 14:44 | ED.RN ---
floor order for bc received after iv rocephin upand running
[2022-07-09 14:45] VITALS: BMI 29.8
[2022-07-09] MEDS: 0.9% Normal Saline 1,000 ML 125 ML IV ×2 (15:44→23:15)
[2022-07-09] MEDS: 0.9% Saline Lock 10 ML Syringe IV (18:51)
[2022-07-09 20:16] VITALS: BP 101/69; PULSE 62; RESP 18; TEMP 36.7; O2SAT 100
[2022-07-10] MEDS: Morphine 4 MG/ML Syringe IV (03:03)
[2022-07-10] MEDS: 0.9% Saline Lock 10 ML Syringe IV ×3 (03:03→10:08)
[2022-07-10] MEDS: Ondansetron 4 MG/2 ML Vial IV ×2 (03:03→13:19)
[2022-07-10 04:00] VITALS: BP 102/58; PULSE 54; RESP 16; TEMP 36.6; O2SAT 100
[2022-07-10 05:31] LABS: Absolute Lymphocyte Count 2.16 X10^3/uL (0.83-4.51); Absolute Neutrophil Count 6.8 X10^3/uL (2.0-7.7); Basophil# 0.03 X10^3/uL; Basophil% 0.3 % (0-1); Eosinophil# 0.11 X10^3/uL; Eosinophils% 1.1 % (0-5); Hematocrit 41.7 % (37-47); Hemoglobin 13.8 g/dL (12.0-15.0); Lymphocyte # 2.16 X10^3/ul (0.83-4.51); Lymphocyte % 21.7 % (19-41); Mean Corp Hgb Conc 33.1 g/dL (32-36); Mean Corpuscular Hgb 30.3 pg (27.0-32.0); Mean Corpuscular Volume 91.4 fL (81-99); Monocyte# 0.82 X10^3/uL; Monocyte% 8.2 % (0-10); NRBC Flagged by Analyzer 0 % (0-5); Neutrophil # 6.82 X10^3/uL (2.7-7.7); Neutrophil % 68.4 % (47-70); Platelet Count 194 K/mm3 (150-450); RBC Distribution Width CV 12.1 % (11.6-14.6); RBC Distribution Width SD 40.8 fl (35.1-43.9); Red Blood Count 4.56 M/mm3 (4.2-5.4)
[2022-07-10] MEDS: Morphine 2 MG/ML Syringe IV ×6 (06:35→23:07)
[2022-07-10 06:44] LABS: Anion Gap 4 (5-15); BUN 12 mg/dL (7-18); BUN/Creat Ratio 15.5 RATIO (10-20); Calcium,Total 8.6 mg/dL (8.5-10.1); Chloride 112 mmol/L (98-107); Creatinine, Serum 0.77 mg/dL (0.55-1.02); EST Glomerular Filtration Rate 96 mL/min (>60); Est Glom Filt Rate - Afr Amer 116 mL/min (>60); Estimated Creatinine Clearance 96.45 ml/min; Glucose 81 mg/dL (74-106); Potassium 4.1 mmol/L (3.5-5.1); Sodium Level 139 mmol/L (136-145)
--- NOTE | 2022-07-10 07:27 | PCM.PN.HOSP ---
Reason for Visit Reason for Visit: Follow-up for right Objective Data Objective Data Vital Signs: Vital Signs Temp Pulse Resp BP Pulse Ox O2 Del Method 97.8 F 54 L 16 102/58 L 100 Room Air 07/10/22 04:00 07/10/22 04:00 07/10/22 04:00 07/10/22 04:00 07/10/22 04:00 07/10/22 04:00 Oxygen Delivery Method Room Air Weight: 174 lb Body Mass Index (BMI) 29.8 Intake & Output: Intake and Output for Last 24 Hours 07/08/22 07/09/22 07/10/22 23:59 23:59 23:59 Intake Total 935.42 / 935.42 Balance 935.42 / 935.42 Lab / Micro Data Result Diagrams: 07/10/22 04:05 07/10/22 04:05 Labs: Laboratory Results - last 24 hr 07/09/22 10:38: Urine Color Yellow, Urine Clarity Sl. Cloudy, Urine pH 6.0, Ur Specific [place] 1.010, Urine Protein 30 H, Urine Glucose (UA) Normal, Urine Ketones Negative, Urine Occult Blood 250 H, Urine Nitrite Positive H, Urine Bilirubin Negative, Urine Urobilinogen Normal, Ur Leukocyte Esterase 500 H, Urine RBC 25-50 SEEN, Urine WBC 25-50 SEEN, Ur Squamous Epith Cells 0-5 SEEN, Urine Bacteria 1+, Urine Mucus 0 SEEN 07/09/22 11:05: WBC 12.1 H, RBC 4.69, Hgb 14.0, Hct 42.4, MCV 90.4, MCH 29.9, MCHC 33.0, RDW Std Deviation 39.2, RDW Coeff of Teena 12.0, Plt Count 214, MPV 9.5, Immature Gran % (Auto) 0.400, Neut % (Auto) 74.7 H, Lymph % (Auto) 17.0 L, [place] % (Auto) 6.9, Eos % (Auto) 0.8, Baso % (Auto) 0.2, Absolute Neuts (auto) 9.0 H, Absolute Lymphs (auto) 2.05, Nucleated RBC % 0 07/09/22 11:05: Sodium 138, Potassium 4.3, Chloride 109 H, Carbon Dioxide 25.0, Anion Gap 4 L, BUN 12, Creatinine 0.90, Estim Creat Clear Calc 82.51, Est GFR (MDRD) Af Amer 97, Est GFR (MDRD) Non-Af 80, BUN/Creatinine Ratio 13.3, Glucose 85, Calcium 9.5, Total Bilirubin 0.20, AST 16, ALT 28, Alkaline Phosphatase 80, Total Protein 7.6, Albumin 3.8, Globulin 3.8, Albumin/Globulin Ratio 1.0, Lipase 23 07/10/22 04:05: WBC 10.0, RBC 4.56, Hgb 13.8, Hct 41.7, MCV 91.4, MCH 30.3, MCHC 33.1, RDW Std Deviation 40.8, RDW Coeff of Teena 12.1, Plt Count 194, MPV 10.0, Immature Gran % (Auto) 0.300, Neut % (Auto) 68.4, Lymph % (Auto) 21.7, [place] % (Auto) 8.2, Eos % (Auto) 1.1, Baso % (Auto) 0.3, Absolute Neuts (auto) 6.8, Absolute Lymphs (auto) 2.16, Nucleated RBC % 0 07/10/22 04:05: Sodium 139, Potassium 4.1, Chloride 112 H, Carbon Dioxide 23.0, Anion Gap 4 L, BUN 12, Creatinine 0.77, Estim Creat Clear Calc 96.45, Est GFR (MDRD) Af Amer 116, Est GFR (MDRD) Non-Af 96, BUN/Creatinine Ratio 15.5, Glucose 81, Calcium 8.6 Radiography Diagnostic Testing: Radiology Impression Abdomen/Bladder Ultrasound 07/09/22 10:19 IMPRESSION: Normal ultrasound of the urinary bladder. Electronically Signed: Scott Apodaca MD at 12:55 EDT , Gallbladder Ultrasound 07/09/22 10:20 IMPRESSION: Normal right upper quadrant ultrasound examination. Electronically Signed: Scott Apodaca MD at 12:54 EDT , Physical Exam Narrative Seen and examined. She states subjectively feeling hot but no fever here. No fever here. No nausea or vomiting she is born with only right kidney with left kidney agenesis Physical exam: General: Alert, Oriented x3, Cooperative HEENT: Atraumatic, PERRLA, EOMI, Normocephalic Oral: No Gingival or Mucosal Lesions/ Ulcerations Neck: Supple, No JVD, Negative Carotid Bruits Lungs: Air entry diminished in bilateral lung bases. No crepitation/rhonchi Cardiovascular: Regular rate, Regular Rhythm, Normal S1, Normal S2, No murmurs Abdomen: Bowel Sounds Present, Soft, Non-Distended. No tenderness on left side. : Tenderness over right flank, lumbar area/renal angle. No suprapubic tenderness. Extremities: No edema, Capillary Refill Less than 3 Seconds Skin: No rashes, No breakdown Musculoskeletal: No Tenderness to Palpation of Joints or Extremities Neurological: Cranial nerves II-XII grossly intact, DTR 2+/4 and Symmetrical, Neuro grossly intact Psych/Mental Status: Assessment & Plan Assessment/Plan (1) UTI (urinary tract infection): PLAN: Plan D6-year-old female admitted with right flank pain. She also had vomiting x2. 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 Recently she was admitted in [facility] for pyelonephritis and was discharged on 2 weeks of IV ceftriaxone via PICC line for renal abscess. PICC line removed on 07/01/2022. #Recurrent UTI with concern for recurrent pyelonephritis admit to med surg urinalysis showed evidence of UTI. CT of the abdomen/pelvis on 03/30/2021 was reported normal here and also H&P, CT on of this month was normal so ED did not do any other CT. Abdominal and bladder ultrasound showed normal kidney stones and no demonstrated bladder wall. Right upper quadrant sonogram shows right kidney hypertrophy as seen reported in CT. Right kidney measures 14.1 x 5.4 x 5.2 cm with normal renal cortex, 1.7 cm no dominant renal mass or cyst. No right hydronephrosis. With ultrasound it seems patient does not have pyelonephritis. Previous urine culture on 06/10/2022 reported mixed gram-positive organism. Outside it was sensitive to ceftriaxone. She was in fact recently treated with for 2 weeks with IV ceftriaxone on account of pyelonephritis with last dose being 07/01/2022. IV ceftriaxone. Hydrate gently with IV fluids and trend. Blood and urine culture pending. She also stated that her urologist Dr. Jimenez suggested kidney biopsy but [facility] were not doing it because of high risk of single kidney therefore was referred to [facility]. Patient stated that ED doctor has consulted Dr. Bennett but there is no official consult in the chart. I called Dr. Bennett and discussed the ultrasound. RUQ ultrasound reported normal about kidney therefore she stated she does not have to do anything no intervention indicated now. Even if she needs intervention or procedure in the future she should go to her own urologist in [place] or [facility]. It seems she visits multiple hospitals and multiple doctors and there is an element of nondetailed/noncompliance. Therefore I do not consult Dr. Bennett and we agreed on that #History of left renal agenesis: Patient only has right kidney. #History of Tovar Rokitansky [place] syndrome: She has agenesis of uterus. Unclear about her ovaries functioning. Primary amenorrhea. DVT prophylaxis: Moderate-risk, on enoxaparin 40 mg subcu daily. Total time of the visit including total time spent in counseling or coordination of care, (more than 50% of the total time, spent in obtaining medical information from nurses and other ancillary care providers,explaining to the patient about labs, imaging, diagnosis and management of active complex medical conditions), discussion with Dr. Bennett, review of labs and imaging and past medical history is 40 minutes. Clinical Impression(s) from Imaging Studies Abdomen/Bladder Ultrasound 07/09/22 10:19 IMPRESSION: Normal ultrasound of the urinary bladder. Electronically Signed: Scott Apodaca MD at 12:55 EDT , Gallbladder Ultrasound 07/09/22 10:20 IMPRESSION: Normal right upper quadrant ultrasound examination. Electronically Signed: Scott Apodaca MD at 12:54 EDT , Charges/Coding Visit Charges Inpatient E&M: 51513 Subs Hosp L3
[2022-07-10 09:00] VITALS: BP 99/58; PULSE 66; RESP 18; TEMP 36.9; O2SAT 99
[2022-07-10] MEDS: Ceftriaxone 1 GM/50 ML BAG IV (09:07)
[2022-07-10] MEDS: Metoclopramide 10 MG/2 ML Vial 5 MG IV ×3 (10:08→23:07)
[2022-07-10 13:11] VITALS: BP 94/58; PULSE 55; RESP 16; TEMP 36.9; O2SAT 97
--- NOTE | 2022-07-10 13:55 | CASEMGMT ---
RN?CM?BRASS CLEANER?CM?to room to meet with patient for initial transition planning/care coordination?assessment.?RN?CM?introduced self and role at [facility].? Pt voices understanding and consents to?assessment?at this time.? Pt resting in bed in no distress at this time.? Pt is A/O at this time and answers all questions appropriately.?? Care providers, pharmacy, and demographics verified/updated at this time. PCP: Becki Quintana Specialists:Dr Jimenez-urologist [place]. Pt also to f/u with ID in [place] and has an upcoming appt, but does not remember his name. Preferred [facility]acy: [facility] Insurance: [employer] Prescription Benefit:?yes Living Will/HPOA:?Pt does not currently have LW/HCPOA LNOK: Elena MABRY Living Arrangements: lives w/boyfriend in one-story home w/one step to enter. Independent. Transportation:?Pt states drives self and states no transportation concerns at this time.?BF also drives. DME: ? Denies using any DME and denies needs.? HHC/SNF:No hx of SNF. Just recently had [facility] for IV atb's--was d/c'd 07/01. Pt states, if IV atb's needed again, she would want [facility] again. Pt wishes to return home and states has no concerns with going home at time of discharge.??CM?to follow for any discharge planning/needs.?Pt inquired if a urologist is going to be seeing her today. RN CM reviewed Dr Shin's notes re: his discussion w/Dr Bennett and that she states no intervention needed at this time, so consult has not been made at this time,and pt made aware of same. Pt voices no concerns/needs at this time.? Advised pt to ask for?CM?if any questions/concerns/needs arise.? Voices understanding. PLAN:??Home. Saul GRACIAN?RN?CM
[2022-07-10 16:34] VITALS: BP 108/75; PULSE 60; RESP 16; TEMP 36.8; O2SAT 96
[2022-07-10 20:01] VITALS: BP 101/62; PULSE 64; RESP 16; TEMP 36.7; O2SAT 98
[2022-07-11 02:35] VITALS: BP 101/51; PULSE 59; RESP 16; TEMP 36.8; O2SAT 99
[2022-07-11] MEDS: Morphine 2 MG/ML Syringe IV ×3 (02:37→10:15)
[2022-07-11] MEDS: Ondansetron 4 MG/2 ML Vial IV (02:37)
[2022-07-11] MEDS: Metoclopramide 10 MG/2 ML Vial 5 MG IV (06:57)
[2022-07-11 08:12] VITALS: BP 110/62; PULSE 52; RESP 16; TEMP 36.8; O2SAT 95
[2022-07-11] MEDS: Ceftriaxone 1 GM/50 ML BAG IV (09:31)
--- NOTE | 2022-07-11 10:00 | DCINST_ITS ---
Discharge Instructions Diet Discharge Diet: No restrictions Activity Discharge Activity: Return to Normal Activity Weight Bearing Status: Weight bearing as tolerated Dressing / Incision Call your doctor if you observe: Fever of 101 or Higher, Coldness, Increased Pain, Numbness or Tingling, Change in Color, Inability to urinate, Inability to have a bowel movement, Shortness of breath, Dizziness, Fainting spells, Swelling in the ankles, Chest pain, Prolonged hiccupping, Increased palpitations (irregular heartbeat) and Calf discomfort Follow Up Care When: IN 2 WEEKS Test Results: Test results from this visit will be discussed in further detail at your follow- up appointment, if applicable. Discharge Plan Admission Admit Date/Time: 07/09/22 13:59 Primary Reason for Your Visit: Acute on recurrent UTI Attending Provider: Drew Shin Primary Care Provider: Becki Quintana Consulting Providers: Maura Avalos Instructions Additional Instructions / Restrictions: Follow-up own urologist Dr. Jimenez, she has appointment on August 10. Discharge Orders/Prescriptions Prescriptions: New cefdinir 300 mg capsule 300 mg PO BID 5 Days Qty: 10 0RF Continued topiramate 25 mg tablet 50 mg PO QHS PRN (Reason: migraines) Referrals / Follow Up: Becki Quintana [Other] - Within 1 Week Becki Quintana [Other] Disposition Disposition (needs filled in before D/C Order can be placed): Home, Self Care
--- NOTE | 2022-07-11 10:31 | PCM.DC.SUM ---
Providers Date of Admission: 07/09/22 Date of Discharge: 07/11/22 Primary Care Physician: Becki Quintana Reason For Visit: RECURRENT UTI Diagnosis Discharge Diagnosis (1) UTI (urinary tract infection): Status: Acute Code(s): N39.0 - Urinary tract infection, site not specified Plan D6-year-old female admitted with right flank pain. She also had vomiting x2. 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 Recently she was admitted in [facility] for pyelonephritis and was discharged on 2 weeks of IV ceftriaxone via PICC line for renal abscess. PICC line removed on 07/01/2022. #Recurrent UTI with concern for recurrent pyelonephritis admit to med surg urinalysis showed evidence of UTI. CT of the abdomen/pelvis on 03/30/2021 was reported normal here and also H&P, CT on of this month was normal so ED did not do any other CT. Abdominal and bladder ultrasound showed normal kidney stones and no demonstrated bladder wall. Right upper quadrant sonogram shows right kidney hypertrophy as seen reported in CT. Right kidney measures 14.1 x 5.4 x 5.2 cm with normal renal cortex, 1.7 cm no dominant renal mass or cyst. No right hydronephrosis. With ultrasound it seems patient does not have pyelonephritis. Previous urine culture on 06/10/2022 reported mixed gram-positive organism. Outside it was sensitive to ceftriaxone. She was in fact recently treated with for 2 weeks with IV ceftriaxone on account of pyelonephritis with last dose being 07/01/2022. IV ceftriaxone. Hydrate gently with IV fluids and trend. Blood and urine culture pending. She also stated that her urologist Dr. Jimenez suggested kidney biopsy but [facility] [place] [place] not doing it because of high risk of single kidney therefore was referred to [facility]. Patient stated that ED doctor has consulted Dr. Bennett but there is no official consult in the chart. I called Dr. Bennett and discussed the ultrasound. RUQ ultrasound reported normal about kidney therefore she stated she does not have to do anything no intervention indicated now. Even if she needs intervention or procedure in the future she should go to her own urologist in [place] [facility] [place]. It seems she visits multiple hospitals and multiple doctors and there is an element of nondetailed/noncompliance. Therefore I do not consult Dr. Bennett and we agreed on that 07/11: Patient was seen by urologist Dr. Bennett she had a small blood mixed urine in urinal. Discussed with urologist and amount of fluid is not significant to cause anemia. Her hemoglobin is 13.8 g. Patient still complain of pain right flank 09/30 but as mentioned above her imaging did not show acute cause for pain. Urine culture shows mixed gram-positive organism 50,000-80,000 colonies mixed contaminants. Urologist and I agreed to discharge her on 5 more days of cefdinir. This was discussed with the patient and she is agreeable for the same. She has appointment with urologist Dr. Coleman on August 18. #History of left renal agenesis: Patient only has right kidney. #History of Tovar Rokitansky [place] syndrome: She has agenesis of uterus. Unclear about her ovaries functioning. Primary amenorrhea. DVT prophylaxis: Moderate-risk, on enoxaparin 40 mg subcu daily. Discharge medication reconciliation done. Discharge follow-up instructions completed. Discharge process discussed with the patient and all questions were answered to patient's satisfaction. Total time spent, exact 35 minutes on discharge meds reconciliation, examination, coordination of care with nurses and ancillary staff, review of imaging and blood test and discussion with the patient on follow-up instructions. Clinical Impression(s) from Imaging Studies Abdomen/Bladder Ultrasound 07/09/22 10:19 IMPRESSION: Normal ultrasound of the urinary bladder. Electronically Signed: Scott Apodaca MD at 12:55 EDT , Gallbladder Ultrasound 07/09/22 10:20 IMPRESSION: Normal right upper quadrant ultrasound examination. Electronically Signed: Scott Apodaca MD at 12:54 EDT , Medications at Discharge Home Medications topiramate 25 mg tablet 50 mg PO QHS PRN migraines 10/06/21 cefdinir 300 mg capsule 300 mg PO BID 5 days #10 caps 07/11/22 Physical Exam Narrative Seen and examined. No fever. She showed me a small urine which is bloody in urinal. No nausea or vomiting she is born with only right kidney with left kidney agenesis Physical exam: General: Alert, Oriented x3, Cooperative HEENT: Atraumatic, PERRLA, EOMI, Normocephalic Oral: No Gingival or Mucosal Lesions/ Ulcerations Neck: Supple, No JVD, Negative Carotid Bruits Lungs: Air entry diminished in bilateral lung bases. No crepitation/rhonchi Cardiovascular: Regular rate, Regular Rhythm, Normal S1, Normal S2, No murmurs Abdomen: Bowel Sounds Present, Soft, Non-Distended. No tenderness on left side. : Soft. Possible mild muscle tenderness in right flank. No suprapubic tenderness. Extremities: No edema, Capillary Refill Less than 3 Seconds Skin: No rashes, No breakdown Musculoskeletal: No Tenderness to Palpation of Joints or Extremities Neurological: Cranial nerves II-XII grossly intact, DTR 2+/4 and Symmetrical, Neuro grossly intact Psych/Mental Status: Flat affect. Weight / BMI Weight Weight: 174 lb Body Mass Index (BMI) 29.8 ABG / Lab / Microbiology Data Result Diagrams: 07/10/22 04:05 07/10/22 04:05 Microbiology: Microbiology 07/09/22 10:38 Urine, Clean Catch Urine Culture - Final Mixed Gram Positive Organisms D/C Instructions Discharge Diet: No restrictions Weight Bearing Status: Weight bearing as tolerated Call your doctor if you observe: Fever of 101 or Higher, Coldness, Increased Pain, Numbness or Tingling, Change in Color, Inability to urinate, Inability to have a bowel movement, Shortness of breath, Dizziness, Fainting spells, Swelling in the ankles, Chest pain, Prolonged hiccupping, Increased palpitations (irregular heartbeat) and Calf discomfort When: IN 2 WEEKS Meaningful Use Info Meaningful Use Diagnoses (Choose all that apply): None applicable Discharge Plan Admission Admit Date/Time: 07/09/22 13:59 Primary Reason for Your Visit: Acute on recurrent UTI Attending Provider: Drew Shin Primary Care Provider: Becki Quintana Consulting Providers: Maura Avalos Instructions Additional Instructions / Restrictions: Follow-up own urologist Dr. Jimenez, she has appointment on August 10. Discharge Orders/Prescriptions Prescriptions: New cefdinir 300 mg capsule 300 mg PO BID 5 Days Qty: 10 0RF Continued topiramate 25 mg tablet 50 mg PO QHS PRN (Reason: migraines) Referrals / Follow Up: Becki Quintana [Other] - Within 1 Week Becki Quintana [Other] Disposition Disposition (needs filled in before D/C Order can be placed): Home, Self Care Charges/Coding Visit Charges Inpatient E&M: 34493 Disch Hosp >30min
--- NOTE | 2022-07-11 10:40 | PCM.HP.STD ---
HPI - General General Date of Admission: 07/09/22 Chief Complaint: right flank pain HPI Narrative MARIELLE ROMAN, is a 26 F who presented to the emergency room with complaints of right flank pain and possible recurrent right pyelonephritis. She has a chronic history of recurrent urinary tract infections and is being seen by Dr. Coleman from a urologic standpoint. She was admitted for intravenous antibiotics and supportive care. Since her admission her white count has normalized, her creatinine has decreased and is well below 1. She was admitted a few weeks ago in [place] for a right renal abscess. She reports that she is having continued pain that is different and worse than when she was admitted with the abscess. She reports that anytime she moves she has nausea and pain in her right upper quadrant. She denies lower urinary tract symptoms aside from gross hematuria. There is no urgency, frequency, dysuria, sensation of incomplete emptying. She recently, according to her, had a cystoscopy performed in [place] for similar findings and they did not find anything pathologic at that time. I have seen her before 2016 when I worked with [facility]. Apparently I performed a cystoscopy on her at that time as well which was normal. She has had multiple imaging and during this admission even had a right upper quadrant ultrasound without significant findings other than renal hypertrophy which is consistent with solitary right functioning kidney. [facility] Medical History (Updated 07/11/22 @ 10:[address] 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 Asthma Migraines Renal abscess, right Thyroid disease Home Medications topiramate 25 mg tablet 50 mg PO QHS PRN migraines 10/06/21 [History Last Taken Unknown] cefdinir 300 mg capsule 300 mg PO BID 5 days #10 caps 07/11/22 [Rx Last Taken Unknown] Allergy/AdvReac Type Severity Reaction Status Date / Time amoxicillin Allergy Rash Verified 07/09/22 13:28 ciprofloxacin [From Cipro] Allergy Hives Verified 07/09/22 09:37 ketorolac [From Toradol] AdvReac Other Verified 07/09/22 09:37 procaine [From Novocain] AdvReac Other Verified 07/09/22 09:37 Surgical History (Updated 07/09/22 @ 14:50 by Valarie Tipton) H/O partial thyroidectomy H/O: hysterectomy History of appendectomy Hx of hernia repair Social History Smoking Status: Never smoker substance use type: does not use ROS Constitutional Constitutional: Reports systems reviewed and no addt'l complaints, except as documented; Denies chills or fever(s) Eyes Eyes: Reports systems reviewed and no addt'l complaints, except as documented ENT HEENT: Reports systems reviewed and no addt'l complaints, except as documented Cardiovascular Cardiovascular: Reports systems reviewed and no addt'l complaints, except as documented and nausea; Denies chest pain, dyspnea or vomiting Respiratory/Chest Respiratory/Chest: Reports systems reviewed and no addt'l complaints, except as documented Gastrointestinal Gastrointestinal: Reports abdominal pain and nausea; Denies vomiting Genitourinary Genitourinary: Reports abdominal discomfort, flank pain and hematuria; Denies difficulty urinating, dysuria, urinary frequency, urinary hesitancy, urinary incontinence or urinary urgency Musculoskeletal Musculoskeletal: Reports systems reviewed and no addt'l complaints, except as documented Integumentary Integumentary: Reports systems reviewed and no addt'l complaints, except as documented Neurologic Neurologic: Reports systems reviewed and no addt'l complaints, except as documented Psychiatric Psychiatric: Reports systems reviewed and no addt'l complaints, except as documented Endocrine Endocrinology: Reports systems reviewed and no addt'l complaints, except as documented Hematologic/Lymphatic Hematologic/Lymphatic: Reports systems reviewed and no addt'l complaints, except as documented Allergic/Immunologic Allergic/Immunologic: Reports systems reviewed and no addt'l complaints, except as documented Vital Signs Vital Signs Vital Signs: 07/10/22 13:11 07/10/22 16:34 07/10/22 20:01 Temperature 98.4 F 98.3 F 98.1 F Temperature Source Oral Oral Oral Pulse Rate 55 L 60 64 Respiratory Rate 16 16 16 Blood Pressure 94/58 L 108/75 101/62 Blood Pressure Mean 70 86 75 Blood Pressure Source Monitor Monitor Blood Pressure Position Semi-Fowlers Semi-Fowlers Blood Pressure Location Right Arm Right Arm Pulse Ox 97 96 98 Oxygen Delivery Method Room Air Room Air Room Air 07/11/22 02:35 07/11/22 08:12 Temperature 98.3 F 98.2 F Temperature Source Oral Oral Pulse Rate 59 L 52 L Respiratory Rate 16 16 Blood Pressure 101/51 L 110/62 Blood Pressure Mean 67 78 Blood Pressure Source Monitor Blood Pressure Position Semi-Fowlers Blood Pressure Location Right Arm Pulse Ox 99 95 Oxygen Delivery Method Room Air Room Air Weight Weight: 78.925 kg Body Mass Index (BMI) 29.8 Physical Exam Const alert, oriented x3 and no apparent distress General Appearance: cooperative, comfortable and well kempt HEENT normocephalic and head/scalp atraumatic Lymph Lymphatic: no lymphedema noted Chest inspection of chest normal Resp normal respiratory effort, normal air movement, no retractions and no use of accessory muscles Effort and Inspection: able to speak in complete sentences Cardio regular rate GI soft to palpation and non-distended Palpation: tender RUQ Narrative: Urine is blood-tinged in the hat Bladder / Kidney Exam: CVA tenderness right Skin no rashes or lesions noted, skin turgor normal, no jaundice, no petechiae and no mottling Neuro oriented x3, CN's II-XII intact bilaterally and moves all extremities Psych mental status grossly normal, cooperative, affect normal and speech normal Results Lab / Micro Data Result Diagrams: 07/10/22 04:05 07/10/22 04:05 Micro: Microbiology 07/09/22 10:38 Urine, Clean Catch Urine Culture - Final Mixed Gram Positive Organisms Assessment & Plan Assessment/Plan (1) UTI (urinary tract infection): (2) Renal agenesis: (3) Gross hematuria: (4) Abdominal pain: PLAN: Plan The patient clearly does have 1 functioning kidney. However she has a history of seeing multiple physicians for this issue. Her imaging and blood work is not concerning at this point during this admission today. She does have some mild hematuria today, only blood-tinged. I feel she is clinically stable for discharge on oral antibiotics at this time. She will follow-up with Dr. Coleman later in July. Recommendations for timed voiding every 2 hours during the day, vitamin C 500 mg daily, d-mannose 2 g daily, probiotics once daily at least 3 hours apart from antibiotic administration.
--- NOTE | 2022-07-11 10:58 | DCINST_ITS ---
Discharge Instructions Diet Discharge Diet: No restrictions Activity Weight Bearing Status: Weight bearing as tolerated Dressing / Incision Call your doctor if you observe: Fever of 101 or Higher, Coldness, Increased Pain, Numbness or Tingling, Change in Color, Inability to urinate, Inability to have a bowel movement, Shortness of breath, Dizziness, Fainting spells, Swelling in the ankles, Chest pain, Prolonged hiccupping, Increased palpitations (irregular heartbeat) and Calf discomfort Follow Up Care Test Results: Test results from this visit will be discussed in further detail at your follow- up appointment, if applicable. Discharge Plan Admission Admit Date/Time: 07/09/22 13:59 Primary Reason for Your Visit: Acute on recurrent UTI Attending Provider: Drew Shin Primary Care Provider: Becki Quintana Consulting Providers: Maura Avalos Instructions Additional Instructions / Restrictions: Follow-up own urologist Dr. Coleman, she has appointment on August 10. D-mannose 2 g daily Vitamin C 500 mg daily Probiotics once daily, at least 3 hours apart from taking the antibiotics Timed voiding every 2 hours during the day Aggressive management of any constipation Discharge Orders/Prescriptions Prescriptions: New cefdinir 300 mg capsule 300 mg PO BID 5 Days Qty: 10 0RF Continued topiramate 25 mg tablet 50 mg PO QHS PRN (Reason: migraines) Referrals / Follow Up: Becki Quintana [Other] - Within 1 Week Becki Quintana [Other] Disposition Disposition (needs filled in before D/C Order can be placed): Home, Self Care
[2022-07-11 11:15] VITALS: BP 97/62; PULSE 67; RESP 16; TEMP 37.1; O2SAT 99
== END 2022-07-11 11:30 | disposition home or self-care (01) | DRG 463 ==
LOC: ED 10:17 → MS3 14:40
PROVIDERS: Admitting Provider Student in an Organized Health Care Education/Training Program; Emergency Provider Emergency Medicine; Visit Provider Internal Medicine
DX: N10 Acute pyelonephritis (principal); Q60.0 Renal agenesis, unilateral; F41.9 Anxiety disorder, unspecified; E07.9 Disorder of thyroid, unspecified; R11.2 Nausea with vomiting, unspecified; R31.9 Hematuria, unspecified; N91.0 Primary amenorrhea; Z91.199 Patient's noncompliance with other medical treatment and regimen due to unspecified reason
CPT/HCPCS: 36415; 51798; 76705; 80048; 80053; 81001; 83690; 85025; 87040; 87086; 99285; J7030; A4216; J2405

== ENCOUNTER 2023-04-30 22:31 | Emergency (ER) | payer SELFPAY ==
[2023-04-30 22:32] VITALS: BP 122/83; PULSE 78; RESP 18; TEMP 36.3; O2SAT 98; BMI 31.6
--- NOTE | 2023-04-30 22:53 | EDS_ITS ---
HPI HPI - Female History of Present Illness Chief Complaint: Complaint PFSH PFSH Medical History (Updated 04/30/23 @ 23:[address] Jose Colon, DO) Abdominal hernia Abscess of right kidney Agenesis of left kidney Asthma History of gross hematuria Migraines Renal abscess, right Renal agenesis Thyroid disease UTI (urinary tract infection) Home Medications topiramate 25 mg tablet 50 mg PO QHS PRN migraines 10/06/21 [History Last Taken Unknown] cefdinir 300 mg capsule 300 mg PO BID 5 days #10 caps 07/11/22 [Rx Last Taken Unknown] cefdinir 300 mg capsule 300 mg PO BID #14 caps 04/30/23 [Rx Last Taken Unknown] ondansetron 4 mg disintegrating tablet 4 mg PO Q8H PRN PRN Nausea #10 tabs 04/30/23 [Rx Last Taken Unknown] Allergy/AdvReac Type Severity Reaction Status Date / Time amoxicillin Allergy Rash Verified 04/30/23 22:32 ciprofloxacin [From Cipro] Allergy Hives Verified 04/30/23 22:32 ketorolac [From Toradol] AdvReac Other Verified 04/30/23 22:32 procaine [From Novocain] AdvReac Other Verified 04/30/23 22:32 Surgical History H/O partial thyroidectomy H/O: hysterectomy History of appendectomy Hx of hernia repair Social History Smoking Status: Never smoker substance use type: does not use EXAM Physical Exam Const Vital Signs: 04/30/23 22:32 Temperature 97.4 F L Temperature Source Temporal Pulse Rate 78 Respiratory Rate 18 Blood Pressure 122/83 H Blood Pressure Mean 96 Pulse Ox 98 Oxygen Delivery Method Room Air MDM MDM MDM Narrative Medical decision making narrative: HISTORY OF PRESENT ILLNESS: 27-year-old female presents with lower abdominal pain, hematuria, pain with urination and right flank pain in the setting of prior history of pyelonephritis and frequent UTIs. She denies any fever, vomiting. She does note mild nausea. Denies any trauma to her abdomen. Denies any vaginal complaints, changes in bowel habits. REVIEW OF SYSTEMS: Pertinent positives: Hematuria, abdominal pain, nausea Pertinent negatives: Fever, vomiting, vaginal bleeding, vaginal discharge, constipation, diarrhea PHYSICAL EXAM: Nursing triage notes reviewed, Vital signs reviewed Constitutional: please see [facility] HENT: MMM Eyes: Pupils equal round and reactive to light, Extraocular muscles intact Neck: No stridor, no JVD, full neck ROM Lungs: Clear to auscultation, No wheezing or rales. No increased work of breathing, no conversational dyspnea, no accessory muscle use, no nasal flaring. No respiratory distress noted Heart: Regular rate and rhythm, No murmurs, No rubs and No gallops, 2+ distal pulses (radial, femoral, posterior tibial) in all extremities Abdomen: Soft, lower abdominal tenderness noted but no rigidity, rebound or guarding, no obvious peritoneal signs, no palpable pulsatile abdominal masses, no auscultated abdominal bruit : N right CVA tenderness noted Extremities: No edema Neuro: No focal neurological deficits, cranial nerves II through XII intact, 5/5 strength in all extremities. Intact sensation to light touch in all extremities, 2+ reflexes bilateral patella tendons. Normal gait. No ataxia. Skin: No rash or lesions noted MEDICAL DECISION MAKING: Chief Complaint: Abdominal pain External records reviewed: Last ED visit 07/09/2022 for flank pain. Was admitted for acute pyelonephritis at that time. Factors affecting care: Renal agenesis, pyelonephritis, asthma Social determinants of health: none History obtained from others: The patient's significant other Consults: none [facility] Narrative: Patient was initially afebrile, hemodynamically stable, exam with right CVA tenderness. I considered the following differential diagnosis: Pyelonephritis, nephrolithiasis, UTI, ALL IMAGES (IF OBTAINED) HAVE BEEN PERSONALLY REVIEWED AND INTERPRETED BY MYSELF. Urinalysis consistent with UTI likely pyelonephritis given flank pain. I did send for urine culture and gave 1 dose of IV ceftriaxone here in the emergency department. CBC without leukocytosis to suggest inflammation, no anemia or thrombocytopenia BMP without significant electrolyte abnormalities, no anion gap Standard hypoperfusion, no metabolic acidosis Patient given 1 dose of IV ceftriaxone here. Urine sent for culture. She was hemodynamically stable, afebrile and nontoxic. No signs of endorgan hypoperfusion or systemic inflammation. She is appropriate discharge home with oral cefdinir, to await culture results to follow with urology. Strict return precautions were discussed The patient and/or family, caregivers express understanding. The patient and/or family, caregivers agrees with the plan. Shared decision making: I will have a discussion with the patient and or visitors regarding ri sk/benefits of further testing or admission. They will be made aware of of the risk/benefits inherent in this decision they will be given the opportunity to voice understanding. Total critical care time today provided was at least 0 minutes. This excludes separately billable procedures. Critical care time (if documented) is secondary to the patient having high probability of clinically significant/life threatening deterioration in the patient's condition which required my urgent intervention. Impression: 1. Pyelonephritis 2. Hematuria Dispo: Discharge home This note was generated with [employer] dictation software. It may contain incorrect words, spelling, and punctuation that were not noted in review of the chart prior to signing. Lab Data Labs: Laboratory Results - last 24 hr 04/30/23 04/30/23 22:42 23:20 WBC 8.5 RBC 4.92 Hgb 14.4 Hct 44.2 MCV 89.8 MCH 29.3 MCHC 32.6 RDW Std Deviation 40.4 RDW Coeff of Teena 12.3 Plt Count 223 MPV 9.4 Immature Gran % (Auto) 0.200 Neut % (Auto) 64.6 Lymph % (Auto) 25.7 [place] % (Auto) 8.0 Eos % (Auto) 1.3 Baso % (Auto) 0.2 Absolute Neuts (auto) 5.5 Absolute Lymphs (auto) 2.18 Nucleated RBC % 0 Sodium 140 Potassium 4.3 Chloride 112 H Carbon Dioxide 27.0 Anion Gap 1 L BUN 12 Creatinine 1.04 H Estim Creat Clear Calc 85.72 Est GFR (MDRD) Af Amer 82 Est GFR (MDRD) Non-Af 68 BUN/Creatinine Ratio 11.5 Glucose 94 Calcium 9.0 Urine Color Red Urine Clarity Turbid Urine pH 7.0 Ur Specific Trent 1.010 Urine Protein 100 H Urine Glucose (UA) Normal Urine Ketones 5 H Urine Occult Blood 250 H Urine Nitrite Positive H Urine Bilirubin Negative Urine Urobilinogen Normal Ur Leukocyte Esterase 500 H Urine RBC > 100 SEEN Urine WBC 0-5 SEEN Ur Squamous Epith Cells 0-5 SEEN Urine Bacteria 0 SEEN Urine Mucus 0 SEEN Discharge Plan Triage Chief Complaint: Complaint ED Provider: Jose Colon Dx/Rx/DC Orders Clinical Impression: Pyelonephritis Instructions: ED Pyelonephritis, Female (Adult) Prescriptions: New cefdinir 300 mg capsule 300 mg PO BID Qty: 14 0RF ondansetron 4 mg tablet,disintegrating 4 mg PO Q8H PRN PRN (Reason: Nausea) Qty: 10 0RF No Action topiramate 25 mg tablet 50 mg PO QHS PRN (Reason: migraines) cefdinir 300 mg capsule 300 mg PO BID 5 Days Qty: 10 0RF Primary Care Provider: Becki Quintana Referrals: Becki Quintana [Other] Activity Restrictions/Additional Instructions: Thank you for trusting us with your care today! Please take Tylenol (2 pills, 650 mg), ibuprofen (2 pills, 400 mg) every 6 hours as needed for pain and fever control. Please take all antibiotics of course complete. Please return to the emergency department if your symptoms change or worsen. Specific if you cannot tolerate Topamax by mouth. Develop worsening pain. He developed decreased urination Please follow with your primary care physician And/or your urologist for further outpatient evaluation and management. Disposition Disposition: Home, Self Care
[2023-04-30 22:55] LABS: Bacteria 0 SEEN /hpf (None Seen); Mucous, Urine 0 SEEN /hpf (<or=2+)
[2023-04-30 23:17] LABS: Color, Urine Red (Yellow); Glucose, Dipstick Normal (Normal); Ketone-Dipstick 5 mg/dl (Negative); Leukocyte Esterase-Dipstick 500 /ul (Negative); Nitrite-Dipstick Positive (Negative); Occult Blood-Urine 250 /ul (Negative); Protein-Dipstick 100 mg/dl (Negative); Urine Bilirubin Dipstick Negative (Negative); Urine Clarity Turbid (Clear); Urine Urobilinogen Normal (Normal)
[2023-04-30 23:18] LABS: Red Blood Cells-Urine > 100 SEEN /hpf (0-5); Squamous Epithelial Cells - UA 0-5 SEEN /hpf (5-10); White Blood Cells 0-5 SEEN /hpf (0-5)
[2023-04-30 23:27] LABS: Absolute Lymphocyte Count 2.18 X10^3/uL (0.83-4.51); Absolute Neutrophil Count 5.5 X10^3/uL (2.0-7.7); Basophil# 0.02 X10^3/uL; Basophil% 0.2 % (0-1); Eosinophil# 0.11 X10^3/uL; Eosinophils% 1.3 % (0-5); Hematocrit 44.2 % (37-47); Hemoglobin 14.4 g/dL (12.0-15.0); Lymphocyte # 2.18 X10^3/ul (0.83-4.51); Lymphocyte % 25.7 % (19-41); Mean Corp Hgb Conc 32.6 g/dL (32-36); Mean Corpuscular Hgb 29.3 pg (27.0-32.0); Mean Corpuscular Volume 89.8 fL (81-99); Mean Platelet Vol. 9.4 fl (6.2-12.0); Monocyte# 0.68 X10^3/uL; NRBC Flagged by Analyzer 0 % (0-5); Neutrophil # 5.46 X10^3/uL (2.7-7.7); Neutrophil % 64.6 % (47-70); Platelet Count 223 K/mm3 (150-450); RBC Distribution Width CV 12.3 % (11.6-14.6); RBC Distribution Width SD 40.4 fl (35.1-43.9); Red Blood Count 4.92 M/mm3 (4.2-5.4); White Blood Count 8.5 K/mm3 (4.4-11.0)
[2023-04-30] MEDS: Ondansetron 4 MG/2 ML Vial IV (23:28)
[2023-04-30] MEDS: 0.9% Normal Saline (1000mL) 1,000 ML 999 ML IV (23:28)
[2023-04-30 23:39] LABS: Anion Gap 1 (5-15); BUN 12 mg/dL (7-18); BUN/Creat Ratio 11.5 RATIO (10-20); Chloride 112 mmol/L (98-107); Creatinine, Serum 1.04 mg/dL (0.55-1.02); EST Glomerular Filtration Rate 68 mL/min (>60); Est Glom Filt Rate - Afr Amer 82 mL/min (>60); Estimated Creatinine Clearance 85.72 ml/min; Glucose 94 mg/dL (74-106); Potassium 4.3 mmol/L (3.5-5.1); Sodium Level 140 mmol/L (136-145)
[2023-04-30] MEDS: Ceftriaxone 1 GM/50 ML BAG IV (23:43)
[2023-05-01 00:26] VITALS: BP 120/78; PULSE 80; RESP 16; TEMP 37.1; O2SAT 98
== END 2023-05-01 00:27 | disposition home or self-care (01) ==
PROVIDERS: Emergency Provider Emergency Medicine; Visit Provider Emergency Medicine
DX: N12 Tubulo-interstitial nephritis, not specified as acute or chronic (principal); R31.9 Hematuria, unspecified; Q60.0 Renal agenesis, unilateral; R30.9 Painful micturition, unspecified; J45.909 Unspecified asthma, uncomplicated; Z87.440 Personal history of urinary (tract) infections
CPT/HCPCS: 80048; 81001; 85025; 87086; 87088; 96365; 96366; 96375; 99284; J7030; A4216; J2405

== ENCOUNTER 2023-05-20 13:24 | Emergency (ER) | payer SELFPAY ==
[2023-05-20 13:25] VITALS: BP 148/121; PULSE 76; RESP 16; TEMP 36.6; O2SAT 97; BMI 30.9
--- NOTE | 2023-05-20 14:06 | EDS_ITS ---
HPI <FIORDALIZA Joseph - Last Filed: 05/20/23 15:00> History of Present Illness Chief Complaint: Cold Sx Narrative Narrative: Patient is a 27-year-old female with history of chronic abdominal pain, nephrectomy, anxiety who presents to the emergency department with 1 month of generalized chest congestion, cough, sore throat, intermittent eye drainage. 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 She just would like to be checked out. Patient states that [id number] remedies are not helping. PFSH <FIORDALIZA Joseph - Last Filed: 05/20/23 15:00> [facility] Medical History (Updated 05/20/23 @ 16:[address] David Browne MD) Abdominal hernia Abscess of right kidney Agenesis of left kidney Asthma History of gross hematuria Migraines Renal abscess, right Renal agenesis Thyroid disease UTI (urinary tract infection) Home Medications topiramate 25 mg tablet 50 mg PO QHS PRN migraines 10/06/21 [History Last Taken Unknown] cefdinir 300 mg capsule 300 mg PO BID 5 days #10 caps 07/11/22 [Rx Last Taken Unknown] cefdinir 300 mg capsule 300 mg PO BID #14 caps 04/30/23 [Rx Last Taken Unknown] ondansetron 4 mg disintegrating tablet 4 mg PO Q8H PRN PRN Nausea #10 tabs 04/30/23 [Rx Last Taken Unknown] cefdinir 300 mg capsule 300 mg PO BID #14 caps 05/20/23 [Rx Last Taken Unknown] Allergy/AdvReac Type Severity Reaction Status Date / Time amoxicillin Allergy Rash Verified 05/20/23 13:26 ciprofloxacin [From Cipro] Allergy Hives Verified 05/20/23 13:26 ketorolac [From Toradol] AdvReac Other Verified 05/20/23 13:26 procaine [From Novocain] AdvReac Other Verified 05/20/23 13:26 Surgical History H/O partial thyroidectomy H/O: hysterectomy History of appendectomy Hx of hernia repair Social History Smoking Status: Never smoker substance use type: does not use ROS <GINGER JosephC - Last Filed: 05/20/23 15:00> ROS ED ROS Narrative Constitutional: Negative for fever, chills, weight loss, weakness Eyes: Negative for vision loss, vision change, double vision. Positive for eye drainage ENT: Negative for any sore throat, ear pain. Positive for congestion Cardiovascular: Negative for any chest pain, tightness, palpitations Respiratory: Negative for any sputum production, hemoptysis, dyspnea, dyspnea on exertion, orthopnea. Positive for cough Gastrointestinal: Negative for any abdominal pain, nausea, vomiting, diarrhea, constipation, blood in stool, blood in vomit : Negative for any urinary frequency, dysuria, retention, blood in urine Muscle skeletal: Negative for any neck pain, back pain Neurological: Negative for any syncope, dizziness. Positive for headache Skin: Negative for any rashes, itching, abrasions, lacerations Psychiatric: Negative for any depression, anxiety, stress, suicidal ideation, homicidal ideation Hematologic: Negative for any excessive bruising, easy bleeding EXAM <FIORDALIZA Joseph - Last Filed: 05/20/23 15:00> Physical Exam Narrative Exam Narrative: Vital signs reviewed. HEET: Head normocephalic atraumatic, TMs clear bilaterally. Posterior pharynx is clear, moist mucous membranes. Nares clear bilaterally. Neck: Supple with no lymphadenopathy or tenderness. No signs of meningismus. Cardiac: Regular rate and rhythm no murmurs gallops or rubs, equal peripheral pulses bilaterally. Respiratory: Lungs clear to auscultation bilaterally. No chest tenderness. Abdomen: Soft, nontender, nondistended. No abdominal bruit or pulsatile masses. No hepatosplenomegaly Extremities: No peripheral edema, no signs of gross trauma or deformity. Active full range of motion of all extremities. Neuro: Cranial nerves II through XII intact, no focal neurological deficits. Skin: Clean dry and intact with no rash, purpura, petechiae, vesicles or pustules. Backs/flank: No CVA tenderness, no midline spinal tenderness, no deformity. Psych: Normal mood and affect. No SI, HI or acute psychosis. Const Vital Signs: 05/20/23 13:25 05/20/23 13:32 05/20/23 15:06 Temperature 98 F 98 F Temperature Source Temporal Pulse Rate 76 86 Respiratory Rate 16 16 Respiratory Pattern Normal Blood Pressure 148/121 H 130/82 H Blood Pressure Mean 130 98 Pulse Ox 97 99 Oxygen Delivery Method Room Air Positive well nourished and well developed General Appearance ED: well developed <Dr. David Browne MD - Last Filed: 05/20/23 16:04> Physical Exam Const Vital Signs: 05/20/23 13:25 05/20/23 13:32 05/20/23 15:06 Temperature 98 F 98 F Temperature Source Temporal Pulse Rate 76 86 Respiratory Rate 16 16 Respiratory Pattern Normal Blood Pressure 148/121 H 130/82 H Blood Pressure Mean 130 98 Pulse Ox 97 99 Oxygen Delivery Method Room Air MDM <FIORDALIZA Joseph - Last Filed: 05/20/23 15:00> MDM Treatment and Re-Evaluation :: Patient appears to be in no obvious respiratory distress, patient's vital signs are stable, patient appears nontoxic. Presenting to the emergency department for 1 month of congestion. At this time, the patient has no red flag signs. Generally the patient is suffering from any bacterial conjunctivitis, I do believe this is more of an allergic rhinitis. However patient does have sinus congestion, facial pain, productive cough or greater than 1 month. Secondary to the length of symptoms, patient placed on cefdinir 300 mg twice a day for 10 days. Patient will be to continue to use [id number] Zyrtec or Claritin. She instructed return for any worsening symptoms. Patient is happy with the plan of care, all questions answered stable for discharge. <Dr. David Browne MD - Last Filed: 05/20/23 16:04> MDM Treatment and Re-Evaluation Comments:: I have personally performed a face to face assessment of the patient and have reviewed the THIEN Note. I performed a substantive portion of the visit including all aspects of the following. My earl findings include: History is URI symptoms including chest symptoms for about a month waxing and waning. 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 Now for the last day or so she has had bilateral eye irritation, redness, and minor thin discharge. Both affected at the same time. Exam is mild bilateral conjunctival injection bulbar, no chemosis, no purulent discharge present. No photophobia. Lungs clear, speaking in full sentences. Medical Decison Making suspect adenovirus. We discussed covering atypicals given that she has had symptoms for a month, although multiple overlapping viral infections is in the differential diagnosis, I am okay with that, but I do not think she has bacterial conjunctivitis. Her work does not want her there, understandably, if she has very contagious conjunctivitis, I think she does so I would advise avoiding work until her eyes are better. Other additions or changes: [None] Discharge Plan Triage Chief Complaint: Cold Sx Other Complaint: Eye Problem ED Midlevel Provider: Rick June ED Provider: David Browne Dx/Rx/DC Orders Clinical Impression: Acute conjunctivitis, bilateral, URI (upper respiratory infection) Prescriptions: New cefdinir 300 mg capsule 300 mg PO BID Qty: 14 0RF No Action topiramate 25 mg tablet 50 mg PO QHS PRN (Reason: migraines) cefdinir 300 mg capsule 300 mg PO BID 5 Days Qty: 10 0RF cefdinir 300 mg capsule 300 mg PO BID Qty: 14 0RF ondansetron 4 mg tablet,disintegrating 4 mg PO Q8H PRN PRN (Reason: Nausea) Qty: 10 0RF Primary Care Provider: Becki Quintana Referrals: Becki Quintana, [employer] [Primary Care Provider] - Activity Restrictions/Additional Instructions: Please follow-up outpatient. Disposition Disposition: Home, Self Care Discharge Date/Time: 05/20/23 15:09
[2023-05-20 15:06] VITALS: BP 130/82; PULSE 86; RESP 16; TEMP 36.6; O2SAT 99
== END 2023-05-20 15:09 | disposition home or self-care (01) ==
PROVIDERS: Emergency Provider Emergency Medicine; PCP Nurse Practitioner Family; Visit Provider Emergency Medicine
DX: J06.9 Acute upper respiratory infection, unspecified (principal); H10.33 Unspecified acute conjunctivitis, bilateral; F41.9 Anxiety disorder, unspecified; Z90.5 Acquired absence of kidney; J45.909 Unspecified asthma, uncomplicated
CPT/HCPCS: 99284

== ENCOUNTER 2023-06-06 19:43 | Emergency (ER) | payer SELFPAY ==
[2023-06-06 19:45] VITALS: BP 125/81; PULSE 90; PULSE 93; RESP 15; RESP 16; TEMP 36.2; O2SAT 100; O2SAT 99; BMI 30.2
[2023-06-06 19:48] VITALS: BP 125/81; PULSE 93; RESP 15; TEMP 36.2; O2SAT 99
[2023-06-06 20:49] LABS: Bacteria 0 SEEN /hpf (None Seen); Mucous, Urine 0 SEEN /hpf (<or=2+)
[2023-06-06 20:58] LABS: Color, Urine Red (Yellow); Glucose, Dipstick Normal (Normal); Ketone-Dipstick 5 mg/dl (Negative); Leukocyte Esterase-Dipstick 100 /ul (Negative); Nitrite-Dipstick Negative (Negative); Occult Blood-Urine 250 /ul (Negative); Protein-Dipstick 500 mg/dl (Negative); Urine Bilirubin Dipstick Negative (Negative); Urine Clarity Turbid (Clear); Urine Urobilinogen Normal (Normal)
[2023-06-06 21:03] LABS: Internal QC Validated? YES +Cl - CLEAR BKGD; Pregnancy, Urine Negative Negative
[2023-06-06 21:05] LABS: Squamous Epithelial Cells - UA 0-5 SEEN /hpf (5-10); White Blood Cells 0-5 SEEN /hpf (0-5)
[2023-06-06 21:06] LABS: Red Blood Cells-Urine > 100 SEEN /hpf (0-5)
[2023-06-06 21:11] VITALS: BP 134/76; PULSE 84; RESP 16; TEMP 36.3; O2SAT 100
--- NOTE | 2023-06-06 21:57 | CT_ITS ---
STUDY: CT ABDOMEN AND PELVIS WITHOUT CONTRAST REASON FOR EXAM: Female, 27 years old. Kidney Stone RADIATION DOSAGE (If Supplied By Facility): CTDIvol = ( 11.17 ) mGy, DLP = ( 544.36 ) mGycm TECHNIQUE: Transaxial images were obtained from the dome of the diaphragm to the symphysis pubis without oral contrast, and without intravenous contrast. Sagittal and coronal images were reconstructed. Individualized dose optimization techniques were used for this CT. COMPARISON: 09/20/2018 FINDINGS: The visualized lung bases are unremarkable. The visualized portions of the heart are within normal limits. Normal liver. Normal gallbladder and extrahepatic biliary system. Normal spleen. Normal pancreas. Normal bilateral adrenal glands. Normal right kidney. 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 Normal visualized stomach. Normal small intestine. There are multiple colonic diverticula consistent with diverticulosis. There are surgical clips in the region of the appendix consistent with a prior appendectomy. Normal abdominal aorta. Normal inferior vena cava. Normal retroperitoneum. Normal urinary bladder. Normal abdominal wall. Mild levoscoliosis lumbar spine. CT/Abdomen/Pelvis without Cont IMPRESSION: No renal or ureteral stone. Sigmoid diverticulosis without diverticulitis. Electronically Signed: To Marshall MD at 23:22 EDT ,
[2023-06-06 22:00] VITALS: BP 132/77; PULSE 80; RESP 16; TEMP 37.2; O2SAT 98
[2023-06-06] MEDS: Ondansetron 4 MG/2 ML Vial IV (22:11)
[2023-06-06] MEDS: 0.9% Normal Saline (1000mL) 1,000 ML 999 ML IV (22:11)
[2023-06-06 22:19] LABS: Absolute Lymphocyte Count 2.45 X10^3/uL (0.83-4.51); Absolute Neutrophil Count 5.9 X10^3/uL (2.0-7.7); Basophil# 0.02 X10^3/uL; Basophil% 0.2 % (0-1); Eosinophil# 0.06 X10^3/uL; Eosinophils% 0.6 % (0-5); Hematocrit 41.5 % (37-47); Lymphocyte # 2.45 X10^3/ul (0.83-4.51); Lymphocyte % 26.3 % (19-41); Mean Corp Hgb Conc 33.7 g/dL (32-36); Mean Corpuscular Volume 89.1 fL (81-99); Mean Platelet Vol. 9.6 fl (6.2-12.0); Monocyte# 0.86 X10^3/uL; Monocyte% 9.2 % (0-10); NRBC Flagged by Analyzer 0 % (0-5); Neutrophil # 5.89 X10^3/uL (2.7-7.7); Neutrophil % 63.4 % (47-70); Platelet Count 191 K/mm3 (150-450); RBC Distribution Width CV 12.3 % (11.6-14.6); RBC Distribution Width SD 40.3 fl (35.1-43.9); Red Blood Count 4.66 M/mm3 (4.2-5.4); White Blood Count 9.3 K/mm3 (4.4-11.0)
[2023-06-06] MEDS: Morphine 4 MG/ML Syringe IV (22:29)
[2023-06-06 22:32] LABS: Anion Gap 3 (5-15); BUN 16 mg/dL (7-18); BUN/Creat Ratio 18.4 RATIO (10-20); Calcium,Total 8.6 mg/dL (8.5-10.1); Chloride 110 mmol/L (98-107); Creatinine, Serum 0.87 mg/dL (0.55-1.02); EST Glomerular Filtration Rate 83 mL/min (>60); Est Glom Filt Rate - Afr Amer 101 mL/min (>60); Estimated Creatinine Clearance 100.17 ml/min; Glucose 87 mg/dL (74-106); Potassium 3.7 mmol/L (3.5-5.1); Sodium Level 137 mmol/L (136-145)
[2023-06-06 23:00] VITALS: BP 126/110; PULSE 82; RESP 18; TEMP 36.7; O2SAT 97
--- NOTE | 2023-06-06 23:18 | EX.ED.DYSGE1 ---
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 She states that in the past she has had problems with pyelonephritis and developing abscesses on her 1 kidney. She denies any overt fever, but may have felt feverish recently. She states she does not have a thermometer. She is to follow-up with the urologist Dr. June Bennett, but states she moved to [place], tried to follow-up with urology up there, but recently moved back to be closer to family. She complains of right flank pain and back pain. She states she feels a pressure when she urinates. She is concerned that she may have pyelonephritis or UTI again. [facility] Medical History Abdominal hernia Abscess of right kidney Agenesis of left kidney Asthma History of gross hematuria Migraines Renal abscess, right Renal agenesis Thyroid disease UTI (urinary tract infection) Home Medications topiramate 25 mg tablet 50 mg PO QHS PRN migraines 10/06/21 [History Last Taken Unknown] cefdinir 300 mg capsule 300 mg PO BID 5 days #10 caps 07/11/22 [Rx Last Taken Unknown] cefdinir 300 mg capsule 300 mg PO BID #14 caps 04/30/23 [Rx Last Taken Unknown] ondansetron 4 mg disintegrating tablet 4 mg PO Q8H PRN PRN Nausea #10 tabs 04/30/23 [Rx Last Taken Unknown] cefdinir 300 mg capsule 300 mg PO BID #14 caps 05/20/23 [Rx Last Taken Unknown] ondansetron 4 mg disintegrating tablet 4 mg PO Q8H PRN PRN Nausea #12 tabs 06/06/23 [Rx Last Taken Unknown] Allergy/AdvReac Type Severity Reaction Status Date / Time amoxicillin Allergy Rash Verified 06/06/23 19:48 ciprofloxacin [From Cipro] Allergy Hives Verified 06/06/23 19:48 ketorolac [From Toradol] AdvReac Other Verified 06/06/23 19:48 procaine [From Novocain] AdvReac Other Verified 06/06/23 19:48 Surgical History H/O partial thyroidectomy H/O: hysterectomy History of appendectomy Hx of hernia repair Social History Smoking Status: Never smoker substance use type: does not use ROS ROS ED ROS Narrative Constitutional: Subjective fever, no chills. HEENT: No sore throat. No neck pain. No loss of vision. No rhinorrhea. Cardiovascular: No chest pain. No palpitations. No pedal edema. Respiratory: No cough, no shortness of breath. Abdominal: Positive right flank pain/right low back pain. Positive nausea, positive vomiting. Unable to keep anything down. Genitourinary: Positive dysuria. Reported hematuria. Musculoskeletal: No myalgias. No arthralgias. Neurologic: No headaches. No dizziness. No lightheadedness. Skin: No rash. No change in color. Psychiatric: No depression. No anxiety. EXAM Physical Exam Narrative Exam Narrative: Afebrile. Vital signs noted. HEENT: Normocephalic. Atraumatic. PERRL, EOMI. Neck soft and supple. No point tenderness or step off. Cardiovascular: Regular rate and rhythm. No murmurs, rubs, or gallops appreciated. Respiratory: No tachypnea. Lungs clear to auscultation bilaterally. Gastrointestinal: Abdomen soft, nontender, with normoactive bowel sounds. No rebound or guarding. Questionable CVA tenderness to percussion, right. Neurological: Awake. Alert. Nonfocal, nonlateralizing. Skin: No rash. Normal color. No pallor. Musculoskeletal: No pedal edema. Full range of motion extremities. Const Vital Signs: 06/06/23 19:45 06/06/23 19:45 06/06/23 19:48 Temperature 97.2 F L 97.2 F L 97.2 F L Temperature Source Temporal Temporal Temporal Pulse Rate 93 90 93 Respiratory Rate 15 16 15 Blood Pressure 125/81 H 125/81 H 125/81 H Blood Pressure Mean 95 95 95 Pulse Ox 99 100 99 Oxygen Delivery Method Room Air Room Air Room Air 06/06/23 21:11 06/06/23 22:00 06/06/23 23:00 Temperature 97.3 F L 98.9 F 98.1 F Temperature Source Oral Oral Oral Pulse Rate 84 80 82 Respiratory Rate 16 16 18 Blood Pressure 134/76 H 132/77 H 126/110 H Blood Pressure Mean 95 95 115 Pulse Ox 100 98 97 Oxygen Delivery Method Room Air Room Air Room Air MDM MDM MDM Narrative Medical decision making narrative: I reviewed the patient's prior records. She does have an ED care plan noted from 2019, 4 years ago when she had multiple visits for abdominal pain. In the differential diagnosis would be pyelonephritis versus ureterolithiasis versus cystitis given her 1 kidney. She states she has also had nausea and vomiting. I will obtain a CBC and a CMP, and imaging without contrast. Additionally UA will be obtained to rule out UTI. She was administered a bolus of normal saline, morphine, and ondansetron. I reviewed her laboratory work and she has normal white count of 9.3 with hemoglobin normal at 14.0, hematocrit 41.5, platelet count normal at 191. Her electrolyte panel is grossly unremarkable without signs of dehydration with a normal sodium of 137 and potassium normal at 3.7. While she has an elevated chloride of 110, in comparison to previous laboratory work this is a chronic finding. Anion gap is low at 3. Leukos is 87. Normal BUN of 16 and normal creatinine of 0.87. RN had ordered test which is negative which is to be expected as she has uterine agenesis. In review of her urinalysis, while that is negative for infection with 0-5 white cells, she has greater than 100 RBCs. I do not feel antibiotics are indicated and I have low suspicion for a renal abscess or pyelonephritis currently. However in the differential would be ureterolithiasis. I reviewed her CT report which shows no evidence of ureteral stone or hydronephrosis. There is no obstruction of her bowels. She does have diverticular disease but no evidence of an acute diverticulitis. At this point in time, I am unsure as to the cause of her flank pain and abdominal pain, but I feel she can be discharged safely home with follow-up. I do not feel she requires narcotic pain medications for home use. She has had gross hematuria and red blood cells in her urine in the past. I feel she could follow-up with her urologist again. I did write her for Zofran to take for her nausea over the next couple of days. Additionally, for her abdominal pain I offered her Bentyl, but she thinks she had this as an intramuscular injection and declined, stating she will take Tylenol at home. I feel she can be discharged to follow-up. Return instructions were reviewed. Disposition is discharged home in stable condition. History & Record Review Discussion w/independent historian: Patient Additional record(s) reviewed:: Prior ED visit and Prior labs Lab Data Attestation: I reviewed the patient's lab results. Labs: Laboratory Results - last 24 hr 06/06/23 06/06/23 20:41 22:14 WBC 9.3 RBC 4.66 Hgb 14.0 Hct 41.5 MCV 89.1 MCH 30.0 MCHC 33.7 RDW Std Deviation 40.3 RDW Coeff of Teena 12.3 Plt Count 191 MPV 9.6 Immature Gran % (Auto) 0.300 Neut % (Auto) 63.4 Lymph % (Auto) 26.3 [place] % (Auto) 9.2 Eos % (Auto) 0.6 Baso % (Auto) 0.2 Absolute Neuts (auto) 5.9 Absolute Lymphs (auto) 2.45 Nucleated RBC % 0 Sodium 137 Potassium 3.7 Chloride 110 H Carbon Dioxide 24.0 Anion Gap 3 L BUN 16 Creatinine 0.87 Estim Creat Clear Calc 100.17 Est GFR (MDRD) Af Amer 101 Est GFR (MDRD) Non-Af 83 BUN/Creatinine Ratio 18.4 Glucose 87 Calcium 8.6 Urine Color Red Urine Clarity Turbid Urine pH 7.0 Ur Specific [place] 1.010 Urine Protein 500 H Urine Glucose (UA) Normal Urine Ketones 5 H Urine Occult Blood 250 H Urine Nitrite Negative Urine Bilirubin Negative Urine Urobilinogen Normal Ur Leukocyte Esterase 100 H Urine RBC > 100 SEEN Urine WBC 0-5 SEEN Ur Squamous Epith Cells 0-5 SEEN Urine Bacteria 0 SEEN Urine Mucus 0 SEEN Urine Test Negative Radiography Diagnostic Testing: Clinical Impression(s) from Imaging Studies Abdomen/Pelvis CT 06/06/23 21:57 IMPRESSION: No renal or ureteral stone. Sigmoid diverticulosis without diverticulitis. Electronically Signed: To Marshall MD at 23:22 EDT , Discharge Plan Triage Chief Complaint: Abd Pain ED Provider: Deep Angulo Dx/Rx/DC Orders Clinical Impression: Gross hematuria, Nausea and vomiting, Abdominal pain Instructions: ED Abdominal Pain Unkn Cause Fem, ED Flank Pain, Uncertain Cause, ED Hematuria Prescriptions: New ondansetron 4 mg tablet,disintegrating 4 mg PO Q8H PRN PRN (Reason: Nausea) Qty: 12 0RF No Action topiramate 25 mg tablet 50 mg PO QHS PRN (Reason: migraines) cefdinir 300 mg capsule 300 mg PO BID 5 Days Qty: 10 0RF cefdinir 300 mg capsule 300 mg PO BID Qty: 14 0RF ondansetron 4 mg tablet,disintegrating 4 mg PO Q8H PRN PRN (Reason: Nausea) Qty: 10 0RF cefdinir 300 mg capsule 300 mg PO BID Qty: 14 0RF Primary Care Provider: Becki Quintana Referrals: June Bennett MD [Med Staff - Active Staff] - As soon as possible Becki Quintana, [employer]PERATOR-[employer] [Primary Care Provider] - Disposition Disposition: Home, Self Care
[2023-06-06 23:53] VITALS: BP 124/69; PULSE 78; RESP 16; TEMP 36.9; O2SAT 99
== END 2023-06-06 23:54 | disposition home or self-care (01) ==
PROVIDERS: Emergency Provider Emergency Medicine; PCP Nurse Practitioner Family; Visit Provider Emergency Medicine
DX: R31.0 Gross hematuria (principal); R11.2 Nausea with vomiting, unspecified; M54.9 Dorsalgia, unspecified; K57.30 Diverticulosis of large intestine without perforation or abscess without bleeding; Q60.0 Renal agenesis, unilateral; R30.0 Dysuria; J45.909 Unspecified asthma, uncomplicated; R10.9 Unspecified abdominal pain
CPT/HCPCS: 74176; 80048; 81001; 81025; 85025; 96361; 96374; 96375; 99282; J7030; A4216; J2405

== ENCOUNTER 2023-07-12 11:11 | Emergency (ER) | payer OTHER, SELFPAY ==
[2023-07-12 11:11] VITALS: BP 129/92; PULSE 76; RESP 14; TEMP 36.8; O2SAT 96; BMI 30.2
--- NOTE | 2023-07-12 11:52 | CT_ITS ---
STUDY: CT ABDOMEN AND PELVIS WITHOUT CONTRAST REASON FOR EXAM: Female, 27 years old. Flank pain RADIATION DOSAGE (If Supplied By Facility): CTDIvol = ( 8.97 ) mGy, DLP = ( 416.61 ) mGycm TECHNIQUE: Transaxial images were obtained from the dome of the diaphragm to the symphysis pubis without oral contrast, and without intravenous contrast. Sagittal and coronal images were reconstructed. Individualized dose optimization techniques were used for this CT. COMPARISON: Prior study dated: 06/06/2023 FINDINGS: Evaluation of the abdominal viscera is limited in the absence of intravenous contrast. LOWER THORAX: The visualized lung bases are clear. The visualized portions of the heart and pericardium are within normal limits. GALLBLADDER / BILE DUCTS: There are no calcified gallstones present. The common bile duct is normal in caliber. There are no calcified ductal stones. LIVER: The liver demonstrates an unremarkable unenhanced appearance. SPLEEN: The spleen is normal in size. PANCREAS: The pancreas demonstrates an unremarkable unenhanced appearance. ADRENAL GLANDS: The adrenal glands are within normal limits. KIDNEYS / BLADDER: Absence of the left kidney. There are no right renal or ureteral stones. There is no right hydronephrosis. There are no right renal lesions identified on this noncontrast exam. The urinary bladder is partially distended and appears grossly unremarkable. STOMACH / BOWEL: Normal visualized stomach. There is no bowel obstruction or inflammation. The patient is status post appendectomy. PERITONEUM / RETROPERITONEUM: There is no abdominal or pelvic free air, free fluid or fluid collection. There is no abnormal soft tissue mass identified. There is no abdominal or pelvic lymphadenopathy. VESSELS: The aorta is normal in caliber. The IVC is unremarkable. BONES: There are no destructive osseous lesions. SOFT TISSUES: The visualized soft tissues are within normal limits. CT/Abdomen/Pelvis without Cont IMPRESSION: Redemonstration of absence of the left kidney. No right renal or ureteral stones. No right hydronephrosis. No bowel obstruction or inflammation. Status post appendectomy. No free air, free fluid or fluid collection. Electronically Signed: Román Velasco MD at 13:19 EDT ,
--- NOTE | 2023-07-12 11:53 | EDS_ITS ---
HPI History of Present Illness Chief Complaint: Abd Pain Informant: patient Onset/Context/Timing Onset: Days Context: Gradual Onset Narrative Narrative: Patient presents secondary to lower abdominal pain with hematuria and vomiting. She has a history of a single kidney with frequent urinary tract infections. Today she was vomiting and felt pain wrap around her right hip and down into her groin. Her right leg is felt somewhat numb since that time. [facility] Medical History Renal abscess, right Abscess of right kidney Agenesis of left kidney UTI (urinary tract infection) Abdominal hernia History of gross hematuria Renal agenesis Thyroid disease Asthma Migraines Home Medications ?Medication ?Instructions ?Recorded ?Last Taken ?Type topiramate 25 mg tablet 50 mg PO QHS PRN migraines 10/06/21 Unknown History cefdinir 300 mg capsule 300 mg PO BID 5 days #10 caps 07/11/22 Unknown Rx cefdinir 300 mg capsule 300 mg PO BID #14 caps 04/30/23 Unknown Rx ondansetron 4 mg disintegrating 4 mg PO Q8H PRN PRN Nausea #10 tabs 04/30/23 Unknown Rx tablet cefdinir 300 mg capsule 300 mg PO BID #14 caps 05/20/23 Unknown Rx ondansetron 4 mg disintegrating 4 mg PO Q8H PRN PRN Nausea #12 tabs 06/06/23 Unknown Rx tablet cefdinir 300 mg capsule 300 mg PO BID #14 caps 07/12/23 Unknown Rx hydrocodone-acetaminophen 5-325mg 1 tab PO Q6H PRN PRN Pain 3 days 07/12/23 Unknown Rx 5mg-325mg #10 TABLETS ondansetron 4 mg disintegrating 4 mg PO Q8H PRN PRN Nausea #10 tabs 07/12/23 Unknown Rx tablet Allergy/AdvReac Type Severity Reaction Status Date / Time amoxicillin Allergy Rash Verified 07/12/23 11:12 ciprofloxacin (From Cipro) Allergy Hives Verified 07/12/23 11:12 ketorolac (From Toradol) AdvReac Other Verified 07/12/23 11:12 procaine (From Novocain) AdvReac Other Verified 07/12/23 11:12 Surgical History H/O partial thyroidectomy H/O: hysterectomy History of appendectomy Hx of hernia repair Social History Smoking Status: Never smoker substance use type: does not use ROS ROS ED Constitutional Constitutional ED: Denies chills or fever(s) Eyes Eyes: Denies discharge from eye(s) ENT ENT ED: Denies discharge from eye(s), rhinorrhea or sore throat Cardiovascular Cardiovascular: Denies chest pain or palpitations Respiratory/Chest Respiratory/Chest: Denies cough or dyspnea Gastrointestinal Gastrointestinal: Reports abdominal pain, nausea and vomiting Genitourinary Genitourinary ED: Reports dysuria and hematuria Musculoskeletal Musculoskeletal: Reports extremity pain; Denies back pain Integumentary Denies Abrasions or rash Neurologic Neurologic: Denies headache(s) or weakness Psychiatric Psychiatric: Denies anxiety or depression Endocrine Endocrinology: Reports polydipsia and polyuria Allergic/Immunologic Allergic/Immunologic ED: Denies lip swelling or urticaria EXAM Physical Exam Const Vital Signs: 07/12/23 11:11 07/12/23 13:11 Temperature 98.3 F 97.8 F Temperature Source Temporal Temporal Pulse Rate 76 78 Respiratory Rate 14 16 Blood Pressure 129/92 H 109/71 Blood Pressure Mean 104 83 Pulse Ox 96 98 Oxygen Delivery Method Room Air Room Air Positive well nourished and well developed General Appearance ED: well developed HEENT Reports moist mucous membranes Eyes EOMs intact bilaterally Chest Wall inspection of chest normal and palpation of chest normal Resp normal respiratory effort and clear to auscultation bilaterally Cardio regular rate and regular rhythm GI non-tender Auscultation: hypoactive bowel sounds Palpation: soft Extremity normal to inspection Neuro oriented x3 and no sensory deficits noted Motor Exam: strength 5/5 throughout Psych mental status grossly normal Skin no rashes or lesions noted MDM MDM MDM Narrative Medical decision making narrative: IV line established. Labwork obtained to evaluate for leukocytosis, anemia, and electrolyte derangement. Urinalysis obtained to evaluate for infection/hematuria. CT flank obtained to evaluate for any evidence of hydronephrosis or renal stone. Patient treated with IV fluids, morphine, and Zofran. History & Record Review Discussion w/independent historian: Patient Lab Data Attestation: I reviewed the patient's lab results. Labs: Laboratory Results - last 24 hr 07/12/23 07/12/23 12:05 12:20 WBC 7.9 RBC 4.78 Hgb 14.3 Hct 43.5 MCV 91.0 MCH 29.9 MCHC 32.9 RDW Std Deviation 40.1 RDW Coeff of Teena 12.0 Plt Count 216 MPV 9.7 Immature Gran % (Auto) 0.400 Neut % (Auto) 59.3 Lymph % (Auto) 29.8 [place] % (Auto) 9.1 Eos % (Auto) 1.0 Baso % (Auto) 0.4 Absolute Neuts (auto) 4.7 Absolute Lymphs (auto) 2.35 Nucleated RBC % 0 Sodium 139 Potassium 4.2 Chloride 111 H Carbon Dioxide 22.0 Anion Gap 6 BUN 17 Creatinine 0.92 Estim Creat Clear Calc 94.82 Est GFR (MDRD) Af Amer 94 Est GFR (MDRD) Non-Af 78 BUN/Creatinine Ratio 18.4 Glucose 87 Calcium 9.3 Urine Color Red Urine Clarity Turbid Urine pH 6.5 Ur Specific [place] 1.025 Urine Protein 500 H Urine Glucose (UA) Normal Urine Ketones 5 H Urine Occult Blood 250 H Urine Nitrite Negative Urine Bilirubin Negative Urine Urobilinogen Normal Ur Leukocyte Esterase 100 H Urine RBC 50-100 SEEN Urine WBC 5-10 SEEN Ur Squamous Epith Cells 0-5 SEEN Urine Bacteria 1+ Urine Mucus 0 SEEN Radiography Diagnostic Testing: Clinical Impression(s) from Imaging Studies Abdomen/Pelvis CT 07/12/23 11:52 IMPRESSION: Redemonstration of absence of the left kidney. No right renal or ureteral stones. No right hydronephrosis. No bowel obstruction or inflammation. Status post appendectomy. No free air, free fluid or fluid collection. Electronically Signed: Román Velasco MD at 13:19 EDT , Treatment and Re-Evaluation :: CBC reveals normal white count 7.9 with a hemoglobin of 14.3. Differential unremarkable. Chemistry studies are normal. Urinalysis reveals 50-100 red cells with 5-10 white cells and 1+ bacteria. Urine has been sent for culture. CT scan of the flank reveals redemonstration of absence of the left kidney. No evidence of renal stone or hydronephrosis on the right. No other acute findings noted. I did review her [facility] report. She has not had a prescription for narcotics since March of last year. I will write her a short course of [place] as we we will avoid NSAIDs given her allergies and single kidney. I will treat her with a course of cefdinir as it appears this has worked best for her in the past. Patient has seen Dr. Bennett in the past and will follow-up with her as needed. Return instructions given. Discharge Plan Triage Chief Complaint: Abd Pain ED Provider: Ana Cool Dx/Rx/DC Orders Clinical Impression: UTI (urinary tract infection), Gross hematuria Instructions: ED Hematuria, ED Cystitis Female Adult Prescriptions: New cefdinir 300 mg capsule 300 mg PO BID Qty: 14 0RF hydrocodone-acetaminophen 5-325 mg tablet 1 tab PO Q6H PRN PRN (Reason: Pain) 3 Days Qty: 10 0RF ondansetron 4 mg tablet,disintegrating 4 mg PO Q8H PRN PRN (Reason: Nausea) Qty: 10 0RF No Action topiramate 25 mg tablet 50 mg PO QHS PRN (Reason: migraines) cefdinir 300 mg capsule 300 mg PO BID 5 Days Qty: 10 0RF cefdinir 300 mg capsule 300 mg PO BID Qty: 14 0RF ondansetron 4 mg tablet,disintegrating 4 mg PO Q8H PRN PRN (Reason: Nausea) Qty: 10 0RF cefdinir 300 mg capsule 300 mg PO BID Qty: 14 0RF ondansetron 4 mg tablet,disintegrating 4 mg PO Q8H PRN PRN (Reason: Nausea) Qty: 12 0RF Stand Alone Forms: ED Work / School Excuse Primary Care Provider: Becki Quintana Referrals: June Bennett MD [Med Staff - Active Staff] - As Needed Becki Quintana, [employer]ER[employer] [Primary Care Provider] - Print Language: [place] Disposition Disposition: Home, Self Care
[2023-07-12] MEDS: 0.9% Normal Saline (1000mL) 1,000 ML 150 ML IV (12:22)
[2023-07-12] MEDS: Morphine 4 MG/ML Syringe IV (12:23)
[2023-07-12] MEDS: Ondansetron 4 MG/2 ML Vial IV (12:23)
[2023-07-12 12:26] LABS: Absolute Lymphocyte Count 2.35 X10^3/uL (0.83-4.51); Absolute Neutrophil Count 4.7 X10^3/uL (2.0-7.7); Basophil# 0.03 X10^3/uL; Basophil% 0.4 % (0-1); Eosinophil# 0.08 X10^3/uL; Hematocrit 43.5 % (37-47); Hemoglobin 14.3 g/dL (12.0-15.0); Lymphocyte # 2.35 X10^3/ul (0.83-4.51); Lymphocyte % 29.8 % (19-41); Mean Corp Hgb Conc 32.9 g/dL (32-36); Mean Corpuscular Hgb 29.9 pg (27.0-32.0); Mean Platelet Vol. 9.7 fl (6.2-12.0); Monocyte# 0.72 X10^3/uL; Monocyte% 9.1 % (0-10); NRBC Flagged by Analyzer 0 % (0-5); Neutrophil # 4.67 X10^3/uL (2.7-7.7); Neutrophil % 59.3 % (47-70); Platelet Count 216 K/mm3 (150-450); RBC Distribution Width SD 40.1 fl (35.1-43.9); Red Blood Count 4.78 M/mm3 (4.2-5.4); White Blood Count 7.9 K/mm3 (4.4-11.0)
[2023-07-12 12:32] LABS: Mucous, Urine 0 SEEN /hpf (<or=2+)
[2023-07-12 12:35] LABS: Color, Urine Red (Yellow); Glucose, Dipstick Normal (Normal); Ketone-Dipstick 5 mg/dl (Negative); Leukocyte Esterase-Dipstick 100 /ul (Negative); Nitrite-Dipstick Negative (Negative); Occult Blood-Urine 250 /ul (Negative); Protein-Dipstick 500 mg/dl (Negative); Specific Gravity, Urine 1.025 (1.002-1.030); Urine Bilirubin Dipstick Negative (Negative); Urine Clarity Turbid (Clear); Urine Urobilinogen Normal (Normal); Urine pH 6.5 (5.0 - 8.0)
[2023-07-12 12:44] LABS: Bacteria 1+ /hpf (None Seen); Red Blood Cells-Urine 50-100 SEEN /hpf (0-5); Squamous Epithelial Cells - UA 0-5 SEEN /hpf (5-10); White Blood Cells 5-10 SEEN /hpf (0-5)
[2023-07-12 12:47] LABS: Anion Gap 6 (5-15); BUN 17 mg/dL (7-18); BUN/Creat Ratio 18.4 RATIO (10-20); Calcium,Total 9.3 mg/dL (8.5-10.1); Chloride 111 mmol/L (98-107); Creatinine, Serum 0.92 mg/dL (0.55-1.02); EST Glomerular Filtration Rate 78 mL/min (>60); Est Glom Filt Rate - Afr Amer 94 mL/min (>60); Estimated Creatinine Clearance 94.82 ml/min; Glucose 87 mg/dL (74-106); Potassium 4.2 mmol/L (3.5-5.1); Sodium Level 139 mmol/L (136-145)
[2023-07-12 13:11] VITALS: BP 109/71; PULSE 78; RESP 16; TEMP 36.6; O2SAT 98
[2023-07-12] MEDS: HYDROmorphone 0.5 MG/0.5 ML SYRINGE IV (13:22)
[2023-07-12] MEDS: Cefdinir 300 MG Capsule PO (15:01)
[2023-07-12 15:03] VITALS: BP 116/78; BP 126/78; PULSE 64; PULSE 78; RESP 16; RESP 18; TEMP 36.4; O2SAT 99
== END 2023-07-12 15:04 | disposition home or self-care (01) ==
PROVIDERS: Emergency Provider Emergency Medicine; PCP Nurse Practitioner Family; Visit Provider Emergency Medicine
DX: N39.0 Urinary tract infection, site not specified (principal); R31.0 Gross hematuria; Z87.442 Personal history of urinary calculi; Z87.440 Personal history of urinary (tract) infections; J45.909 Unspecified asthma, uncomplicated; R63.1 Polydipsia; R35.89 Other polyuria; Z90.5 Acquired absence of kidney
CPT/HCPCS: 74176; 80048; 81001; 85025; 87086; 87088; 96361; 96374; 96375; 99283; A4216; J2405

== ENCOUNTER 2023-07-15 10:53 | Emergency (ER) | payer OTHER, SELFPAY ==
[2023-07-15 10:53] VITALS: BP 125/97; PULSE 86; RESP 16; TEMP 37.2; O2SAT 97; BMI 30.2
--- NOTE | 2023-07-15 11:20 | EDS_ITS ---
HPI HPI - GI History of Present Illness Chief Complaint: Flank Pain Informant: patient Narrative Narrative: Patient seen here 3 days ago for pelvic pain and hematuria, she was put on cefdinir and states seem like it was getting better but now the pain is back. The abdominal pain is worse when she urinates, she still urinating blood, but does not have urethral dysuria/burning. Pain is worse on the right than the left but it is throughout her lower pelvis. She has severe nausea and occasional vomiting. The pain is in her back a little on the right but not bad there. No fevers or chills. She now feels like she is potentially not emptying her bladder, she has been seeing clots from time to time, she was not having symptoms of retention when she was in the emergency department. She is not bleeding when she is not urinating. Patient states she has had hematuria off-and-on in the past. She had seen urology in [place] when she was living there, she had cystoscopy and was told at that time that she had some broken blood vessels in the urethra but was told that it was probably not the cause of her gross hematuria nothing to worry about at the time. She states someone was considering doing a renal biopsy but it was not done. Has seen Dr. Bennett here before. [facility] Medical History Renal abscess, right Abscess of right kidney Agenesis of left kidney UTI (urinary tract infection) Abdominal hernia History of gross hematuria Renal agenesis Thyroid disease Asthma Migraines Home Medications ?Medication ?Instructions ?Recorded ?Last Taken ?Type sulfamethoxazole 800 1 tab PO BID #14 TABLETS 07/15/23 Unknown Rx mg-trimethoprim 160 mg tablet Allergy/AdvReac Type Severity Reaction Status Date / Time amoxicillin Allergy Rash Verified 07/15/23 10:54 ciprofloxacin (From Cipro) Allergy Hives Verified 07/15/23 10:54 ketorolac (From Toradol) AdvReac Other Verified 07/15/23 10:54 procaine (From Novocain) AdvReac Other Verified 07/15/23 10:54 Surgical History H/O: hysterectomy Hx of hernia repair History of appendectomy H/O partial thyroidectomy Social History Smoking Status: Never smoker substance use type: does not use ROS ROS ED Constitutional Constitutional ED: Denies chills or fever(s) Eyes Eyes: Denies change in vision or diplopia ENT ENT ED: Denies rhinorrhea or sore throat Cardiovascular Cardiovascular: Denies chest pain or palpitations Respiratory/Chest Respiratory/Chest: Denies cough or dyspnea Gastrointestinal Gastrointestinal: Reports abdominal pain, nausea and vomiting; Denies diarrhea Genitourinary Genitourinary ED: Reports hematuria, urinary frequency, urinary urgency and other Details: Pelvic pain is colicky ; Denies dysuria Musculoskeletal Musculoskeletal: Reports back pain; Denies neck pain Integumentary Denies abscess or rash Neurologic Neurologic: Denies headache(s), paresthesias or weakness Psychiatric Psychiatric: Denies suicidal thoughts EXAM Physical Exam Const Vital Signs: 07/15/23 10:53 07/15/23 12:53 Temperature 99 F 97.2 F L Temperature Source Temporal Temporal Pulse Rate 86 74 Respiratory Rate 16 16 Blood Pressure 125/97 H 117/87 H Blood Pressure Mean 106 97 Pulse Ox 97 96 Oxygen Delivery Method Room Air Room Air Positive well nourished and well developed Constitutional Narrative: Uncomfortable but in no distress General Appearance ED: well developed and NAD HEENT Reports moist mucous membranes normocephalic and atraumatic Eyes PERRL and EOMs intact bilaterally Neck full ROM and supple Resp normal respiratory effort and clear to auscultation bilaterally Cardio regular rate, regular rhythm and no murmurs GI non-distended GI Narrative: Tender suprapubic more so in the right lower quadrant, no involuntary guarding or rebound. Auscultation: normoactive bowel sounds Palpation: soft Back/Spine General Back: CVA tenderness right and other FROM Extremity normal to inspection General Extremety ED: Negative for edema, pulses abnormal or tenderness General Extremity: Negative for edema or pulses abnormal Neuro oriented x3, CN's II-XII intact bilaterally and no sensory deficits noted Sensorium / Orientation: awake and alert Motor Exam: strength 5/5 throughout Skin no rashes or lesions noted and no wounds MDM MDM MDM Narrative Medical decision making narrative: I reviewed the patient's recent ED visit, CT scan, labs. Her CT was essentially unremarkable showing no evidence of an obstructive uropathy, perinephric stranding, or renal abscess which she had remotely. She has congenital agenesis of the left kidney. She has also had prior appendectomy. I concern is that she may have urinary retention and resultant bladder spasms causing the pain. Therefore my plan is to do a postvoid residual, and if significant residual amount of urine exists after trying to void, then as I discussed with the patient placing a Bansal catheter and irrigating the bladder sterilely to remove clots would be the next step. When I reviewed her recent urine culture, it was 80-100,000 CFU per mL of basically mixed gram-positive and gram-negative organisms consistent with contamination new specimen recommended some going to also have her repeat her urinalysis and culture. This, while providing antinausea and antipain medications. Patient basically had a negligible postvoid residual by bladder ultrasound. She urinated it is grossly bloody there are no clots there, I do not think placing the catheter will necessarily be helpful at this time. Morphine did not help her pain at all. Gave her Dilaudid as a result because she refuses Toradol due to reaction. Labs are noted, her creatinine is a little higher than it was 3 days ago but does not meet criteria for JULIO CÉSAR or renal failure by any stretch. Urinalysis shows similar results, I sent for a new culture as above. In addition, I am considering ovarian torsion and other right ovarian issues. Patient states she is not sure if she has right ovary or not, due to several doctors telling her both, that she either has 1 or that she does not have 1. Surgical note from 2016, the last one that is available in our system here, states that when performing laparoscopic appendectomy the surgeon saw what appeared to be right ovary with a ruptured ovarian follicle and remnants of uterus. Patient states the uterine remnant was removed but she is not sure about the ovary. Therefore I am going to obtain an ultrasound to rule out this pathology. In the meantime even after giving her Dilaudid she was still in pain and asking for more pain medication. I offered her Toradol, even though it is on her allergy list because it gives her headache, in addition to Tylenol to prevent said headache, as if her pain is ureteral or renal in nature, chances are that it would help significantly. When nursing offered this to her, she laughed and said no, thank you. I reviewed the ultrasound images as well as report which I agree with, it is negative suggesting no ovarian tissue present. I discussed with Dr. Bennett with urology, who does know this patient and states the patient was discharged from her practice due to multiple no-shows for scopes in the past for similar complaints. Discussed with patient. She is relatively comfortable-appearing clinically. The only abnormal test is that her the pyuria is a little more than it was 3 days ago but the dip testing is basically the same. I did send a new culture, and I think the best course would be to consider the possibility of a resistant urinary infection and to switch her antibiotic. Going according to her antibiotic allergies and the fact that she was just on a cephalosporin currently, changing her to Bactrim would make the most sense as it is the only other first-line drug available since we do not have access to fosphenytoin here. She states she thinks that she can tolerate that okay. Also it would cover pyelonephritis if she has early pyelonephritis. She is asking for a work note as well and advised to follow-up. History & Record Review Additional record(s) reviewed:: Prior outpatient record (surgical note 016) and Prior ED visit Lab Data Attestation: I reviewed the patient's lab results. Labs: Laboratory Results - last 24 hr 07/15/23 07/15/23 11:10 11:20 WBC 6.7 RBC 5.01 Hgb 14.7 Hct 44.2 MCV 88.2 MCH 29.3 MCHC 33.3 RDW Std Deviation 39.0 RDW Coeff of Teena 12.2 Plt Count 209 MPV 9.7 Immature Gran % (Auto) 0.100 Neut % (Auto) 64.2 Lymph % (Auto) 25.9 Lamar % (Auto) 9.1 Eos % (Auto) 0.4 Baso % (Auto) 0.3 Absolute Neuts (auto) 4.3 Absolute Lymphs (auto) 1.74 Nucleated RBC % 0 Sodium 140 Potassium 4.2 Chloride 114 H Carbon Dioxide 20.0 L Anion Gap 6 BUN 18 Creatinine 1.08 H Estim Creat Clear Calc 80.68 Est GFR (MDRD) Af Amer 78 Est GFR (MDRD) Non-Af 65 BUN/Creatinine Ratio 16.7 Glucose 112 H Calcium 9.5 Urine Color Red Urine Clarity Cloudy Urine pH 6.5 Ur Specific [place] 1.025 Urine Protein 500 H Urine Glucose (UA) Normal Urine Ketones 5 H Urine Occult Blood 250 H Urine Nitrite Negative Urine Bilirubin Negative Urine Urobilinogen Normal Ur Leukocyte Esterase 100 H Urine RBC 25-50 SEEN Urine WBC 10-25 SEEN Ur Squamous Epith Cells 0-5 SEEN Urine Bacteria 1+ Urine Mucus 0 SEEN Radiography Diagnostic Testing: Clinical Impression(s) from Imaging Studies Transvaginal US 07/15/23 11:52 IMPRESSION: Empty pelvis. Electronically Signed: Wyatt Pal MD at 13:14 EDT , Management Discussion w/another healthcare provider: Client Experience Consultant (Urology Dr. Bennett) Discharge Plan Triage Chief Complaint: Flank Pain ED Provider: David Browne Dx/Rx/DC Orders Clinical Impression: Gross hematuria, Pelvic pain Instructions: ED Hematuria Prescriptions: New sulfamethoxazole-trimethoprim 800-160 mg tablet 1 tab PO BID Qty: 14 0RF Discontinued cefdinir 300 mg capsule 300 mg PO BID 5 Days Qty: 10 0RF Stand Alone Forms: ED Work / School Excuse Primary Care Provider: Becki Quintana Referrals: Becki Quintana, DERIC-C [Primary Care Provider] - 07/19/23 (or your urologist in [place] -- call for appt cindy since it is a holiday weekend) Print Language: Andorran Disposition Disposition: Home, Self Care
[2023-07-15 11:21] LABS: Absolute Lymphocyte Count 1.74 X10^3/uL (0.83-4.51); Absolute Neutrophil Count 4.3 X10^3/uL (2.0-7.7); Basophil# 0.02 X10^3/uL; Basophil% 0.3 % (0-1); Eosinophil# 0.03 X10^3/uL; Eosinophils% 0.4 % (0-5); Hematocrit 44.2 % (37-47); Hemoglobin 14.7 g/dL (12.0-15.0); Lymphocyte # 1.74 X10^3/ul (0.83-4.51); Lymphocyte % 25.9 % (19-41); Mean Corp Hgb Conc 33.3 g/dL (32-36); Mean Corpuscular Hgb 29.3 pg (27.0-32.0); Mean Corpuscular Volume 88.2 fL (81-99); Mean Platelet Vol. 9.7 fl (6.2-12.0); Monocyte# 0.61 X10^3/uL; Monocyte% 9.1 % (0-10); NRBC Flagged by Analyzer 0 % (0-5); Neutrophil # 4.32 X10^3/uL (2.7-7.7); Neutrophil % 64.2 % (47-70); Platelet Count 209 K/mm3 (150-450); RBC Distribution Width CV 12.2 % (11.6-14.6); Red Blood Count 5.01 M/mm3 (4.2-5.4); White Blood Count 6.7 K/mm3 (4.4-11.0)
[2023-07-15] MEDS: Ondansetron 4 MG/2 ML Vial IV (11:24)
[2023-07-15] MEDS: Morphine 4 MG/ML Syringe IV (11:24)
[2023-07-15 11:34] LABS: Mucous, Urine 0 SEEN /hpf (<or=2+)
[2023-07-15 11:35] LABS: Anion Gap 6 (5-15); BUN 18 mg/dL (7-18); BUN/Creat Ratio 16.7 RATIO (10-20); Calcium,Total 9.5 mg/dL (8.5-10.1); Chloride 114 mmol/L (98-107); Creatinine, Serum 1.08 mg/dL (0.55-1.02); EST Glomerular Filtration Rate 65 mL/min (>60); Est Glom Filt Rate - Afr Amer 78 mL/min (>60); Estimated Creatinine Clearance 80.68 ml/min; Glucose 112 mg/dL (74-106); Potassium 4.2 mmol/L (3.5-5.1); Sodium Level 140 mmol/L (136-145)
[2023-07-15 11:44] LABS: Color, Urine Red (Yellow); Glucose, Dipstick Normal (Normal); Ketone-Dipstick 5 mg/dl (Negative); Leukocyte Esterase-Dipstick 100 /ul (Negative); Nitrite-Dipstick Negative (Negative); Occult Blood-Urine 250 /ul (Negative); Protein-Dipstick 500 mg/dl (Negative); Specific Gravity, Urine 1.025 (1.002-1.030); Urine Bilirubin Dipstick Negative (Negative); Urine Clarity Cloudy (Clear); Urine Urobilinogen Normal (Normal); Urine pH 6.5 (5.0 - 8.0)
[2023-07-15] MEDS: HYDROmorphone 1 MG/ML Syringe IV (11:51)
[2023-07-15 11:52] LABS: Bacteria 1+ /hpf (None Seen); Red Blood Cells-Urine 25-50 SEEN /hpf (0-5); Squamous Epithelial Cells - UA 0-5 SEEN /hpf (5-10); White Blood Cells 10-25 SEEN /hpf (0-5)
--- NOTE | 2023-07-15 11:52 | US_ITS ---
EXAM: US PELVIS TRANSVAGINAL CLINICAL INDICATION: R pelvic pain; s/p hysterectomy TECHNIQUE: Endovaginal pelvic ultrasound was performed with grayscale and color Doppler imaging. Endovaginal imaging was used for better evaluation of the endometrium and adnexa. COMPARISON: No relevant prior studies available. FINDINGS: UTERUS/CERVIX: Uterus is absent. No ovarian tissue identified. FREE FLUID: No mass or fluid collection. US/Transvaginal Non- IMPRESSION: Empty pelvis. Electronically Signed: Wyatt Pal MD at 13:14 EDT ,
[2023-07-15 12:53] VITALS: BP 117/87; PULSE 74; RESP 16; TEMP 36.2; O2SAT 96
[2023-07-15] MEDS: Smz/Tmp Ds Tablet 1 TABLET PO (13:46)
[2023-07-15 13:47] VITALS: BP 88/73; PULSE 70; RESP 14; TEMP 36.6; O2SAT 98
== END 2023-07-15 13:59 | disposition home or self-care (01) ==
PROVIDERS: Emergency Provider Emergency Medicine; PCP Nurse Practitioner Family; Visit Provider Emergency Medicine
DX: R31.0 Gross hematuria (principal); B96.89 Other specified bacterial agents as the cause of diseases classified elsewhere; Q60.0 Renal agenesis, unilateral; R10.2 Pelvic and perineal pain; J45.909 Unspecified asthma, uncomplicated; Z90.49 Acquired absence of other specified parts of digestive tract
CPT/HCPCS: 76830; 80048; 81001; 85025; 87086; 87088; 96374; 96375; 99283; J7030; A4216; J2405

== ENCOUNTER 2023-08-19 08:31 | Emergency (ER) | payer OTHER, SELFPAY ==
[2023-08-19 08:31] VITALS: PULSE 83; RESP 16; TEMP 36.1; O2SAT 97; BMI 30.6
[2023-08-19 08:33] VITALS: BP 104/62
--- NOTE | 2023-08-19 09:02 | RAD_ITS ---
STUDY: X-RAY CHEST REASON FOR EXAM: Female, 27 years old. Cough, fever TECHNIQUE: PA and lateral views of the chest. COMPARISON: July 17, 2019 FINDINGS: The lungs are clear and expanded. There is no demonstrated pleural abnormality. Normal size heart. Normal mediastinum and carmen. Normal visualized pulmonary arteries. Normal visualized aortic arch and descending thoracic aorta. Normal visualized thoracic spine. Normal visualized ribs, clavicles, and shoulders. There is no demonstrated abnormality of the visualized soft tissue structures of the upper abdomen. RAD/Chest PA and Lateral IMPRESSION: Normal x-ray examination of the chest. Electronically Signed: David Welch MD at 9:41 EDT ,
--- NOTE | 2023-08-19 10:14 | EX.ED.DYSGE1 ---
HPI History of Present Illness Chief Complaint: Cold Sx Informant: patient Narrative Narrative: Patient is a 27-year-old female presenting with sore throat, cough and fever. Patient works in a daycare. She just had a cough for the past month as per note from [facility]. She intermittently has been short of breath and had chest tightness. She has had a fever for the past 3 days as high as 101.6 2 days ago. She told her supervisor [employer] about this and was told she must get a work note and be evaluated in order to call off work today. Patient last took Tylenol at 530 this morning. She states that when she was younger she had frequent bouts of sore throats but not had any in quite some time. Denies any rash. Denies any nausea or vomiting. No other complaints reported at this time. Notes that one of her grandparents recently also had pneumonia/bronchitis. [facility] Medical History Renal abscess, right Abscess of right kidney Agenesis of left kidney UTI (urinary tract infection) Abdominal hernia History of gross hematuria Renal agenesis Thyroid disease Asthma Migraines Home Medications ?Medication ?Instructions ?Recorded ?Last Taken ?Type NK 08/19/23 Unknown History Allergy/AdvReac Type Severity Reaction Status Date / Time amoxicillin Allergy Rash Verified 08/19/23 08:31 ciprofloxacin (From Cipro) Allergy Hives Verified 08/19/23 08:31 ketorolac (From Toradol) AdvReac Other Verified 08/19/23 08:31 procaine (From Novocain) AdvReac Other Verified 08/19/23 08:31 Surgical History H/O: hysterectomy Hx of hernia repair History of appendectomy H/O partial thyroidectomy Social History Smoking Status: Never smoker substance use type: does not use ROS ROS ED Constitutional Constitutional ED: Reports chills and fever(s) Eyes Eyes: Denies change in vision ENT ENT ED: Reports sore throat; Denies rhinorrhea Cardiovascular Cardiovascular: Denies chest pain or palpitations Respiratory/Chest Respiratory/Chest: Reports cough and dyspnea Gastrointestinal Gastrointestinal: Denies abdominal pain, nausea or vomiting Musculoskeletal Musculoskeletal: Denies arthralgias or myalgias Integumentary Denies rash Neurologic Neurologic: Denies weakness EXAM Physical Exam Const Vital Signs: 08/19/23 08:31 08/19/23 08:33 08/19/23 08:47 Temperature 97 F L Temperature Source Temporal Pulse Rate 83 Respiratory Rate 16 Respiratory Effort Normal Non-Labored Respiratory Pattern Normal Blood Pressure 104/62 Blood Pressure Mean 76 Pulse Ox 97 Positive well nourished and well developed General Appearance ED: well developed HEENT Reports moist mucous membranes HEENT Narrative: Mild injection of the oropharynx. No edema or exudate of the tonsils appreciated. Normal tympanic membranes bilaterally. Eyes PERRL and EOMs intact bilaterally Neck no lymphadenopathy and supple Chest Wall inspection of chest normal and palpation of chest normal Resp normal respiratory effort and clear to auscultation bilaterally Auscultation: Negative for rales, rhonchi or wheezes Cardio regular rate and regular rhythm GI normal to inspection, nondistended, normoactive bowel sounds Extremity normal to inspection Neuro oriented x3 Sensorium / Orientation: alert Motor Exam: Negative for general weakness Psych mental status grossly normal Skin no rashes or lesions noted MDM MDM MDM Narrative Medical decision making narrative: Patient is a well-appearing 27-year-old. Vital signs are normal. She is afebrile at this time. She declines any further medication in the emergency room. Breath sounds are clear but given 1 month of symptoms and now fever will obtain chest x-ray to rule out pneumonia. 2 view chest x-ray reviewed by myself as well as radiology does not show acute process. Patient does not have an exam consistent with strep pharyngitis. I did offer a strep swab but she declined if she does not have findings concerning for. I also offered a COVID swab however patient states she can just take a home COVID test. She states she is really just here for a work note. Patient will be given a work note. Counseled return precautions. Instructed likely this is viral in nature. Discharged home in stable condition. Radiography Diagnostic Testing: Clinical Impression(s) from Imaging Studies Chest X-Ray 08/19/23 09:02 IMPRESSION: Normal x-ray examination of the chest. Electronically Signed: David Welch MD at 9:41 EDT , Discharge Plan Triage Chief Complaint: Cold Sx ED Provider: Jen Estevez Dx/Rx/DC Orders Clinical Impression: Febrile illness, Acute viral syndrome Instructions: ED Viral Syndrome (Adult) Prescriptions: No Action NK Stand Alone Forms: ED Work / School Excuse Primary Care Provider: Becki Quintana Referrals: Becki Quintana, [facility] [Primary Care Provider] - Activity Restrictions/Additional Instructions: Drink plenty fluids. Your chest x-ray did not show any pneumonia. I do recommend taking a home COVID test. Alternate ibuprofen and Tylenol as needed for fever control. Print Language: Yoruba Disposition Disposition: Home, Self Care
[2023-08-19 10:25] VITALS: BP 119/57; PULSE 78; RESP 16; TEMP 35; O2SAT 96
--- NOTE | 2023-08-19 10:26 | ED.RN ---
Patient given written and verbal DC instructions. Pt advised by Dr Estevez to do a home COVID test. Pt verablized understanding. Patient ambulated from the ED without difficulty.
== END 2023-08-19 10:27 | disposition home or self-care (01) ==
PROVIDERS: Emergency Provider Emergency Medicine; PCP Nurse Practitioner Family; Visit Provider Emergency Medicine
DX: B34.9 Viral infection, unspecified (principal); R06.02 Shortness of breath; J45.909 Unspecified asthma, uncomplicated; R50.9 Fever, unspecified; J02.9 Acute pharyngitis, unspecified
CPT/HCPCS: 71046; 99282

== ENCOUNTER 2023-08-29 12:46 | Emergency (ER) | payer OTHER, SELFPAY ==
[2023-08-29 12:46] VITALS: BP 121/96; PULSE 81; RESP 15; TEMP 36.4; O2SAT 99; BMI 25.5
--- NOTE | 2023-08-29 14:08 | ED.VIS.FEGU ---
HPI HPI - Female History of Present Illness Chief Complaint: Flank Pain PFSH PFSH Medical History Renal abscess, right Abscess of right kidney Agenesis of left kidney UTI (urinary tract infection) Abdominal hernia History of gross hematuria Renal agenesis Thyroid disease Asthma Migraines Home Medications ?Medication ?Instructions ?Recorded ?Last Taken ?Type multivit with min-folic acid PO 08/29/23 Unknown History Allergy/AdvReac Type Severity Reaction Status Date / Time amoxicillin Allergy Rash Verified 08/29/23 12:48 ciprofloxacin (From Cipro) Allergy Hives Verified 08/29/23 12:48 ketorolac (From Toradol) AdvReac Other Verified 08/29/23 12:48 procaine (From Novocain) AdvReac Other Verified 08/29/23 12:48 Surgical History H/O: hysterectomy Hx of hernia repair History of appendectomy H/O partial thyroidectomy Social History Smoking Status: Never smoker substance use type: does not use EXAM Physical Exam Const Vital Signs: 08/29/23 12:46 08/29/23 14:39 08/29/23 16:00 Temperature 97.6 F L 98.7 F Temperature Source Temporal Oral Pulse Rate 81 81 Respiratory Rate 15 17 Blood Pressure 121/96 H 113/77 Blood Pressure Mean 104 89 Pulse Ox 99 98 Oxygen Delivery Method Room Air Room Air MDM MDM MDM Narrative Medical decision making narrative: HISTORY OF PRESENT ILLNESS: 27 Y female presents with right-sided flank pain. She states she has had 2 months of right flank pain. Notes is worse over the last day with accompanying nausea or vomiting. Also endorses subjective fever and chills REVIEW OF SYSTEMS: Pertinent positives: Right flank pain, nausea, vomiting Pertinent negatives: Chest pain, shortness of breath, vaginal bleeding, discharge, frequency, urgency, diarrhea, constipation PHYSICAL EXAM: Nursing triage notes reviewed, Vital signs reviewed Constitutional: please see mdm HENT: MMM Eyes: Pupils equal round and reactive to light, Extraocular muscles intact Neck: No stridor, no JVD, full neck ROM Lungs: Clear to auscultation, No wheezing or rales. No increased work of breathing, no conversational dyspnea, no accessory muscle use, no nasal flaring. No respiratory distress noted Heart: Regular rate and rhythm, No murmurs, No rubs and No gallops, 2+ distal pulses (radial, femoral, posterior tibial) in all extremities Abdomen: Soft, there is no tenderness, rigidity, rebound or guarding, no obvious peritoneal signs, no palpable pulsatile abdominal masses, no auscultated abdominal bruit : No CVAT Extremities: No edema Neuro: No focal neurological deficits, cranial nerves II through XII intact, 5/5 strength in all extremities. Intact sensation to light touch in all extremities, 2+ reflexes bilateral patella tendons. Normal gait. No ataxia. Skin: No rash or lesions noted MEDICAL DECISION MAKING: Chief Complaint: Right flank pain External records reviewed: Reviewed prior imaging: CT scan of the abdomen pelvis from 2023 shows absence of left kidney, no right renal or ureteral stones, no hydronephrosis, no bowel obstruction Factors affecting care: asthma, migraines, renal agenesis, gross hematuria, abdominal hernia, UTI, status post appendectomy Social determinants of health: none History obtained from others: Significant other Consults: none MDM Narrative: Patient was initially hemodynamically stable, afebrile, nontoxic-appearing. Exam without peritoneal signs. There was right CVA tenderness. There is no signs of rashes bruising or other trauma. I considered the following differential diagnosis: Nephrolithiasis, pyelonephritis, muscle skeletal injury, AAA I obtained a broad lab and imaging workup to further elucidate etiology of patient complaints. I treat the patient initially with oral Tylenol 1 L normal saline bolus as well as Zofran for symptomatic control. ALL IMAGES (IF OBTAINED) HAVE BEEN PERSONALLY REVIEWED AND INTERPRETED BY MYSELF. Urinalysis suggest evidence of UTI with flank pain likely quality audit representative pyelonephritis CBC with leukocytosis suggestive of systemic inflammation, no anemia or thrombocytopenia CMP without evidence of hepatobiliary obstruction, no evidence of endorgan hypoperfusion with an anion gap of 3, no evidence of metabolic acidosis with a normal bicarb, no significant [place] normalities, no acute kidney injury Lipase is wnl indicating no pancreatic inflammation. Reassessment patient abdominal exam is benign. She will continue nausea and an episode of nonbloody nonbilious vomitus after having IV Zofran as well as p.o. Phenergan. She is unable to tolerate oral antibiotics. Given ongoing nausea vomiting, kidney agenesis, significant urine infection evidence of pyelonephritis I decided admit the patient for observation. Discussed with Dr. Shin. I treat the patient with IV Compazine (5 mg), another liter of IV fluid (1 L) and IV morphine (4 mg) for pain and symptom control. She was admitted in stable condition The patient and/or family, caregivers express understanding. The patient and/or family, caregivers agrees with the plan. Shared decision making: I will have a discussion with the patient and or visitors regarding risk/benefits of further testing or admission. They will be made aware of of the risk/benefits inherent in this decision they will be given the opportunity to voice understanding. Total critical care time today provided was at least 0 minutes. This excludes separately billable procedures. Critical care time (if documented) is secondary to the patient having high probability of clinically significant/life threatening deterioration in the patient's condition which required my urgent intervention. Impression: 1. Right flank pain 2. Pyelonephritis 3. History of kidney agenesis Dispo: Admit to [facility] This note was generated with [employer] dictation software. It may contain incorrect words, spelling, and punctuation that were not noted in review of the chart prior to signing. Lab Data Labs: Laboratory Results - last 24 hr 08/29/23 08/29/23 14:05 14:40 WBC 12.3 H RBC 4.97 Hgb 14.3 Hct 43.3 MCV 87.1 MCH 28.8 MCHC 33.0 RDW Std Deviation 37.7 RDW Coeff of Teena 11.9 Plt Count 210 MPV 9.3 Immature Gran % (Auto) 0.500 Neut % (Auto) 88.2 H Lymph % (Auto) 6.6 L [place] % (Auto) 4.3 Eos % (Auto) 0.2 Baso % (Auto) 0.2 Absolute Neuts (auto) 10.8 H Absolute Lymphs (auto) 0.81 L Nucleated RBC % 0 Sodium 138 Potassium 4.1 Chloride 112 H Carbon Dioxide 23.0 Anion Gap 3 L BUN 13 Creatinine 0.87 Estim Creat Clear Calc 92.59 Est GFR (MDRD) Af Amer 100 Est GFR (MDRD) Non-Af 83 BUN/Creatinine Ratio 14.9 Glucose 88 Calcium 8.6 Total Bilirubin 0.60 Direct Bilirubin 0.16 AST 25 ALT 37 Alkaline Phosphatase 69 Total Protein 7.2 Albumin 3.5 Globulin 3.7 Lipase 15 Urine Color Brown Urine Clarity Turbid Urine pH 5.0 Ur Specific [place] 1.015 Urine Protein 100 H Urine Glucose (UA) Normal Urine Ketones 5 H Urine Occult Blood 250 H Urine Nitrite Positive H Urine Bilirubin Negative Urine Urobilinogen 1 H Ur Leukocyte Esterase 500 H Urine RBC 25-50 SEEN Urine WBC 25-50 SEEN Ur Squamous Epith Cells 0-5 SEEN Urine Bacteria 1+ Urine Mucus 0 SEEN Urine Test Negative Radiography Diagnostic Testing: Clinical Impression(s) from Imaging Studies Abdomen/Pelvis CT 08/29/23 14:28 IMPRESSION: The left kidney is not seen. Status post hysterectomy and appendectomy. Electronically Signed: Scott Apodaca MD at 15:32 EDT , Discharge Plan Triage Chief Complaint: Flank Pain ED Provider: Jose Colon Dx/Rx/DC Orders Prescriptions: No Action multivit with min-folic acid [Women's Multivitamin Gummies] PO Primary Care Provider: Becki Quintana Referrals: Becki Quintana, [facility] [Primary Care Provider] - Print Language: Welsh
--- NOTE | 2023-08-29 14:28 | CT_ITS ---
STUDY: CT ABDOMEN AND PELVIS WITHOUT CONTRAST REASON FOR EXAM: Female, 27 years old. One month history of right renal pain. RADIATION DOSAGE (If Supplied By Facility): CTDIvol = ( 10.88 ) mGy, DLP = ( 525.11 ) mGycm TECHNIQUE: Transaxial images were obtained from the dome of the diaphragm to the symphysis pubis without oral contrast, and without intravenous contrast. Sagittal and coronal images were reconstructed. Individualized dose optimization techniques were used for this CT. COMPARISON: Comparison is made with prior study dated July 12, 2023. FINDINGS: The visualized lung bases are unremarkable. The visualized portions of the heart are within normal limits. Normal liver. Normal gallbladder and extrahepatic biliary system. Normal spleen. Normal pancreas. Normal bilateral adrenal glands. Normal right kidney. The left kidney is absent. Normal visualized stomach. Normal small intestine. There are scattered colonic diverticula consistent with diverticulosis. There are surgical clips in the region of the appendix consistent with a prior appendectomy. Normal abdominal aorta. Normal inferior vena cava. Normal retroperitoneum. Normal urinary bladder. There is absence of the uterus consistent with a prior hysterectomy. Normal abdominal wall. Normal osseous structures. CT/Abdomen/Pelvis without Cont IMPRESSION: The left kidney is not seen. Status post hysterectomy and appendectomy. Electronically Signed: Scott Apodaca MD at 15:32 EDT ,
[2023-08-29 14:39] VITALS: TEMP 37.1
[2023-08-29] MEDS: 0.9% Normal Saline (1000mL) 1,000 ML 999 ML IV ×2 (14:42→17:15)
[2023-08-29] MEDS: Acetaminophen 325 MG Tablet PO (14:43)
[2023-08-29] MEDS: Ondansetron 4 MG/2 ML Vial IV (14:43)
[2023-08-29 14:45] LABS: Mucous, Urine 0 SEEN /hpf (<or=2+)
[2023-08-29 14:47] LABS: Absolute Lymphocyte Count 0.81 X10^3/uL (0.83-4.51); Absolute Neutrophil Count 10.8 X10^3/uL (2.0-7.7); Basophil# 0.02 X10^3/uL; Basophil% 0.2 % (0-1); Eosinophil# 0.03 X10^3/uL; Eosinophils% 0.2 % (0-5); Hematocrit 43.3 % (37-47); Hemoglobin 14.3 g/dL (12.0-15.0); Lymphocyte # 0.81 X10^3/ul (0.83-4.51); Lymphocyte % 6.6 % (19-41); Mean Corpuscular Hgb 28.8 pg (27.0-32.0); Mean Corpuscular Volume 87.1 fL (81-99); Mean Platelet Vol. 9.3 fl (6.2-12.0); Monocyte# 0.53 X10^3/uL; Monocyte% 4.3 % (0-10); NRBC Flagged by Analyzer 0 % (0-5); Neutrophil # 10.81 X10^3/uL (2.7-7.7); Neutrophil % 88.2 % (47-70); Platelet Count 210 K/mm3 (150-450); RBC Distribution Width CV 11.9 % (11.6-14.6); RBC Distribution Width SD 37.7 fl (35.1-43.9); Red Blood Count 4.97 M/mm3 (4.2-5.4); White Blood Count 12.3 K/mm3 (4.4-11.0)
[2023-08-29 14:54] LABS: Color, Urine Brown (Yellow); Glucose, Dipstick Normal (Normal); Ketone-Dipstick 5 mg/dl (Negative); Leukocyte Esterase-Dipstick 500 /ul (Negative); Nitrite-Dipstick Positive (Negative); Occult Blood-Urine 250 /ul (Negative); Protein-Dipstick 100 mg/dl (Negative); Specific Gravity, Urine 1.015 (1.002-1.030); Urine Bilirubin Dipstick Negative (Negative); Urine Clarity Turbid (Clear); Urine Urobilinogen 1 mg/dl (Normal)
[2023-08-29 15:04] LABS: AST(SGOT) 25 U/L (15-37); Alanine Aminotransfer ALT/SGPT 37 U/L (13-56); Albumin, Serum 3.5 g/dL (3.2-5.0); Alkaline Phosphatase 69 U/L (45-117); Anion Gap 3 (5-15); BUN 13 mg/dL (7-18); BUN/Creat Ratio 14.9 RATIO (10-20); Bilirubin, Direct 0.16 mg/dL (0.00-0.30); Calcium,Total 8.6 mg/dL (8.5-10.1); Chloride 112 mmol/L (98-107); Creatinine, Serum 0.87 mg/dL (0.55-1.02); EST Glomerular Filtration Rate 83 mL/min (>60); Est Glom Filt Rate - Afr Amer 100 mL/min (>60); Estimated Creatinine Clearance 92.59 ml/min; Globulin 3.7 g/dL (2.2-4.2); Glucose 88 mg/dL (74-106); Lipase 15 U/L (13-75); Potassium 4.1 mmol/L (3.5-5.1); Protein, Total 7.2 g/dL (6.4-8.2); Sodium Level 138 mmol/L (136-145)
[2023-08-29 15:05] LABS: Bacteria 1+ /hpf (None Seen); Internal QC Validated? YES +Cl - CLEAR BKGD; Pregnancy, Urine Negative Negative; Record Kit Lot#,Urine Preg HCG0000772476; Red Blood Cells-Urine 25-50 SEEN /hpf (0-5); Squamous Epithelial Cells - UA 0-5 SEEN /hpf (5-10); White Blood Cells 25-50 SEEN /hpf (0-5)
[2023-08-29] MEDS: Ceftriaxone 1 GM/50 ML BAG IV (15:27)
[2023-08-29 16:00] VITALS: BP 113/77; PULSE 81; RESP 17; O2SAT 98
[2023-08-29] MEDS: proMETHazine 25 MG Tablet PO (16:02)
[2023-08-29] MEDS: Smz/Tmp Ds Tablet 1 TABLET PO (16:44)
[2023-08-29 17:06] VITALS: BP 113/77; PULSE 81; RESP 17; TEMP 36.6; O2SAT 98
--- NOTE | 2023-08-29 17:14 | PCM.HP.STD ---
HPI - General General Date of Admission: 08/29/23 Date of Service: 08/29/23 Chief Complaint: Right flank pain for about 1 week. Fever and chills for last 2 days HPI Narrative MARIELLE ROMAN, is a 27 F with history of left kidney agenesis, congenital came to ED for left-sided flank pain. She said she has left flank pain started about a week ago with radiation to right umbilical/hypogastric region. She was drinking more water in order to flush though she does not have prior history of kidney stone. Further recurrence, pain got worse along with fever and chills along with nausea and vomiting therefore came to ED. She did not measure temperature at home. In ED, CT abdomen was done which reported normal right kidney. Labs reviewed. Patient was tried to control nausea and vomiting with IV Zofran with hope that she be discharged on oral antibiotic from ED but she was still nauseous vomiting therefore admitted. She had first dose of IV ceftriaxone in ED. Family history noncontributory to the present illness. PENDING SALE TO [facility] Medical History Renal abscess, right Abscess of right kidney Agenesis of left kidney UTI (urinary tract infection) Abdominal hernia History of gross hematuria Renal agenesis Thyroid disease Asthma Migraines Home Medications ?Medication ?Instructions ?Recorded ?Last Taken ?Type multivit with min-folic acid PO 08/29/23 Unknown History Allergy/AdvReac Type Severity Reaction Status Date / Time amoxicillin Allergy Rash Verified 08/29/23 12:48 ciprofloxacin (From Cipro) Allergy Hives Verified 08/29/23 12:48 ketorolac (From Toradol) AdvReac Other Verified 08/29/23 12:48 procaine (From Novocain) AdvReac Other Verified 08/29/23 12:48 Surgical History H/O: hysterectomy Hx of hernia repair History of appendectomy H/O partial thyroidectomy Social History Smoking Status: Never smoker substance use type: does not use ROS ROS Narrative Constitutional: Reports fatigue and weakness. Fever and chills at home. HEENT: Reports systems reviewed and no addt'l complaints, except as documented Respiratory/Chest: No acute shortness of breath or respiratory distress or wheezing. CVS: No chest pain pressure or tightness Gastrointestinal: Nausea and vomiting persistent for last 2 days. Genitourinary: Flank pain as described in HPI. Denies burning pain but has dark urine. Did not notice oliguria or danny blood/hematuria Musculoskeletal: Denies acute joint pain or limited range of motion. No acute injury Neurologic: Denies seizure-like symptoms. skin: No ulcer. No rash Endocrinology: Reports systems reviewed and no addt'l complaints, except as documented Hematologic/Lymphatic: Reports systems reviewed and no addt'l complaints, except as documented Rest 14 ROS are negative except as mentioned in HPI Vital Signs Vital Signs Vital Signs: 08/29/23 12:46 08/29/23 14:39 08/29/23 16:00 Temperature 97.6 F L 98.7 F Temperature Source Temporal Oral Pulse Rate 81 81 Respiratory Rate 15 17 Blood Pressure 121/96 H 113/77 Blood Pressure Mean 104 89 Pulse Ox 99 98 Oxygen Delivery Method Room Air Room Air 08/29/23 17:06 Temperature 97.8 F Temperature Source Pulse Rate 81 Respiratory Rate 17 Blood Pressure 113/77 Blood Pressure Mean 89 Pulse Ox 98 Oxygen Delivery Method Weight Weight: 149 lb Body Mass Index (BMI) 25.5 Physical Exam Narrative General: Alert, Oriented x3, Cooperative HEENT: Atraumatic, PERRLA, EOMI, Normocephalic Oral: Oral mucosa dry no Gingival or Mucosal Lesions/ Ulcerations Neck: Supple, No JVD, Negative Carotid Bruits Chest wall/Lungs: Air entry diminished in bilateral lung bases. No crepitation/rhonchi Cardiovascular: Regular rate, Regular Rhythm, Normal S1, Normal S2, No M/G/R Abdomen: Bowel Sounds Present, Soft, Non-Distended : Tenderness present over right flank/renal angle and umbilical and hypogastric present. No dysuria. Mild suprapubic tenderness Extremities: No edema, Capillary Refill Less than 3 Seconds Skin: No rashes, No breakdown Musculoskeletal: No Tenderness to Palpation of Joints or Extremities Neurological: Cranial nerves II-XII grossly intact, DTR 2+/4. No acute focal neurological deficit. Psych/Mental Status: Normal Affect, Appropriate. Results Lab / Micro Data 08/29/23 14:40 08/29/23 14:40 Labs: Laboratory Results - last 24 hr 08/29/23 14:05: Urine Color Brown, Urine Clarity Turbid, Urine pH 5.0, Ur Specific [place] 1.015, Urine Protein 100 H, Urine Glucose (UA) Normal, Urine Ketones 5 H, Urine Occult Blood 250 H, Urine Nitrite Positive H, Urine Bilirubin Negative, Urine Urobilinogen 1 H, Ur Leukocyte Esterase 500 H, Urine RBC 25-50 SEEN, Urine WBC 25-50 SEEN, Ur Squamous Epith Cells 0-5 SEEN, Urine Bacteria 1+, Urine Mucus 0 SEEN, Urine Test Negative 08/29/23 14:40: WBC 12.3 H, RBC 4.97, Hgb 14.3, Hct 43.3, MCV 87.1, MCH 28.8, MCHC 33.0, RDW Std Deviation 37.7, RDW Coeff of [place] 11.9, Plt Count 210, MPV 9.3, Immature Gran % (Auto) 0.500, Neut % (Auto) 88.2 H, Lymph % (Auto) 6.6 L, [place] % (Auto) 4.3, Eos % (Auto) 0.2, Baso % (Auto) 0.2, Absolute Neuts (auto) 10.8 H, Absolute Lymphs (auto) 0.81 L, Nucleated RBC % 0, Sodium 138, Potassium 4.1, Chloride 112 H, Carbon Dioxide 23.0, Anion Gap 3 L, BUN 13, Creatinine 0.87, Estim Creat Clear Calc 92.59, Est GFR (MDRD) Af Amer 100, Est GFR (MDRD) Non-Af 83, BUN/Creatinine Ratio 14.9, Glucose 88, Calcium 8.6, Total Bilirubin 0.60, Direct Bilirubin 0.16, AST 25, ALT 37, Alkaline Phosphatase 69, Total Protein 7.2, Albumin 3.5, Globulin 3.7, Lipase 15 Imaging Radiology Impression Abdomen/Pelvis CT 08/29/23 14:28 IMPRESSION: The left kidney is not seen. Status post hysterectomy and appendectomy. Electronically Signed: Scott Apodaca MD at 15:32 EDT , Assessment & Plan Assessment/Plan (1) Pyelonephritis: PLAN: Plan This is a 27-year-old female came to ED for right flank pain, fever with chills, nausea and vomiting consistent with clinical diagnosis of right pyelonephritis. 1. Clinically, her right pyelonephritis: CT abdomen/pelvis was done. Left kidney agenesis. Laboratory Results 08/29/23 14:05: Urine Color Brown, Urine Clarity Turbid, Urine pH 5.0, Ur Specific [place] 1.015, Urine Protein 100 H, Urine Glucose (UA) Normal, Urine Ketones 5 H, Urine Occult Blood 250 H, Urine Nitrite Positive H, Urine Bilirubin Negative, Urine Urobilinogen 1 H, Ur Leukocyte Esterase 500 H, Urine RBC 25-50 SEEN, Urine WBC 25-50 SEEN, Ur Squamous Epith Cells 0-5 SEEN, Urine Bacteria 1+, Urine Mucus 0 SEEN, Urine Test Negative 08/29/23 14:40: WBC 12.3 H, RBC 4.97, Hgb 14.3, Hct 43.3, MCV 87.1, MCH 28.8, MCHC 33.0, RDW Std Deviation 37.7, RDW Coeff of Teena 11.9, Plt Count 210, MPV 9.3, Immature Gran % (Auto) 0.500, Neut % (Auto) 88.2 H, Lymph % (Auto) 6.6 L, [place] % (Auto) 4.3, Eos % (Auto) 0.2, Baso % (Auto) 0.2, Absolute Neuts (auto) 10.8 H, Absolute Lymphs (auto) 0.81 L, Nucleated RBC % 0, Sodium 138, Potassium 4.1, Chloride 112 H, Carbon Dioxide 23.0, Anion Gap 3 L, BUN 13, Creatinine 0.87, Estim Creat Clear Calc 92.59, Est GFR (MDRD) Af Amer 100, Est GFR (MDRD) Non-Af 83, BUN/Creatinine Ratio 14.9, Glucose 88, Calcium 8.6, Total Bilirubin 0.60, Direct Bilirubin 0.16, AST 25, ALT 37, Alkaline Phosphatase 69, Total Protein 7.2, Albumin 3.5, Globulin 3.7, Lipase 15 Clinical Impression(s) from Imaging Studies Abdomen/Pelvis CT 08/29/23 14:28
[2023-08-29] MEDS: Morphine 4 MG/ML Syringe IV (17:15)
[2023-08-29] MEDS: proCHLORPERazine 10 MG/2 ML Vial 5 MG IV (17:15)
--- NOTE | 2023-08-29 17:45 | ED.RN ---
Pt requesting to leave AMA. Dr. Colon notified
[2023-08-29 17:50] VITALS: BP 117/82; PULSE 81; RESP 17; TEMP 36.7; O2SAT 98
--- NOTE | 2023-08-29 18:04 | PCM.HOSP.N ---
Hospitalist Note Patient came for right flank with fever and chills with nausea and vomiting. ED physician decided to admit but patient signed AMA. She had 1 dose of IV ceftriaxone in the ED. Patient is not being admitted and discharged from ED. Dr. Colon will take care of antibiotic
--- NOTE | 2023-08-29 18:36 | ED.RN ---
Pt. notified that Dr. Colon would write her discharge paperwork. Patient did not want to wait for discharge paperwork, ambulated out of department with friend.
== END 2023-08-29 17:55 | disposition left against medical advice (07) ==
LOC: ED 14:19 → MS3 17:20
PROVIDERS: Emergency Provider Emergency Medicine; PCP Nurse Practitioner Family; Visit Provider Emergency Medicine
DX: R10.9 Unspecified abdominal pain (principal); N12 Tubulo-interstitial nephritis, not specified as acute or chronic; J45.909 Unspecified asthma, uncomplicated; R31.0 Gross hematuria; G43.909 Migraine, unspecified, not intractable, without status migrainosus; Z90.89 Acquired absence of other organs; Q60.2 Renal agenesis, unspecified; K46.9 Unspecified abdominal hernia without obstruction or gangrene; Z53.29 Procedure and treatment not carried out because of patient's decision for other reasons
CPT/HCPCS: 74176; 80048; 80076; 81001; 81025; 83690; 85025; 87086; 87088; 96361; 96365; 96375; 99284; J7030; A4216; J2405

== ENCOUNTER 2023-08-31 09:31 | Inpatient (IN) | payer OTHER, SELFPAY ==
[2023-08-31] VITALS (7 sets, daily range): BP systolic 102–139; BP diastolic 58–75; PULSE 68–107; RESP 15–18; TEMP 36.3–37.5; O2SAT 95–100; BMI 30.3; BMI 30.4
--- NOTE | 2023-08-31 09:59 | EX.ED.DYSGE1 ---
HPI History of Present Illness Chief Complaint: Complaint Informant: patient Onset/Context/Timing Onset: Days (3) Context: Gradual Onset Timing: Continuous Quality: Sharp Location: Right flank and right lower abdomen Worsened by: Urination Relieved by: Nothing Narrative Narrative: Patient presents with right flank pain, nausea, and vomiting that became worse again today. Patient was seen here 2 days ago and was diagnosed with pyelonephritis. Patient did not want to be admitted to the hospital at that time. Patient requested to go home on oral antibiotics. Patient states that she has been unable to keep the antibiotics down. Patient states her pain has gotten worse. Patient describes her pain as sharp. Patient states pain is over the right flank and radiates into the right lower abdomen. Patient states her pain is worse with urination. Patient admits to some decreased urine output. Patient states nothing makes her pain any better. Patient admits to a low-grade fever of 100. [facility] Medical History Renal abscess, right Abscess of right kidney Agenesis of left kidney UTI (urinary tract infection) Abdominal hernia History of gross hematuria Renal agenesis Thyroid disease Asthma Migraines Home Medications ?Medication ?Instructions ?Recorded ?Last Taken ?Type multivit with min-folic acid PO 08/29/23 Unknown History Allergy/AdvReac Type Severity Reaction Status Date / Time amoxicillin Allergy Rash Verified 08/31/23 09:35 ciprofloxacin (From Cipro) Allergy Hives Verified 08/31/23 09:35 ketorolac (From Toradol) AdvReac Other Verified 08/31/23 09:35 procaine (From Novocain) AdvReac Other Verified 08/31/23 09:35 Surgical History H/O: hysterectomy Hx of hernia repair History of appendectomy H/O partial thyroidectomy Social History Smoking Status: Never smoker substance use type: does not use ROS ROS ED Constitutional Constitutional ED: Reports fever(s); Denies chills Eyes Eyes: Denies blurry vision or change in vision ENT ENT ED: Denies rhinorrhea or sore throat Cardiovascular Cardiovascular: Denies chest pain or palpitations Respiratory/Chest Respiratory/Chest: Denies cough or dyspnea Gastrointestinal Gastrointestinal: Reports abdominal pain, nausea and vomiting Genitourinary Genitourinary ED: Reports dysuria and hematuria Musculoskeletal Musculoskeletal: Reports back pain; Denies neck pain Integumentary Denies abscess or rash Neurologic Neurologic: Denies headache(s) or weakness Allergic/Immunologic Allergic/Immunologic ED: Denies mouth swelling or urticaria EXAM Physical Exam Const Vital Signs: 08/31/23 09:32 08/31/23 11:26 08/31/23 12:00 Temperature 98 F 99.1 F 99.5 F H Temperature Source Temporal Oral Oral Pulse Rate 107 H 72 72 Respiratory Rate 16 16 15 Blood Pressure 139/75 H 103/66 102/58 L Blood Pressure Mean 96 78 72 Pulse Ox 99 95 97 Oxygen Delivery Method Room Air Room Air Room Air Positive well nourished and well developed General Appearance ED: well developed and NAD HEENT Reports moist mucous membranes Neck supple and no JVD Resp normal respiratory effort and clear to auscultation bilaterally Cardio regular rate and regular rhythm GI non-distended Palpation: soft and tender RLQ, RUQ and suprapubic; Negative for guarding or rebound tenderness present Back/Spine General Back: CVA tenderness right Neuro oriented x3, CN's II-XII intact bilaterally and no sensory deficits noted Sensorium / Orientation: alert Motor Exam: strength 5/5 throughout Psych mental status grossly normal MDM MDM MDM Narrative Medical decision making narrative: Differential diagnosis includes pyelonephritis, urinary tract infection, gastroenteritis, colitis, and sepsis. CBC will be obtained to assess for leukocytosis and anemia. Basic metabolic profile will be obtained to assess for electrolyte abnormality and renal function. Urinalysis will be obtained to assess for urinary tract infection and hematuria. Lactate will be obtained to assess for sepsis. Blood cultures will be obtained to assess for sepsis. History & Record Review Additional record(s) reviewed:: Prior ED visit and Prior labs Lab Data Attestation: I reviewed the patient's lab results. Lab results narrative: CBC was reviewed. White blood cell count is improved to 7.7. Basic metabolic profile was reviewed and was essentially within normal limits. Serum lactate was reviewed and was normal at 0.8. Urinalysis was reviewed. Occult blood was 250 with 25-50 red blood cells. Leukocyte esterase was 500 with 25-50 white blood cells. There were positive nitrites and 1+ bacteria. Labs: Laboratory Results - last 24 hr 08/31/23 10:35 WBC 7.7 RBC 5.01 Hgb 14.5 Hct 42.5 MCV 84.8 MCH 28.9 MCHC 34.1 RDW Std Deviation 36.0 RDW Coeff of Teena 11.9 Plt Count 212 MPV 10.2 Immature Gran % (Auto) 0.400 Neut % (Auto) 71.8 H Lymph % (Auto) 18.4 L [place] % (Auto) 8.8 Eos % (Auto) 0.3 Baso % (Auto) 0.3 Absolute Neuts (auto) 5.5 Absolute Lymphs (auto) 1.42 Nucleated RBC % 0 Sodium 137 Potassium 4.3 Chloride 110 H Carbon Dioxide 22.0 Anion Gap 5 BUN 10 Creatinine 0.98 Estim Creat Clear Calc 89.15 Est GFR (MDRD) Af Amer 88 Est GFR (MDRD) Non-Af 73 BUN/Creatinine Ratio 10.2 Glucose 86 Lactic Acid 0.8 Calcium 9.3 Urine Color Red Urine Clarity Cloudy Urine pH 7.0 Ur Specific [place] 1.010 Urine Protein 100 H Urine Glucose (UA) Normal Urine Ketones 5 H Urine Occult Blood 250 H Urine Nitrite Positive H Urine Bilirubin Negative Urine Urobilinogen Normal Ur Leukocyte Esterase 500 H Urine RBC 25-50 SEEN Urine WBC 25-50 SEEN Ur Squamous Epith Cells 0-5 SEEN Urine Bacteria 1+ Urine Mucus 0 SEEN Management Discussion w/another healthcare provider: Hospitalist Treatment and Re-Evaluation :: Patient was given IV fluids, morphine, and Zofran. Previous urine culture was reviewed and showed mixed gram-positive organisms. Patient was given a dose of Rocephin here. Patient was advised of her findings. Patient is agreeable to be admitted today. Close discussed with the hospitalist. He will admit the patient to his service. Patient understood and was agreeable with the plan. All questions were answered. Discharge Plan Dx/Rx/DC Orders Clinical Impression: Pyelonephritis, Abdominal pain, Gross hematuria Disposition Disposition: Acute Care Hospital [facility] Discharge Date/Time: 08/31/23 13:19
[2023-08-31] MEDS: Ondansetron 4 MG/2 ML Vial IV ×2 (10:33→20:41)
[2023-08-31] MEDS: 0.9% Normal Saline (1000mL) 1,000 ML 1000 ML IV (10:34)
[2023-08-31] MEDS: Morphine 4 MG/ML Syringe IV ×2 (10:34→12:24)
[2023-08-31 10:41] LABS: Mucous, Urine 0 SEEN /hpf (<or=2+)
[2023-08-31 10:47] LABS: Absolute Lymphocyte Count 1.42 X10^3/uL (0.83-4.51); Absolute Neutrophil Count 5.5 X10^3/uL (2.0-7.7); Basophil# 0.02 X10^3/uL; Basophil% 0.3 % (0-1); Eosinophil# 0.02 X10^3/uL; Eosinophils% 0.3 % (0-5); Hematocrit 42.5 % (37-47); Hemoglobin 14.5 g/dL (12.0-15.0); Lymphocyte # 1.42 X10^3/ul (0.83-4.51); Lymphocyte % 18.4 % (19-41); Mean Corp Hgb Conc 34.1 g/dL (32-36); Mean Corpuscular Hgb 28.9 pg (27.0-32.0); Mean Corpuscular Volume 84.8 fL (81-99); Mean Platelet Vol. 10.2 fl (6.2-12.0); Monocyte# 0.68 X10^3/uL; Monocyte% 8.8 % (0-10); NRBC Flagged by Analyzer 0 % (0-5); Neutrophil # 5.53 X10^3/uL (2.7-7.7); Neutrophil % 71.8 % (47-70); Platelet Count 212 K/mm3 (150-450); RBC Distribution Width CV 11.9 % (11.6-14.6); Red Blood Count 5.01 M/mm3 (4.2-5.4); White Blood Count 7.7 K/mm3 (4.4-11.0)
[2023-08-31] MEDS: Ceftriaxone 1 GM/50 ML BAG IV (10:52)
[2023-08-31 11:01] LABS: Color, Urine Red (Yellow); Glucose, Dipstick Normal (Normal); Ketone-Dipstick 5 mg/dl (Negative); Leukocyte Esterase-Dipstick 500 /ul (Negative); Nitrite-Dipstick Positive (Negative); Occult Blood-Urine 250 /ul (Negative); Protein-Dipstick 100 mg/dl (Negative); Urine Bilirubin Dipstick Negative (Negative); Urine Clarity Cloudy (Clear); Urine Urobilinogen Normal (Normal)
[2023-08-31 11:16] LABS: Anion Gap 5 (5-15); BUN 10 mg/dL (7-18); BUN/Creat Ratio 10.2 RATIO (10-20); Bacteria 1+ /hpf (None Seen); Calcium,Total 9.3 mg/dL (8.5-10.1); Chloride 110 mmol/L (98-107); Creatinine, Serum 0.98 mg/dL (0.55-1.02); EST Glomerular Filtration Rate 73 mL/min (>60); Est Glom Filt Rate - Afr Amer 88 mL/min (>60); Estimated Creatinine Clearance 89.15 ml/min; Glucose 86 mg/dL (74-106); Potassium 4.3 mmol/L (3.5-5.1); Red Blood Cells-Urine 25-50 SEEN /hpf (0-5); Sodium Level 137 mmol/L (136-145); Squamous Epithelial Cells - UA 0-5 SEEN /hpf (5-10); White Blood Cells 25-50 SEEN /hpf (0-5)
[2023-08-31 11:20] LABS: Lactic Acid 0.8 mmol/L (0.4-1.9)
[2023-08-31] MEDS: proMETHazine 25 MG/ML Syringe 6.25 MG IM (11:55)
--- NOTE | 2023-08-31 12:44 | PCM.HP.STD ---
HPI - General General Date of Admission: 08/31/23 Date of Service: 08/31/23 Chief Complaint: Right flank pain HPI Narrative MARIELLE ROMAN, is a 27 F who presents with right flank pain. The patient has had intermittent flank pain for the past couple of weeks. Became more intense 2 days prior to admission. She was seen in the emergency department diagnosed with acute pyelonephritis. Patient was offered admission from the emergency department for inpatient management she however signed out AGAINST MEDICAL ADVICE. Her symptoms are worsened necessitating patient presented back to the emergency department. Urinalysis obtained on admission demonstrated presence of a urinary tract infection. He was subsequently admitted to regular nursing floor for further management [facility] Medical History Renal abscess, right Abscess of right kidney Agenesis of left kidney UTI (urinary tract infection) Abdominal hernia History of gross hematuria Renal agenesis Thyroid disease Asthma Migraines Home Medications ?Medication ?Instructions ?Recorded ?Last Taken ?Type multivit with min-folic acid PO 08/29/23 Unknown History Allergy/AdvReac Type Severity Reaction Status Date / Time amoxicillin Allergy Rash Verified 08/31/23 09:35 ciprofloxacin (From Cipro) Allergy Hives Verified 08/31/23 09:35 ketorolac (From Toradol) AdvReac Other Verified 08/31/23 09:35 procaine (From Novocain) AdvReac Other Verified 08/31/23 09:35 Surgical History H/O: hysterectomy Hx of hernia repair History of appendectomy H/O partial thyroidectomy Social History Smoking Status: Never smoker substance use type: does not use ROS ROS Narrative GENERAL: Subjective fever and chills HEENT: denies headache, sinus congestion, or drainage, dysphagia RESPIRATORY: denies cough, sputum production, shortness of breath, dyspnea on exertion CARDIAC: denies chest pain, palpitations, orthopnea, PND GASTROINTESTINAL: denies abdominal pain, nausea, vomiting, melena, GENITOURINARY: Right flank pain EXTREMITY: denies swelling MUSCULOSKELETAL: denies current joint pain or tenderness NEUROLOGIC: denies focal numbness, weakness, tingling HEMATOLOGIC: denies easy bruising and/or hemorrhage INTEGUMENT: denies rashes PSYCHIATRIC: denies suicidal or homicidal ideation Vital Signs Vital Signs Vital Signs: 08/31/23 09:32 08/31/23 11:26 08/31/23 12:00 Temperature 98 F 99.1 F 99.5 F H Temperature Source Temporal Oral Oral Pulse Rate 107 H 72 72 Respiratory Rate 16 16 15 Blood Pressure 139/75 H 103/66 102/58 L Blood Pressure Mean 96 78 72 Pulse Ox 99 95 97 Oxygen Delivery Method Room Air Room Air Room Air Weight Weight: 80.24 kg Body Mass Index (BMI) 30.3 Physical Exam Narrative GENERAL: cooperative HEENT: Atraumatic; normocephalic EYES; Anicteric, Normal Conjunctiva NECK; supple, normal thyroid, RESPIRATORY: Diminished to auscultation CARDIOVASCULAR: Regular S1 S2, GI: soft, normoactive bowel sounds, : No Renal angle tenderness; EXTREMITIES: No edema, no clubbing, MUSCULOSKELETAL: no muscle wasting NEURO: Awake; no lateralizing signs. SKIN: No Rash PSYCH; Flat affect Results Lab / Micro Data 08/31/23 10:35 08/31/23 10:35 Labs: Laboratory Results - last 24 hr 08/31/23 10:35: WBC 7.7, RBC 5.01, Hgb 14.5, Hct 42.5, MCV 84.8, MCH 28.9, MCHC 34.1, RDW Std Deviation 36.0, RDW Coeff of Teena 11.9, Plt Count 212, MPV 10.2, Immature Gran % (Auto) 0.400, Neut % (Auto) 71.8 H, Lymph % (Auto) 18.4 L, [place] % (Auto) 8.8, Eos % (Auto) 0.3, Baso % (Auto) 0.3, Absolute Neuts (auto) 5.5, Absolute Lymphs (auto) 1.42, Nucleated RBC % 0, Sodium 137, Potassium 4.3, Chloride 110 H, Carbon Dioxide 22.0, Anion Gap 5, BUN 10, Creatinine 0.98, Estim Creat Clear Calc 89.15, Est GFR (MDRD) Af Amer 88, Est GFR (MDRD) Non-Af 73, BUN/Creatinine Ratio 10.2, Glucose 86, Lactic Acid 0.8, Calcium 9.3, Urine Color Red, Urine Clarity Cloudy, Urine pH 7.0, Ur Specific [place] 1.010, Urine Protein 100 H, Urine Glucose (UA) Normal, Urine Ketones 5 H, Urine Occult Blood 250 H, Urine Nitrite Positive H, Urine Bilirubin Negative, Urine Urobilinogen Normal, Ur Leukocyte Esterase 500 H, Urine RBC 25-50 SEEN, Urine WBC 25-50 SEEN, Ur Squamous Epith Cells 0-5 SEEN, Urine Bacteria 1+, Urine Mucus 0 SEEN Assessment & Plan Assessment/Plan (1) Pyelonephritis: PLAN: Plan Patient is a 27-year-old lady with history of atrophic left kidney presenting with flank pain with associated dysuria diagnosed with acute pyelonephritis 1. Acute pyelonephritis ? Patient has been admitted to regular nursing floor started on broad-spectrum antibiotic therapy with ceftriaxone cultures sent. CT of the abdomen and pelvis obtained 2 days prior demonstrated abscess of the left kidney with evidence of previous hysterectomy and appendectomy with normal urinary bladder and normal right kidney 2. Atrophic left kidney ? Remains stable 3. Class I obesity with BMI of 30.4 ? Weight loss advised 4. DVT prophylaxis ? Low risk to encourage early ambulation Time spent in the patient's overall evaluation,decision-making process, review of diagnostic data, adjustment of management, discussion with other providers, nursing nursing and ancillary staff involved in patient's care documentation, 55 minutes Charges/Coding Visit Charges Inpatient E&M: 61742 Init Hosp L2
[2023-08-31] MEDS: 0.9% Normal Saline (1000mL) 1,000 ML 150 ML IV (13:53)
[2023-08-31] MEDS: oxyCODONE 5 MG Tablet 10 MG PO (13:53)
[2023-08-31] MEDS: Acetaminophen 500 MG Tablet 1000 MG PO (13:53)
[2023-08-31] MEDS: proMETHazine 25 MG/ML Syringe 12.5 MG IM (14:38)
[2023-08-31] MEDS: HYDROmorphone 0.5 MG/0.5 ML SYRINGE IV ×2 (14:38→20:41)
[2023-08-31] MEDS: 0.9% Saline Lock 10 ML Syringe IV (20:42)
[2023-09-01] MEDS: 0.9% Saline Lock 10 ML Syringe IV ×3 (02:24→09:22)
[2023-09-01] MEDS: HYDROmorphone 0.5 MG/0.5 ML SYRINGE IV ×2 (02:24→06:52)
[2023-09-01] MEDS: Ondansetron 4 MG/2 ML Vial IV ×2 (02:24→06:52)
[2023-09-01 02:42] VITALS: BP 113/71; PULSE 61; RESP 16; TEMP 36.4; O2SAT 97
[2023-09-01 03:04] VITALS: BMI 30.2
[2023-09-01] MEDS: Acetaminophen 500 MG Tablet 1000 MG PO (06:22)
[2023-09-01 07:53] LABS: Absolute Lymphocyte Count 2.03 X10^3/uL (0.83-4.51); Absolute Neutrophil Count 4.5 X10^3/uL (2.0-7.7); Basophil# 0.02 X10^3/uL; Basophil% 0.3 % (0-1); Eosinophil# 0.12 X10^3/uL; Eosinophils% 1.6 % (0-5); Hematocrit 40.2 % (37-47); Hemoglobin 13.3 g/dL (12.0-15.0); Lymphocyte # 2.03 X10^3/ul (0.83-4.51); Lymphocyte % 27.6 % (19-41); Mean Corp Hgb Conc 33.1 g/dL (32-36); Mean Corpuscular Volume 87.8 fL (81-99); Mean Platelet Vol. 9.5 fl (6.2-12.0); Monocyte# 0.69 X10^3/uL; Monocyte% 9.4 % (0-10); NRBC Flagged by Analyzer 0 % (0-5); Neutrophil # 4.47 X10^3/uL (2.7-7.7); Neutrophil % 60.7 % (47-70); Platelet Count 185 K/mm3 (150-450); RBC Distribution Width SD 38.5 fl (35.1-43.9); Red Blood Count 4.58 M/mm3 (4.2-5.4); White Blood Count 7.4 K/mm3 (4.4-11.0)
[2023-09-01 08:17] LABS: Anion Gap 5 (5-15); BUN 9 mg/dL (7-18); BUN/Creat Ratio 10.2 RATIO (10-20); Calcium,Total 8.4 mg/dL (8.5-10.1); Chloride 111 mmol/L (98-107); Creatinine, Serum 0.88 mg/dL (0.55-1.02); EST Glomerular Filtration Rate 82 mL/min (>60); Est Glom Filt Rate - Afr Amer 99 mL/min (>60); Estimated Creatinine Clearance 99.32 ml/min; Glucose 90 mg/dL (74-106); Magnesium 1.9 mg/dL (1.6-2.6); Potassium 3.8 mmol/L (3.5-5.1); Sodium Level 137 mmol/L (136-145)
[2023-09-01 08:19] VITALS: BP 107/65; PULSE 60; RESP 18; TEMP 36.7; O2SAT 98
[2023-09-01] MEDS: oxyCODONE 5 MG Tablet 10 MG PO (09:22)
[2023-09-01] MEDS: Ceftriaxone 1 GM/50 ML BAG IV (09:22)
[2023-09-01] MEDS: proCHLORPERazine 10 MG/2 ML Vial IV (09:22)
--- NOTE | 2023-09-01 09:36 | CASEMGMT ---
Addendum entered by Renzo Villalta 09/01/23 10:56: Per ID, the pt does not require IV ATBs at home and will be OK to DC on PO ATBs. Original Note: RN CM Assessment Face to Face with patient for initial transition planning/care coordination assessment. RN CM introduced self and role at [facility], pt voices understanding. Pt is A&Ox4 and is resting comfortably in bed and is calm. Care providers, pharmacy, and demographics verified. Admitting dx: Acute Pyelonephritis LACE Strata: 2 PCP: Becki Quintana. Pt is wanting to get set up with a new PCP. Local provider list given Specialists: Pt states that she does not follow with any specialist. Pt used to see Dr. Barlow (Uro) Preferred Pharmacy: [facility] Insurance: [employer] Prescription Benefit: Yes LNOK: Elena Garnica (GM) Living Arrangements: Pt currently lives with her GM, GF, and BF in a two story home with one step to enter. Pt states that she helps care for her GF ADLs/IADLs: Ind Transportation: Self, BF. BF will be the pt ride home at time of DC DME: Denies all DME uses or needs HHC/SNF: Denies SNF history. Pt states that she has had [facility] before with home IV ATB infusions. Pt states that she hopes that she does not need home IV ATBs again. However, pt states that if she does, she would like to go through [facility] instead of [facility]. Pt denies wanting to see a list of local in network HHC agencies at this time. CM to follow. Pt?s goal: Home Plan: Home no needs vs Home with IV ATBs. 6-Click is 24. ID has been consulted but not seen at this time. CM to follow to ensure safe DC from [facility]. Gen Villalta RN, CM
--- NOTE | 2023-09-01 10:31 | CON.PCM.ID_ITS ---
Assessment & Plan Assessment/Plan (1) Pyelonephritis: PLAN: Recurrent uti. CT showed no stone or abscess. Ucx with mixed savita 08/28. Bcx pending. Feeling better with ceftriaxone. If she leaves today, ok for home with 8 days po cefdinir 300mg bid. After that point would start hiprex 1gm bid for senior living prevention. ID followup in 2-4 weeks. Will follow, thank you (2) Gross hematuria: HPI Consult Data Date of Consult: 09/01/23 HPI Narrative Reason for Consultation: recurrent uti HPI Narrative: MARIELLE ROMAN is a 27 F who presented 08/30 with several days of fever, chills, nausea, R flank pain, and longstanding hematuria. Pain was stabbing, moderate, continuous. Has absent L kidney. H/o recurrent uti, has seen urology and had scopes done. No known inciting factors, does take cranberry supplements. Came to ED, given ceftriaxone, feeling better this AM. Full ROS performed and neg except as noted above. [facility] Medical History Renal abscess, right Abscess of right kidney Agenesis of left kidney UTI (urinary tract infection) Abdominal hernia History of gross hematuria Renal agenesis Thyroid disease Asthma Migraines Home Medications ?Medication ?Instructions ?Recorded ?Last Taken ?Type multivit with min-folic acid PO 08/29/23 Unknown History Allergy/AdvReac Type Severity Reaction Status Date / Time amoxicillin Allergy Rash Verified 08/31/23 09:35 ciprofloxacin (From Cipro) Allergy Hives Verified 08/31/23 09:35 ketorolac (From Toradol) AdvReac Other Verified 08/31/23 09:35 procaine (From Novocain) AdvReac Other Verified 08/31/23 09:35 Surgical History H/O: hysterectomy Hx of hernia repair History of appendectomy H/O partial thyroidectomy Social History Smoking Status: Never smoker substance use type: does not use Physical Exam Const alert, oriented x3 and no apparent distress General Appearance: cooperative HEENT normocephalic and head/scalp atraumatic Eyes PERRL and EOMs intact bilaterally Neck supple and No nodes Resp normal air movement and clear to auscultation bilaterally Cardio regular rate and regular rhythm GI soft to palpation, non-tender and non-distended GI Narrative: mild soreness R flank Extremity General Extremity: Negative for edema Skin no rashes or lesions noted Neuro CN's II-XII intact bilaterally Lab / Micro Data Attestation: I reviewed the patient's lab results. 09/01/23 07:26 09/01/23 07:26 Labs: Laboratory Results - last 24 hr 08/31/23 10:35: WBC 7.7, RBC 5.01, Hgb 14.5, Hct 42.5, MCV 84.8, MCH 28.9, MCHC 34.1, RDW Std Deviation 36.0, RDW Coeff of Teena 11.9, Plt Count 212, MPV 10.2, Immature Gran % (Auto) 0.400, Neut % (Auto) 71.8 H, Lymph % (Auto) 18.4 L, [place] % (Auto) 8.8, Eos % (Auto) 0.3, Baso % (Auto) 0.3, Absolute Neuts (auto) 5.5, Absolute Lymphs (auto) 1.42, Nucleated RBC % 0, Sodium 137, Potassium 4.3, C hloride 110 H, Carbon Dioxide 22.0, Anion Gap 5, BUN 10, Creatinine 0.98, Estim Creat Clear Calc 89.15, Est GFR (MDRD) Af Amer 88, Est GFR (MDRD) Non-Af 73, BUN/Creatinine Ratio 10.2, Glucose 86, Lactic Acid 0.8, Calcium 9.3, Urine Color Red, Urine Clarity Cloudy, Urine pH 7.0, Ur Specific [place] 1.010, Urine Protein 100 H, Urine Glucose (UA) Normal, Urine Ketones 5 H, Urine Occult Blood 250 H, Urine Nitrite Positive H, Urine Bilirubin Negative, Urine Urobilinogen Normal, Ur Leukocyte Esterase 500 H, Urine RBC 25-50 SEEN, Urine WBC 25-50 SEEN, Ur Squamous Epith Cells 0-5 SEEN, Urine Bacteria 1+, Urine Mucus 0 SEEN 09/01/23 07:26: WBC 7.4, RBC 4.58, Hgb 13.3, Hct 40.2, MCV 87.8, MCH 29.0, MCHC 33.1, RDW Std Deviation 38.5, RDW Coeff of Teena 12.0, Plt Count 185, MPV 9.5, Immature Gran % (Auto) 0.400, Neut % (Auto) 60.7, Lymph % (Auto) 27.6, [place] % (Auto) 9.4, Eos % (Auto) 1.6, Baso % (Auto) 0.3, Absolute Neuts (auto) 4.5, Absolute Lymphs (auto) 2.03, Nucleated RBC % 0, Sodium 137, Potassium 3.8, C hloride 111 H, Carbon Dioxide 21.0, Anion Gap 5, BUN 9, Creatinine 0.88, Estim Creat Clear Calc 99.32, Est GFR (MDRD) Af Amer 99, Est GFR (MDRD) Non-Af 82, BUN/Creatinine Ratio 10.2, Glucose 90, Calcium 8.4 L, Phosphorus 3.0, Magnesium 1.9
--- NOTE | 2023-09-01 11:58 | DCINST_ITS ---
Discharge Instructions Diet Discharge Diet: No restrictions Activity Discharge Activity: Return to Normal Activity Follow Up Care Test Results: Test results from this visit will be discussed in further detail at your follow- up appointment, if applicable. Discharge Plan Admission Admit Date/Time: 08/31/23 12:35 Primary Reason for Your Visit: acute cystitis Attending Provider: Timo Martins Primary Care Provider: Becki Quintana Consulting Providers: Brijesh Johnson; Brent Storey Discharge Orders/Prescriptions Prescriptions: New cefdinir 300 mg capsule 300 mg PO BID Qty: 10 0RF Rx Instructions: start on 09/02/23 methenamine hippurate [Hiprex] 1 gram tablet 1 g PO BID Qty: 60 0RF Rx Instructions: start the day after you complete Cefdinir Continued multivit with min-folic acid [Women's Multivitamin Gummies] PO Referrals / Follow Up: Citlaly Olivares [Non-Staff] - Within 2 Weeks (call to schedule an appointment) Disposition Disposition (needs filled in before D/C Order can be placed): Home, Self Care
--- NOTE | 2023-09-01 12:03 | DS.PCM_ITS ---
Providers Date of Admission: 08/31/23 Date of Discharge: 09/01/23 Primary Care Physician: FIORDALIZA Reza Consultations 09/01/23 08:46 Consult: Infectious Disease Routine Consulting Provider: Brent Storey Reason for Consult: chronic UTI- atb recommendations EMERGENT Consult: No MD Notified: Yes Date Notified: 09/01/23 Time Notified: 08:46 Method of Notification: Text Reason For Visit: ACUTE PYELONEPHRITIS Diagnosis Discharge Diagnosis (1) Pyelonephritis: Status: Acute Code(s): N12 - Tubulo-interstitial nephritis, not specified as acute or chronic (2) Gross hematuria: Status: Acute Code(s): R31.0 - Gross hematuria Plan 1. Acute pyelonephritis Medications at Discharge Home Medications multivit with min-folic acid PO 08/29/23 cefdinir 300 mg capsule 300 mg PO BID #10 caps 09/01/23 methenamine hippurate 1 gram tablet (Hiprex) 1 g PO BID #60 tabs 09/01/23 Hospital Course Operations None Procedures None Summary of Care Provided Minutes Spent on Discharge: 30 Hospital Course: This 27-year-old white female was seen in the emergency room at [facility] with complaints of right flank pain, nausea, and vomiting. He had been seen in the emergency room 2 days prior and was diagnosed with pyelonephritis, patient did not want to be admitted at that time and requested to go home on oral antibiotics. Patient stated that she was unable to keep the antibiotics down due to nausea and vomiting. Labs obtained in the emergency room showed a normal white blood cell count, chemistry panel was unremarkable, urine was positive for nitrite, 25-50 RBCs, and 25-50 WBCs as well as +1 bacteria. Previous urine culture showed mixed gram-positive organisms. Patient was admitted to [facility] and placed on IV antibiotics, she was seen in consultation by infectious diseases who recommended cefdinir as an outpatient when she was discharged from the hospital. On 09/01/2023, patient was seen and examined: On examination she appeared in good health and spirits, she does not appear to be in any distress. Vital signs as documented. Skin warm and dry and without overt rashes. Neck without JVD, thyroid appears normal, trachea is midline, neck is supple. Lungs clear, normal air movement was noted. Heart exam notable for regular rhythm, normal sounds and absence of murmurs, rubs or gallops. Abdomen unremarkable and without evidence of organomegaly, masses, or abdominal aortic enlargement, bowel sounds are present in all 4 quadrants, no abdominal tenderness was noted. Extremities nonedematous, no cyanosis was noted, no clubbing was noted. Neuro: Cranial nerves II through XII are grossly intact, no focal motor deficits were noted, sensation to light touch and pinprick is intact, motor exam 5/5 throughout. Psych: Patient is alert and oriented x3, she does not appear anxious or depressed, she does not appear agitated. Patient was discharged home in stable condition on 09/01/2023. Weight / BMI Weight Weight: 80.3 kg Body Mass Index (BMI) 30.2 ABG / Lab / Microbiology Data 09/01/23 07:26 09/01/23 07:26 Laboratory: Laboratory Results - last 24 hr 09/01/23 07:26: WBC 7.4, RBC 4.58, Hgb 13.3, Hct 40.2, MCV 87.8, MCH 29.0, MCHC 33.1, RDW Std Deviation 38.5, RDW Coeff of Teena 12.0, Plt Count 185, MPV 9.5, Immature Gran % (Auto) 0.400, Neut % (Auto) 60.7, Lymph % (Auto) 27.6, [place] % (Auto) 9.4, Eos % (Auto) 1.6, Baso % (Auto) 0.3, Absolute Neuts (auto) 4.5, Absolute Lymphs (auto) 2.03, Nucleated RBC % 0, Sodium 137, Potassium 3.8, C hloride 111 H, Carbon Dioxide 21.0, Anion Gap 5, BUN 9, Creatinine 0.88, Estim Creat Clear Calc 99.32, Est GFR (MDRD) Af Amer 99, Est GFR (MDRD) Non-Af 82, BUN/Creatinine Ratio 10.2, Glucose 90, Calcium 8.4 L, Phosphorus 3.0, Magnesium 1.9 D/C Instructions Discharge Diet: No restrictions Meaningful Use Info Meaningful Use Meaningful Use Diagnoses (Choose all that apply): None applicable Ischemic Stroke Statin Dosing Therapy Reference: STATIN DOSE THERAPY REFERENCE: * Patients > 75 years receive moderate or high dose statin therapy. * Patients 75 years or YOUNGER should receive HIGH intensity statin dose unless contraindicated. You will be required to document reason for non-treatment if statin daily dose does not meet guidelines. HIGH DOSE STATIN THERAPY DAILY Atorvastatin > than or = to 40 mg Rosuvastatin > than or = to 20 mg Amlodipine + Atorvastatin > than or = to 2.5/40 mg Ezetimibe + Simvastatin 10/80 mg Simvastatin 80mg Discharge Plan Admission Admit Date/Time: 08/31/23 12:35 Primary Reason for Your Visit: acute cystitis Attending Provider: Timo Martins Primary Care Provider: Becki Quintana Consulting Providers: Brijesh Johnson; Brent Storey Instructions Forms: Work / School Excuse Discharge Orders/Prescriptions Prescriptions: New cefdinir 300 mg capsule 300 mg PO BID Qty: 10 0RF Rx Instructions: start on 09/02/23 methenamine hippurate [Hiprex] 1 gram tablet 1 g PO BID Qty: 60 0RF Rx Instructions: start the day after you complete Cefdinir Continued multivit with min-folic acid [Women's Multivitamin Gummies] PO Referrals / Follow Up: Citlaly Olivares [Non-Staff] - Within 2 Weeks (call to schedule an appointment) Disposition Disposition (needs filled in before D/C Order can be placed): Home, Self Care Charges/Coding Visit Charges Inpatient E&M: 81123 Disch Hosp
--- NOTE | 2023-09-01 15:15 | PHA.DC_ITS ---
Pharmacy [facility] Service has performed discharge medication reconciliation and counseling for this patient. The patient's discharge medication list was reviewed for discrepancies and discrepancies were resolved. The patient was counseled on the following discharge medications and changes in medications for homegoing were reviewed. 1. CEFDINIR 2. HIPREX The Reason for Use, instructions for use, and potential side effects were reviewed for all new medications. The patient's questions regarding all of their medications were answered. The patient was able to verbally demonstrate an understanding of their discharge medications. The patient was counselled by bonnie Winkler PharmD Candidate Medications at Discharge Home Medications multivit with min-folic acid PO 08/29/23 cefdinir 300 mg capsule 300 mg PO BID #10 caps 09/01/23 methenamine hippurate 1 gram tablet (Hiprex) 1 g PO BID #60 tabs 09/01/23
== END 2023-09-01 14:20 | disposition home or self-care (01) | DRG 690 ==
LOC: ED 12:56 → MS3 12:57
PROVIDERS: Admitting Provider Internal Medicine; Emergency Provider Emergency Medicine; PCP Nurse Practitioner Family; Visit Provider Internal Medicine
DX: N10 Acute pyelonephritis (principal); E66.9 Obesity, unspecified; R31.0 Gross hematuria; N26.1 Atrophy of kidney (terminal); Z87.440 Personal history of urinary (tract) infections; Z68.30 Body mass index [BMI] 30.0-30.9, adult; Z90.710 Acquired absence of both cervix and uterus
CPT/HCPCS: 80048; 81001; 83605; 83735; 84100; 85025; 87040; 94668; 99252; 99283; 99406; J7030; A4216; G0463; J2405

== ENCOUNTER 2023-11-05 17:42 | Emergency (ER) | payer OTHER, SELFPAY ==
[2023-11-05 17:43] VITALS: BP 123/95; PULSE 92; RESP 18; TEMP 37.2; O2SAT 95; BMI 31.4
--- NOTE | 2023-11-05 18:08 | EDS_ITS ---
HPI <FIORDALIZA Joseph - Last Filed: 11/05/23 19:35> History of Present Illness Chief Complaint: General Illness Narrative Narrative: Patient is 28-year-old female with history of migraine headaches, ADHD presents to the emergency department with 2 to 3 weeks of worsening cough, generalized malaise. 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 She does state her cough is getting worse, she did have some nausea vomiting yesterday that made her come to the ER yesterday evening however secondary to the dizziness, she left and decided to come back today. <Dr. Jose Colon DO - Last Filed: 11/05/23 23:26> Narrative Narrative: Patient is 28-year-old female with history of migraine headaches, ADHD presents to the emergency department with 2 to 3 weeks of worsening cough, generalized malaise. 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 She does state her cough is getting worse, she did have some nausea vomiting yesterday that made her come to the ER yesterday evening however secondary to the dizziness, she left and decided to come back today. Patient denies sudden onset or thunderclap headache, denies maximal intensity within 1 minute, vomiting, neck pain, stiffness, changes in vision, fever, history malignancy, syncope, or seizures associated with headache. [facility] <FIORDALIZA Joseph - Last Filed: 11/05/23 19:35> [facility] Medical History Renal abscess, right Abscess of right kidney Agenesis of left kidney UTI (urinary tract infection) Abdominal hernia History of gross hematuria Renal agenesis Thyroid disease Asthma Migraines Home Medications ?Medication ?Instructions ?Recorded ?Last Taken ?Type multivit with min-folic acid PO 08/29/23 Unknown History cefdinir 300 mg capsule 300 mg PO BID #10 caps 09/01/23 Unknown Rx methenamine hippurate 1 gram 1 g PO BID #60 tabs 09/01/23 Unknown Rx tablet (Hiprex) Allergy/AdvReac Type Severity Reaction Status Date / Time amoxicillin Allergy Rash Verified 11/05/23 17:43 ciprofloxacin (From Cipro) Allergy Hives Verified 11/05/23 17:43 ketorolac (From Toradol) AdvReac Other Verified 11/05/23 17:43 procaine (From Novocain) AdvReac Other Verified 11/05/23 17:43 Surgical History H/O: hysterectomy Hx of hernia repair History of appendectomy H/O partial thyroidectomy Social History Smoking Status: Never smoker substance use type: does not use ROS <GINGER JosephC - Last Filed: 11/05/23 19:35> ROS ED ROS Narrative Constitutional: Positive for fever, chills, weight loss, weakness Eyes: Negative for vision loss, vision change, double vision ENT: Negative for any sore throat, ear pain, congestion Cardiovascular: Negative for any chest pain, tightness, palpitations Respiratory: Negative for any sputum production, hemoptysis, dyspnea, dyspnea on exertion, orthopnea. Positive cough Gastrointestinal: Negative for any abdominal pain, diarrhea, constipation, blood in stool, blood in vomit. Positive for nausea vomiting : Negative for any urinary frequency, dysuria, retention, blood in urine Muscle skeletal: Negative for any neck pain, back pain. Positive for myalgias Neurological: Negative for any syncope, dizziness. Positive for migraine headache Skin: Negative for any rashes, itching, abrasions, lacerations Psychiatric: Negative for any depression, anxiety, stress, suicidal ideation, homicidal ideation Hematologic: Negative for any excessive bruising, easy bleeding EXAM <FIORDALIZA Joseph - Last Filed: 11/05/23 19:35> Physical Exam Narrative Exam Narrative: Vital signs reviewed. HEET: Head normocephalic atraumatic, TMs clear bilaterally. Posterior pharynx is clear, moist mucous membranes. Nares clear bilaterally. Pupils are equal round reactive to light. Neck: Supple with no lymphadenopathy or tenderness. No signs of meningismus. Cardiac: Tachycardic no murmurs gallops or rubs, equal peripheral pulses bilaterally. Respiratory: Lungs clear to auscultation bilaterally. No chest tenderness. Abdomen: Soft, nontender, nondistended. No abdominal bruit or pulsatile masses. No hepatosplenomegaly Extremities: No peripheral edema, no signs of gross trauma or deformity. Active full range of motion of all extremities. Neuro: Cranial nerves II through XII intact, no focal neurological deficits. Skin: Clean dry and intact with no rash, purpura, petechiae, vesicles or pustules. Backs/flank: No CVA tenderness, no midline spinal tenderness, no deformity. Psych: Normal mood and affect. No SI, HI or acute psychosis. Const Vital Signs: 11/05/23 17:43 11/05/23 19:39 Temperature 98.9 F 97.9 F Temperature Source Oral Pulse Rate 92 65 Respiratory Rate 18 18 Blood Pressure 123/95 H 118/90 H Blood Pressure Mean 104 99 Pulse Ox 95 99 Oxygen Delivery Method Room Air Positive well nourished and well developed General Appearance ED: well developed <Dr. Jose Colon DO - Last Filed: 11/05/23 23:26> Physical Exam Const Vital Signs: 11/05/23 17:43 11/05/23 19:39 Temperature 98.9 F 97.9 F Temperature Source Oral Pulse Rate 92 65 Respiratory Rate 18 18 Blood Pressure 123/95 H 118/90 H Blood Pressure Mean 104 99 Pulse Ox 95 99 Oxygen Delivery Method Room Air MDM <FIORDALIZA Joseph - Last Filed: 11/05/23 19:35> MDM Lab Data Labs: Laboratory Results - last 24 hr 11/05/23 18:22 WBC 11.4 H RBC 4.94 Hgb 14.3 Hct 42.9 MCV 86.8 MCH 28.9 MCHC 33.3 RDW Std Deviation 39.1 RDW Coeff of Teena 12.3 Plt Count 200 MPV 9.3 Immature Gran % (Auto) 0.300 Neut % (Auto) 67.9 Lymph % (Auto) 22.7 [place] % (Auto) 7.9 Eos % (Auto) 1.0 Baso % (Auto) 0.2 Absolute Neuts (auto) 7.8 H Absolute Lymphs (auto) 2.59 Nucleated RBC % 0 Sodium 138 Potassium 3.8 Chloride 109 H Carbon Dioxide 23.0 Anion Gap 6 BUN 16 Creatinine 0.96 Estim Creat Clear Calc 91.87 Est GFR (MDRD) Af Amer 90 Est GFR (MDRD) Non-Af 74 BUN/Creatinine Ratio 16.7 Glucose 89 Calcium 9.1 Total Bilirubin 0.10 L AST 19 ALT 28 Alkaline Phosphatase 77 Total Protein 7.5 Albumin 3.5 Globulin 4.0 Albumin/Globulin Ratio 0.9 Radiography Diagnostic Testing: Clinical Impression(s) from Imaging Studies Chest X-Ray 11/05/23 18:38 IMPRESSION: No radiographic evidence of acute cardiopulmonary disease. Electronically Signed: Curt Be DO at 20:17 EDT Reading Location ID and State: [facility] / [place] Tel [phone], Service support , Treatment and Re-Evaluation :: Differential diagnosis includes however is not limited to: Migraine headache, COVID-19, influenza, RSV, other viral illness, community-acquired pneumonia, dehydration Patient appears to be in no obvious distress, vital signs are stable, nontoxic-a ppearing. Presenting to the emergency department with complaints of fever, chills, nausea and vomiting, migraine-like headache. There is no evidence suspect any meningitis, patient has no neck pain, patient does have history of migraines. 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 Patient received some basic laboratory values, migraine cocktail as well as a chest x- ray two-view. Viral swab will be ordered. All radiologic examinations were read, reviewed by the emergency department attending. From these reads, a plan of care will be put in place. Patient be given IV fluids, Reglan, Benadryl. Patient will be reevaluated after medications. On reevaluation of the patient was feeling much better. Patient's laboratory values showed a slight leukocytosis with white blood count 1.4, CMP was unremarkable, lipase was negative. Patient's COVID-19, influenza, RSV was negative. Patient's chest x-ray was unremarkable. Patient at this time will be discharged home. She is likely suffering from a viral illness. She will be given a work note for yesterday. Will maintain hydration, stable for discharge. <Dr. Jose Colon DO - Last Filed: 11/05/23 23:26> [facility] Lab Data Labs: Laboratory Results - last 24 hr 11/05/23 18:22 WBC 11.4 H RBC 4.94 Hgb 14.3 Hct 42.9 MCV 86.8 MCH 28.9 MCHC 33.3 RDW Std Deviation 39.1 RDW Coeff of Teena 12.3 Plt Count 200 MPV 9.3 Immature Gran % (Auto) 0.300 Neut % (Auto) 67.9 Lymph % (Auto) 22.7 [place] % (Auto) 7.9 Eos % (Auto) 1.0 Baso % (Auto) 0.2 Absolute Neuts (auto) 7.8 H Absolute Lymphs (auto) 2.59 Nucleated RBC % 0 Sodium 138 Potassium 3.8 Chloride 109 H Carbon Dioxide 23.0 Anion Gap 6 BUN 16 Creatinine 0.96 Estim Creat Clear Calc 91.87 Est GFR (MDRD) Af Amer 90 Est GFR (MDRD) Non-Af 74 BUN/Creatinine Ratio 16.7 Glucose 89 Calcium 9.1 Total Bilirubin 0.10 L AST 19 ALT 28 Alkaline Phosphatase 77 Total Protein 7.5 Albumin 3.5 Globulin 4.0 Albumin/Globulin Ratio 0.9 Radiography Diagnostic Testing: Clinical Impression(s) from Imaging Studies Chest X-Ray 11/05/23 18:38 IMPRESSION: No radiographic evidence of acute cardiopulmonary disease. Electronically Signed: Curt Be DO at 20:17 EDT Reading Location ID and State: [facility] / [place] Tel [phone], Service support , Treatment and Re-Evaluation :: Differential diagnosis includes however is not limited to: Migraine headache, COVID-19, influenza, RSV, other viral illness, community-acquired pneumonia, dehydration Patient appears to be in no obvious distress, vital signs are stable, nontoxic- appearing. Presenting to the emergency department with complaints of fever, chills, nausea and vomiting, migraine-like headache. There is no evidence suspect any meningitis, patient has no neck pain, patient does have history of migraines. 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 Patient r eceived some basic laboratory values, migraine cocktail as well as a chest x-ray two-view. Viral swab will be ordered. All radiologic examinations were read, reviewed by the emergency department attending. From these reads, a plan of care will be put in place. Patient be given IV fluids, Reglan, Benadryl. Patient will be reevaluated after medications. On reevaluation of the patient was feeling much better. Patient's laboratory values showed a slight leukocytosis with white blood count 1.4, CMP was unremarkable, lipase was negative. Patient's COVID-19, influenza, RSV was negative. Patient's chest x-ray was unremarkable. Patient at this time will be discharged home. She is likely suffering from a viral illness. She will be given a work note for yesterday. Will maintain hydration, stable for discharge. ED attending note: I evaluated the patient in conjunction with the THIEN. I agree with his/her statements and above findings. I have personally performed a face to face assess ment of the patient and have reviewed the [facility]IEN Note. I performed a substantive portion of the visit including all aspects of the following. I personally saw the patient performed chart review, physical exam, reviewed labs, imaging (if obtained), and formulated a treatment and management plan. This note was generated with [employer] dictation software. It may contain incorrect words, spelling, and punctuation that were not noted in review of the chart prior to signing. Discharge Plan Triage Chief Complaint: General Illness ED Midlevel Provider: Rick June ED Provider: Jose Colon Dx/Rx/DC Orders Clinical Impression: Viral syndrome, Headache Instructions: ED Viral Syndrome (Adult) Prescriptions: No Action cefdinir 300 mg capsule 300 mg PO BID Qty: 10 0RF Rx Instructions: start on 09/02/23 methenamine hippurate [Hiprex] 1 gram tablet 1 g PO BID Qty: 60 0RF Rx Instructions: start the day after you complete Cefdinir multivit with min-folic acid [Women's Multivitamin Gummies] PO Stand Alone Forms: ED Work / School Excuse Primary Care Provider: Becki Quintana Referrals: Becki Quintana, [employer] [Primary Care Provider] - Activity Restrictions/Additional Instructions: Maintain hydration. Print Language: Persian Disposition Disposition: Home, Self Care Discharge Date/Time: 11/05/23 19:39
[2023-11-05 18:35] LABS: Absolute Lymphocyte Count 2.59 X10^3/uL (0.83-4.51); Absolute Neutrophil Count 7.8 X10^3/uL (2.0-7.7); Basophil# 0.02 X10^3/uL; Basophil% 0.2 % (0-1); Eosinophil# 0.11 X10^3/uL; Hematocrit 42.9 % (37-47); Hemoglobin 14.3 g/dL (12.0-15.0); Lymphocyte # 2.59 X10^3/ul (0.83-4.51); Lymphocyte % 22.7 % (19-41); Mean Corp Hgb Conc 33.3 g/dL (32-36); Mean Corpuscular Hgb 28.9 pg (27.0-32.0); Mean Corpuscular Volume 86.8 fL (81-99); Mean Platelet Vol. 9.3 fl (6.2-12.0); Monocyte% 7.9 % (0-10); NRBC Flagged by Analyzer 0 % (0-5); Neutrophil # 7.77 X10^3/uL (2.7-7.7); Neutrophil % 67.9 % (47-70); Platelet Count 200 K/mm3 (150-450); RBC Distribution Width CV 12.3 % (11.6-14.6); RBC Distribution Width SD 39.1 fl (35.1-43.9); Red Blood Count 4.94 M/mm3 (4.2-5.4); White Blood Count 11.4 K/mm3 (4.4-11.0)
[2023-11-05] MEDS: 0.9% Normal Saline (1000mL) 1,000 ML 999 ML IV (18:35)
[2023-11-05] MEDS: Metoclopramide 10 MG/2 ML Vial IV (18:35)
[2023-11-05] MEDS: DiphenhydrAMINE 50 MG/ML Syringe 25 MG IV (18:35)
--- NOTE | 2023-11-05 18:38 | RAD_ITS ---
INDICATION: COUGH EXAMINATION/TECHNIQUE: X-RAY - XR Chest 2 Views COMPARISON: FINDINGS: LINES/DEVICES: None. LUNGS: No consolidation, edema or effusion. No pneumothorax. MEDIASTINUM AND CARDIOVASCULAR STRUCTURES: Cardiac silhouette not enlarged. Central airways and mediastinal contour are unremarkable. BONES AND SOFT TISSUES: Unremarkable. RAD/Chest PA and Lateral IMPRESSION: No radiographic evidence of acute cardiopulmonary disease. Electronically Signed: Curt Be DO at 20:17 EDT ,
[2023-11-05 18:48] LABS: ALB/GLOB Ratio 0.9 RATIO (0.9-2.4); AST(SGOT) 19 U/L (15-37); Alanine Aminotransfer ALT/SGPT 28 U/L (13-56); Albumin, Serum 3.5 g/dL (3.2-5.0); Alkaline Phosphatase 77 U/L (45-117); Anion Gap 6 (5-15); BUN 16 mg/dL (7-18); BUN/Creat Ratio 16.7 RATIO (10-20); Calcium,Total 9.1 mg/dL (8.5-10.1); Chloride 109 mmol/L (98-107); Creatinine, Serum 0.96 mg/dL (0.55-1.02); EST Glomerular Filtration Rate 74 mL/min (>60); Est Glom Filt Rate - Afr Amer 90 mL/min (>60); Estimated Creatinine Clearance 91.87 ml/min; Glucose 89 mg/dL (74-106); Potassium 3.8 mmol/L (3.5-5.1); Protein, Total 7.5 g/dL (6.4-8.2); Sodium Level 138 mmol/L (136-145)
[2023-11-05 19:39] VITALS: BP 118/90; PULSE 65; RESP 18; TEMP 36.6; O2SAT 99
== END 2023-11-05 19:39 | disposition home or self-care (01) ==
PROVIDERS: Nurse Practitioner; Emergency Provider Emergency Medicine; PCP Nurse Practitioner Family; Visit Provider Emergency Medicine
DX: B34.9 Viral infection, unspecified (principal); R51.9 Headache, unspecified; J45.909 Unspecified asthma, uncomplicated; F90.9 Attention-deficit hyperactivity disorder, unspecified type; R05.9 Cough, unspecified; R53.81 Other malaise; R50.9 Fever, unspecified
CPT/HCPCS: 71046; 80053; 85025; 87631; 96361; 96374; 96375; 99283; J7030; A4216

== ENCOUNTER 2023-12-23 14:02 | Emergency (ER) | payer SELFPAY ==
[2023-12-23 14:03] VITALS: BP 107/94; PULSE 86; RESP 16; TEMP 36.3; O2SAT 100; BMI 31.4
[2023-12-23 14:35] LABS: Absolute Lymphocyte Count 1.81 X10^3/uL (0.83-4.51); Absolute Neutrophil Count 6.7 X10^3/uL (2.0-7.7); Basophil# 0.02 X10^3/uL; Basophil% 0.2 % (0-1); Eosinophil# 0.08 X10^3/uL; Eosinophils% 0.9 % (0-5); Hematocrit 46.2 % (37-47); Hemoglobin 15.6 g/dL (12.0-15.0); Lymphocyte # 1.81 X10^3/ul (0.83-4.51); Lymphocyte % 19.6 % (19-41); Mean Corp Hgb Conc 33.8 g/dL (32-36); Mean Corpuscular Hgb 29.3 pg (27.0-32.0); Mean Corpuscular Volume 86.8 fL (81-99); Mean Platelet Vol. 9.7 fl (6.2-12.0); Monocyte# 0.59 X10^3/uL; Monocyte% 6.4 % (0-10); NRBC Flagged by Analyzer 0 % (0-5); Neutrophil # 6.69 X10^3/uL (2.7-7.7); Neutrophil % 72.6 % (47-70); Platelet Count 212 K/mm3 (150-450); RBC Distribution Width CV 12.2 % (11.6-14.6); RBC Distribution Width SD 38.5 fl (35.1-43.9); Red Blood Count 5.32 M/mm3 (4.2-5.4); White Blood Count 9.2 K/mm3 (4.4-11.0)
[2023-12-23 14:37] LABS: Bacteria 0 SEEN /hpf (None Seen); Mucous, Urine 0 SEEN /hpf (<or=2+)
[2023-12-23 14:38] LABS: Color, Urine Red (Yellow); Glucose, Dipstick Normal (Normal); Ketone-Dipstick 5 mg/dl (Negative); Leukocyte Esterase-Dipstick 100 /ul (Negative); Nitrite-Dipstick Negative (Negative); Occult Blood-Urine 250 /ul (Negative); Protein-Dipstick 100 mg/dl (Negative); Specific Gravity, Urine 1.025 (1.002-1.030); Urine Bilirubin Dipstick Negative (Negative); Urine Clarity Cloudy (Clear); Urine Urobilinogen Normal (Normal)
[2023-12-23 14:47] LABS: Red Blood Cells-Urine 50-100 SEEN /hpf (0-5); Squamous Epithelial Cells - UA 0-5 SEEN /hpf (5-10)
[2023-12-23 14:48] LABS: White Blood Cells 5-10 SEEN /hpf (0-5)
[2023-12-23 15:04] LABS: AST(SGOT) 13 U/L (15-37); Alanine Aminotransfer ALT/SGPT 27 U/L (13-56); Albumin, Serum 3.8 g/dL (3.2-5.0); Alkaline Phosphatase 84 U/L (45-117); Anion Gap 4 (5-15); BUN 15 mg/dL (7-18); BUN/Creat Ratio 15.5 RATIO (10-20); Chloride 110 mmol/L (98-107); Creatinine, Serum 0.97 mg/dL (0.55-1.02); EST Glomerular Filtration Rate 73 mL/min (>60); Est Glom Filt Rate - Afr Amer 89 mL/min (>60); Estimated Creatinine Clearance 90.85 ml/min; Globulin 3.9 g/dL (2.2-4.2); Glucose 98 mg/dL (74-106); Potassium 3.9 mmol/L (3.5-5.1); Protein, Total 7.7 g/dL (6.4-8.2); Sodium Level 139 mmol/L (136-145)
--- NOTE | 2023-12-23 15:33 | EX.ED.DYSGE1 ---
HPI History of Present Illness Chief Complaint: Complaint Informant: patient Narrative Narrative: 28-year-old female presenting to the emergency room with abdominal flank pain. Patient has a history of same symptoms. She states that she has had symptoms this go around for about 3 weeks. She notes intermittent fever vomiting urinary frequency and urgency hematuria. She notes pain in the right flank that radiates down towards the right lower quadrant suprapubic region. She has had prior appendectomy and hysterectomy. Patient states that she has seen urology and they never find anything so I come here. Patient states her grandfather recently so she was unable to seek medical attention for this. Patient notes normal bowel movements. Reviewing the patient's chart she typically has microscopic hematuria. She does have the occasional urinary tract infections that shows up mixed gram-positive's on culture. Patient has no recent imaging with ureterolithiasis. There is a reported history of diverticulosis. Patient has an ED care plan. [facility] Medical History Gross hematuria Abdominal pain Pyelonephritis Renal abscess, right Abscess of right kidney Agenesis of left kidney UTI (urinary tract infection) Abdominal hernia History of gross hematuria Renal agenesis Thyroid disease Asthma Migraines Home Medications ?Medication ?Instructions ?Recorded ?Last Taken ?Type multivit with min-folic acid PO 08/29/23 Unknown History cefdinir 300 mg capsule 300 mg PO BID #10 caps 09/01/23 Unknown Rx methenamine hippurate 1 gram 1 g PO BID #60 tabs 09/01/23 Unknown Rx tablet (Hiprex) Allergy/AdvReac Type Severity Reaction Status Date / Time amoxicillin Allergy Rash Verified 12/23/23 14:03 ciprofloxacin (From Cipro) Allergy Hives Verified 12/23/23 14:03 ketorolac (From Toradol) AdvReac Other Verified 12/23/23 14:03 procaine (From Novocain) AdvReac Other Verified 12/23/23 14:03 Surgical History H/O: hysterectomy Hx of hernia repair History of appendectomy H/O partial thyroidectomy Social History Smoking Status: Never smoker substance use type: does not use ROS ROS ED Constitutional Constitutional ED: Reports fever(s); Denies chills or weight loss Eyes Eyes: Denies change in vision or diplopia ENT ENT ED: Denies ear pain, rhinorrhea or sore throat Cardiovascular Cardiovascular: Denies chest pain, orthopnea, palpitations or racing heartbeat Respiratory/Chest Respiratory/Chest: Denies cough, dyspnea or orthopnea Gastrointestinal Gastrointestinal: Reports abdominal pain, nausea and vomiting; Denies diarrhea Genitourinary Genitourinary ED: Reports hematuria and urinary frequency; Denies dysuria Musculoskeletal Musculoskeletal: Reports back pain; Denies arthralgias or myalgias Integumentary Denies abscess or rash Neurologic Neurologic: Denies headache(s) or weakness Psychiatric Psychiatric: Denies anxiety, depression, suicidal ideation or suicidal thoughts Endocrine Endocrinology: Denies polydipsia, polyphagia or polyuria Allergic/Immunologic Allergic/Immunologic ED: Denies mouth swelling, tongue swelling or urticaria EXAM Physical Exam Const Vital Signs: 12/23/23 14:03 Temperature 97.3 F L Temperature Source Oral Pulse Rate 86 Respiratory Rate 16 Blood Pressure 107/94 H Blood Pressure Mean 98 Pulse Ox 100 Oxygen Delivery Method Room Air Positive well nourished and well developed General Appearance ED: well developed HEENT Reports normocephalic, head/scalp atraumatic and moist mucous membranes Eyes PERRL and EOMs intact bilaterally Neck no lymphadenopathy, supple and no JVD Resp normal respiratory effort and clear to auscultation bilaterally Cardio regular rate, regular rhythm and no murmurs GI non-distended and no masses GI Narrative: The abdomen palpates soft Auscultation: normoactive bowel sounds Palpation: soft and tender RLQ and suprapubic Back/Spine normal ROM General Back: CVA tenderness right Extremity normal to inspection General Extremety ED: Negative for edema General Extremity: Negative for edema Neuro oriented x3 and CN's II-XII intact bilaterally Sensorium / Orientation: alert Motor Exam: strength 5/5 throughout Psych mental status grossly normal Mood & Affect: Negative for depressed or tearful Skin no rashes or lesions noted and no wounds MDM MDM MDM Narrative Medical decision making narrative: Differential diagnosis includes but not limited to UTI ureterolithiasis ovarian cyst (if if not total hysterectomy) diverticular abscess pelvic abscess renal abscess colitis White count 9.2 hemoglobin 15.6 BMP within normal limits LFTs are normal urinalysis demonstrates 1500 red cells 5-10 white cells there are no bacteria negative nitrates. This will be sent for culture. In light that the patient frequently has microscopic hematuria this may be a normal finding for her. I discussed the above results with her and recommended a CT of the abdomen pelvis to rule out abscess or other inflammatory condition. Patient declines this stating she was more worried about a urinary tract infection. Patient will be advised to follow-up with primary care/urology. History & Record Review Discussion w/independent historian: Patient Additional record(s) reviewed:: Prior ED visit and Prior labs Lab Data Attestation: I reviewed the patient's lab results. Labs: Laboratory Results - last 24 hr 12/23/23 12/23/23 14:20 14:25 WBC 9.2 RBC 5.32 Hgb 15.6 H Hct 46.2 MCV 86.8 MCH 29.3 MCHC 33.8 RDW Std Deviation 38.5 RDW Coeff of Teena 12.2 Plt Count 212 MPV 9.7 Immature Gran % (Auto) 0.300 Neut % (Auto) 72.6 H Lymph % (Auto) 19.6 [place] % (Auto) 6.4 Eos % (Auto) 0.9 Baso % (Auto) 0.2 Absolute Neuts (auto) 6.7 Absolute Lymphs (auto) 1.81 Nucleated RBC % 0 Sodium 139 Potassium 3.9 Chloride 110 H Carbon Dioxide 24.0 Anion Gap 4 L BUN 15 Creatinine 0.97 Estim Creat Clear Calc 90.85 Est GFR (MDRD) Af Amer 89 Est GFR (MDRD) Non-Af 73 BUN/Creatinine Ratio 15.5 Glucose 98 Calcium 9.0 Total Bilirubin 0.60 AST 13 L ALT 27 Alkaline Phosphatase 84 Total Protein 7.7 Albumin 3.8 Globulin 3.9 Albumin/Globulin Ratio 1.0 Urine Color Red Urine Clarity Cloudy Urine pH 5.0 Ur Specific [place] 1.025 Urine Protein 100 H Urine Glucose (UA) Normal Urine Ketones 5 H Urine Occult Blood 250 H Urine Nitrite Negative Urine Bilirubin Negative Urine Urobilinogen Normal Ur Leukocyte Esterase 100 H Urine RBC 50-100 SEEN Urine WBC 5-10 SEEN Ur Squamous Epith Cells 0-5 SEEN Urine Bacteria 0 SEEN Urine Mucus 0 SEEN Discharge Plan Triage Chief Complaint: Complaint ED Provider: Jerrod Yousif Dx/Rx/DC Orders Clinical Impression: Hematuria, Abdominal pain Instructions: Abdominal Pain, ED Hematuria Prescriptions: No Action cefdinir 300 mg capsule 300 mg PO BID Qty: 10 0RF Rx Instructions: start on 09/02/23 methenamine hippurate [Hiprex] 1 gram tablet 1 g PO BID Qty: 60 0RF Rx Instructions: start the day after you complete Cefdinir multivit with min-folic acid [Women's Multivitamin Gummies] PO Primary Care Provider: Becki Quintana Referrals: June Bennett MD [Med Staff - Active Staff] - 1 Week Becki Quintana, [employer] [Primary Care Provider] - As soon as possible Print Language: Italian Disposition Disposition: Home, Self Care
[2023-12-23 16:00] VITALS: BP 107/94; PULSE 86; RESP 16; TEMP 36.3; O2SAT 100
== END 2023-12-23 16:05 | disposition home or self-care (01) ==
PROVIDERS: Emergency Provider Emergency Medicine; PCP Nurse Practitioner Family; Referring Provider Emergency Medicine; Visit Provider Emergency Medicine
DX: R31.9 Hematuria, unspecified (principal); R39.15 Urgency of urination; Z90.710 Acquired absence of both cervix and uterus; J45.909 Unspecified asthma, uncomplicated; R10.9 Unspecified abdominal pain
CPT/HCPCS: 80053; 81001; 85025; 87086; 87088; 99282; A4216

== ENCOUNTER 2024-02-27 12:28 | Emergency (ER) | payer OTHER, SELFPAY ==
[2024-02-27 12:29] VITALS: BP 112/80; PULSE 79; RESP 16; TEMP 36.1; O2SAT 99; BMI 32.2
[2024-02-27 13:59] LABS: Bacteria 0 SEEN /hpf (None Seen); Mucous, Urine 0 SEEN /hpf (<or=2+)
[2024-02-27 14:14] LABS: Absolute Lymphocyte Count 1.32 X10^3/uL (0.83-4.51); Absolute Neutrophil Count 2.4 X10^3/uL (2.0-7.7); Basophil# 0.02 X10^3/uL; Basophil% 0.4 % (0-1); Eosinophil# 0.02 X10^3/uL; Eosinophils% 0.4 % (0-5); Hematocrit 46.2 % (37-47); Hemoglobin 15.1 g/dL (12.0-15.0); Lymphocyte # 1.32 X10^3/ul (0.83-4.51); Lymphocyte % 29.1 % (19-41); Mean Corp Hgb Conc 32.7 g/dL (32-36); Mean Corpuscular Hgb 28.8 pg (27.0-32.0); Mean Platelet Vol. 9.2 fl (6.2-12.0); Monocyte% 17.7 % (0-10); NRBC Flagged by Analyzer 0 % (0-5); Neutrophil # 2.35 X10^3/uL (2.7-7.7); Platelet Count 170 K/mm3 (150-450); RBC Distribution Width CV 12.5 % (11.6-14.6); RBC Distribution Width SD 40.1 fl (35.1-43.9); Red Blood Count 5.25 M/mm3 (4.2-5.4); White Blood Count 4.5 K/mm3 (4.4-11.0)
[2024-02-27 14:17] LABS: Color, Urine Red (Yellow); Glucose, Dipstick Normal (Normal); Ketone-Dipstick Negative (Negative); Leukocyte Esterase-Dipstick 100 /ul (Negative); Nitrite-Dipstick Negative (Negative); Occult Blood-Urine 250 /ul (Negative); Protein-Dipstick 100 mg/dl (Negative); Urine Bilirubin Dipstick Negative (Negative); Urine Clarity Turbid (Clear); Urine Urobilinogen Normal (Normal); Urine pH 6.5 (5.0 - 8.0)
[2024-02-27 14:25] LABS: Red Blood Cells-Urine > 100 SEEN /hpf (0-5); Squamous Epithelial Cells - UA 10-25 SEEN /hpf (5-10); White Blood Cells 50-100 SEEN /hpf (0-5)
[2024-02-27 14:26] VITALS: BP 115/80; PULSE 69; RESP 14; O2SAT 98
[2024-02-27 14:40] LABS: Anion Gap 3 (5-15); BUN 10 mg/dL (7-18); BUN/Creat Ratio 10.2 RATIO (10-20); Calcium,Total 8.6 mg/dL (8.5-10.1); Chloride 111 mmol/L (98-107); Creatinine, Serum 0.98 mg/dL (0.55-1.02); EST Glomerular Filtration Rate 72 mL/min (>60); Est Glom Filt Rate - Afr Amer 87 mL/min (>60); Estimated Creatinine Clearance 91.11 ml/min; Glucose 85 mg/dL (74-106); Potassium 3.7 mmol/L (3.5-5.1); Sodium Level 140 mmol/L (136-145)
--- NOTE | 2024-02-27 15:34 | EX.ED.DYSGE1 ---
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 She presents with pain. She has history of kidney infection/urinary tract infections. She also has a care plan. She denies fever, chills night sweats. She denies headache, visual, ocular auditory symptoms. She denies cardiac or respiratory symptoms. She complains of pain right flank right anterior abdomen down to the groin. She does endorse nausea without vomiting diarrhea. She does have dysuria, frequency, urgency and hematuria. There is no history of trauma. Prior similar symptoms: Yes Recent Illness/Hospitalization: No [facility], [facility] Medical History Gross hematuria Abdominal pain Pyelonephritis Renal abscess, right Abscess of right kidney Agenesis of left kidney UTI (urinary tract infection) Abdominal hernia History of gross hematuria Renal agenesis Thyroid disease Asthma Migraines Home Medications ?Medication ?Instructions ?Recorded ?Last Taken ?Type multivit with min-folic acid PO 08/29/23 Unknown History cefdinir 300 mg capsule 300 mg PO BID #10 caps 09/01/23 Unknown Rx methenamine hippurate 1 gram 1 g PO BID #60 tabs 09/01/23 Unknown Rx tablet (Hiprex) Allergy/AdvReac Type Severity Reaction Status Date / Time amoxicillin Allergy Rash Verified 02/27/24 12:29 ciprofloxacin (From Cipro) Allergy Hives Verified 02/27/24 12:29 ketorolac (From Toradol) AdvReac Other Verified 02/27/24 12:29 procaine (From Novocain) AdvReac Other Verified 02/27/24 12:29 Surgical History H/O: hysterectomy Hx of hernia repair History of appendectomy H/O partial thyroidectomy Social History Smoking Status: Never smoker substance use type: does not use ROS ROS ED Constitutional Constitutional ED: Denies chills, fever(s), subjective, sweats or weight loss Eyes Eyes: Denies blurry vision, change in vision or diplopia ENT ENT ED: Denies ear pain or rhinorrhea Cardiovascular Cardiovascular: Denies chest pain or palpitations Respiratory/Chest Respiratory/Chest: Denies cough, dyspnea or dyspnea on exertion Gastrointestinal Gastrointestinal: Reports abdominal pain and nausea; Denies constipation, diarrhea, melena or vomiting Genitourinary Genitourinary ED: Reports dysuria, hematuria, LMP (females 10-50) Details: Comment: (Amenorrhea due to absent ovaries) and urinary frequency Musculoskeletal Musculoskeletal: Reports back pain; Denies arthralgias, myalgias or neck pain Integumentary Denies rash Neurologic Neurologic: Denies headache(s), paresthesias or weakness Hematologic/Lymphatic Hematologic/Lymphatic: Reports systems reviewed and no addt'l complaints, except as documented EXAM Physical Exam Const Vital Signs: 02/27/24 12:29 02/27/24 14:26 Temperature 97 F L Temperature Source Temporal Pulse Rate 79 69 Respiratory Rate 16 14 Blood Pressure 112/80 115/80 Blood Pressure Mean 90 91 Pulse Ox 99 98 Oxygen Delivery Method Room Air Room Air Positive well nourished and well developed Constitutional Narrative: BMI is 32.3. General Appearance ED: well developed and NAD; Negative for cyanotic, diaphoretic or pallor HEENT Reports moist mucous membranes HEENT Narrative: Head is atraumatic normocephalic. Ears normal. Nares patent. Eyes PERRL and EOMs intact bilaterally General Eye ED: Negative for pale conjunctiva or scleral icterus Neck no lymphadenopathy, supple and no JVD Resp normal respiratory effort and clear to auscultation bilaterally Cardio regular rate, regular rhythm, S1 normal heart sound, S2 normal heart sound and no murmurs GI normal to inspection, nondistended, normoactive bowel sounds, non-distended and no masses; Negative for non-tender or hepatosplenomegaly GI Narrative: Tenderness anterior over the kidney to deep palpation. There is no inguinal mass or tenderness. Back/Spine General Back: CVA tenderness right Extremity normal to inspection General Extremety ED: Negative for edema or tenderness General Extremity: Negative for edema Neuro oriented x3 Sensorium / Orientation: alert Psych mental status grossly normal Skin no rashes or lesions noted, no wounds and skin turgor normal General Skin Exam: elasticity normal; Negative for jaundice or pallor MDM MDM MDM Narrative Medical decision making narrative: Differential diagnosis is complicated your urinary tract infection, renal stone, ureteral stone, obstructing stone with infection, pyelonephritis. CBC, BMP and UA were obtained. In light of the fact that the urine reveals hematuria without evidence infection i.e. no bacteria and the fact that it is a contaminated specimen CT of the abdomen and pelvis was ordered. I was informed the patient refuses CAT scan. Since patient refuses CAT scan will have her sign out against medical vice and will explain to her the risks of not allowing a proper workup. Since patient has a care plan she will not be discharged with opiate analgesics and reluctant to treat her pain with NSAID since she has only a solitary kidney. Furthermore the cause of her hematuria is unknown and placing her on a NSAID may cause further bleeding. Lab Data Attestation: I reviewed the patient's lab results. Lab results narrative: CBC is unremarkable. Electrolyte panel is unremarkable. Urine reveals hematuria. Labs: Laboratory Results - last 24 hr 02/27/24 02/27/24 13:55 14:05 WBC 4.5 RBC 5.25 Hgb 15.1 H Hct 46.2 MCV 88.0 MCH 28.8 MCHC 32.7 RDW Std Deviation 40.1 RDW Coeff of Teena 12.5 Plt Count 170 MPV 9.2 Immature Gran % (Auto) 0.400 Neut % (Auto) 52.0 Lymph % (Auto) 29.1 Hendry % (Auto) 17.7 H Eos % (Auto) 0.4 Baso % (Auto) 0.4 Absolute Neuts (auto) 2.4 Absolute Lymphs (auto) 1.32 Nucleated RBC % 0 Sodium 140 Potassium 3.7 Chloride 111 H Carbon Dioxide 26.0 Anion Gap 3 L BUN 10 Creatinine 0.98 Estim Creat Clear Calc 91.11 Est GFR (MDRD) Af Amer 87 Est GFR (MDRD) Non-Af 72 BUN/Creatinine Ratio 10.2 Glucose 85 Calcium 8.6 Urine Color Red Urine Clarity Turbid Urine pH 6.5 Ur Specific Geraldine 1.020 Urine Protein 100 H Urine Glucose (UA) Normal Urine Ketones Negative Urine Occult Blood 250 H Urine Nitrite Negative Urine Bilirubin Negative Urine Urobilinogen Normal Ur Leukocyte Esterase 100 H Urine RBC > 100 SEEN Urine WBC 50-100 SEEN Ur Squamous Epith Cells 10-25 SEEN Urine Bacteria 0 SEEN Urine Mucus 0 SEEN Discharge Plan Triage Chief Complaint: Flank Pain ED Provider: Kristopher Luis Dx/Rx/DC Orders Clinical Impression: Gross hematuria, Acute right flank pain, Congenital solitary kidney, BMI 32.0-32.9,adult Instructions: ED Flank Pain, Uncertain Cause, ED Hematuria Prescriptions: No Action cefdinir 300 mg capsule 300 mg PO BID Qty: 10 0RF Rx Instructions: start on 09/02/23 methenamine hippurate [Hiprex] 1 gram tablet 1 g PO BID Qty: 60 0RF Rx Instructions: start the day after you complete Cefdinir multivit with min-folic acid [Women's Multivitamin Gummies] PO Primary Care Provider: Becki Quintana Referrals: Becki Quintana, INSURANCE FOLLOW UP REPRESENTATIVE-C [Primary Care Provider] - 1-2 Days if not improving Activity Restrictions/Additional Instructions: I have been informed by Dr. Luis it is my best interest to have a CAT scan. By not permitting the sterile instrument technician to perform a CAT scan the cause of my bleeding and symptoms is unknown. I have been informed by not allowing a complete workup the following complications can occur: Inability to perform 1 or more activities of daily living (i.e. feeding myself, bathing myself, dressing myself), more advanced and invasive treatment which may include surgery, deterioration of kidney function or loss of kidney function results and dialysis, hypertension, blood loss requiring transfusion and possible reaction or infection from transfusion, deterioration of my condition requiring life support, feeding tube. If I fall because of blood loss I may injure myself resulting in a bleed in around my brain, broken bones in my spine or extremities. I have been informed that the complications not limited to what is been listed. There are other possibilities as well. Print Language: Serbian Disposition Disposition: Against Medical Advice
== END 2024-02-27 15:56 | disposition left against medical advice (07) ==
PROVIDERS: Emergency Provider Emergency Medicine; PCP Nurse Practitioner Family; Visit Provider Emergency Medicine
DX: R31.0 Gross hematuria (principal); R10.9 Unspecified abdominal pain; Q60.0 Renal agenesis, unilateral; J45.909 Unspecified asthma, uncomplicated
CPT/HCPCS: 80048; 81001; 85025; 99284

== ENCOUNTER 2024-05-24 10:14 | Emergency (ER) | payer OTHER, SELFPAY ==
[2024-05-24 10:15] VITALS: BP 131/76; PULSE 96; RESP 18; TEMP 37; O2SAT 96; BMI 32.5
--- NOTE | 2024-05-24 10:28 | ED.RN ---
PT HAVING N/V AND FLANK AND ABD PAIN. SX HAVE BEEN HAPPENING FOR 3 WEEKS PER PT. SHE STATES SHE HAS ONE KIDNEY AND HAS HAD REPEATED UTI/KIDNEY INFECTIONS
[2024-05-24 11:31] LABS: Bacteria 0 SEEN /hpf (None Seen); Mucous, Urine 0 SEEN /hpf (<or=2+); Squamous Epithelial Cells - UA 0 SEEN /hpf (5-10); White Blood Cells 0 SEEN /hpf (0-5)
[2024-05-24 11:33] LABS: Absolute Lymphocyte Count 2.05 X10^3/uL (0.83-4.51); Absolute Neutrophil Count 5.7 X10^3/uL (2.0-7.7); Basophil# 0.03 X10^3/uL; Basophil% 0.4 % (0-1); Eosinophil# 0.08 X10^3/uL; Eosinophils% 0.9 % (0-5); Hematocrit 42.9 % (37-47); Hemoglobin 14.5 g/dL (12.0-15.0); Lymphocyte # 2.05 X10^3/ul (0.83-4.51); Mean Corp Hgb Conc 33.8 g/dL (32-36); Mean Corpuscular Hgb 29.4 pg (27.0-32.0); Mean Platelet Vol. 9.9 fl (6.2-12.0); Monocyte# 0.62 X10^3/uL; Monocyte% 7.3 % (0-10); NRBC Flagged by Analyzer 0 % (0-5); Neutrophil # 5.74 X10^3/uL (2.7-7.7); Platelet Count 217 K/mm3 (150-450); RBC Distribution Width CV 12.1 % (11.6-14.6); RBC Distribution Width SD 38.7 fl (35.1-43.9); Red Blood Count 4.93 M/mm3 (4.2-5.4); White Blood Count 8.6 K/mm3 (4.4-11.0)
--- NOTE | 2024-05-24 11:40 | CT_ITS ---
PROCEDURE: ABDOMEN/PELVIS WITHOUT CONT 05/24/2024 REASON FOR EXAM: Right flank pain. Solitary kidney. TECHNIQUE: Abdomen and pelvis CT without intravenous contrast. Noncontrast technique limits evaluation of the abdominal and pelvic viscera. Coronal and Sagittal reconstruction series were provided. One or more dose reduction techniques were used (e.g., Automated exposure control, adjustment of the mA and/or kV according to patient size, use of iterative reconstruction technique). PATIENT PREPARATION: Per protocol ORAL CONTRAST TYPE: None. COMPARISON: None FINDINGS: Lung bases: Unremarkable Liver: Normal size. No obvious mass. Gallbladder: Unremarkable Spleen: Normal size. Pancreas: Normal size. No surrounding inflammation. Adrenals: Unremarkable Kidneys: Solitary right kidney. Congenital absence of the left kidney. No evidence of right renal calculus. No evidence of hydronephrosis. Bladder: Unremarkable Reproductive Organs: Prior hysterectomy. Adnexal regions are unremarkable. Bowel: Colonic diverticulosis without diverticulitis. Appendix: The appendix is not identified. There is no inflammatory process identified in the right lower quadrant to suggest appendicitis. Surgical clips are seen in the right lower quadrant. Lymph nodes: Unremarkable. Vasculature: The abdominal aorta and IVC contours are normal. Noncontrast technique limits evaluation. Peritoneum / Retroperitoneum: Unremarkable Bones: Unremarkable CT/Abdomen/Pelvis without Cont IMPRESSION: Solitary right kidney. Scattered sigmoid diverticulosis. Reading Location: [place] [id number]
--- NOTE | 2024-05-24 11:40 | ED.VIS.FEGU ---
HPI HPI - Female History of Present Illness Chief Complaint: Flank Pain Narrative Narrative: Chief complaint and HPI: Hematuria and abdominal pain. 28-year-old female with past medical history of congenital anomaly with history of 1 kidney and no ovaries as well as previous kidney infections/UTIs presents for evaluation of gross hematuria and abdominal pain. Patient states she has had gross hematuria and abdominal pain for the past 2 weeks. She states that the last several days she has developed fevers, nausea, vomiting. She denies any chest pain, shortness of breath, diarrhea, constipation. Endorses dysuria. States she no longer follows with urology here at [place]. States that she has an appointment to be established with a [facility] urologist. She is yet to see them. Patient has a care plan with our emergency department as he she has been seen here multiple times. Review of systems: See HPI Medications: As listed on the chart Allergies: As listed on the chart PFSH: Per chart Vital signs: As listed on the chart. Reviewed. Physical exam: Gen: A&O x3, NAD Head: Normocephalic, atraumatic Eyes: No sclera icterus, conjunctiva clear ENT: Moist mucous membranes Neck: Trachea midline, No JVD CV: RRR, no murmurs, no peripheral edema Resp: Lungs CTA BL, no w/r/c GI: Abd soft, non-distended, + suprapubic tenderness with voluntary guarding, no rebound or rigidity : + mild CVA tenderness on the right, urine has gross hematuria in cup Musc: Full ROM, no deformity Skin: Warm, dry Neuro: Alert, oriented, grossly intact, sensation intact Psych: Cooperative, appropriate mood and affect [facility] Medical History Gross hematuria Abdominal pain Pyelonephritis Renal abscess, right Abscess of right kidney Agenesis of left kidney UTI (urinary tract infection) Abdominal hernia History of gross hematuria Renal agenesis Thyroid disease Asthma Migraines Home Medications ?Medication ?Instructions ?Recorded ?Last Taken ?Type multivit with min-folic acid PO 08/29/23 Unknown History sulfamethoxazole 800 1 tab PO BID 14 days #28 tabs 05/24/24 Unknown Rx mg-trimethoprim 160 mg tablet (Bactrim DS) Allergy/AdvReac Type Severity Reaction Status Date / Time amoxicillin Allergy Rash Verified 05/24/24 10:15 ciprofloxacin (From Cipro) Allergy Hives Verified 05/24/24 10:15 ketorolac (From Toradol) AdvReac Other Verified 05/24/24 10:15 procaine (From Novocain) AdvReac Other Verified 05/24/24 10:15 Surgical History H/O: hysterectomy Hx of hernia repair History of appendectomy H/O partial thyroidectomy Social History Smoking Status: Never smoker substance use type: does not use EXAM Physical Exam Const Vital Signs: 05/24/24 10:15 05/24/24 11:41 05/24/24 12:00 Temperature 98.6 F 98.4 F 97.9 F Temperature Source Oral Oral Oral Pulse Rate 96 69 70 Respiratory Rate 18 16 16 Blood Pressure 131/76 H 110/72 95/63 Blood Pressure Mean 94 84 73 Pulse Ox 96 97 97 Oxygen Delivery Method Room Air Room Air Room Air 05/24/24 13:08 05/24/24 14:00 05/24/24 14:40 Temperature 98.3 F 98 F Temperature Source Oral Pulse Rate 63 64 81 Respiratory Rate 16 14 14 Blood Pressure 108/73 108/83 H 114/65 Blood Pressure Mean 84 91 81 Pulse Ox 98 98 98 Oxygen Delivery Method Room Air Room Air MDM MDM MDM Narrative Medical decision making narrative: 28-year-old female with past medical history of congenital anomaly with history of 1 kidney and no ovaries as well as previous kidney infections/UTIs presents for evaluation of gross hematuria and abdominal pain. Patient has been seen multiple times in our emergency department for this. She has a care plan. Differential diagnosis includes but is not limited to UTI, pyelonephritis, intra-abdominal abscess, electrolyte abnormality, JULIO CÉSAR. Patient has an allergy to Toradol. Her care plan recommended not giving narcotics. Patient was educated on this and confirmed understanding the plan. She states she is well aware of the care plan. NS bolus, Zofran ordered. Laboratory workup ordered including CT abdomen pelvis without contrast. CBC without leukocytosis or anemia. BMP relatively unremarkable without significant electrolyte abnormality or JULIO CÉSAR. UA is positive for blood as well as nitrates and leuk esterase however negative for WBCs and bacteria. This gives a conflicting urine for UTI. However given her history as well as her symptoms will obtain urine culture and treat for UTI. On chart review, patient has multiple urine cultures that have grown out mixed gram-positive organisms without sensitivities. Given that nitrates are positive suspect E. coli and therefore Rocephin ordered. CT abdomen pelvis shows solitary right kidney. Scattered sigmoid diverticulosis. On reevaluation, patient's vitals are stable and she is afebrile. She states she has been able to tolerate p.o. intake. No clear etiology for patient's gross hematuria. Patient states at baseline she always has gross hematuria but that it periodically worsens when she develops UTI/pyelonephritis. Given her picture, patient clinical presents as pyelonephritis. She has no leukocytosis or JULIO CÉSAR therefore I do feel that she can be safely discharged home on antibiotics. Will prescribe Bactrim x 14 days. Patient is comfortable with this plan and would like to discharge home. She will follow-up with her [facility] urologist. She states she has an appointment in June. I requested that she get an earlier appointment. If she cannot be seen earlier recommend follow-up with one of our urologist. She confirmed understand the plan. Return precautions explained. Patient stable to discharge home. Impression: 1. Pyelonephritis 2. Hematuria Lab Data Labs: Laboratory Results - last 24 hr 05/24/24 05/24/24 11:25 12:18 WBC 8.6 RBC 4.93 Hgb 14.5 Hct 42.9 MCV 87.0 MCH 29.4 MCHC 33.8 RDW Std Deviation 38.7 RDW Coeff of Teena 12.1 Plt Count 217 MPV 9.9 Immature Gran % (Auto) 0.400 Neut % (Auto) 67.0 Lymph % (Auto) 24.0 Cassia % (Auto) 7.3 Eos % (Auto) 0.9 Baso % (Auto) 0.4 Absolute Neuts (auto) 5.7 Absolute Lymphs (auto) 2.05 Nucleated RBC % 0 Sodium 137 Potassium 4.5 Chloride 108 Carbon Dioxide 19.3 L Anion Gap 10 BUN 13 Creatinine 0.90 Estim Creat Clear Calc 99.64 Est GFR (MDRD) Non-Af 89 BUN/Creatinine Ratio 13.9 Glucose 83 Lactic Acid < 1.0 Calcium 9.2 Urine Color Red Urine Clarity Cloudy Urine pH 5.0 Ur Specific [place] 1.015 Urine Protein 500 H Urine Glucose (UA) Normal Urine Ketones 5 H Urine Occult Blood 250 H Urine Nitrite Positive H Urine Bilirubin Negative Urine Urobilinogen 1 H Ur Leukocyte Esterase 100 H Urine RBC > 100 SEEN Urine WBC 0 SEEN Ur Squamous Epith Cells 0 SEEN Urine Bacteria 0 SEEN Urine Mucus 0 SEEN Urine Test Negative Radiography Diagnostic Testing: Clinical Impression(s) from Imaging Studies Abdomen/Pelvis CT 05/24/24 11:40 IMPRESSION: Solitary right kidney. Scattered sigmoid diverticulosis. Reading Location: [place] [address] Discharge Plan Triage Chief Complaint: Flank Pain ED Provider: Shin Corrigan Dx/Rx/DC Orders Instructions: ED Pyelonephritis, Female (Adult), ED UTIs Women Prescriptions: New sulfamethoxazole-trimethoprim [Bactrim DS] 800-160 mg tablet 1 tab PO BID 14 Days Qty: 28 0RF Discontinued cefdinir 300 mg capsule 300 mg PO BID Qty: 10 0RF Rx Instructions: start on 09/02/23 methenamine hippurate [Hiprex] 1 gram tablet 1 g PO BID Qty: 60 0RF Rx Instructions: start the day after you complete Cefdinir No Action multivit with min-folic acid [Women's Multivitamin Gummies] PO Primary Care Provider: Becki Quintana Referrals: Raymundo Esquivel MD [Med Staff - Active Staff] - 3-5 Days Becki Quintana, CLINICAL SECRETARY-C [Primary Care Provider] - 3-5 Days Activity Restrictions/Additional Instructions: Return back to the emergency department if symptoms change or worsen. Follow-up with your urologist. If you cannot see your urologist in a timely fashion follow-up with our urologist. Take all of your antibiotics. Follow-up with primary care physician Print Language: Irish Disposition Disposition: Home, Self Care Discharge Date/Time: 05/24/24 14:47
[2024-05-24 11:41] VITALS: BP 110/72; PULSE 69; RESP 16; TEMP 36.9; O2SAT 97
[2024-05-24] MEDS: Ondansetron 4 MG/2 ML Vial IV (11:41)
[2024-05-24] MEDS: 0.9% Normal Saline (1000mL) 1,000 ML 999 ML IV (11:41)
[2024-05-24 11:46] LABS: Color, Urine Red (Yellow); Glucose, Dipstick Normal (Normal); Ketone-Dipstick 5 mg/dl (Negative); Leukocyte Esterase-Dipstick 100 /ul (Negative); Nitrite-Dipstick Positive (Negative); Occult Blood-Urine 250 /ul (Negative); Protein-Dipstick 500 mg/dl (Negative); Specific Gravity, Urine 1.015 (1.002-1.030); Urine Bilirubin Dipstick Negative (Negative); Urine Clarity Cloudy (Clear); Urine Urobilinogen 1 mg/dl (Normal)
[2024-05-24 11:51] LABS: Red Blood Cells-Urine > 100 SEEN /hpf (0-5)
[2024-05-24 11:52] LABS: Internal QC Validated? YES +Cl - CLEAR BKGD; Pregnancy, Urine Negative Negative
[2024-05-24 12:00] VITALS: BP 95/63; PULSE 70; RESP 16; TEMP 36.6; O2SAT 97
[2024-05-24 12:17] LABS: Anion Gap 10 (5-15); BUN 13 mg/dL (4-19); BUN/Creat Ratio 13.9 RATIO (10-20); Calcium,Total 9.2 mg/dL (7.6-11.0); Carbon Dioxide 19.3 mmol/L (21.0-32.0); Chloride 108 mmol/L (98-108); EST Glomerular Filtration Rate 89 (>60); Estimated Creatinine Clearance 99.64 ml/min (50-250); Glucose 83 mg/dL (70-99); Potassium 4.5 mmol/L (3.3-5.1); Sodium Level 137 mmol/L (133-145)
[2024-05-24 13:08] VITALS: BP 108/73; PULSE 63; RESP 16; TEMP 36.8; O2SAT 98
[2024-05-24] MEDS: Ceftriaxone 1 GM/50 ML BAG IV (13:26)
[2024-05-24 13:36] LABS: Lactic Acid < 1.0 mmol/L (0.0-2.0)
[2024-05-24 14:00] VITALS: BP 108/83; PULSE 64; RESP 14; O2SAT 98
[2024-05-24 14:40] VITALS: BP 114/65; PULSE 81; RESP 14; TEMP 36.6; O2SAT 98
== END 2024-05-24 14:47 | disposition home or self-care (01) ==
PROVIDERS: Emergency Provider Surgery; PCP Nurse Practitioner Family; Referring Provider Surgery; Visit Provider Surgery
DX: N12 Tubulo-interstitial nephritis, not specified as acute or chronic (principal); R31.9 Hematuria, unspecified; Z23 Encounter for immunization
CPT/HCPCS: 74176; 80048; 81001; 81025; 83605; 85025; 87086; 87088; 90471; 96361; 96365; 96375; 99283; J2405